=== PATIENT | male | born 1945 | race Caucasian/White ===

== ENCOUNTER 2017-12-31 09:24 | Day surgery (SDC) | payer OTHER, BC ==
[2017-12-30 17:26] LABS: Absolute Lymphocytes (CBC) 1.5 K/uL (0.7-4.9); Absolute Monocytes 0.7 K/uL (0.1-1.3); Absolute Neutrophil 4.5 K/uL (1.8-8.0); Basophils % 0.5 % (0-1.3); Eosinophils % 0.9 % (0-4.4); Hematocrit 45.6 % (39.6-49.0); Lymphocytes % 21.4 % (15.3-44.8); MCH 32.6 pg (27.0-35.0); MCV 94.3 fL (80-100); MPV 10.1 fL (7.6-11.3); Monocytes % 10.7 % (3.3-12.3); RBC Red Blood Cell Count 4.83 M/uL (4.33-5.43)
[2017-12-30 17:38] LABS: Protime INR 1.13
[2017-12-30 17:43] LABS: Potassium 3.7 mmol/L (3.5-5.1)
[2017-12-31 07:34] LABS: Urine Appearance CLEAR; Urine Bilirubin NEGATIVE (NEG); Urine Blood NEGATIVE (NEG); Urine Color YELLOW; Urine Glucose NEGATIVE (NEG); Urine Microscopic Reflex NO UMIC; Urine Protein NEGATIVE (NEG); Urine Specific Gravity <=1.005 (1.005-1.030); Urine Urobilinogen 0.2 mg/dL (0.2-1.0)
--- OUTSIDE RECORDS SUMMARY | 2017-12-31 09:31 | XMS REPORT | Clinical Summary ---
:1945 Author Organization [facility] Address [address] [place] [address] Care Team Providers Name Role Phone Duran Contreras MD Primary Care Provider Allergies Active Allergy Reactions Severity Noted Date Comments Penicillins Swelling 09/11/2017 Butorphanol Tartrate Other (See Comments) 09/11/2017 Dizziness Current Medications Prescription Sig. Disp. Refills Start Date End Date Status levothyroxine Take 50 mcg by Active (SYNTHROID, LEVOXYL) mouth every 50 mcg tablet morning. liothyronine (CYTOMEL) Take 5 mcg by Active 5 MCG tablet mouth daily. tamsulosin (FLOMAX) Take 0.4 mg by Active 0.4 mg mouth 2 (two) capsule,extended times a day. release 24hr finasteride (PROSCAR) Take 5 mg by Active 5 mg tablet mouth daily. pantoprazole sodium Take 40 mg by Active (PANTOPRAZOLE ORAL) mouth daily. gabapentin (NEURONTIN) Take 300 mg by Active 300 mg capsule mouth 2 (two) times a day. mirabegron (MYRBETRIQ) Take 50 mg by Active 50 mg tablet extended mouth daily. release 24 hr escitalopram (LEXAPRO) Take 5 mg by Active 5 MG tablet mouth daily. carvedilol (COREG) 25 Take 12.5 mg by Active MG tablet mouth 2 (two) times a day. apixaban (ELIQUIS) 5 Take 5 mg by Active mg tablet mouth 2 (two) times a day. sotalol (BETAPACE) 80 Take 80 mg by Active MG tablet mouth 2 (two) times a day. aspirin (ECOTRIN) 81 Take 1 tablet 30 tablet 0 09/11/2017 10/11/2017 MG enteric coated (81 mg total) tablet by mouth daily for 30 days. Active Problems Not on file Encounters Date Type Specialty Care Team Description 09/11/2017 Hospital Encounter Procedural Cristopher, Bhanu Atrial fibrillation, Cardiology MD Gayla unspecified type 09/11/2017 Procedure Pass Procedural Cardiology 09/11/2017 Surgery Procedural Bhanu Nicholas Ep cardioversion Cardiology MD Gayla [[id number] (CPT)] after 12/30/2016 Family History Medical History Relation Name Comments Heart disease Mother Relation Name Status Comments Mother Social History Tobacco Use Types Packs/Day Years Used Date Never Smoker Smokeless Tobacco: Never Used Alcohol Use Drinks/Week oz/Week Comments No Sex Assigned at Date Recorded Not on file Last Filed Vital Signs Vital Sign Reading Time Taken Blood Pressure 141/82 09/11/2017 8:45 AM CDT Pulse 62 09/11/2017 8:45 AM CDT Temperature 36.7 C (98.1 F) 09/11/2017 6:45 AM CDT Respiratory Rate 21 09/11/2017 8:45 AM CDT Oxygen Saturation 94% 09/11/2017 8:45 AM CDT Inhaled Oxygen Concentration - - Weight 103 kg (227 lb 3.2 oz) 09/11/2017 6:25 AM CDT Height 180.3 cm (5' 11") 09/11/2017 6:25 AM CDT Body Mass Index 31.69 09/11/2017 6:25 AM CDT Plan of Treatment Not on file Procedures Procedure Name Priority Date/Time Associated Diagnosis Comments ECG 12-LEAD STAT 09/11/2017 8:23 AM Results for this CDT procedure are in the results section. EP CARDIOVERSION Routine 09/11/2017 8:16 AM Atrial fibrillation, Results for this CDT unspecified type procedure are in the results section. ECG PRE/POST OP Routine 09/11/2017 6:13 AM Results for this CDT procedure are in the results section. after 12/30/2016 Results ECG 12 lead (09/11/2017 8:23 AM) Ventricular rate 65 [facility] Atrial rate 65 [facility] RI interval 162 [facility] QRSD interval 94 [facility] QT interval 452 [facility] QTC interval 470 [facility] P axis 1 68 [facility] QRS axis 1 -25 [facility] T wave axis -30 [facility] EKG impression Normal sinus rhythm-Inferior infarct , age undetermined-Cannot rule out Anterior infarct , age undetermined-Abnormal ECG-In automated comparison with ECG of 11-SEP-2017 06:13,-Sinus rhythm has replaced [facility] Atrial fibrillation-Vent. rate has decreased BY33 BPM- : 18 AM Performing Organization Address [facility] Phone Number [facility] [address] [place] [address] Cv electrophysiology procedure (09/11/2017 8:16 AM) Narrative Performed At Coy Lamb,[id number] [facility] 71 y.o. male 09/11/2017; [facility] 8 PROCEDURE ROOM 14 Procedure(s): Ep cardioversion Tolerated procedure well Condition: stable Complications:None; patient tolerated the procedure well. Findings: The patient was identified and consent reconfirmed prior to the procedure The baseline rhythm was atrial fibrillation Anesthesia was given When the patient was adequately sedated, synchronized DC CVN was performed converting the patient to sinus The patient awoke without sequelae Procedure Details Pre-op Diagnosis: Atrial fibrillation, unspecified type [I48.91] Post-Op Diagnosis Codes: * Atrial fibrillation, unspecified type [I48.91] Surgeon(s) and Role: * Bhanu Nicholas Jr., MD - Primary Anesthesia: Anesthesia type not filed in the log. Blood Products Administered:none Estimated Blood Loss: * No values recorded between 09/11/20176:48 AM and 09/11/20178:16 AM * Sheath/IV: Specimens: * No specimens in log * Grafts/Implants: None Successful Cardioversion from Afib to NSR Recommendations:Continue OAC and Sotalol and follow in the office in 3 weeks to assess any clinical benefit Bhanu Nicholas Jr., MD Date: 09/11/2017Time: 8:25 AM Performing Organization Address [facility] Phone Number [facility] [address] [place] [address] ECG Pre/Post Op (09/11/2017 6:13 AM) Ventricular rate 98 [facility] Atrial rate 113 [facility] QRSD interval 96 [facility] QT interval 386 [facility] QTC interval 492 [facility] QRS axis 1 -19 [facility] T wave axis 7 [facility] EKG impression Atrial fibrillation-Nonspecific T wave [facility] abnormality-Abnormal ECG-No previous ECGs available- Performing Organization Address City/State/Zipcode Phone Number [facility] [address] [place] [address] after 12/30/2016 Insurance Payer Benefit Plan / Group Subscriber ID Type Phone Address MEDICARE MEDICARE PART A AND B xxxxxxxxxx Medicare [place], [place] BCBS BCBS PAR/TRAD PLAN xxxxxxxxxxxx Indemnity Home: [address] [facility] [phone] [address]
--- NOTE | 2017-12-31 10:23 | RAD REPORT ---
EXAM DESCRIPTION: RAD - Abdomen 1 View (KUB) - 12/31/2017 9:53 am CLINICAL HISTORY: PREOP Pain COMPARISON: Angio Aorta For Dissection dated 07/14/2016 FINDINGS: The bowel gas pattern is non-obstructive. No evidence of free air or pneumatosis. No suspi cious calcifications. No significant bony findings. Cholecystectomy clips. IMPRESSION: Negative examination.
[2017-12-31] MEDS ORDERED: GENTAMICIN 100 MG/100 ML BAG 100 MG/100 ML BAG IV ONE (10:36)
[2017-12-31] MEDS ORDERED: Ringers Lactate 1,000 ML IV ONE (10:36)
[2017-12-31] MEDS ORDERED: LIDOCAINE 1% MPF 5 ML VIAL ONE (11:37)
[2017-12-31] MEDS ORDERED: FENTANYL CITR 100 MCG/2 ML ONE (11:37)
[2017-12-31] MEDS ORDERED: PROPOFOL 200 MG/20 ML VIAL IV ONE (11:37)
[2017-12-31] MEDS ORDERED: EPHEDRINE SULF 50 MG/10 ML SYR ONE (11:50)
[2017-12-31] MEDS ORDERED: ONDANSETRON HCL 40 MG/20 ML VIAL ONE (12:10)
[2017-12-31] MEDS ORDERED: TRAMADOL HCL 50 MG TAB ONE (13:48)
== END 2017-12-31 14:45 | disposition home or self-care (01) ==
LOC: OR 09:24
PROVIDERS: ATTEND Urology
PROC: 0V508ZZ Destruction of Prostate, Via Natural or Artificial Opening Endoscopic (ICD-10-PCS; principal; 2017-12-31 11:30)
DX: N40.1 Benign prostatic hyperplasia with lower urinary tract symptoms (principal); N20.0 Calculus of kidney; R39.12 Poor urinary stream
CPT/HCPCS: 36415; 52601; 74018; 80048; 81003; 85025; 85610; 85730; 87086 ×2; 87088 ×2; J1580; J2405; J3010

== ENCOUNTER 2018-01-01 14:57 | Emergency (ER) | payer OTHER, BC ==
--- OUTSIDE RECORDS SUMMARY | 2018-01-01 14:59 | XMS REPORT | Clinical Summary ---
:1945 Author Organization [facility] Address [address] [place] [address] Care Team Providers Name Role Phone Duran [...] Bhanu Nicholas Ep cardioversion Cardiology MD Gayla [[id number] (CPT)] after 12/31/2016 Family History Medical History Relation Name Comments [...] procedure are in the results section. after 12/31/2016 Results ECG 12 lead (09/11/2017 8:23 AM) Ventricular rate 65 [facility] Atrial rate 65 [facility] [place] interval 162 [facility] QRSD interval 94 [...] ECG of 11-SEP-2017 06:13,-Sinus rhythm has replaced [facility] Atrial fibrillation-Vent. rate has decreased BY33 BPM- : 18 AM Performing Organization Address [facility] Phone Number [facility] [address] [place] [address] Cv electrophysiology procedure (09/11/2017 8:16 AM) Narrative Performed At Coy Lamb,[id number] CUPID 71 y.o. male 09/11/2017; [facility] 8 PROCEDURE ROOM 14 Procedure(s): [...] Date: 09/11/2017Time: 8:25 AM Performing Organization Address [facility] Phone Number [facility] [address] [place] [address] ECG Pre/Post Op (09/11/2017 6:13 AM) Ventricular rate 98 [facility] Atrial rate 113 [facility] QRSD interval 96 [facility] QT interval 386 [facility] QTC interval 492 [facility] QRS axis 1 -19 [facility] T wave axis 7 [facility] EKG impression Atrial fibrillation-Nonspecific T wave [facility] abnormality-Abnormal ECG-No previous ECGs available- Performing Organization Address City/State/Zipcode Phone Number [facility] [address] [place] [address] after 12/31/2016 Insurance Payer Benefit Plan / Group Subscriber ID Type Phone Address MEDICARE MEDICARE PART A AND B xxxxxxxxxx Medicare [place], [place] BCBS BCBS PAR/TRAD PLAN xxxxxxxxxxxx Indemnity Home: [address] [facility] [phone] [address]
[2018-01-01 15:52] LABS: Urine Blood 3+ (NEG); Urine Glucose NEGATIVE (NEG); Urine Protein 3+ (NEG); Urine Specific Gravity >1.030 (1.005-1.030)
[2018-01-01 16:00] LABS: Absolute Lymphocytes (CBC) 1.2 K/uL (0.7-4.9); Absolute Neutrophil 11.5 K/uL (1.8-8.0); Basophils % 0.3 % (0-1.3); Eosinophils % 0.3 % (0-4.4); Hematocrit 42.6 % (39.6-49.0); Lymphocytes % 8.1 % (15.3-44.8); MCH 32.2 pg (27.0-35.0); MPV 9.9 fL (7.6-11.3); Monocytes % 13.3 % (3.3-12.3); RBC Red Blood Cell Count 4.58 M/uL (4.33-5.43)
[2018-01-01] MEDS ORDERED: NA CHLORIDE 0.9% 1,000 ML ONE (16:11)
[2018-01-01 16:17] LABS: Albumin 3.6 g/dL (3.4-5.0); Bilirubin Total 1.9 mg/dL (0.2-1.0); Potassium 3.7 mmol/L (3.5-5.1); Protein, Total 6.9 g/dL (6.4-8.2); Urine Bacteria >50 /HPF (NONE SEEN); Urine Mucus 1+ /HPF (NONE SEEN); Urine RBC >50 /HPF (NONE SEEN)
[2018-01-01 16:18] LABS: Urine Culture Reflex Order NOT NEEDED
[2018-01-01] MEDS ORDERED: CEFTRIAXONE/SWI 1gm 1 GM/10 ML SYR ONE (17:27)
[2018-01-01] MEDS ORDERED: ALBUTEROL 2.5 MG/3 ML NEB SOL ONE (17:27)
[2018-01-01] MEDS ORDERED: IPRATROPIUM BROM 0.5MG/2.5ML ONE (17:27)
--- NOTE | 2018-01-01 18:04 | EDPHYS ---
Physician Documentation [facility] Name: Sunday Pinto Jr Age: 72 yrs Sex: Male : 1945 Arrival Date: 01/01/2018 Time: 15:00 Bed 28 Private MD: Duran Contreras ED Physician Donta Willard HPI: 01/01 15:14 This 72 yrs old Male presents to ER via Ambulatory with complaints of Fever. kav 15:42 The patient reports fever, not measured (subjective), that was measured at 99.9 degrees kav Fahrenheit, with an emergency department temperature of 98.6 degrees Fahrenheit. Onset: The symptoms/episode began/occurred acutely, just prior to arrival. Modifying factors: patient reports having a TURP 12/31/17 w/ Dr. Hanna. Associated signs and symptoms: Pertinent negatives: chills, myalgias, nausea. Severity of symptoms: At their worst the symptoms were mild just prior to arrival. The patient has not experienced similar symptoms in the past. The patient has been recently seen by a physician: Dr. Hanna. Historical: - Allergies: 15:10 Bactrim; hj 15:10 butorphanol tartrate; hj 15:10 PENICILLINS; hj 15:10 Stadol; hj - Home Meds: 15:10 tamsulosin 0.4 mg Oral cp24 1 cap once daily [Active]; Eliquis 5 mg oral tab 1 tab 2 hj times per day [Active]; sotalol 80 mg Oral tab 1 tab 2 times per day [Active]; finasteride 5 mg Oral tab 1 tab once daily [Active]; pantoprazole 40 mg Oral TbEC 1 tab once daily [Active]; pantoprazole 40 mg oral TbEC 1 tab once daily [Active]; Aspir-81 81 mg Oral TbEC 1 tab once daily [Active]; levothyroxine 50 mcg tab 1 tab once daily [Active]; liothyronine 5 mcg oral tab 1 tab once daily [Active]; gabapentin 300 mg oral cap 1 cap 3 times per day [Active]; galantamine 4 mg oral tab 1 tab 2 times per day [Active]; escitalopram oxalate 5 mg oral tab 1 tab once daily [Active]; ropinirole 0.5 mg oral tab 1 tab daily [Active]; meloxicam 15 mg oral tab 1 tab once daily [Active]; tramadol 50 mg Oral tab 1 tab every 6 hours [Active]; nitrofurantoin macrocrystal 100 mg Oral cap 1 cap every 6 hours [Active]; - PMHx: 15:10 Anxiety; BPH; Hypertension; Hypothyroidism; hj - PSHx: 15:10 Cholecystectomy; Tonsillectomy; colectomy; R shoulder; TURP; hj - Immunization history:: Adult Immunizations up to date. - Social history:: Smoking status: Patient/guardian denies using tobacco, Patient/guardian denies using alcohol. - Ebola Screening: : Patient negative for fever greater than or equal to 101.5 degrees Fahrenheit, and additional compatible Ebola Virus Disease symptoms Patient denies exposure to infectious person Patient denies travel to an Ebola-affected area in the 21 days before illness onset. - Family history:: not pertinent. - Hospitalizations: : No recent hospitalization is reported. - History obtained from: . ROS: 15:44 Constitutional: Negative for fever, chills, and weight loss, Eyes: Negative for injury, kav pain, redness, and discharge, ENT: Negative for injury, pain, and discharge, Neck: Negative for injury, pain, and swelling, Cardiovascular: Negative for chest pain, palpitations, and edema, Respiratory: Negative for shortness of breath, cough, wheezing, and pleuritic chest pain, Abdomen/GI: Negative for abdominal pain, nausea, vomiting, diarrhea, and constipation, Back: Negative for injury and pain, MS/Extremity: Negative for injury and deformity, Skin: Negative for injury, rash, and discoloration, Neuro: Negative for headache, weakness, numbness, tingling, and seizure, Psych: Negative for depression, anxiety, suicide ideation, homicidal ideation, and hallucinations, Allergy/Immunology: Negative for hives, rash, and allergies, Endocrine: Negative for neck swelling, polydipsia, polyuria, polyphagia, and marked weight changes, Hematologic/Lymphatic: Negative for swollen nodes, abnormal bleeding, and unusual bruising. 15:44 : Positive for small amounts, hematuria, Negative for urinary symptoms, urinary frequency, pelvic pain, burning with urination, testicular pain Exam: 15:44 Constitutional: This is a well developed, well nourished patient who is awake, alert, kav and in no acute distress. Head/Face: Normocephalic, atraumatic. Eyes: Pupils equal round and reactive to light, extra-ocular motions intact. Lids and lashes normal. Conjunctiva and sclera are non-icteric and not injected. Cornea within normal limits. Periorbital areas with no swelling, redness, or edema. ENT: Nares patent. No nasal discharge, no septal abnormalities noted. Tympanic membranes are normal and external auditory canals are clear. Oropharynx with no redness, swelling, or masses, exudates, or evidence of obstruction, uvula midline. Mucous membranes moist. Neck: Trachea midline, no thyromegaly or masses palpated, and no cervical lymphadenopathy. Supple, full range of motion without nuchal rigidity, or vertebral point tenderness. No Meningismus. Chest/axilla: Normal chest wall appearance and motion. Nontender with no deformity. No lesions are appreciated. Cardiovascular: Regular rate and rhythm with a normal S1 and S2. No gallops, murmurs, or rubs. Normal PMI, no JVD. No pulse deficits. Respiratory: Lungs have equal breath sounds bilaterally, clear to auscultation and percussion. No rales, rhonchi or wheezes noted. No increased work of breathing, no retractions or nasal flaring. Abdomen/GI: Soft, non-tender, with normal bowel sounds. No distension or tympany. No guarding or rebound. No evidence of tenderness throughout. Back: No spinal tenderness. No costovertebral tenderness. Full range of motion. Skin: Warm, dry with normal turgor. Normal color with no rashes, no lesions, and no evidence of cellulitis. MS/ Extremity: Pulses equal, no cyanosis. Neurovascular intact. Full, normal range of motion. Neuro: Awake and alert, GCS 15, oriented to person, place, time, and situation. Cranial nerves II-XII grossly intact. Motor strength 5/5 in all extremities. Sensory grossly intact. Cerebellar exam normal. Normal gait. Psych: Awake, alert, with orientation to person, place and time. Behavior, mood, and affect are within normal limits. 15:44 : CVA tenderness, is absent, Male external genitalia: normal, Bladder: is normal. Vital Signs: 15:11 BP 150 / 84; Pulse 60; Resp 18; Temp 98.4(O); Pulse Ox 97% on R/A; Weight 98.43 kg; hj Height 5 ft. 11 in. (180.34 cm); Pain 0/10; 15:30 BP 145 / 71; Pulse 53; Resp 18; Pulse Ox 96% on R/A; tl3 17:00 BP 165 / 80; Pulse 59; Resp 18; Pulse Ox 94% on R/A; tl3 18:00 BP 155 / 78; Pulse 67; Resp 18; Pulse Ox 98% ; tl3 15:11 Body Mass Index 30.27 (98.43 kg, 180.34 cm) MDM: 15:23 Medical screening is not applicable. kav 16:49 Data reviewed: vital signs, nurses notes, lab test result(s), CBC, electrolytes, kav urinalysis. Physician consultation: Katia Hanna MD was called at 16:51, was contacted at 16:51, regarding patient's condition, would like medications started, cipro 500 mg po bid x 7 days. 01/01 15:24 Order name: CBC with Diff; Complete Time: 16:14 [facility] 01/01 15:24 Order name: Creatinine for Radiology; Complete Time: 16:15 ka 01/01 15:24 Order name: Urine Microscopic Only; Complete Time: 16:49 kav 01/01 15:24 Order name: CMP; Complete Time: 16:49 [facility] 01/01 15:50 Order name: Urine Dipstick--Ancillary (enter results); Complete Time: 16:14 bd 01/01 16:14 Interpretation: USPGR >1.030; UKET 3+; UBLD 3+; UPROT 3+; U NIT POSITIVE; UESTR 1+. ka 01/01 15:24 Order name: IV Saline Lock; Complete Time: 16:00 kav 01/01 15:24 Order name: Labs collected and sent; Complete Time: 16:00 [facility] 01/01 15:24 Order name: Urine Dipstick-Ancillary (obtain specimen); Complete Time: 16:00 ka Administered Medications: 16:10 Drug: NS 0.9% 1000 ml Route: IV; Rate: 100 ml/hr; Site: left antecubital; Delivery: tl3 Primary tubing; 18:14 Follow up: IV Status: Completed infusion; IV Intake: 400ml tl3 17:20 Drug: DuoNeb (3:1) (2.5 mg - 0.5 mg) 3 ml Route: Nebulizer; tl3 18:12 Follow up: Response: No adverse reaction tl3 17:25 Drug: Rocephin - (cefTRIAXone) 1 grams Route: IVPB; Infused Over: 30 mins; Site: left tl3 antecubital; Delivery: Primary tubing; 17:57 Follow up: IV Status: Completed infusion; IV Intake: 20ml tl3 Disposition: 18:46 Co-signature as Attending Physician, Donta Willard MD. rn Disposition: 01/01/18 18:03 Discharged to Home. Impression: Urinary tract infection, site not specified, Fever, unspecified. - Condition is Stable. - Discharge Instructions: Fever, Adult, Urinary Tract Infection, Adult, [id number]. - Prescriptions for Cipro 500 mg Oral Tablet - take 1 tablet by ORAL route every 12 hours for 7 days; 14 tablet. - Medication Reconciliation Form, Thank You Letter, Antibiotic Education form. - Follow up: Katia Hanna MD; When: 5 - 6 days; Reason: Recheck today's complaints, Continuance of care, Re-evaluation by your physician. - Problem is new. - Symptoms have improved. Signatures: Dispatcher [employer] EDSuha Reardon, [employer] WEB DEVELOPER [employer] WEB DEVELOPER Donta Chan MD MD rn Joaquin, Henry, RN RN hj Lowrey, Tammy, RN RN tl3 Corrections: (The following items were deleted from the chart) 18:13 18:03 01/01/2018 18:03 Discharged to Home. Impression: Urinary tract infection, site tl3 not specified; Fever, unspecified. Condition is Stable. Forms are Medication Reconciliation Form, Thank You Letter, Antibiotic Education, Prescription Opioid Use. Follow up: Katia Hanna; When: 5 - 6 days; Reason: Recheck today's complaints, Continuance of care, Re-evaluation by your physician. Problem is new. Symptoms have improved. destiny
--- NOTE | 2018-01-01 18:04 | ER ---
Nurse's Notes [facility] Name: Sunday Pinto Jr Age: 72 yrs Sex: Male : 1945 Arrival Date: 01/01/2018 Time: 15:00 Bed 28 Private MD: Duran Contreras Diagnosis: Urinary tract infection, site not specified;Fever, unspecified Presentation: 01/01 15:04 Presenting complaint: Patient states: has a TURP done yesterday, and today, temp was hj around 99.9; denies chills; denies nausea and vomiting;. Transition of care: patient was not received from another setting of care. Onset of symptoms was January 01, 2018. Risk Assessment: Do you want to hurt yourself or someone else? Patient reports no desire to harm self or others. Initial Sepsis Screen: Does the patient meet any 2 criteria? No. Patient's initial sepsis screen is negative. Does the patient have a suspected source of infection? No. Patient's initial sepsis screen is negative. Care prior to arrival: None. 15:04 Method Of Arrival: Ambulatory hj 15:04 Acuity: SABINO 3 hj Triage Assessment: 15:11 General: Appears in no apparent distress. uncomfortable, Behavior is calm, cooperative, hj appropriate for age. Pain: Denies pain. Historical: - Allergies: 15:10 Bactrim; hj 15:10 butorphanol tartrate; hj 15:10 PENICILLINS; hj 15:10 Stadol; hj - Home Meds: 15:10 tamsulosin 0.4 mg Oral cp24 1 cap once daily [Active]; Eliquis 5 mg oral tab 1 tab 2 hj times per day [Active]; sotalol 80 mg Oral tab 1 tab 2 times per day [Active]; finasteride 5 mg Oral tab 1 tab once daily [Active]; pantoprazole 40 mg Oral TbEC 1 tab once daily [Active]; pantoprazole 40 mg oral TbEC 1 tab once daily [Active]; Aspir-81 81 mg Oral TbEC 1 tab once daily [Active]; levothyroxine 50 mcg tab 1 tab once daily [Active]; liothyronine 5 mcg oral tab 1 tab once daily [Active]; gabapentin 300 mg oral cap 1 cap 3 times per day [Active]; galantamine 4 mg oral tab 1 tab 2 times per day [Active]; escitalopram oxalate 5 mg oral tab 1 tab once daily [Active]; ropinirole 0.5 mg oral tab 1 tab daily [Active]; meloxicam 15 mg oral tab 1 tab once daily [Active]; tramadol 50 mg Oral tab 1 tab every 6 hours [Active]; nitrofurantoin macrocrystal 100 mg Oral cap 1 cap every 6 hours [Active]; - PMHx: 15:10 Anxiety; BPH; Hypertension; Hypothyroidism; hj - PSHx: 15:10 Cholecystectomy; Tonsillectomy; colectomy; R shoulder; TURP; hj - Immunization history:: Adult Immunizations up to date. - Social history:: Smoking status: Patient/guardian denies using tobacco, Patient/guardian denies using alcohol. - Ebola Screening: : Patient negative for fever greater than or equal to 101.5 degrees Fahrenheit, and additional compatible Ebola Virus Disease symptoms Patient denies exposure to infectious person Patient denies travel to an Ebola-affected area in the 21 days before illness onset. - Family history:: not pertinent. - Hospitalizations: : No recent hospitalization is reported. - History obtained from: . Screenin:11 Abuse screen: Denies threats or abuse. Denies injuries from another. Nutritional hj screening: No deficits noted. Tuberculosis screening: No symptoms or risk factors identified. Fall Risk None identified. Assessment: 15:30 General: Appears uncomfortable, well groomed, well developed, well nourished, Behavior tl3 is calm, cooperative, appropriate for age. Pain: Denies pain. Neuro: Level of Consciousness is awake, alert, obeys commands, Oriented to person, place, time, situation, Appropriate for age. Cardiovascular: Patient's skin is warm and dry. Respiratory: Airway is patent Respiratory effort is even, unlabored, Respiratory pattern is regular, symmetrical. GI: No signs and/or symptoms were reported involving the gastrointestinal system. : Urine is blood tinged, Reports catheter removed this am, slight fever this afternoon. EENT: No signs and/or symptoms were reported regarding the EENT system. Derm: No signs and/or symptoms reported regarding the dermatologic system. Musculoskeletal: No signs and/or symptoms reported regarding the musculoskeletal system. 17:00 Reassessment: Patient appears in no apparent distress at this time. No changes from tl3 previously documented assessment. Patient and/or family updated on plan of care and expected duration. Pain level reassessed. Patient is alert, oriented x 3, equal unlabored respirations, skin warm/dry/pink. Vital Signs: 15:11 BP 150 / 84; Pulse 60; Resp 18; Temp 98.4(O); Pulse Ox 97% on R/A; Weight 98.43 kg; hj Height 5 ft. 11 in. (180.34 cm); Pain 0/10; 15:30 BP 145 / 71; Pulse 53; Resp 18; Pulse Ox 96% on R/A; tl3 17:00 BP 165 / 80; Pulse 59; Resp 18; Pulse Ox 94% on R/A; tl3 18:00 BP 155 / 78; Pulse 67; Resp 18; Pulse Ox 98% ; tl3 15:11 Body Mass Index 30.27 (98.43 kg, 180.34 cm) ED Course: 15:00 Patient arrived in ED. mr 15:00 Duran Contreras MD is Private Physician. mr 15:05 Triage completed. hj 15:11 Arm band placed on left wrist. hj 15:11 Patient has correct armband on for positive identification. Bed in low position. Call hj light in reach. Side rails up X 1. Adult w/ patient. 15:14 Suha Lazcano FNP is PHCP. kav 15:14 Donta Willard MD is Attending Physician. kav 15:30 No provider procedures requiring assistance completed. Inserted saline lock: 20 gauge tl3 in left antecubital area, using aseptic technique. Blood collected. 15:34 Anabel Jones, LUCRETIA is Primary Nurse. tl3 18:00 IV discontinued, intact, bleeding controlled, No redness/swelling at site. Pressure tl3 dressing applied. 18:02 Katia Hanna MD is Referral Physician. kav Administered Medications: 16:10 Drug: NS 0.9% 1000 ml Route: IV; Rate: 100 ml/hr; Site: left antecubital; Delivery: tl3 Primary tubing; 18:14 Follow up: IV Status: Completed infusion; IV Intake: 400ml tl3 17:20 Drug: DuoNeb (3:1) (2.5 mg - 0.5 mg) 3 ml Route: Nebulizer; tl3 18:12 Follow up: Response: No adverse reaction tl3 17:25 Drug: Rocephin - (cefTRIAXone) 1 grams Route: IVPB; Infused Over: 30 mins; Site: left tl3 antecubital; Delivery: Primary tubing; 17:57 Follow up: IV Status: Completed infusion; IV Intake: 20ml tl3 Intake: 17:57 IV: 20ml; Total: 20ml. tl3 18:14 IV: 400ml; Total: 420ml. tl3 Outcome: 18:00 Discharged to home ambulatory. tl3 18:00 Condition: stable 18:00 Discharge instructions given to patient, family, Instructed on discharge instructions, follow up and referral plans. medication usage, Demonstrated understanding of instructions, follow-up care, medications, Prescriptions given X 1. 18:03 Discharge ordered by MD. dixon 18:13 Patient left the ED. tl3 Signatures: Suha Lazcano, AIRPORT DUTY MANAGER AIRPORT DUTY MANAGER Tete Marquez ArielBud, RN RN Anabel Medley RN RN tl3 Corrections: (The following items were deleted from the chart) 15:14 15:11 Pulse 65bpm; Resp 18bpm; Pulse Ox 100% RA; Temp 98.4F Oral; 98.43 kg; Height 5 hj ft. 11 in.; BMI: 30.2; Pain 0/10; hj
== END 2018-01-01 18:13 | disposition home or self-care (01) ==
LOC: ER 14:57
DX: N39.0 Urinary tract infection, site not specified (principal); I10 Essential (primary) hypertension; E03.9 Hypothyroidism, unspecified; F41.9 Anxiety disorder, unspecified; Z79.01 Long term (current) use of anticoagulants; Z79.82 Long term (current) use of aspirin; Z88.0 Allergy status to penicillin; Z88.1 Allergy status to other antibiotic agents; Z88.5 Allergy status to narcotic agent; Z88.8 Allergy status to other drugs, medicaments and biological substances
CPT/HCPCS: 36415; 80053; 85025; J0696; J7030; 81003; 81015; 94640; 96361; 96365; 99284

== ENCOUNTER 2018-01-06 14:51 | Observation (INO) | payer OTHER, BC ==
--- OUTSIDE RECORDS SUMMARY | 2018-01-06 14:53 | XMS REPORT | Clinical Summary ---
:1945 Author Organization [facility] Address [address] [place] [address] Care Team Providers Name Role Phone Duran [...] Bhanu Nicholas Ep cardioversion Cardiology MD Gayla [[id number] (CPT)] after 01/05/2017 Family History Medical History Relation Name Comments [...] procedure are in the results section. after 01/05/2017 Results ECG 12 lead (09/11/2017 8:23 AM) Ventricular rate 65 [facility] Atrial rate 65 [facility] WA interval 162 [facility] QRSD interval 94 [...] ECG of 11-SEP-2017 06:13,-Sinus rhythm has replaced [facility] Atrial fibrillation-Vent. rate has decreased BY33 BPM- : 18 AM Performing Organization Address [facility] Phone Number [facility] [address] [place] [address] Cv electrophysiology procedure (09/11/2017 8:16 AM) Narrative Performed At [facility],[id number] [facility] 71 y.o. male 09/11/2017; [facility] 8 PROCEDURE ROOM 14 [...] Date: 09/11/2017Time: 8:25 AM Performing Organization Address [facility] Phone Number [facility] [address] [place] [address] ECG Pre/Post Op (09/11/2017 6:13 AM) Ventricular rate 98 [facility] Atrial rate 113 [facility] QRSD interval 96 [facility] QT interval 386 [facility] QTC interval 492 [facility] QRS axis 1 -19 [facility] T wave axis 7 [facility] EKG impression Atrial fibrillation-Nonspecific T wave [facility] abnormality-Abnormal ECG-No previous ECGs available- Performing Organization Address City/State/Zipcode Phone Number [facility] [address] [place] [address] after 01/05/2017 Insurance Payer Benefit Plan / Group Subscriber ID Type Phone Address MEDICARE MEDICARE PART A AND B xxxxxxxxxx Medicare [place], [place] BCBS BCBS PAR/TRAD PLAN xxxxxxxxxxxx Indemnity Home: [address] [facility] [phone] [address]
[2018-01-06] MEDS ORDERED: NA CHLORIDE 0.9% 1,000 ML ONE ×2 (15:30→16:12)
--- NOTE | 2018-01-06 15:47 | RAD REPORT ---
EXAM DESCRIPTION: CT - Head Brain Wo Cont - 01/06/2018 3:42 pm CLINICAL HISTORY: Transient alteration of awareness, hypotension COMPARISON: None. TECHNIQUE: Axial 5 mm thick images of the head were obtained without IV contrast. All CT scans are performed using dose optimization technique as appropriate and may include automated exposure control or mA/KV adjustment according to patient size. FINDINGS: No intracranial hemorrhage, mass, edema or shift of mid-line structures. No acute cortical based infarction. Patient has mild to moderate atrophy and chronic ischemic change. No abnormal extr a-axial fluid collections. Ventricles are in proportion to volume loss. Mastoid air cells and visualized portions of the paranasal sinuses are clear. No acute bony findings. IMPRESSION: Mild to moderate atrophy and chronic ischemic change. No acute intracranial finding.
[2018-01-06 15:54] LABS: Absolute Lymphocytes (CBC) 1.3 K/uL (0.7-4.9); Absolute Monocytes 0.9 K/uL (0.1-1.3); Absolute Neutrophil 4.6 K/uL (1.8-8.0); Basophils % 0.5 % (0-1.3); Eosinophils % 0.9 % (0-4.4); Hematocrit 40.8 % (39.6-49.0); Lymphocytes % 18.3 % (15.3-44.8); MCH 32.3 pg (27.0-35.0); MCV 94.6 fL (80-100); MPV 9.9 fL (7.6-11.3); Monocytes % 13.2 % (3.3-12.3); RBC Red Blood Cell Count 4.31 M/uL (4.33-5.43)
--- NOTE | 2018-01-06 15:56 | RAD REPORT ---
EXAM DESCRIPTION: RAD - Chest Single View - 01/06/2018 3:37 pm CLINICAL HISTORY: Cough COMPARISON: December 10 TECHNIQUE: AP portable chest image was obtained 1533 hours . FINDINGS: Lungs are clear. No failure or volume overload. Lung markings are similar to comparison. H eart and vasculature are normal. No measurable pleural effusion and no pneumothorax. No acute bone fi nding. No acute aortic findings suspected. IMPRESSION: No acute cardiopulmonary process. No significant change from comparison.
[2018-01-06 15:57] LABS: Protime INR 1.46
--- NOTE | 2018-01-06 16:07 | ER ---
Nurse's Notes [facility] Name: Sunday Pinto Jr Age: 72 yrs Sex: Male : 1945 Arrival Date: 01/06/2018 Time: 14:57 Bed 4 Private MD: Diagnosis: Syncope and collapse;Weakness;Atrial fibrillation and flutter;Hypotension Presentation: 01/06 14:58 Presenting complaint: EMS states: pt was at [facility] and complained of aa5 dizziness went home and continued feeling dizzy and called 911. EMS reports pt's BP was 79 systolic and after NS bolus increased to 90s systolic and then to 130s systolic. Pt denies pain at this time, c/o dizziness and generalized weakness. EMS also reports pt had TURP sx by Dr. Hanna last week. Transition of care: patient was not received from another setting of care. Onset of symptoms was January 06, 2018. Risk Assessment: Do you want to hurt yourself or someone else? Patient reports no desire to harm self or others. Initial Sepsis Screen: Does the patient meet any 2 criteria? No. Patient's initial sepsis screen is negative. Does the patient have a suspected source of infection? No. Patient's initial sepsis screen is negative. Care prior to arrival: Medication(s) given: Normal saline infusion, 500 mL, IV initiated. 20 GA, in the right hand, Glucose check: 94. 14:58 Method Of Arrival: EMS: [facility] aa5 14:58 Acuity: SABINO 3 aa5 Historical: - Allergies: 14:58 Bactrim; aa5 14:58 butorphanol tartrate; aa5 14:58 PENICILLINS; aa5 14:58 Stadol; aa5 - Home Meds: 16:16 Aspir-81 81 mg Oral TbEC 1 tab once daily [Active]; Eliquis 5 mg Oral tab 1 tab 2 times mg2 per day [Active]; escitalopram oxalate 5 mg Oral tab 1 tab once daily [Active]; finasteride 5 mg Oral tab 1 tab once daily [Active]; gabapentin 300 mg Oral cap 1 cap 3 times per day [Active]; galantamine 4 mg Oral tab 1 tab 2 times per day [Active]; levothyroxine 50 mcg tab 1 tab once daily [Active]; liothyronine 5 mcg Oral tab 1 tab once daily [Active]; meloxicam 15 mg Oral tab 1 tab once daily [Active]; nitrofurantoin macrocrystal 100 mg Oral cap 1 cap every 6 hours [Active]; pantoprazole 40 mg Oral TbEC 1 tab once daily [Active]; pantoprazole 40 mg Oral TbEC 1 tab once daily [Active]; ropinirole 0.5 mg Oral tab 1 tab daily [Active]; sotalol 80 mg Oral tab 1 tab 2 times per day [Active]; tamsulosin 0.4 mg Oral cp24 1 cap once daily [Active]; tramadol 50 mg Oral tab 1 tab every 6 hours [Active]; - PMHx: 14:58 Anxiety; BPH; Hypertension; Hypothyroidism; aa5 - PSHx: 14:58 Cholecystectomy; Tonsillectomy; R shoulder; TURP; aa5 - Immunization history:: Flu vaccine status is unknown. - Ebola Screening: : No symptoms or risks identified at this time. - Family history:: not pertinent. - Social history:: Smoking status: Patient/guardian denies using tobacco, Patient/guardian denies using alcohol, street drugs. Screenin:09 Abuse screen: Denies threats or abuse. Denies injuries from another. Nutritional mg2 screening: No deficits noted. Tuberculosis screening: No symptoms or risk factors identified. Fall Risk IV access (20 points). Assessment: 15:11 General: Appears in no apparent distress. comfortable, Behavior is calm, cooperative. mg2 Pain: Denies pain. 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 Cardiovascular: Capillary refill < 3 seconds Patient's skin is warm and dry. Respiratory: Airway is patent Respiratory effort is even, unlabored, Respiratory pattern is regular, symmetrical. GI: No signs and/or symptoms were reported involving the gastrointestinal system. : No signs and/or symptoms were reported regarding the genitourinary system. EENT: No signs and/or symptoms were reported regarding the EENT system. Derm: Skin is intact, Skin is pink, warm \T\ dry. normal. Musculoskeletal: No signs and/or symptoms reported regarding the musculoskeletal system. 15:43 Reassessment: patient sent to CT scan.. mg2 19:00 Reassessment: RECD REPORT FROM RON BOYKIN. 72YO WM P/W BP ISSUES AND DIZZINESS. PT bp CURRENTLY IN MRI. ADMIT IN PROCESS. 19:45 Reassessment: PT RETURNED FROM MRI. ADMIT IN PROCESS. bp 20:10 Reassessment: Report called to Rafaela BENTON ea Vital Signs: 14:58 BP 122 / 90; Pulse 74; Resp 16 S; Temp 98.3(O); Pulse Ox 99% on R/A; Weight 97.98 kg aa5 (R); Height 5 ft. 11 in. (180.34 cm) (R); Pain 0/10; 16:48 BP 137 / 88 LA Supine (auto/reg); Pulse 90 MON; Resp 17 S; Pulse Ox 98% on R/A; jp3 20:00 BP 145 / 101; Pulse 63; Resp 14; Pulse Ox 98% ; bp 14:58 Body Mass Index 30.13 (97.98 kg, 180.34 cm) aa5 ED Course: 14:57 Patient arrived in ED. aa5 14:58 Arm band placed on Patient placed in an exam room, on a stretcher. aa5 15:00 Gurvinder Carrera MD is Attending Physician. [facility] 15:00 Initial lab(s) drawn, by me, sent to lab. First set of blood cultures drawn by me, T\T\S mg2 collected, blood band applied to patient. 15:01 Triage completed. aa5 15:09 Luis Fernando Greene, RN is Primary Nurse. mg2 15:10 Maintain EMS IV. Dressing intact. Good blood return noted. Site clean \T\ dry. Gauge \T\ mg 2 site: 20 \T\ right hand. IV Flushed. 15:12 Patient has correct armband on for positive identification. Placed in gown. Call light mg2 in reach. Side rails up X2. Door closed. Warm blanket given. 15:[address] jg1 15:34 X-ray completed. Portable x-ray completed in exam room. Patient tolerated procedure bb2 well. 15:35 XRAY Chest (1 view) In Process Unspecified. EDMS 15:35 EKG done, by distribution technician. dt2 15:41 CT completed. Patient tolerated procedure well. Patient moved back from CT. nj 15:42 CT Head Brain wo Cont In Process Unspecified. EDMS 16:00 Inserted saline lock: 20 gauge in left forearm, using aseptic technique. Blood mg2 collected. 16:05 Martín Gallagher DO is Hospitalizing Provider. keira 16:[address] via stretcher. vm2 16:18 CT completed. Patient tolerated procedure well. Patient moved back from CT. vr 16:30 equipment monitor phototypesetting on. Pulse ox on. NIBP on. Assisted with bedpan. jp3 16:48 Urine Dipstick--Ancillary (enter results) Sent. jp3 18:30 Patient moved to MRI via stretcher. ka 19:09 Primary Nurse role handed off by Luis Fernando Greene, LUCRETIA bp 19:09 Duran Smith, RN is Primary Nurse. bp 19:54 Patient moved back from MRI. ka 20:08 No provider procedures requiring assistance completed. mg2 20:11 Patient admitted, IV remains in place. ea Administered Medications: 15:42 Drug: NS 0.9% 1000 ml Route: IV; Rate: 1 bolus; Site: right hand; mg2 18:36 Follow up: Response: No adverse reaction; IV Status: Completed infusion mg2 16:33 Drug: Rocephin - (cefTRIAXone) 1 grams Route: IVPB; Infused Over: 30 mins; Site: right mg2 hand; 18:36 Follow up: Response: No adverse reaction; IV Status: Completed infusion mg2 17:13 Drug: NS 0.9% 1000 ml Route: IV; Rate: 125 ml/hr; Site: right hand; mg2 19:24 Follow up: IV Status: Infusion continued upon admission bp Outcome: 16:07 Decision to Hospitalize by Provider. keira 20:10 Admitted to Med/surg accompanied by tech, room 424, with chart, Report called to Rafaela candelaria RN 20:44 Patient left the ED. bp Signatures: Dispatcher [employer] EDMS Gurvinder Carrera MD MD cha Garcia, Jessica jDonna Reynaga, RN RN No Scott Katelyn ka Jordan, Nathan nj McGuire, Victoria 2 Alyssa Houser RN RN ea Peltier, Brian, RN RN Kiki Gentile 2 Luis Fernando Greene, LUCRETIA RN Roseanne Nugent dt2 [place] jp3 Corrections: (The following items were deleted from the chart) 15:02 14:58 Presenting complaint: EMS states: pt was at [employer] and complained aa5 of dizziness went home and continued feeling dizzy and called 911. EMS reports pt's BP was 79 systolic and after NS bolus increased to 90s systolic and then to 130s systolic. Pt denies pain at this time, c/o dizziness and generalized weakness. aa5 15:03 13:58 BP 122 / 90; Pulse 74bpm; Resp 16bpm; Spontaneous; Pulse Ox 99% RA; Temp 98.3F aa5 Oral; 97.98 kg Reported; Height 5 ft. 11 in. Reported; BMI: 30.1; Pain 0/10; aa5
--- NOTE | 2018-01-06 16:07 | EDPHYS ---
Physician Documentation [facility] Name: Sunday Pinto Jr Age: 72 yrs Sex: Male : 1945 Arrival Date: 01/06/2018 Time: 14:57 Bed 4 Private MD: ED Physician Gurvinder Carrera HPI: 01/06 15:22 This 72 yrs old Male presents to ER via EMS with complaints of Blood Pressure keira Problem, Dizziness. 15:22 The patient presents with dizziness, generalized weakness, lightheadedness. Onset: The keira symptoms/episode began/occurred just prior to arrival, this morning. Context: occurred at home. Modifying factors: The symptoms are alleviated by lying down, the symptoms are aggravated by standing up, changing position. Associated signs and symptoms: Pertinent positives: near-syncope, palpitations. Severity of symptoms: At their worst the symptoms were moderate in the emergency department the symptoms are unchanged. Patient's baseline: Neuro: alert and fully oriented. The patient has not experienced similar symptoms in the past. Historical: - Allergies: 14:58 Bactrim; aa5 14:58 butorphanol tartrate; aa5 14:58 PENICILLINS; aa5 14:58 Stadol; aa5 - Home Meds: 16:16 Aspir-81 81 mg Oral TbEC 1 tab once daily [Active]; Eliquis 5 mg Oral tab 1 tab 2 times mg2 per day [Active]; escitalopram oxalate 5 mg Oral tab 1 tab once daily [Active]; finasteride 5 mg Oral tab 1 tab once daily [Active]; gabapentin 300 mg Oral cap 1 cap 3 times per day [Active]; galantamine 4 mg Oral tab 1 tab 2 times per day [Active]; levothyroxine 50 mcg tab 1 tab once daily [Active]; liothyronine 5 mcg Oral tab 1 tab once daily [Active]; meloxicam 15 mg Oral tab 1 tab once daily [Active]; nitrofurantoin macrocrystal 100 mg Oral cap 1 cap every 6 hours [Active]; pantoprazole 40 mg Oral TbEC 1 tab once daily [Active]; pantoprazole 40 mg Oral TbEC 1 tab once daily [Active]; ropinirole 0.5 mg Oral tab 1 tab daily [Active]; sotalol 80 mg Oral tab 1 tab 2 times per day [Active]; tamsulosin 0.4 mg Oral cp24 1 cap once daily [Active]; tramadol 50 mg Oral tab 1 tab every 6 hours [Active]; - PMHx: 14:58 Anxiety; BPH; Hypertension; Hypothyroidism; aa5 - PSHx: 14:58 Cholecystectomy; Tonsillectomy; R shoulder; TURP; aa5 - Immunization history:: Flu vaccine status is unknown. - Ebola Screening: : No symptoms or risks identified at this time. - Family history:: not pertinent. - Social history:: Smoking status: Patient/guardian denies using tobacco, Patient/guardian denies using alcohol, street drugs. ROS: 15:22 Constitutional: Negative for fever, chills, and weight loss, Eyes: Negative for injury, keira pain, redness, and discharge, ENT: Negative for injury, pain, and discharge, Neck: Negative for injury, pain, and swelling, Cardiovascular: Negative for chest pain, palpitations, and edema, Respiratory: Negative for shortness of breath, cough, wheezing, and pleuritic chest pain, Abdomen/GI: Negative for abdominal pain, nausea, vomiting, diarrhea, and constipation, Back: Negative for injury and pain, : Negative for injury, bleeding, discharge, and swelling, MS/Extremity: Negative for injury and deformity, Psych: Negative for depression, anxiety, suicide ideation, homicidal ideation, and hallucinations, Allergy/Immunology: Negative for hives, rash, and allergies, Endocrine: Negative for neck swelling, polydipsia, polyuria, polyphagia, and marked weight changes, Hematologic/Lymphatic: Negative for swollen nodes, abnormal bleeding, and unusual bruising. 15:22 Skin: Positive for pallor. 15:22 Neuro: Positive for weakness. Exam: 15:22 Constitutional: This is a well developed, well nourished patient who is awake, alert, keira and in no acute distress. Head/Face: Normocephalic, atraumatic. Eyes: Pupils equal round and reactive to light, extra-ocular motions intact. Lids and lashes normal. Conjunctiva and sclera are non-icteric and not injected. Cornea within normal limits. Periorbital areas with no swelling, redness, or edema. ENT: Nares patent. No nasal discharge, no septal abnormalities noted. Tympanic membranes are normal and external auditory canals are clear. Oropharynx with no redness, swelling, or masses, exudates, or evidence of obstruction, uvula midline. Mucous membranes moist. Neck: Trachea midline, no thyromegaly or masses palpated, and no cervical lymphadenopathy. Supple, full range of motion without nuchal rigidity, or vertebral point tenderness. No Meningismus. Chest/axilla: Normal chest wall appearance and motion. Nontender with no deformity. No lesions are appreciated. Cardiovascular: Regular rate and rhythm with a normal S1 and S2. No gallops, murmurs, or rubs. Normal PMI, no JVD. No pulse deficits. Respiratory: Lungs have equal breath sounds bilaterally, clear to auscultation and percussion. No rales, rhonchi or wheezes noted. No increased work of breathing, no retractions or nasal flaring. Abdomen/GI: Soft, non-tender, with normal bowel sounds. No distension or tympany. No guarding or rebound. No evidence of tenderness throughout. Back: No spinal tenderness. No costovertebral tenderness. Full range of motion. Male : Normal genitalia with no discharge or lesions. MS/ Extremity: Pulses equal, no cyanosis. Neurovascular intact. Full, normal range of motion. Neuro: Awake and alert, GCS 15, oriented to person, place, time, and situation. Cranial nerves II-XII grossly intact. Motor strength 5/5 in all extremities. Sensory grossly intact. Cerebellar exam normal. Normal gait. Psych: Awake, alert, with orientation to person, place and time. Behavior, mood, and affect are within normal limits. 15:22 Skin: Appearance: Color: pale. Vital Signs: 14:58 BP 122 / 90; Pulse 74; Resp 16 S; Temp 98.3(O); Pulse Ox 99% on R/A; Weight 97.98 kg aa5 (R); Height 5 ft. 11 in. (180.34 cm) (R); Pain 0/10; 16:48 BP 137 / 88 LA Supine (auto/reg); Pulse 90 MON; Resp 17 S; Pulse Ox 98% on R/A; jp3 20:00 BP 145 / 101; Pulse 63; Resp 14; Pulse Ox 98% ; bp 14:58 Body Mass Index 30.13 (97.98 kg, 180.34 cm) [facility] MDM: 15:00 Patient medically screened. [facility] 15:25 Data reviewed: vital signs, nurses notes, lab test result(s), EKG, radiologic studies, [facility] CT scan, plain films. 01/06 15:22 Order name: Basic Metabolic Panel [facility] 01/06 15:22 Order name: CBC with Diff; Complete Time: 16:03 [facility] 01/06 15:22 Order name: Ckmb [facility] 01/06 15:22 Order name: CPK [facility] 01/06 15:22 Order name: LFT's [facility] 01/06 15:22 Order name: Magnesium [facility] 01/06 15:22 Order name: NT PRO-BNP [facility] 01/06 15:22 Order name: PT-INR; Complete Time: 16:19 [facility] 01/06 15:22 Order name: Ptt, Activated; Complete Time: 16:19 [facility] 01/06 15:22 Order name: Troponin (emerg Dept Use Only); Complete Time: 16:19 [facility] 01/06 15:22 Order name: Lipase [facility] 01/06 15:22 Order name: Type And Screen [facility] 01/06 15:22 Order name: Blood Culture Adult (2) [facility] 01/06 15:22 Order name: Urine Culture [facility] 01/06 15:22 Order name: XRAY Chest (1 view); Complete Time: 16:03 [facility] 01/06 15:22 Order name: TSH [facility] 01/06 15:26 Order name: CT Head Brain wo Cont; Complete Time: 16:03 [facility] 01/06 16:08 Order name: Stone Protocol CT 01/06 16:30 Order name: Urine Dipstick--Ancillary (enter results) 01/06 16:32 Order name: CT EDMO 01/06 16:47 Order name: Urine Dipstick-Ancillary [facility] 01/06 20:03 Order name: US EDMS 01/06 20:06 Order name: MRI EDMS 01/06 20:09 Order name: MRI EDMS 01/06 20:13 Order name: MRI EDMS 01/06 20:26 Order name: Lactate EDMO 01/06 20:41 Order name: Procalcitonin [facility] 01/06 15:22 Order name: EKG; Complete Time: 15:23 [facility] 01/06 15:22 Order name: Cardiac monitoring; Complete Time: 15:41 [facility] 01/06 15:22 Order name: EKG - Nurse/Tech; Complete Time: 15:41 [facility] 01/06 15:22 Order name: IV Saline Lock; Complete Time: 15:41 [facility] 01/06 15:22 Order name: Labs collected and sent; Complete Time: 15:42 [facility] 01/06 15:22 Order name: O2 Per Protocol; Complete Time: 15:42 [facility] 01/06 15:22 Order name: O2 Sat Monitoring; Complete Time: 15:42 [facility] 01/06 15:22 Order name: Urine Dipstick-Ancillary (obtain specimen); Complete Time: 16:09 [facility] 01/06 15:56 Order name: Labs - recollect needed; Complete Time: 16:09 01/06 16:14 Order name: CONS Physician Consult EDMS 01/06 16:14 Order name: CONS Physician Consult EDMS Administered Medications: 15:42 Drug: NS 0.9% 1000 ml Route: IV; Rate: 1 bolus; Site: right hand; mg2 18:36 Follow up: Response: No adverse reaction; IV Status: Completed infusion mg2 16:33 Drug: Rocephin - (cefTRIAXone) 1 grams Route: IVPB; Infused Over: 30 mins; Site: right mg2 hand; 18:36 Follow up: Response: No adverse reaction; IV Status: Completed infusion mg2 17:13 Drug: NS 0.9% 1000 ml Route: IV; Rate: 125 ml/hr; Site: right hand; mg2 19:24 Follow up: IV Status: Infusion continued upon admission bp Disposition: 01/06/18 16:07 Hospitalization ordered by Martín Gallagher for Inpatient Admission. Preliminary diagnosis are Syncope and collapse, Weakness, Atrial fibrillation and flutter, Hypotension. - Bed requested for Telemetry/MedSurg (Inpatient). - Status is Inpatient Admission. bp - Condition is Fair. - Problem is new. - Symptoms have improved. UTI on Admission? No Signatures: Dispatcher [employer] EDMS Radha Galeas Corey, MD MD cha Calderon, Audri, RN RN aa5 Duran Smith, RN RN Luis Fernando Morin RN RN mg2 Corrections: (The following items were deleted from the chart) 18:19 16:07 Hospitalization Ordered by Martín Gallagher DO for Inpatient Admission. Preliminary bd diagnosis is Syncope and collapse; Weakness; Atrial fibrillation and flutter; Hypotension. Bed requested for Telemetry/MedSurg (Inpatient). Status is Inpatient Admission. Condition is Fair. Problem is new. Symptoms have improved. UTI on Admission? No. keira 20:44 18:19 01/06/2018 16:07 Hospitalization Ordered by Martín Gallagher DO for Inpatient bp Admission. Preliminary diagnosis is Syncope and collapse; Weakness; Atrial fibrillation and flutter; Hypotension. Bed requested for Telemetry/MedSurg (Inpatient). Status is Inpatient Admission. Condition is Fair. Problem is new. Symptoms have improved. UTI on Admission? No. bd
[2018-01-06] MEDS ORDERED: CEFTRIAXONE/SWI 1gm 1 GM/10 ML SYR ONE (16:12)
--- NOTE | 2018-01-06 16:31 | RAD REPORT ---
EXAM DESCRIPTION: CT - Stone Protocol - 01/06/2018 4:20 pm CLINICAL HISTORY: Abdominal pain. COMPARISON: 2016 TECHNIQUE: Computed axial tomography of the abdomen pelvis was obtained without oral or IV contrast. Lack of IV and oral contrast limits evaluation of solid organs, bowel, and vessels. Coronal reformat adela images were obtained and reviewed. All CT scans are performed using dose optimization technique as appropriate and may include automated exposure control or mA/KV adjustment according to patient size. FINDINGS: A renal calculus is not seen. An ureteral calculus is not noted. A bladder calculus is not present. 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 The gallbladder has been removed Small hiatal hernia is seen. The liver, spleen, pancreas and adrenals appear grossly normal There is no evidence of diverticulitis. A TURP has been performed Postsurgical changes involve the right colon. Bilateral inguinal hernias contain fat. IMPRESSION: Negative for a genitourinary calculus No acute abnormality is displayed
[2018-01-06 16:47] LABS: Urine Blood 3+ (NEG); Urine Glucose NEGATIVE (NEG); Urine Protein NEGATIVE (NEG)
[2018-01-06 16:50] LABS: Bilirubin Direct 0.1 mg/dL (0-0.2); Bilirubin Total 0.6 mg/dL (0.2-1.0); CKMB Creatine Kinase MB 2.5 ng/mL (0.3-3.6); Potassium 3.5 mmol/L (3.5-5.1); Protein, Total 5.9 g/dL (6.4-8.2); Thyroid Stimulating Hormone 1.84 uIU/mL (0.36-3.74)
[2018-01-06] MEDS ORDERED: ONDANSETRON 4 MG/2 ML VIAL IV PRN (17:14)
[2018-01-06] MEDS ORDERED: ACETAMINOPHEN 500 MG TAB PO PRN (17:14)
--- NOTE | 2018-01-06 18:06 | P.HP ---
Certification for Inpatient Patient admitted to: Observation With expected LOS: <2 Midnights Patient will require the following post-hospital care: None Practitioner: I am a practitioner with admitting privileges, knowledge of patient current condition, hospital course, and medical plan of care. Services: Services provided to patient in accordance with Admission requirements found in Title 42 Section 412.3 of the Code of Federal Regulations Patient History Date of Service: 01/06/18 Primary Care Provider: Dr. Contreras; Urology-Dr. Hanna; Cardiology-Dr. Dobson Reason for admission: Presyncope History of Present Illness: 72-year-old male presented emergency room with increasing fatigue and presyncope. [facility] He felt dizzy, tired and fell like fainting. He did not blackout. EMS was called. Patient found to have a blood pressure of around 79 systolic. Patient was given IV fluid bolus. This improved. Patient had reported some increasing fatigue over the last several days. Patient had a urological procedure last week. He reports taking his medications. Patient has dementia. It is unclear whether his story is clear. Family at bedside report that he had been doing well but described the patient having the urological procedure on Saturday. The patient was then seen in the ER on and told the he had a UTI. Patient was sent home with antibiotic therapy. Discuss some concern that the patient has not been drinking appropriate amounts of fluid. Patient denied any significant chest pain, shortness of breath. No mention of fever, chills noted. In the ER patient was evaluated. Initial blood pressure was around 90 systolic. This improved to about 130 systolic. Patient has a history of atrial fibrillation. Rate controlled. Lab shows white count 6.9, hemoglobin 13 ,creatinine 1.2 with a GFR 60. Troponin 0.5, BNP 3937. Urinalysis unremarkable. CT scan of the abdomen unremarkable. CT of the head showed no acute changes periods chest x-ray unremarkable. The patient was admitted for observation. When I saw the patient the ER, he appeared comfortable. He did not appear in any distress. Family was at bedside. Allergies butorphanol tartrate [From Stadol] Allergy (Verified 12/31/17 11:08) Unknown sulfamethoxazole [From Bactrim] Allergy (Verified 12/31/17 11:08) Unknown trimethoprim [From Bactrim] Allergy (Verified 12/31/17 11:08) Unknown PENICILLINS Allergy (Uncoded 12/30/17 16:17) Unknown Home medications list reviewed: Yes Home Medications: Gabapentin [Neurontin*] 300 mg PO BID 12/12/16 Levothyroxine [Synthroid*] 50 mcg PO [id number] 12/12/16 Multivitamin [Multivitamins] 1 each PO DAILY 12/12/16 Tamsulosin [Flomax*] 0.4 mg PO BID 12/12/16 Turmeric/Turmeric Root Extract [Turmeric 500 mg Capsule] 500 mg PO DAILY Ubidecarenone/Vitamin E Mixed [Kur87-Ymg E 100 mg-10 Unit Sfg] 1 each PO EVERY 3RD DAY 12/12/16 Omeprazole [Prilosec] 40 mg PO DAILY 12/18/16 Apixaban [Eliquis] 5 mg PO BID 12/30/17 Aspirin [Aspirin EC 81 MG] 81 mg PO DAILY 12/30/17 Escitalopram [Lexapro] 10 mg PO DAILY 12/30/17 Finasteride [Proscar] 5 mg PO DAILY 12/30/17 Mirabegron [Myrbetriq] 25 mg PO DAILY 12/30/17 Sotalol HCl [Betapace] 40 mg PO BID 12/30/17 - Past Medical/Surgical History Diabetic: No -: CAD, previous stents. -: BPH -: Hypothyroidism -: Atrial fibrillation, chronic anti coagulation therapy -: Dementia -: Neuropathy -: GERD -: tonsillectomy- as a child -: left shoulder 1966 -: colon 2006 -: gallbladder 1992 -: Green light procedure Psychosocial/ Personal History: Patient is . He has 2 children. - Family History Mother -: Hypertension - Social History Smoking Status: Never smoker Alcohol use: No CD- Drugs: No Caffeine use: Yes Place of Residence: Home Review of Systems General: Weakness, Malaise, As per HPI Eyes: Unremarkable ENT: Unremarkable Respiratory: Unremarkable Cardiovascular: Unremarkable Gastrointestinal: Unremarkable Genitourinary: As per HPI Musculoskeletal: Unremarkable Integumentary: Unremarkable Neurological: Weakness, As per HPI Lymphatics: Unremarkable Physical Examination - Physical Exam General: Alert, In no apparent distress, Oriented x2, Cooperative, Demented ( Dementia) HEENT: Atraumatic, Normocephalic, Other (Dry mucous membranes) Neck: Supple, No Thyromegaly Respiratory: Clear to auscultation bilaterally, Normal air movement Cardiovascular: Irregular heart rate/rhythm (Atrial fibrillation, rate controlled) Gastrointestinal: Normal bowel sounds, Soft and benign, Non-distended, No ascites, No tenderness, No masses, No rebound, No guarding Musculoskeletal: No erythema, No tenderness, No warmth Integumentary: No tenderness/swelling, No erythema, No warmth, No cyanosis Neurological: Normal speech, Normal strength at 5/5 x4 extr, Normal tone, Normal affect, Dementia - Studies Laboratory Data (last 24 hrs) 01/06/18 15:40: PT 17.3 H, INR 1.46, APTT 29.3 01/06/18 15:40: WBC 6.9 D, Hgb 13.9, Hct 40.8, Plt Count 217 01/06/18 15:40: Sodium 141, Potassium 3.5, BUN 13, Creatinine 1.20, Glucose 105 , Magnesium 2.0, Total Bilirubin 0.6, AST 19, ALT 19, Alkaline Phosphatase 52, Lipase 238 Assessment and Plan - Problems (Diagnosis) (1) Pre-syncope Current Visit: Yes Status: Acute Plan: Patient with presyncope likely from dehydration. Patient given IV fluids emergency room. Currently stable at this time. Due to his past medical history. Will order an MRI stroke protocol to rule out stroke. Will also order echocardiogram and carotid Doppler. Cardiology consulted further assess. Will continue with IV fluids. Will continue with his medication. Likely discharge within the next 24 hr if currently stable. I will turn the service over to Dr. Jain tomorrow. I will go over the plan of care with her. (2) Hypotension Current Visit: Yes Status: Acute Plan: Blood pressure now better. Patient given IV fluid bolus. Will continue with IV fluids. Will monitor closely. Doubt infectious process. Will check pro calcitonin and lactic acid. Qualifiers: Hypotension type: unspecified hypotension type Qualified Code(s): I95.9 - Hypotension, unspecified (3) Dehydration Current Visit: Yes Status: Acute Plan: Continue as above. (4) Atrial fibrillation Current Visit: Yes Status: Chronic Plan: Will continue with his Betapace and chronic anti coagulation therapy. Cardiology consulted to further assess as well. Qualifiers: Atrial fibrillation type: chronic Qualified Code(s): I48.2 - Chronic atrial fibrillation (5) Chronic anticoagulation Current Visit: Yes Status: Chronic Plan: Continue with Eliquis. (6) Hypothyroidism Current Visit: Yes Status: Chronic Plan: Continue with his medication. Will need to check tsh. Qualifiers: Hypothyroidism type: unspecified Qualified Code(s): E03.9 - Hypothyroidism , unspecified (7) GERD (gastroesophageal reflux disease) Current Visit: Yes Status: Chronic Plan: Continue with PPI. Qualifiers: Esophagitis presence: esophagitis presence not specified Qualified Code(s) : K21.9 - Gastro-esophageal reflux disease without esophagitis (8) Dementia Current Visit: Yes Status: Chronic Plan: Will continue with his medication. Will check stroke protocol MRI. Will have physical therapy assess ambulation. Qualifiers: Dementia type: unspecified type Dementia behavioral disturbance: without behavioral disturbance Qualified Code(s): F03.90 - Unspecified dementia without behavioral disturbance (9) BPH (benign prostatic hyperplasia) Current Visit: Yes Status: Chronic Plan: Patient with recent urological procedure. Will continue with his medication. Qualifiers: Lower urinary tract symptom detail: unspecified Discharge Plan: Home Plan to discharge in: 24 Hours - Advance Directives Does patient have a Living Will: No Does patient have a Durable POA for Healthcare: No - Code Status/Comfort Care Code Status Assessed: Yes Time Spent Managing Pts Care (In Minutes): 55
[2018-01-06] MEDS ORDERED: LORazepam 2 MG/ML VIAL ONE (18:55)
[2018-01-06] MEDS ORDERED: LORazepam 2 MG/ML VIAL IV ONE (19:01)
--- NOTE | 2018-01-06 20:02 | RAD REPORT ---
EXAM DESCRIPTION: LAYLA Hickman CP - 01/06/2018 6:07 pm CLINICAL HISTORY: Syncope COMPARISON: None. TECHNIQUE: Real-time sonographic evaluation of both carotid systems was performed. Grayscale and Dop pler interrogation was performed with waveform tracing bilaterally. FINDINGS: Normal high resistance waveforms are noted in both external carotid arteries. The common c arotid arteries and internal carotid arteries show normal low resistance waveforms. Mild plaquing changes are present. No significant luminal narrowing identified. No dissection is pres ent. Peak systolic and end diastolic velocity values and the ICA/CCA ratios are in the non-hemodynami dario significant range. No suspicious waveform pattern. Left internal carotid artery is quite tortuo us. Antegrade flow seen in both vertebral arteries. Velocity values and ratios were recorded and are retained in the patient's imaging records. IMPRESSION: Mild bilateral plaquing changes in the left carotid bulb. No evidence of a hemodynamically significant stenosis.
--- NOTE | 2018-01-06 20:06 | RAD REPORT ---
EXAM DESCRIPTION: MRI - MRA Neck W/Wo Cont - 01/06/2018 7:38 pm CLINICAL HISTORY: Syncope, CVA COMPARISON: None. TECHNIQUE: MR angiography of the cervical vasculature performed. A 20 milliliter MultiHance contrast volume was utilized. Source images were reviewed. 3D reconstruction imaging performed using maximum intensity projection. FINDINGS: Aortic arch is 3 vessel. No origins stenosis. Vertebral artery origins are also unremarkab le. Vertebral arteries are codominant. No stenosis, dissection or significant atherosclerotic change. No aneurysm or vascular malformation. IMPRESSION: MRA of the neck shows no atherosclerotic change, stenosis or other significant finding.
--- NOTE | 2018-01-06 20:09 | RAD REPORT ---
EXAM DESCRIPTION: MRI - MRA Head Wo Cont - 01/06/2018 7:37 pm CLINICAL HISTORY: Dizzy spells, syncope, headache COMPARISON: None. TECHNIQUE: Axial and coronal 3D [id number] image acquisition was performed. 3D rotational images were generated with source and reconstruction images reviewed. Maximum intensity projection protocol utilized. FINDINGS: No aneurysm or vascular malformation. No stenosis or significant atherosclerotic changes i dentifiable. No vasculitis or other significant finding. Basilar artery is normal. Patient has normal variant persistent origin supply to the left posterior cerebral artery. Left P1 MAINTENANCE SERVICE TECHNICIAN segment is absent. IMPRESSION: MRA Head imaging shows no significant or suspicious finding.
--- NOTE | 2018-01-06 20:12 | RAD REPORT ---
EXAM DESCRIPTION: MRI - Brain W/Wo Cont - 01/06/2018 7:37 pm CLINICAL HISTORY: Stroke-like symptoms, headache, syncope COMPARISON: CT head same date TECHNIQUE: Sagittal and axial T1-weighted images were obtained. Axial PD/heavily T2-weighted and T2- FLAIR images were obtained along with axial DWI/ADC mapping sequences. Coronal heavily T2 weighted s equence obtained. Axial and coronal post-contrast T1-weighted images were also obtained. A ml Magne vist contrast following utilized. FINDINGS: No intracranial hemorrhage, mass or acute infarction. There is no edema or shift of midli ne structures. No extra-axial fluid collections. Solorio-matter/white matter junction is preserved. Sig nal voids are seen as a normal finding in the major intracranial vessels. Atrophy changes are mild. V entricles are in proportion to volume loss. Scattered T2/IR white matter and subcortical signal abnor malities are present. These are nonacute and most likely chronic ischemic change. No globe or orbital content abnormality. Mastoid air cells and paranasal sinuses are clear. IMPRESSION: No acute infarction. No acute intracranial finding. Mild atrophy and chronic ischemic change.
[2018-01-06] MEDS ORDERED: TAMSULOSIN 0.4 MG SR CAP PO SCH (21:00)
[2018-01-06] MEDS: SOTALOL HCL 80 MG TAB PO SCH (21:10)
[2018-01-06] MEDS: APIXABAN 5 MG TABLET PO SCH (21:11)
[2018-01-06] MEDS: NA CHLORIDE 0.9% 1,000 ML IV SCH (21:14)
[2018-01-06] MEDS: GABAPENTIN 300 MG CAP PO SCH (21:22)
[2018-01-06] MEDS: FINASTERIDE 5 MG TAB PO SCH (21:22)
[2018-01-06 22:18] LABS: CKMB Creatine Kinase MB 2.1 ng/mL (0.3-3.6)
[2018-01-06 23:15] LABS: Urine Appearance CLEAR; Urine Bilirubin NEGATIVE (NEG); Urine Blood 2+ (NEG); Urine Color YELLOW; Urine Glucose NEGATIVE (NEG); Urine Protein NEGATIVE (NEG); Urine Specific Gravity 1.015 (1.005-1.030); Urine Urobilinogen 0.2 mg/dL (0.2-1.0); Urine pH 6.5 (5.0-7.0)
[2018-01-06 23:20] LABS: Urine Microscopic Reflex ORDER UMIC
[2018-01-07 00:14] LABS: Urine Bacteria <20 /HPF (NONE SEEN); Urine Culture Reflex Order NOT NEEDED
[2018-01-07] MEDS: NA CHLORIDE 0.9% 1,000 ML IV SCH ×3 (03:30→23:53)
[2018-01-07] MEDS: PANTOPRAZOLE 40MG TABLET PO SCH (05:23)
[2018-01-07] MEDS: SOTALOL HCL 80 MG TAB PO SCH ×2 (05:23→17:36)
[2018-01-07] MEDS: LEVOTHYROXINE SOD 0.05 MG TABLET PO SCH (05:23)
[2018-01-07 06:00] LABS: Absolute Lymphocytes (CBC) 1.4 K/uL (0.7-4.9); Absolute Monocytes 0.9 K/uL (0.1-1.3); Absolute Neutrophil 3.8 K/uL (1.8-8.0); Basophils % 0.3 % (0-1.3); Eosinophils % 1.4 % (0-4.4); Hematocrit 38.9 % (39.6-49.0); Lymphocytes % 22.6 % (15.3-44.8); MCV 93.6 fL (80-100); MPV 9.4 fL (7.6-11.3); Monocytes % 14.2 % (3.3-12.3); RBC Red Blood Cell Count 4.15 M/uL (4.33-5.43)
[2018-01-07 06:15] LABS: Magnesium 2.2 mg/dL (1.8-2.4); Potassium 3.7 mmol/L (3.5-5.1)
[2018-01-07 06:16] LABS: CKMB Creatine Kinase MB 1.7 ng/mL (0.3-3.6)
[2018-01-07] MEDS ORDERED: POTASSIUM 25 MEQ EFFERV TAB PO ONE (06:35)
--- NOTE | 2018-01-07 07:51 | EKG ---
Test Date: 2018-01-06 Test Time: 15:29:51 Teaching Music Lessons: SENTHIL MEASUREMENT RESULTS: Intervals: Rate: 83 TX: QRSD: 86 QT: 376 QTc: 441 [place]: P: TX: QRS: -38 T: -12 INTERPRETIVE STATEMENTS: Atrial fibrillation with premature ventricular or aberrantly conducted complexes Left axis deviation Nonspecific ST abnormality Abnormal ECG Compared to ECG 12/10/2017 12:01:47 Ventricular premature complex(es) now present Left-axis deviation now present Sinus bradycardia no longer present Atrial premature complex(es) no longer present Aberrant conduction of supraventricular beat(s) no longer present ST (T wave) deviation still present Electronically Signed On 01-07-18 07:50:04 CDT by Ian Dobson
[2018-01-07] MEDS: GALANTAMINE 4 MG TAB PO SCH ×2 (08:01→17:36)
[2018-01-07] MEDS: ESCITALOPRAM 20 MG TAB PO SCH (08:01)
[2018-01-07] MEDS: GABAPENTIN 300 MG CAP PO SCH ×2 (08:01→20:15)
[2018-01-07] MEDS: APIXABAN 5 MG TABLET PO SCH ×2 (08:02→20:15)
[2018-01-07] MEDS ORDERED: ASPIRIN EC 81 MG TAB PO SCH (09:00)
[2018-01-07] MEDS ORDERED: ENOXAPARIN 40 MG/0.4 ML SQ SCH (09:00)
--- NOTE | 2018-01-07 11:49 | ECHO ---
HEIGHT: 5 ft 11 in WEIGHT: 212 lb 0 oz DATE OF STUDY: 01/07/[address]: Martín Gallagher DO 2-DIMENSIONAL: YES M.MODE: YES DOPPLER: YES COLOR FLOW: YES TDS: NO PORTABLE: NO DEFINITY: NO BUBBLE STUDY: NO DIAGNOSIS: PRESYNCOPE, ATRIAL FIBRILLATION CARDIAC HISTORY: CATHERIZATION: SURGERY: PROSTHETIC VALVE: PACEMAKER: MEASUREMENTS (cm) DIASTOLIC (NORMALS) SYSTOLIC (NORMALS) IVSd 1.0 (0.6-1.2) LA Diam 4.5 (1.9-4.0) LVEF 64% LVIDd 4.3 (3.5-5.7) LVIDs 2.8 (2.0-3.5) %FS 35% LVPWd 1.1 (0.6-1.2) Ao Diam 3.1 (2.0-3.7) 2 DIMENSIONAL ASSESSMENT: RIGHT ATRIUM: NORMAL LEFT ATRIUM: DILATED RIGHT VENTRICLE: NORMAL LEFT VENTRICLE: NORMAL TRICUSPID VALVE: NORMAL MITRAL VALVE: NORMAL PULMONIC VALVE: NORMAL AORTIC VALVE: MILD SCLEROSIS PERICARDIAL EFFUSION: NONE AORTIC ROOT: NORMAL LEFT VENTRICULAR WALL MOTION: NORMAL DOPPLER/COLOR FLOW: MILD TRICUSPID REGURGITATION. NORMAL RIGHT VENTRICULAR SYSTOLIC PRESSURE. COMMENTS: NORMAL LEFT VENTRICULAR EJECTION FRACTION. DILATED LEFT ATRIUM. AORTIC SCLEROSIS WITH NO AORTIC STENOSIS OR AORTIC REGURGITATION. MILD TRICUSPID REGURGITATION. ATRIAL FIBRILLATION 80-100 BEATS PER MINUTE. TECHNOLOGIST: Maxine ESTEBAN
--- NOTE | 2018-01-07 13:34 | CON ---
History Of Present Illness: Mr. Pinto is 72. He came to the hospital when he was standing and had near syncope. It has actually been a problem for him recently, lightheaded when he stands. He was hypotensive now with fluid hydration. His blood pressure is better, it is 134/88. His heart rate is 82. He has had problems with CAD. He had a stent very remotely. He is unable to take any statin m edications. He has had atrial fibrillation more recently and was in AFib when he came to the [facility]. He has been under the care of Dr. Louie. Dr. Louie has made some medication changes. Medications: His present medications are Lexapro, Ditropan, gabapentin, levothyroxine, sotalol 40 mg b.i.d., aspirin, Protonix, finasteride. Apixaban 2.5 b.i.d., which would have to be considered an i nappropriate dose in Mr. Pinto. Tamsulosin and ciprofloxacin. Physical Examination: General: He is somewhat confused. He admits over the last 6 months his memory is starting to really fail him. Lungs: Clear. Heart: Irregularly irregular. Abdomen: Soft. Extremities: Trace edema. Impression: The patient had hypotension and he is in chronic atrial fibrillation. I think his apixa ban dose probably needs to be 5 mg, may be it is low because last week he had bladder surgery. He is certainly not bleeding. His hemoglobin is fine, so we should really think about upping the dose to the appropriate stroke prevention level of 5 mg b.i.d., and I think perhaps he does not need to be on Betapace at all. I really thing that he simply go for rate control and anticoagulation. He has dick e chest pain, so at some point we should redo a stress test. I think he would be a very poor dionna te to have a coronary intervention right now, but may be in a week or so we can do a stress test in m y office. I would rather not order it presently. I would like to confer with Dr. Louie about what his plans are for the atrial fibrillation, see if he agrees, we should switch to a rate control anticoagulant program. BRE/YUE Voice ID: [id number] Report ID: [id number]
--- NOTE | 2018-01-07 16:31 | CON ---
History Of Present Illness: The patient is a 72-year-old. Had TURP and vaporization of the prostate last week for the button with an uneventful course. Postop catheter was removed on day 1. He had some fevers. After that , he went to the ER and he was checked out and sent home. He resumed his Eliquis for his blood thinner and recently, the patient has now been admitted for what appears to be a syncopal episode with low systolic blood pressure. Came in and had some few red cells in the urine, which is normal for 6 weeks after TURP, especially being on aspirin and Eliquis. This is a normal finding and the patient is not having any retention and voiding okay. Recommend conservative management. No further intervention from our urological standpoint. EM Voice ID: [id number] Report ID: [id number] MTDD
--- NOTE | 2018-01-07 16:48 | P.PN ---
Subjective Date of Service: 01/07/18 Primary Care Provider: Dr. Contreras; Urology-Dr. Hanna; Cardiology-Dr. Dobson Chief Complaint: Presyncope Subjective: Tolerating diet, Ambulating, Improving, Working w/ PT, Doing well Review of Systems General: As per HPI Physical Examination - Vital Signs Temperature: 97.5 F Blood Pressure: 144/82 Pulse: 95 Respirations: 16 Pulse Ox (%): 99 - Physical Exam General: Alert, In no apparent distress HEENT: Atraumatic, PERRLA, EOMI Neck: Supple, JVD not distended Respiratory: Clear to auscultation bilaterally, Normal air movement Cardiovascular: Regular rate/rhythm, Normal S1 S2 Gastrointestinal: Normal bowel sounds, No tenderness Musculoskeletal: No tenderness Integumentary: No rashes Neurological: Normal speech, Normal tone, Normal affect Lymphatics: No axilla or inguinal lymphadenopathy - Studies Laboratory Data (last 24 hrs) 01/06/18 15:40: Sodium 141, Potassium 3.5, BUN 13, Creatinine 1.20, Glucose 105 , Magnesium 2.0, Total Bilirubin 0.6, AST 19, ALT 19, Alkaline Phosphatase 52, Lipase 238 Microbiology Data (last 24 hrs): 01/06/18 16:00 Blood - Blood Anaerobic Blood Culture - Final 01/06/18 15:40 Blood - Blood Anaerobic Blood Culture - Final Medications List Reviewed: Yes Assessment & Plan - Problems (Diagnosis) (1) Pre-syncope Onset Date: 01/07/18 Current Visit: Yes Status: Acute Plan: Presyncopal Episode. Most Likely 2.2 to Dehydration -CT, MRI, Carotid Doppler WNL. -IV fluids -PT consulted -Pt walking 290 with Assistance (2) Dehydration Onset Date: 01/07/18 Current Visit: Yes Status: Acute Plan: IV fluids for now -Improving -DC in 24 to 48 hours (3) Hypotension Onset Date: 01/07/18 Current Visit: Yes Status: Resolved Plan: Hypotension -Most Likely 2.2 to Dehydration -Cardiology consulted. Considering Inpatient Stress test vs outpt. -Considering changing Rate control medication Qualifiers: Hypotension type: unspecified hypotension type Qualified Code(s): I95.9 - Hypotension, unspecified (4) Atrial fibrillation Onset Date: 01/07/18 Current Visit: Yes Status: Chronic Plan: Afib -On betapace and Eliquis -Eliquis Increased to 5mg BID -Cardiology considering Stopping betapace after consulting with Dr fuentes Qualifiers: Atrial fibrillation type: chronic Qualified Code(s): I48.2 - Chronic atrial fibrillation (5) BPH (benign prostatic hyperplasia) Onset Date: 01/07/18 Current Visit: Yes Status: Chronic Plan: S/P TURP -Urology consulted. No further mgmt at this time Qualifiers: Lower urinary tract symptom detail: unspecified (6) Dementia Onset Date: 01/07/18 Current Visit: Yes Status: Chronic Qualifiers: Dementia type: unspecified type Dementia behavioral disturbance: without behavioral disturbance Qualified Code(s): F03.90 - Unspecified dementia without behavioral disturbance (7) GERD (gastroesophageal reflux disease) Onset Date: 01/07/18 Current Visit: Yes Status: Chronic Qualifiers: Esophagitis presence: esophagitis presence not specified Qualified Code(s) : K21.9 - Gastro-esophageal reflux disease without esophagitis (8) Hypothyroidism Onset Date: 01/07/18 Current Visit: Yes Status: Chronic Qualifiers: Hypothyroidism type: unspecified Qualified Code(s): E03.9 - Hypothyroidism , unspecified Discharge Plan: Home Plan to discharge in: 24 Hours - Code Status/Comfort Care Code Status Assessed: Yes Critical Care: No
[2018-01-07] MEDS: FINASTERIDE 5 MG TAB PO SCH (20:15)
[2018-01-08] MEDS: SOTALOL HCL 80 MG TAB PO SCH ×2 (05:29→17:32)
[2018-01-08] MEDS: PANTOPRAZOLE 40MG TABLET PO SCH (05:29)
[2018-01-08] MEDS: LEVOTHYROXINE SOD 0.05 MG TABLET PO SCH (05:29)
[2018-01-08 05:53] LABS: Absolute Lymphocytes (CBC) 1.2 K/uL (0.7-4.9); Absolute Monocytes 0.7 K/uL (0.1-1.3); Basophils % 0.7 % (0-1.3); Eosinophils % 2.2 % (0-4.4); Hematocrit 39.8 % (39.6-49.0); Lymphocytes % 20.3 % (15.3-44.8); MCH 32.6 pg (27.0-35.0); MCV 93.1 fL (80-100); MPV 9.7 fL (7.6-11.3); Monocytes % 11.8 % (3.3-12.3); RBC Red Blood Cell Count 4.27 M/uL (4.33-5.43)
[2018-01-08 06:04] LABS: Magnesium 2.3 mg/dL (1.8-2.4); Potassium 3.6 mmol/L (3.5-5.1)
[2018-01-08] MEDS ORDERED: POTASSIUM CL SA 10 MEQ TAB PO ONE (06:40)
[2018-01-08] MEDS ORDERED: LEVOTHYROXINE SOD 0.05 MG TABLET PO SCH (09:00)
[2018-01-08] MEDS: NA CHLORIDE 0.9% 1,000 ML IV SCH ×2 (09:18→20:26)
[2018-01-08] MEDS: GABAPENTIN 300 MG CAP PO SCH ×2 (09:20→20:26)
[2018-01-08] MEDS: APIXABAN 5 MG TABLET PO SCH ×2 (09:21→20:26)
[2018-01-08] MEDS: ESCITALOPRAM 20 MG TAB PO SCH (09:21)
[2018-01-08] MEDS: GALANTAMINE 4 MG TAB PO SCH ×2 (09:21→17:32)
--- NOTE | 2018-01-08 13:25 | PN ---
Mr. Pinto remains in atrial fibrillation I am in favor og pursuing rate control, chronic anticoagulation. He seems to be a little more mentally alert but compared to 6 months ago his mental status has deteriorated greatly. MRIs do not indicate any cause like stroke or mass or hemorrhage to be the cause of his severe dementia is setting in. I do not think he needs to be following a course of pacemakers and defibrillators and that sort of thing. We will rate control and anticoagulate. Dr. Nicholas will be able to review his records and give his opinion sometime later today. Dr Nicholas agrees with me to pursue rate control and not try to re establish sinus rhythm. BRE/YUE Voice ID: [id number] Report ID: [id number] MTDD
[2018-01-08] MEDS ORDERED: PHENAZOPYRIDINE 100MG TAB PO PRN (13:43)
--- NOTE | 2018-01-08 15:43 | P.PN ---
Subjective Date of Service: 01/08/18 Primary Care Provider: Dr. Contreras; Urology-Dr. Hanna; Cardiology-Dr. Dobson Chief Complaint: Presyncope Subjective: No C/O voiced, Ambulating, Improving, Working w/ PT, Doing well Review of Systems General: As per HPI Physical Examination - Vital Signs Temperature: 98.7 F Blood Pressure: 147/99 Pulse: 77 Respirations: 18 Pulse Ox (%): 97 - Physical Exam General: Alert, In no apparent distress HEENT: Atraumatic, PERRLA, EOMI Neck: Supple, JVD not distended Respiratory: Clear to auscultation bilaterally, Normal air movement Cardiovascular: Regular rate/rhythm, Normal S1 S2 Gastrointestinal: Normal bowel sounds, No tenderness Musculoskeletal: No tenderness Integumentary: No rashes Neurological: Normal speech, Normal tone, Normal affect Lymphatics: No axilla or inguinal lymphadenopathy - Studies Microbiology Data (last 24 hrs): 01/06/18 16:00 Blood - Blood Anaerobic Blood Culture - Final 01/06/18 15:40 Blood - Blood Anaerobic Blood Culture - Final Medications List Reviewed: Yes Assessment & Plan - Problems (Diagnosis) (1) Pre-syncope Onset Date: 01/07/18 Current Visit: Yes Status: Acute Plan: Presyncopal Episode. Most Likely 2.2 to Dehydration -CT, MRI, Carotid Doppler WNL. -IV fluids -PT consulted -Pt walking 290 with Assistance still weak -Continue to work with PT (2) Dehydration Onset Date: 01/07/18 Current Visit: Yes Status: Acute Plan: IV fluids for now -Improving -DC in 24 to 48 hours (3) Hypotension Onset Date: 01/07/18 Current Visit: Yes Status: Resolved Plan: Hypotension -Most Likely 2.2 to Dehydration vs Finasteride. Stop the medication -Cardiology consulted. Considering Inpatient Stress test vs outpt. -Considering changing Rate control medication Qualifiers: Hypotension type: unspecified hypotension type Qualified Code(s): I95.9 - Hypotension, unspecified (4) Atrial fibrillation Onset Date: 01/07/18 Current Visit: Yes Status: Chronic Plan: Afib -On betapace and Eliquis -Eliquis Increased to 5mg BID -Cardiology considering Stopping betapace after consulting with Dr fuentes Qualifiers: Atrial fibrillation type: chronic Qualified Code(s): I48.2 - Chronic atrial fibrillation (5) BPH (benign prostatic hyperplasia) Onset Date: 01/07/18 Current Visit: Yes Status: Chronic Plan: S/P TURP -Urology consulted. No further mgmt at this time Qualifiers: Lower urinary tract symptom detail: unspecified (6) Dementia Onset Date: 01/07/18 Current Visit: Yes Status: Chronic Qualifiers: Dementia type: unspecified type Dementia behavioral disturbance: without behavioral disturbance Qualified Code(s): F03.90 - Unspecified dementia without behavioral disturbance (7) GERD (gastroesophageal reflux disease) Onset Date: 01/07/18 Current Visit: Yes Status: Chronic Qualifiers: Esophagitis presence: esophagitis presence not specified Qualified Code(s) : K21.9 - Gastro-esophageal reflux disease without esophagitis (8) Hypothyroidism Onset Date: 01/07/18 Current Visit: Yes Status: Chronic Qualifiers: Hypothyroidism type: unspecified Qualified Code(s): E03.9 - Hypothyroidism , unspecified Discharge Plan: Home Plan to discharge in: 24 Hours - Code Status/Comfort Care Code Status Assessed: Yes Critical Care: No
[2018-01-09] MEDS: LEVOTHYROXINE SOD 0.05 MG TABLET PO SCH (05:16)
[2018-01-09] MEDS: SOTALOL HCL 80 MG TAB PO SCH ×2 (05:17→17:38)
[2018-01-09] MEDS: PANTOPRAZOLE 40MG TABLET PO SCH (05:31)
[2018-01-09] MEDS: NA CHLORIDE 0.9% 1,000 ML IV SCH ×2 (05:31→15:59)
[2018-01-09 05:57] LABS: Absolute Lymphocytes (CBC) 1.3 K/uL (0.7-4.9); Absolute Monocytes 0.8 K/uL (0.1-1.3); Absolute Neutrophil 4.1 K/uL (1.8-8.0); Basophils % 0.5 % (0-1.3); Eosinophils % 1.9 % (0-4.4); Hematocrit 40.4 % (39.6-49.0); Lymphocytes % 20.1 % (15.3-44.8); MPV 9.6 fL (7.6-11.3); Monocytes % 12.9 % (3.3-12.3); RBC Red Blood Cell Count 4.34 M/uL (4.33-5.43)
[2018-01-09 06:07] LABS: Magnesium 2.2 mg/dL (1.8-2.4)
[2018-01-09] MEDS: APIXABAN 5 MG TABLET PO SCH (09:55)
[2018-01-09] MEDS: GALANTAMINE 4 MG TAB PO SCH ×2 (09:55→16:12)
[2018-01-09] MEDS: GABAPENTIN 300 MG CAP PO SCH (09:55)
[2018-01-09] MEDS: ESCITALOPRAM 20 MG TAB PO SCH (09:55)
--- NOTE | 2018-01-09 13:44 | P.DS ---
Admission Date: 01/06/18 Discharge Date: 01/09/18 Primary Care Provider: Dr. Contreras; Urology-Dr. Hanna; Cardiology-Dr. Dobson Disposition: ROUTINE DISCHARGE Discharge Condition: GOOD Reason for Admission: Presyncope - Problems (1) Pre-syncope Onset Date: 01/07/18 Current Visit: Yes Status: Acute (2) Dehydration Onset Date: 01/07/18 Current Visit: Yes Status: Acute (3) Hypotension Onset Date: 01/07/18 Current Visit: Yes Status: Resolved Qualifiers: Hypotension type: unspecified hypotension type Qualified Code(s): I95.9 - Hypotension, unspecified (4) Atrial fibrillation Onset Date: 01/07/18 Current Visit: Yes Status: Chronic Qualifiers: Atrial fibrillation type: chronic Qualified Code(s): I48.2 - Chronic atrial fibrillation (5) BPH (benign prostatic hyperplasia) Onset Date: 01/07/18 Current Visit: Yes Status: Chronic Qualifiers: Lower urinary tract symptom detail: unspecified (6) Dementia Onset Date: 01/07/18 Current Visit: Yes Status: Chronic Qualifiers: Dementia type: unspecified type Dementia behavioral disturbance: without behavioral disturbance Qualified Code(s): F03.90 - Unspecified dementia without behavioral disturbance (7) GERD (gastroesophageal reflux disease) Onset Date: 01/07/18 Current Visit: Yes Status: Chronic Qualifiers: Esophagitis presence: esophagitis presence not specified Qualified Code(s) : K21.9 - Gastro-esophageal reflux disease without esophagitis (8) Hypothyroidism Onset Date: 01/07/18 Current Visit: Yes Status: Chronic Qualifiers: Hypothyroidism type: unspecified Qualified Code(s): E03.9 - Hypothyroidism , unspecified Brief History of Present Illness: 72-year-old male presented emergency room with increasing fatigue and presyncope. Patient was at [employer] today. He felt dizzy, tired and fell like fainting. He did not blackout. EMS was called. Patient found to have a blood pressure of around 79 systolic. Patient was given IV fluid bolus. This improved. Patient had reported some increasing fatigue over the last several days. Patient had a urological procedure last week. He reports taking his medications. Patient has dementia. It is unclear whether his story is clear. Family at bedside report that he had been doing well but described the patient having the urological procedure on Saturday. The patient was then seen in the ER on and told the he had a UTI. Patient was sent home with antibiotic therapy. Discuss some concern that the patient has not been drinking appropriate amounts of fluid. Patient denied any significant chest pain, shortness of breath. No mention of fever, chills noted. In the ER patient was evaluated. Initial blood pressure was around 90 systolic. This improved to about 130 systolic. Patient has a history of atrial fibrillation. Rate controlled. Lab shows white count 6.9, hemoglobin 13 ,creatinine 1.2 with a GFR 60. Troponin 0.5, BNP 3937. Urinalysis unremarkable. CT scan of the abdomen unremarkable. CT of the head showed no acute changes periods chest x-ray unremarkable. The patient was admitted for observation. When I saw the patient the ER, he appeared comfortable. He did not appear in any distress. Family was at bedside. Hospital Course: Overall during the hospital stay patient remained stable. Patient was initially admitted to the hospital for hypotension. Patient had a TURP procedure done 2 weeks ago and was started on finasteride after the procedure. Patient was found to have hypertension and had some dizzy spells and thus EMS was called. On seeing patient was very hypertensive was on IV fluids and blood pressure normalized. While here in the hospital patient was restarted back on all home medication except finasteride and Flomax. Patient's blood pressure remained stable here in the hospital. Orthostatic hypotension was also not noted. Patient worked with physical therapy and was doing well. Cardiology was consulted because the patient is atrial fibrillation. Patient's senior quality engineer Dr. Duvall was contacted by Dr. Dobson here in the hospital. Patient was asked to have a followup appointment with his own senior quality engineer to discuss further care for his atrial fibrillation. Patient remained asymptomatic after initial 24 hr and thus was discharged home under stable condition. Patient was asked to stop taking Flomax and finasteride. Patient was asked to continue following up with his senior quality engineer, primary care provider , a neurologist. Vital Signs/Physical Exam: Temp Pulse Resp BP Pulse Ox 98.1 F 87 18 153/89 H 97 01/09/18 12:00 01/09/18 12:00 01/09/18 12:00 01/09/18 12:00 01/09/18 12:00 General: Alert, In no apparent distress HEENT: Atraumatic, PERRLA, EOMI Neck: Supple, JVD not distended Respiratory: Clear to auscultation bilaterally, Normal air movement Cardiovascular: Regular rate/rhythm, Normal S1 S2 Gastrointestinal: Normal bowel sounds, No tenderness Musculoskeletal: No tenderness Integumentary: No rashes Neurological: Normal speech, Normal tone, Normal affect Lymphatics: No axilla or inguinal lymphadenopathy Laboratory Data at Discharge: WBC 6.3 K/uL (4.3-10.9) 01/09/18 05:13 Hgb 14.3 g/dL (13.6-17.9) 01/09/18 05:13 Hct 40.4 % (39.6-49.0) 01/09/18 05:13 Plt Count 247 K/uL (152-406) 01/09/18 05:13 PT 17.3 SECONDS (9.5-12.5) H 01/06/18 15:40 INR 1.46 01/06/18 15:40 APTT 29.3 SECONDS (24.3-36.9) 01/06/18 15:40 Sodium 142 mmol/L (136-145) 01/09/18 05:13 Potassium 4.0 mmol/L (3.5-5.1) 01/09/18 05:13 BUN 10 mg/dL (7-18) 01/09/18 05:13 Creatinine 0.90 mg/dL (0.55-1.3) 01/09/18 05:13 Glucose 98 mg/dL (74-106) 01/09/18 05:13 Magnesium 2.2 mg/dL (1.8-2.4) 01/09/18 05:13 Total Bilirubin 0.6 mg/dL (0.2-1.0) 01/06/18 15:40 AST 19 U/L (15-37) 01/06/18 15:40 ALT 19 U/L (12-78) 01/06/18 15:40 Alkaline Phosphatase 52 U/L (45-117) 01/06/18 15:40 Troponin I 0.05 ng/mL (0.0-0.045) H 01/07/18 05:46 Triglycerides 119 mg/dL (<150) 01/07/18 05:46 Cholesterol 162 mg/dL (<200) 01/07/18 05:46 HDL Cholesterol 34 mg/dL (40-60) L 01/07/18 05:46 Cholesterol/HDL Ratio 4.76 01/07/18 05:46 Lipase 238 U/L (73-393) 01/06/18 15:40 Home Medications: Apixaban [Eliquis *] 2.5 mg PO DAILY 01/06/18 Aspirin [Adult Aspirin] 81 mg PO DAILY 01/06/18 Ciprofloxacin HCl [Cipro 500 MG Tablet] 500 mg PO BID 01/06/18 Escitalopram [Lexapro*] 5 mg PO DAILY 01/06/18 Gabapentin [Neurontin*] 300 mg PO BID 01/06/18 Levothyroxine [Synthroid*] 50 mcg PO DAILY 01/06/18 Oxybutynin Chloride [Ditropan*] 5 mg PO BID 01/06/18 Pantoprazole [Protonix Tab*] 40 mg PO DAILY 01/06/18 Sotalol HCl [Sotalol] 40 mg PO BID 01/06/18 Patient Discharge Instructions: Please F.U with PCP and Dr Duvall in 1 to 2 week post discharge. No new medication. Continue all medication except Flomax and Finsteride. F.u with Urology in 1 to 2 days and resume taking flomax after the consult with Urology Diet: Regular Activity: Ad debbie Followup: NAKUL DUVALL JR, MD [OUTSIDE PHYSICIAN] - 1 Week
--- NOTE | 2018-01-09 14:53 | PN ---
Subjective: Mr. Pinto seems to be tolerating AFib very well. So our plan is rate control and anti coagulation. We will make no attempts to try and reestablish sinus rhythm. The CAD seems stable. H is level of dementia is quite severe and that will preclude doing any other procedures on Mr. Pinto in the future. BRE/YUE Voice ID: [id number] Report ID: [id number]
== END 2018-01-09 18:27 | disposition home or self-care (01) ==
LOC: ER 14:51 → INTOOBSV 16:08 → ERHOLD 16:08 → 4TH 19:38
PROVIDERS: ADMIT Family Medicine; ATTEND Family Medicine
DX: I95.1 Orthostatic hypotension (principal); E86.0 Dehydration; R55 Syncope and collapse; N40.0 Benign prostatic hyperplasia without lower urinary tract symptoms; I48.91 Unspecified atrial fibrillation; F03.90 Unspecified dementia, unspecified severity, without behavioral disturbance, psychotic disturbance, mood disturbance, and anxiety; K21.9 Gastro-esophageal reflux disease without esophagitis; E03.9 Hypothyroidism, unspecified; Z88.0 Allergy status to penicillin; Z88.2 Allergy status to sulfonamides; Z79.82 Long term (current) use of aspirin; I25.10 Atherosclerotic heart disease of native coronary artery without angina pectoris; Z95.5 Presence of coronary angioplasty implant and graft
CPT/HCPCS: 36415 ×3; 70450; 70544; 70549; 70553; 71045; 74176; 76377; 80048 ×4; 80061; 80076; 82550 ×3; 82553 ×3; 83605; 83690; 83735 ×4; 83880; 84145; 84439; 84443; 84484 ×3; 85025 ×4; 85610; 85730; 86850; 86900; 86901; 87040 ×2; 87088; 93005; 93306; 93880; 96361; 96365; 96366; 97116 ×2; 97163; 99285; A9577; G0378 ×2; J0696; J2405; J7030 ×8; 81003; 81015; 87086

== ENCOUNTER 2022-10-21 12:08 | Emergency (ER) | payer OTHER, BC ==
--- OUTSIDE RECORDS SUMMARY | 2022-10-21 12:21 | XMS REPORT | Continuity of Care Document ---
:1945 Author Organization [facility] t Address [address] [place] [address] [address] [place] [address] Care Team Providers Name Role Phone Duran Contreras MD Primary Care Physician Galo Rey Attending Clinician Problems Condition Condition Condition Status Onset Resolution Last Treating Co mments Source Name Details Category Date Date Treatment Clinician Date Restless Restless Problem Active 2022-09-07 Memoria legs legs 3-22 14:18:20 l (disorder) (disorder) 00:00: He rmann Active 00 08/15/2016 Problem 09/07/2022 [facility] Lumbar Lumbar Problem Active 2014-052022-09-07 [facility] radiculopa radiculopa 1-18 14:18:20 l thy thy 00:00: Matthew (disorder) (disorder) 00 Active 04/13/2015 Problem 09/07/2022 [facility] 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-09-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 1-18 14:18:20 l sleep sleep 00:00: [place] behavior behavior 00 disorder disorder (disorder) (disorder) Active 04/13/2015 Problem 09/07/2022 [facility] Essential Essential Problem Active 2022-09-07 Memoria hypertensi hypertensi 3-04 14:18:20 l on on 00:00: [place] (disorder) (disorder) 00 Active 07/28/2014 Problem 09/07/2022 [facility] Hypothyroi Hypothyro Problem Active 2022-09-07 Memoria dism idism 3-04 14:18:20 l (disorder) (disorder) 00:00: He rmann Active 00 07/28/2014 Problem 09/07/2022 [facility] Dementia Dementia Problem Resolve 2022-02-22 Memoria (disorder) (disorder) d 02:55:41 l Resolved Matthew Problem 02/22/2022 [facility] Alzheimer' Alzheimer Problem Active 2022-09-07 Memoria s disease 's disease 14:18:20 l (disorder) (disorder) He rmann Active Problem 09/07/2022 [facility] Atrial Atrial Problem Active 2022-09-07 [facility] fibrillati fibrillati 14:18:20 l on on Matthew (disorder) (disorder) Active Problem 09/07/2022 [facility] History of History Problem Active 2022-09-07 Memoria fall of fall 14:18:20 l (situation (situation He rmann ) ) Active Problem 09/07/2022 [facility] Lumbar Lumbar Problem Active 2022-09-07 Mem oria spondylosi spondylosi 14:18:20 l s s [place] (disorder) (disorder) Active Problem 09/07/2022 [facility] Parkinsoni Parkinson Problem Active 2022-09-07 Memoria sm ism 14:18:20 l (disorder) (disorder) He rmann Active Problem 09/07/2022 [facility] 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 1-18 02:55:41 02:55:41 l disorder disorder 00:00: Stevie n (disorder) (disorder) 00 Resolved 04/13/2015 Problem 02/22/2022 [facility] Amnesia Amnesia Problem Resolve 2022-02-22 2022-02-22 Memoria (finding) (finding) d 3- 02:55:41 02:55:41 l Resolved 00:00: Matthew 07/28/2014 00 Problem 02/22/2022 [facility] Allergies, Adverse Reactions, Alerts Allergy Allergy Status Severity Reaction(s) Onset Inactive Treating Comm ents Source Name Type Date Date Clinician Penicill Propensi Active Swelling Meth maryse ins ty to [facility] adverse 00:00: Hospita reaction 00 l s to drug Butorpha Propensi Active Other (See Dizziness Methodi nol ty to Comments) [address] [facility] Tartrate adverse 00:00: Hospita reaction 00 l s to drug penicill penicill Active Memori a ins ins l [place] Stadol Stadol Active Memoria l Matthew Family History Family Member Diagnosis Comments Start Date Stop Date Source Natural mother [facility] Social History Social Habit Start Date Stop Date Quantity Comments Source Gender identity [facility] Sexual orientation [facility] Alcohol intake 2017-09-18 2017-09-18 Current [facility] 00:00:00 00:00:00 non-drinker of Hospital alcohol (finding) Tobacco use and 2017-09-11 2017-09-11 Smokeless [facility] exposure 00:00:00 00:00:00 tobacco non-user Hospital History of Social 2017-09-11 2017-09-[address] function 00:00:00 00:00:00 Hospital Sex Ass[birth year] At [birth year] [facility] 00:00[facility] Hospital Smoking Status Start Date Stop Date Source Tobacco smoking status [facility] Medications Ordered Filled Start Stop Current Ordering Indication Dosage Frequency Signature Comments Components Source Medication Medication Date Date Medication? Clinician (SIG) Name Name memantine 5 Yes = 1 tab, Me moria mg oral 4-11 PO, BID, # l tablet 18:41: 180 tab, 1 Sarah nn 00 Refill(s), Pharmacy: [facility], 157.48, cm, 09/04/22 13:16:00 CDT, Height, 78.182, kg, 09/04/22 13:16:00 CDT, Weight furosemide Yes TAKE 1 Memor ia 20 mg oral 4-11 TABLET BY l tablet 18:26: MOUTH ONCE Sarah nn 00 DAILY NEEDED carbidopa-l Yes 2 tab, PO, Memoria evodopa 25 1-10 TID, # 540 l mg-100 mg 21:23: tab, 1 Stevie n oral tablet 00 Refill(s), Pharmacy: [facility], 172.72, cm, 06/05/22 14:44:00 PHYSIOGNOMIST, Height, 82.898, kg, 06/05/22 14:44:00 PHYSIOGNOMIST, Weight carbidopa-l 2022-0 Yes 2 tab, PO, Memoria evodopa 25 1-10 BID, # 360 l mg-100 mg 21:23: tab, 1 Stevie n oral tablet 00 Refill(s), Pharmacy: [facility], 172.72, cm, 06/05/22 14:44:00 PHYSIOGNOMIST, Height, 82.898, kg, 06/05/22 14:44:00 PHYSIOGNOMIST, Weight galantamine 0 Yes = 1 tab, Me moria 12 mg oral 1-10 PO, BID, # l tablet 21:18: 180 tab, 1 Sarah nn 00 Refill(s), Pharmacy: [facility], 172.72, cm, 06/05/22 14:44:00 PHYSIOGNOMIST, Height, 82.898, kg, 06/05/22 14:44:00 PHYSIOGNOMIST, Weight galantamine 0 Yes = 1 tab, Me moria 12 mg oral 1-10 PO, BID, # l tablet 21:18: 180 tab, 1 Sarah nn 00 Refill(s), Pharmacy: [facility], 172.72, cm, 06/05/22 14:44:00 PHYSIOGNOMIST, Height, 82.898, kg, 06/05/22 14:44:00 PHYSIOGNOMIST, Weight gabapentin 2021-05 Yes = 1 cap, Mem oria 300 mg oral 0-13 PO, TID, # l capsule 13:34: 270 Matthew 00 unknown unit, 1 Refill(s), Pharmacy: [facility], 172.72, cm, 02/19/22 14:08:00 CDT, Height, 87.5, kg, 02/19/22 14:08:00 CDT, Weight memantine 5 2021-05 Yes = 1 tab, Me moria mg oral 0-13 PO, BID, # l tablet 13:34: 180 tab, 1 Sarah nn 00 Refill(s), Pharmacy: [facility], 172.72, cm, 02/19/22 14:08:00 CDT, Height, 87.5, kg, 02/19/22 14:08:00 CDT, Weight gabapentin 2021-05 Yes = 1 cap, Mem oria 300 mg oral 0-13 PO, TID, # l capsule 13:34: 270 Matthew 00 unknown unit, 1 Refill(s), Pharmacy: [facility], 172.72, cm, 02/19/22 14:08:00 CDT, Height, 87.5, kg, 02/19/22 14:08:00 CDT, Weight memantine 5 2021-05 Yes = 1 tab, Me moria mg oral 0-13 PO, BID, # l tablet 13:34: 180 tab, 1 Sarah nn 00 Refill(s), Pharmacy: [facility], 172.72, cm, 02/19/22 14:08:00 CDT, Height, 87.5, kg, 02/19/22 14:08:00 CDT, Weight carbidopa-l 0 Yes 1 tab, PO, Memoria evodopa 25 9-26 TID, # 270 l mg-250 mg 19:26: tab, 1 Stevie n oral tablet 00 Refill(s), Pharmacy: [facility], 172.72, cm, 02/19/22 14:08:00 CDT, Height, 87.5, kg, 02/19/22 14:08:00 CDT, Weight carbidopa-l 2021-0 Yes 1 tab, PO, Memoria evodopa 25 9-26 TID, # 270 l mg-250 mg 19:26: tab, 1 Stevie n oral tablet 00 Refill(s), Pharmacy: [facility], 172.72, cm, 02/19/22 14:08:00 CDT, Height, 87.5, kg, 02/19/22 14:08:00 CDT, Weight tramadol 50 0 Yes 0 Memori a mg oral 9-26 Refill(s) l tablet 19:10: tramadol 50 2021-0 Yes 0 Memori a mg oral 9-26 Refill(s) l tablet 19:10: Matthew 00 mirtazapine Yes = 1 tab, Me moria 15 mg oral 8-02 PO, l tablet 16:43: Bedtime, # Sarah nn 00 90 tab, 2 Refill(s), Pharmacy: [facility] ([facility]), 172.72, cm, 10/24/21 13:54:00 CDT, Height, 93.21, kg, 10/24/21 13:54:00 CDT, Weight mirtazapine 0 Yes = 1 tab, Me moria 15 mg oral 8-02 PO, l tablet 16:43: Bedtime, # Sarah nn 00 90 tab, 2 Refill(s), Pharmacy: [facility] ([facility]), 172.72, cm, 10/24/21 13:54:00 CDT, Height, 93.21, kg, 10/24/21 13:54:00 CDT, Weight gabapentin 0 Yes 300 mg = 1 M emoria 300 mg oral 5-31 cap, PO, l capsule 19:27: TID, # 270 Herm volodymyr 00 cap, 1 Refill(s), Pharmacy: [facility], 172.72, cm, 10/24/21 13:54:00 CDT, Height, 93.21, kg, 10/24/21 13:54:00 CDT, Weight gabapentin 2021-0 Yes 300 mg = 1 M emoria 300 mg oral 5-31 cap, PO, l capsule 19:27: TID, # 270 Herm volodymyr 00 cap, 1 Refill(s), Pharmacy: [facility], 172.72, cm, 10/24/21 13:54:00 CDT, Height, 93.21, kg, 10/24/21 13:54:00 CDT, Weight hydrochloro 2021-0 Yes 0 Memori a thiazide-sp 5-31 Refill(s) l ironolacton 19:23: Stevie n e 25 mg-25 00 mg oral tablet QUEtiapine 0 Yes TAKE 1 Memor ia 50 mg oral 5-31 TABLET BY l tablet 19:23: MOUTH ONCE Sarah nn 00 DAILY AT NIGHT QUEtiapine 2021-0 Yes TAKE 1 Memor ia 50 mg oral 5-31 TABLET BY l tablet 19:23: MOUTH ONCE Sarah nn 00 DAILY AT NIGHT hydrochloro 2022-0 Yes 0 Memori a thiazide-sp 5-31 Refill(s) l ironolacton 19:23: Stevie n e 25 mg-25 00 mg oral tablet gabapentin No 300 mg = 1 M emoria 300 mg oral 3-17 cap, PO, l capsule 14:34: TID, X 90 Sarah nn 00 day, # 270 cap, 2 Refill(s), Pharmacy: [facility], 172.72, cm, 07/24/21 14:53:00 PHYSIOGNOMIST, Height, 94.091, kg, 07/24/21 14:53:00 PHYSIOGNOMIST, Weight gabapentin No 300 mg = 1 M emoria 300 mg oral 3-17 cap, PO, l capsule 14:34: TID, X 90 Sarah nn 00 day, # 270 cap, 2 Refill(s), Pharmacy: [facility], 172.72, cm, 07/24/21 14:53:00 PHYSIOGNOMIST, Height, 94.091, kg, 07/24/21 14:53:00 PHYSIOGNOMIST, Weight tramadol Yes TAKE 1 Memoria hydrochlori 2-28 TABLET BY l de 50 MG 21:07: MOUTH [place] Oral Tablet 00 EVERY 12 HOURS NEEDED FOR PAIN tramadol Yes TAKE 1 Memoria hydrochlori 2-28 TABLET BY l de 50 MG 21:07: MOUTH Matthew Oral Tablet 00 EVERY 12 HOURS NEEDED FOR PAIN quetiapine Yes 25 mg = 1 Me moria 25 MG Oral 1-29 tab, PO, l Tablet 00:23: Bedtime, # Sarah nn [Seroquel] 00 30 tab, 2 Refill(s), Pharmacy: [facility], 172.72, cm, 04/27/21 14:07:00 PHYSIOGNOMIST, Height, 97.727, kg, 06/23/21 10:42:00 PHYSIOGNOMIST, Weight quetiapine Yes 25 mg = 1 Me moria 25 MG Oral 1-29 tab, PO, l Tablet 00:23: Bedtime, # Sarah nn [Seroquel] 00 30 tab, 2 Refill(s), Pharmacy: [facility], 172.72, cm, 04/27/21 14:07:00 PHYSIOGNOMIST, Height, 97.727, kg, 06/23/21 10:42:00 PHYSIOGNOMIST, Weight quetiapine 0 No 25 mg = 1 Me moria 25 MG Oral 1-28 tab, PO, l Tablet 17:12: Bedtime, # Sarah nn [Seroquel] 00 90 tab, 2 Refill(s), Pharmacy: [facility], 172.72, cm, 04/27/21 14:07:00 PHYSIOGNOMIST, Height, 97.727, kg, 06/23/21 10:42:00 PHYSIOGNOMIST, Weight quetiapine 0 No 25 mg = 1 Me moria 25 MG Oral 1-28 tab, PO, l Tablet 17:12: Bedtime, # Sarah nn [Seroquel] 00 90 tab, 2 Refill(s), Pharmacy: [facility], 172.72, cm, 04/27/21 14:07:00 PHYSIOGNOMIST, Height, 97.727, kg, 06/23/21 10:42:00 PHYSIOGNOMIST, Weight Carbidopa 2021-0 Yes 1 tab, PO, Me moria 25 MG / 1-28 BID, # 180 l Levodopa 17:11: tab, 2 [place] 250 MG Oral 00 Refill(s), Tablet Pharmacy: [facility], 172.72, cm, 04/27/21 14:07:00 PHYSIOGNOMIST, Height, 97.727, kg, 06/23/21 10:42:00 PHYSIOGNOMIST, Weight Carbidopa 2021-0 Yes 1 tab, PO, Me moria 25 MG / 1-28 BID, # 180 l Levodopa 17:11: tab, 2 [place] 250 MG Oral 00 Refill(s), Tablet Pharmacy: [facility], 172.72, cm, 04/27/21 14:07:00 PHYSIOGNOMIST, Height, 97.727, kg, 06/23/21 10:42:00 PHYSIOGNOMIST, Weight predniSONE 2021-0 Yes See Memoria 10 mg oral 1-28 Special l tablet 16:53: Za Smith nn 00 ns, PO, Daily, 12 day regimen: Days 1-4 - 30 mg (3 tabs) daily Days 5-8 - 20 mg (2 tabs) daily Days 9-12 - 10 mg (1 tab) daily, # 24 tab, 0 Refill(s) predniSONE 0 Yes See Memoria 10 mg oral 1-28 Special l tablet 16:53: Instructio Sarah nn 00 ns, PO, Daily, 12 day regimen: Days 1-4 - 30 mg (3 tabs) daily Days 5-8 - 20 mg (2 tabs) daily Days 9-12 - 10 mg (1 tab) daily, # 24 tab, 0 Refill(s) Carbidopa 2020-05 Yes 1 tab, PO, Me moria 25 MG / 2-02 QID, # 360 l Levodopa 20:17: tab, 2 Matthew 100 MG Oral 00 Refill(s), Tablet Pharmacy: [facility], 172.72, cm, 04/27/21 14:07:00 PHYSIOGNOMIST, Height, 97.727, kg, 04/27/21 14:07:00 PHYSIOGNOMIST, Weight Carbidopa 2020-05 Yes 1 tab, PO, Me moria 25 MG / 2-02 QID, # 360 l Levodopa 20:17: tab, 2 Matthew 100 MG Oral 00 Refill(s), Tablet Pharmacy: [facility], 172.72, cm, 04/27/21 14:07:00 PHYSIOGNOMIST, Height, 97.727, kg, 04/27/21 14:07:00 PHYSIOGNOMIST, Weight gabapentin 0 Yes See Memoria 300 MG Oral - Instructio l Capsule 14:41: ns, TAKE 1 Herm volodymyr 00 CAPSULE TWICE DAILY, # 180 unknown unit, 2 Refill(s), Pharmacy: [facility], 167.64, cm, 12/15/20 14:56:00 CDT, Height, 100, kg, 12/15/20 14:56:00 CDT, Weight gabapentin 2020-0 Yes See Memoria 300 MG Oral 9- Instructio l Capsule 14:41: ns, TAKE 1 Herm volodymyr 00 CAPSULE TWICE DAILY, # 180 unknown unit, 2 Refill(s), Pharmacy: [facility], 167.64, cm, 12/15/20 14:56:00 CDT, Height, 100, kg, 12/15/20 14:56:00 CDT, Weight Memantine 2020-0 Yes 5 mg = 1 John shayy hydrochlori 7-22 tab, PO, l de 5 MG 20:05: BID, # 180 Herm volodymyr Oral Tablet 00 tab, 2 [Namenda] Refill(s), Pharmacy: [facility], 167.64, cm, 12/15/20 14:56:00 CDT, Height, 100, kg, 12/15/20 14:56:00 CDT, Weight Memantine 0 Yes 5 mg = 1 John shayy hydrochlori 7-22 tab, PO, l de 5 MG 20:05: BID, # 180 Herm volodymyr Oral Tablet 00 tab, 2 [Namenda] Refill(s), Pharmacy: [facility], 167.64, cm, 12/15/20 14:56:00 CDT, Height, 100, kg, 12/15/20 14:56:00 CDT, Weight Carbidopa Yes See Memoria 25 MG / 6-30 Instructio l Levodopa 13:17: ns, TAKE 1 Her sanders 250 MG Oral 00 TABLET Tablet TWICE DAILY, # 180 tab, 2 Refill(s), Pharmacy: [facility], 172.72, cm, 06/07/20 15:02:00 PHYSIOGNOMIST, Height, 100, kg, 09/15/20 16:02:00 CDT, Weight galantamine 0 Yes See Memori a 12 mg oral 6-30 Instructio l tablet 13:17: ns, TAKE 1 Sarah nn 00 TABLET TWICE DAILY, # 180 tab, 2 Refill(s), Pharmacy: [facility], 172.72, cm, 06/07/20 15:02:00 PHYSIOGNOMIST, Height, 100, kg, 09/15/20 16:02:00 CDT, Weight Mirtazapine 0 Yes See Memori a 15 MG Oral 6-30 Instructio l Tablet 13:17: ns, TAKE 1 Sarah nn 00 TABLET AT BEDTIME, # 90 tab, 2 Refill(s), Pharmacy: [facility], 172.72, cm, 06/07/20 15:02:00 PHYSIOGNOMIST, Height, 100, kg, 09/15/20 16:02:00 CDT, Weight Carbidopa 0 Yes See Memoria 25 MG / 6-30 Instructio l Levodopa 13:17: ns, TAKE 1 Her sanders 250 MG Oral 00 TABLET Tablet TWICE DAILY, # 180 tab, 2 Refill(s), Pharmacy: [facility], 172.72, cm, 06/07/20 15:02:00 PHYSIOGNOMIST, Height, 100, kg, 09/15/20 16:02:00 CDT, Weight galantamine 0 Yes See Memori a 12 mg oral 6-30 Instructio l tablet 13:17: ns, TAKE 1 Sarah nn 00 TABLET TWICE DAILY, # 180 tab, 2 Refill(s), Pharmacy: [facility], 172.72, cm, 06/07/20 15:02:00 PHYSIOGNOMIST, Height, 100, kg, 09/15/20 16:02:00 CDT, Weight Mirtazapine 0 Yes See Memori a 15 MG Oral 6-30 Instructio l Tablet 13:17: ns, TAKE 1 Sarah nn 00 TABLET AT BEDTIME, # 90 tab, 2 Refill(s), Pharmacy: [facility], 172.72, cm, 06/07/20 15:02:00 PHYSIOGNOMIST, Height, 100, kg, 09/15/20 16:02:00 CDT, Weight Memantine 0 Yes 5 mg = 1 John shayy hydrochlori 4-22 tab, PO, l de 5 MG 21:37: BID, # 60 Sarah nn Oral Tablet 00 tab, 3 [Namenda] Refill(s), Pharmacy: [facility], 172.72, cm, 06/07/20 15:02:00 PHYSIOGNOMIST, Height, 100, kg, 09/15/20 16:02:00 CDT, Weight Memantine 2020-0 Yes 5 mg = 1 John shayy hydrochlori 4-22 tab, PO, l de 5 MG 21:37: BID, # 60 Sarah nn Oral Tablet 00 tab, 3 [Namenda] Refill(s), Pharmacy: [facility], 172.72, cm, 06/07/20 15:02:00 PHYSIOGNOMIST, Height, 100, kg, 09/15/20 16:02:00 CDT, Weight gabapentin 2020-0 Yes See Memoria 300 MG Oral 1-08 Instructio l Capsule 16:01: ns, TAKE 1 Herm volodymyr 00 CAPSULE TWICE DAILY, # 180 unknown unit, 2 Refill(s), Pharmacy: [facility], 170.18, cm, 03/04/20 15:48:00 CDT, Height, 100, kg, 03/04/20 15:48:00 CDT, Weight gabapentin 2020-0 Yes See Memoria 300 MG Oral 1-08 Instructio l Capsule 16:01: ns, TAKE 1 Herm volodymyr 00 CAPSULE TWICE DAILY, # 180 unknown unit, 2 Refill(s), Pharmacy: [facility], 170.18, cm, 03/04/20 15:48:00 CDT, Height, 100, kg, 03/04/20 15:48:00 CDT, Weight Carbidopa 2020-1 Yes 1 tab, PO, Me moria 25 MG / 0-09 BID, # 180 l Levodopa 21:10: tab, 2 [place] 250 MG Oral 00 Refill(s), Tablet Pharmacy: [facility], 170.18, cm, 03/04/20 15:48:00 CDT, Height, 100, kg, 03/04/20 15:48:00 CDT, Weight Carbidopa 2020- Yes 1 tab, PO, Me moria 25 MG / 0-09 BID, # 180 l Levodopa 21:10: tab, 2 [place] 250 MG Oral 00 Refill(s), Tablet Pharmacy: [facility], 170.18, cm, 03/04/20 15:48:00 CDT, Height, 100, kg, 03/04/20 15:48:00 CDT, Weight gabapentin 2020-0 Yes See Memoria 300 MG Oral 7-06 Instructio l Capsule 20:57: ns, TAKE 1 Herm volodymyr 00 CAPSULE TWICE DAILY, # 180 unknown unit, 1 Refill(s), Pharmacy: [facility], 172.72, cm, 10/29/19 13:23:00 CDT, Height, 105.455, kg, 10/29/19 13:23:00 CDT, Weight gabapentin 2020-0 Yes See Memoria 300 MG Oral 7-06 Instructio l Capsule 20:57: ns, TAKE 1 Herm volodymyr 00 CAPSULE TWICE DAILY, # 180 unknown unit, 1 Refill(s), Pharmacy: [facility], 172.72, cm, 10/29/19 13:23:00 CDT, Height, 105.455, kg, 10/29/19 13:23:00 CDT, Weight galantamine 2020-0 Yes 12 mg = 1 M emoria 12 mg oral 6-04 tab, PO, l tablet 18:34: BID, # 360 Sarah nn 00 tab, 2 Refill(s), Pharmacy: [facility] galantamine 2020-0 Yes 12 mg = 1 M emoria 12 mg oral 6-04 tab, PO, l tablet 18:34: BID, # 360 Sarah nn 00 tab, 2 Refill(s), Pharmacy: [facility] galantamine 2020-0 No See Memori a 8 mg oral 4-01 Instructio l tablet 13:52: ns, # 180 Stevie n 38 tab, Refill(s) 1, TAKE 1 TABLET TWICE DAILY, Pharmacy: [facility] galantamine 2020-0 No See Memori a 8 mg oral 4-01 Instructio l tablet 13:52: ns, # 180 Stevie n 38 tab, Refill(s) 1, TAKE 1 TABLET TWICE DAILY, Pharmacy: [facility] Mirtazapine 2020-0 Yes 15 mg = 1 M emoria 15 MG Oral 3-13 tab, PO, l Tablet 14:18: Bedtime, # Sarah nn [Remeron] 00 90 tab, 1 Refill(s), Pharmacy: [facility] Mirtazapine 2020-0 Yes 15 mg = 1 M emoria 15 MG Oral 3-13 tab, PO, l Tablet 14:18: Bedtime, # Sarah nn [Remeron] 00 90 tab, 1 Refill(s), Pharmacy: [facility] Mirtazapine 2020-0 Yes 15 mg = 1 M emoria 15 MG Oral 2-19 tab, PO, l Tablet 20:56: Bedtime, # Sarah nn [Remeron] 00 30 tab, 2 Refill(s), Pharmacy: [facility] Mirtazapine 2020-0 Yes 15 mg = 1 M emoria 15 MG Oral 2-19 tab, PO, l Tablet 20:56: Bedtime, # Sarah nn [Remeron] 00 30 tab, 2 Refill(s), Pharmacy: [facility] Carbidopa 2020-0 Yes 1 tab, PO, Me moria 25 MG / 2-06 TID, # 270 l Levodopa 21:30: tab, 2 Matthew 100 MG Oral 00 Refill(s), Tablet Pharmacy: [facility] Carbidopa 2020-0 Yes 1 tab, PO, Me moria 25 MG / 2-06 TID, # 270 l Levodopa 21:30: tab, 2 Matthew 100 MG Oral 00 Refill(s), Tablet Pharmacy: [facility] Galantamine 2018-05 Yes 8 mg = 1 Me moria 8 MG Oral 0-24 tab, PO, l Tablet 21:29: BID, # 180 Sarah nn [Razadyne] 53 tab, 1 Refill(s), Pharmacy: [facility] Galantamine 2018-05 Yes 8 mg = 1 Me moria 8 MG Oral 0-24 tab, PO, l Tablet 21:29: BID, # 180 Sarah nn [Razadyne] 53 tab, 1 Refill(s), Pharmacy: [facility] Tylenol 2018-05 Yes PO, 0 Memoria 0-24 Refill(s) l 21:10: Claritin 2018-05 Yes Daily, 0 Memor ia 0-24 Refill(s) l 21:10: Fiber Tab 2018-05 Yes 0 Memoria 0-24 Refill(s) l 21:10: Tylenol 2018-05 Yes PO, 0 Memoria 0-24 Refill(s) l 21:10: Claritin 2018-05 Yes Daily, 0 Memor ia 0-24 Refill(s) l 21:10: Fiber Tabs 2018-05 Yes 0 Memoria 0-24 Refill(s) l 21:10: Tylenol 2018-05 Yes PO, 0 Memoria 0-24 Refill(s) l 21:10: Claritin 2018-05 Yes Daily, 0 Memor ia 0-24 Refill(s) l 21:10: Fiber Tab 2018-05 Yes 0 Memoria 0-24 Refill(s) l 21:10: Tylenol 2018-05 Yes PO, 0 Memoria 0-24 Refill(s) l 21:10: [place] 00 Claritin 2018-05 Yes Daily, 0 Memor ia 0-24 Refill(s) l 21:10: Fiber Tabs 2018-05 Yes 0 Memoria 0-24 Refill(s) l 21:10: escitalopra Yes = 1 tab, Me moria m 5 mg oral 9-17 PO, Daily, l tablet 12:50: # 90 tab, Stevie n 56 Refill(s) 2, Pharmacy: [facility] escitalopra Yes = 1 tab, Me moria m 5 mg oral 9-17 PO, Daily, l tablet 12:50: # 90 tab, Stevie n 56 Refill(s) 2, Pharmacy: [facility] Carbidopa Yes = 1 tab, John shayy 25 MG / 6-19 PO, BID, # l Levodopa 23:07: 180 tab, Sarah nn 100 MG Oral 37 Refill(s) Tablet 2, Pharmacy: [facility] Carbidopa Yes = 1 tab, John shayy 25 MG / 6-19 PO, BID, # l Levodopa 23:07: 180 tab, Sarah nn 100 MG Oral 37 Refill(s) Tablet 2, Pharmacy: [facility] gabapentin Yes 300 mg = 1 M emoria 300 MG Oral 5-09 cap, PO, l Capsule 21:32: BID, # 180 Herm volodymyr 32 cap, 3 Refill(s), Pharmacy: [facility] gabapentin Yes 300 mg = 1 M emoria 300 MG Oral 5-09 cap, PO, l Capsule 21:32: BID, # 180 Herm volodymyr 32 cap, 3 Refill(s), Pharmacy: [facility] Galantamine Yes 8 mg = 1 Me moria 8 MG Oral 5-09 tab, PO, l Tablet 21:32: BID, # 180 Sarah nn [Razadyne] 28 tab, 1 Refill(s), Pharmacy: [facility] Galantamine Yes 8 mg = 1 Me moria 8 MG Oral 5-09 tab, PO, l Tablet 21:32: BID, # 180 Sarah nn [Razadyne] 28 tab, 1 Refill(s), Pharmacy: [facility] Escitalopra Yes 0 Memori a m 5 mg oral 1-17 Refill(s) l tablet 22:03: [place] 00 pantoprazol Yes 40 mg = 1 M emoria e 40 mg 1-17 tab, PO, l oral 22:03: Daily, # [place] enteric 00 30 tab, 0 coated Refill(s) tablet Escitalopra Yes 0 Memori a m 5 mg oral 1-17 Refill(s) l tablet 22:03: Matthew 00 pantoprazol Yes 40 mg = 1 M emoria e 40 mg 1-17 tab, PO, l oral 22:03: Daily, # [place] enteric 00 30 tab, 0 coated Refill(s) tablet Carbidopa 2017-05 Yes 1 tab, PO, Me moria 25 MG / 06-24 BID, # 180 l Levodopa 22:43: tab, 2 [place] 100 MG Oral 00 Refill(s), Tablet Pharmacy: [[facility] Mail Delivery Carbidopa 2017-05 Yes 1 tab, PO, Me moria 25 MG / 06-24 BID, # 180 l Levodopa 22:43: tab, 2 Matthew 100 MG Oral 00 Refill(s), Tablet Pharmacy: [[facility]] Pharmacy Mail Delivery Galantamine 2017-05 No 8 mg = 1 Me moria 8 MG Oral 1-08 tab, PO, l Tablet 20:19: BID, # 180 Sarah nn [Razadyne] 00 tab, 1 Refill(s), Pharmacy: [facility] Mail Delivery Galantamine 2017-05 No 8 mg = 1 Me moria 8 MG Oral 1-08 tab, PO, l Tablet 20:19: BID, # 180 Sarah nn [Razadyne] 00 tab, 1 Refill(s), Pharmacy: [facility] Mail Delivery Galantamine 2017-05 No 4 mg = 1 Me moria 4 MG Oral 1-08 tab, PO, l Tablet 20:18: BID, X 30 Stevie n [Razadyne] 40 day, # 60 tab, 3 Refill(s), Pharmacy: [facility] Mail Delivery Galantamine 2017-05 No 4 mg = 1 Me moria 4 MG Oral 1-08 tab, PO, l Tablet 20:18: BID, X 30 Stevie n [Razadyne] 40 day, # 60 tab, 3 Refill(s), Pharmacy: [facility] Mail Delivery Eliquis 5 2018-0 Yes 5 mg, PO, Mem oria mg oral 6-29 Q12H, 0 l tablet 15:34: Refill(s) Stevie n 00 Eliquis 5 2018-0 Yes 5 mg, PO, Mem oria mg oral 6-29 Q12H, 0 l tablet 15:34: Refill(s) Stevie n 00 gabapentin 2018-0 Yes 300mg Q.5D Take 300 Me thodi (NEURONTIN) 4-[address] 300 mg 09:27: mouth 2 Hospita capsule 30 (two) l times a day. mirabegron 2018-0 Yes 50mg QD Take 50 mg M ethodi (MYRBETRIQ) 4-[address] 50 mg 09:27: daily. Hospita tablet 30 l extended release 24 hr escitalopra 2018-0 Yes 5mg QD Take 5 mg M ethodi m (LEXAPRO) 4-[address] 5 MG tablet 09:27: daily. Hosp brian 30 l carvedilol 2018-0 Yes 12.5mg Q.5D Take 12.5 Methodi (COREG) 25 4-[address] MG tablet 09:27: mouth 2 Hospi ta 30 (two) l times a day. apixaban 2018-0 Yes 5mg Q.5D Take 5 mg Meth maryse (ELIQUIS) 5 4-[address] mg tablet 09:27: (two) Hospita 30 times a l day. sotalol 2018-0 Yes 80mg Q.5D Take 80 mg Meth maryse (BETAPACE) 4-[address] 80 MG 09:27: (two) Hospita tablet 30 times a l day. levothyroxi 2018-0 Yes 50ug QD Take 50 Met hodi ne 4-[address] (SYNTHROID, 09:27: mouth Hospi ta LEVOXYL) 50 30 every l mcg tablet morning. liothyronin 2018-0 Yes 5ug QD Take 5 mcg Methodi e (CYTOMEL) 4-[address] 5 MCG 09:27: daily. Hospita tablet 30 l tamsulosin 2018-0 Yes .4mg Q.5D Take 0.4 Met hodi (FLOMAX) 4-[address] 0.4 mg 09:27: mouth 2 Hospita capsule,ext 30 (two) l ended times a release day. 24hr finasteride 2018-0 Yes 5mg QD Take 5 mg M ethodi (PROSCAR) 5 4-[address] mg tablet 09:27: daily. Hospit a 30 l pantoprazol 2018-0 Yes 40mg QD Take 40 mg Methodi e sodium 4-[address] (PANTOPRAZO 09:27: daily. Hosp brian LE ORAL) 30 l gabapentin 2018-0 Yes 300mg Q.5D Take 300 Me thodi (NEURONTIN) 4-[address] 300 mg 09:27: mouth 2 Hospita capsule 30 (two) l times a day. mirabegron 2018-0 Yes 50mg QD Take 50 mg M ethodi (MYRBETRIQ) 4-[address] 50 mg 09:27: daily. Hospita tablet 30 l extended release 24 hr escitalopra 2018-0 Yes 5mg QD Take 5 mg M ethodi m (LEXAPRO) 4-[address] 5 MG tablet 09:27: daily. Hosp brian 30 l carvedilol 2018-0 Yes 12.5mg Q.5D Take 12.5 Methodi (COREG) 25 4-[address] MG tablet 09:27: mouth 2 Hospi ta 30 (two) l times a day. apixaban 2018-0 Yes 5mg Q.5D Take 5 mg Meth maryse (ELIQUIS) 5 4-[address] mg tablet 09:27: (two) Hospita 30 times a l day. sotalol 2018-0 Yes 80mg Q.5D Take 80 mg Meth maryse (BETAPACE) 4-[address] 80 MG 09:27: (two) Hospita tablet 30 times a l day. levothyroxi 2018-0 Yes 50ug QD Take 50 Met hodi ne 4-[address] (SYNTHROID, 09:27: mouth Hospi ta LEVOXYL) 50 30 every l mcg tablet morning. liothyronin 2018-0 Yes 5ug QD Take 5 mcg Methodi e (CYTOMEL) 4-[address] 5 MCG 09:27: daily. Hospita tablet 30 l tamsulosin 2018-0 Yes .4mg Q.5D Take 0.4 Met hodi (FLOMAX) 4-[address] 0.4 mg 09:27: mouth 2 Hospita capsule,ext 30 (two) l ended times a release day. 24hr finasteride 2018-0 Yes 5mg QD Take 5 mg M ethodi (PROSCAR) 5 4-[address] mg tablet 09:27: daily. Hospit a 30 l levothyroxi 2018-0 Yes 50ug QD Take 50 Met hodi ne 4-[address] (SYNTHROID, 09:27: mouth Hospi ta LEVOXYL) 50 30 every l mcg tablet morning. pantoprazol 2018-0 Yes 40mg QD Take 40 mg Methodi e sodium 4-[address] (PANTOPRAZO 09:27: daily. Hosp brian LE ORAL) 30 l liothyronin 2018-0 Yes 5ug QD Take 5 mcg Methodi e (CYTOMEL) 4-[address] 5 MCG 09:27: daily. Hospita tablet 30 l tamsulosin 2018-0 Yes .4mg Q.5D Take 0.4 Met hodi (FLOMAX) 4-[address] 0.4 mg 09:27: mouth 2 Hospita capsule,ext 30 (two) l ended times a release day. 24hr finasteride 2018-0 Yes 5mg QD Take 5 mg M ethodi (PROSCAR) 5 4-[address] mg tablet 09:27: daily. Hospit a 30 l pantoprazol 2018-0 Yes 40mg QD Take 40 mg Methodi e sodium 4-[address] (PANTOPRAZO 09:27: daily. Hosp brian LE ORAL) 30 l gabapentin 2018-0 Yes 300mg Q.5D Take 300 Me thodi (NEURONTIN) 4-[address] 300 mg 09:27: mouth 2 Hospita capsule 30 (two) l times a day. mirabegron 2018-0 Yes 50mg QD Take 50 mg M ethodi (MYRBETRIQ) 4-[address] 50 mg 09:27: daily. Hospita tablet 30 l extended release 24 hr escitalopra 2018-0 Yes 5mg QD Take 5 mg M ethodi m (LEXAPRO) 4-[address] 5 MG tablet 09:27: daily. Hosp brian 30 l carvedilol 2018-0 Yes 12.5mg Q.5D Take 12.5 Methodi (COREG) 25 4-[address] MG tablet 09:27: mouth 2 Hospi ta 30 (two) l times a day. apixaban 2018-0 Yes 5mg Q.5D Take 5 mg Meth maryse (ELIQUIS) 5 4-[address] mg tablet 09:27: (two) Hospita 30 times a l day. sotalol 2018-0 Yes 80mg Q.5D Take 80 mg Meth maryse (BETAPACE) 4-[address] 80 MG 09:27: (two) Hospita tablet 30 times a l day. gabapentin 2018-0 Yes 300mg Q.5D Take 300 Me thodi (NEURONTIN) 4-[address] 300 mg 09:27: mouth 2 Hospita capsule 30 (two) l times a day. mirabegron 2018-0 Yes 50mg QD Take 50 mg M ethodi (MYRBETRIQ) 4-[address] 50 mg 09:27: daily. Hospita tablet 30 l extended release 24 hr escitalopra 2018-0 Yes 5mg QD Take 5 mg M ethodi m (LEXAPRO) 4-[address] 5 MG tablet 09:27: daily. Hosp brian 30 l carvedilol 2018-0 Yes 12.5mg Q.5D Take 12.5 Methodi (COREG) 25 4-[address] MG tablet 09:27: mouth 2 Hospi ta 30 (two) l times a day. apixaban 2018-0 Yes 5mg Q.5D Take 5 mg Meth maryse (ELIQUIS) 5 4-[address] mg tablet 09:27: (two) Hospita 30 times a l day. sotalol 2018-0 Yes 80mg Q.5D Take 80 mg Meth maryse (BETAPACE) 4-[address] 80 MG 09:27: (two) Hospita tablet 30 times a l day. levothyroxi 2018-0 Yes 50ug QD Take 50 Met hodi ne 4-[address] (SYNTHROID, 09:27: mouth Hospi ta LEVOXYL) 50 30 every l mcg tablet morning. liothyronin 2018-0 Yes 5ug QD Take 5 mcg Methodi e (CYTOMEL) 4-[address] 5 MCG 09:27: daily. Hospita tablet 30 l tamsulosin 2018-0 Yes .4mg Q.5D Take 0.4 Met hodi (FLOMAX) 4-[address] 0.4 mg 09:27: mouth 2 Hospita capsule,ext 30 (two) l ended times a release day. 24hr finasteride 2018-0 Yes 5mg QD Take 5 mg M ethodi (PROSCAR) 5 4-[address] mg tablet 09:27: daily. Hospit a 30 l pantoprazol 2018-0 Yes 40mg QD Take 40 mg Methodi e sodium 4-[address] (PANTOPRAZO 09:27: daily. Hosp brian LE ORAL) 30 l gabapentin 2018-0 Yes 300mg Q.5D Take 300 Me thodi (NEURONTIN) 4-[address] 300 mg 09:27: mouth 2 Hospita capsule 30 (two) l times a day. mirabegron 2018-0 Yes 50mg QD Take 50 mg M ethodi (MYRBETRIQ) 4-[address] 50 mg 09:27: daily. Hospita tablet 30 l extended release 24 hr escitalopra 2018-0 Yes 5mg QD Take 5 mg M ethodi m (LEXAPRO) 4-[address] 5 MG tablet 09:27: daily. Hosp brian 30 l carvedilol 2018-0 Yes 12.5mg Q.5D Take 12.5 Methodi (COREG) 25 4-[address] MG tablet 09:27: mouth 2 Hospi ta 30 (two) l times a day. apixaban 2018-0 Yes 5mg Q.5D Take 5 mg Meth maryse (ELIQUIS) 5 4-[address] mg tablet 09:27: (two) Hospita 30 times a l day. sotalol 2018-0 Yes 80mg Q.5D Take 80 mg Meth mayrse (BETAPACE) 4-[address] 80 MG 09:27: (two) Hospita tablet 30 times a l day. levothyroxi 2018-0 Yes 50ug QD Take 50 Met hodi ne 4-[address] (SYNTHROID, 09:27: mouth Hospi ta LEVOXYL) 50 30 every l mcg tablet morning. liothyronin 2018-0 Yes 5ug QD Take 5 mcg Methodi e (CYTOMEL) 4-[address] 5 MCG 09:27: daily. Hospita tablet 30 l tamsulosin 2018-0 Yes .4mg Q.5D Take 0.4 Met hodi (FLOMAX) 4-[address] 0.4 mg 09:27: mouth 2 Hospita capsule,ext 30 (two) l ended times a release day. 24hr finasteride Yes 5mg QD Take 5 mg M ethodi (PROSCAR) 5 4-[address] mg tablet 09:27: daily. Hospit a 30 l pantoprazol Yes 40mg QD Take 40 mg Methodi e sodium 4-[address] (PANTOPRAZO 09:27: daily. Hosp brian LE ORAL) 30 l aspirin 81 Yes 81 mg = 1 Me moria mg tablet, 3-13 tab, CHEW, l chewable 15:24: Daily, 0 Sarah nn 00 Refill(s) levothyroxi Yes 50 Memori a ne 50 mcg 3-13 microgram l (0.05 mg) 15:24: = 1 tab, Herm volodymyr oral tablet 00 PO, Daily, DOSAGE CHANGE TO 75 MG, 0 Refill(s) aspirin 81 Yes 81 mg = 1 Me moria mg tablet, 3-13 tab, CHEW, l chewable 15:24: Daily, 0 Sarah nn 00 Refill(s) levothyroxi Yes 50 Memori a ne 50 mcg 3-13 microgram l (0.05 mg) 15:24: = 1 tab, Herm volodymyr oral tablet 00 PO, Daily, DOSAGE CHANGE TO 75 MG, 0 Refill(s) Vital Signs Vital Name Observation Time Observation Value Comments Source Systolic (mm Hg) 2022-09-04 18:09:00 John Castro Diastolic (mm Hg) 2022-09-04 18:09:00 Mem orial [facility] Heart Rate 2022-09-04 18:09:00 [facility] Height 2022-09-04 18:09:00 5 [ft_i] [facility] Weight 2022-09-04 18:09:00 [facility] BMI Calculated 2022-09-04 18:09:00 Tomasa al Matthew Diastolic (mm Hg) 2022-06-05 20:20:00 [facility] [place] Heart Rate 2022-06-05 20:20:00 [facility] Height 2022-06-05 20:20:00 5 [ft_i] [facility] [place] Weight 2022-06-05 20:20:00 [facility] BMI Calculated 2022-06-05 20:20:00 Memori al [facility] Systolic (mm Hg) 2022-06-05 20:20:00 John rial [place] Systolic (mm Hg) 2022-02-19 18:57:00 John rial [place] Diastolic (mm Hg) 2022-02-19 18:57:00 [facility] [place] Heart Rate 2022-02-19 18:57:00 [facility] Respitory Rate 2022-02-19 18:57:00 Memori al [facility] Height 2022-02-19 18:57:00 172.72 cm [facility] Weight 2022-02-19 18:57:00 [facility] BMI Calculated 2022-02-19 18:57:00 Memori al [facility] Systolic (mm Hg) 2021-10-24 18:54:00 John rial [facility] Diastolic (mm Hg) 2021-10-24 18:54:00 [facility] Heart Rate 2021-10-24 18:54:00 [facility] Respitory Rate 2021-10-24 18:54:00 [facility] [place] Height 2021-10-24 18:54:00 172.72 cm [facility] Weight 2021-10-24 18:54:00 [facility] BMI Calculated 2021-10-24 18:54:00 [facility] Systolic (mm Hg) 2021-07-24 20:53:00 John rial [place] Diastolic (mm Hg) 2021-07-24 20:53:00 [facility] [place] Heart Rate 2021-07-24 20:53:00 [facility] [place] Respitory Rate 2021-07-24 20:53:00 [facility] [place] Height 2021-07-24 20:53:00 172.72 cm [facility] Weight 2021-07-24 20:53:00 [facility] [place] BMI Calculated 2021-07-24 20:53:00 [facility] [place] Systolic (mm Hg) 2021-06-23 16:42:00 John rial [place] Diastolic (mm Hg) 2021-06-23 16:42:00 [facility] Heart Rate 2021-06-23 16:42:00 [facility] [place] Respitory Rate 2021-06-23 16:42:00 Memori al [facility] Weight 2021-06-23 16:42:00 [facility] Systolic (mm Hg) 2021-04-27 19:54:00 John rial [place] Diastolic (mm Hg) 2021-04-27 19:54:00 [facility] Heart Rate 2021-04-27 19:54:00 [facility] Respitory Rate 2021-04-27 19:54:00 [facility] [place] Height 2021-04-27 19:54:00 172.72 cm [facility] [place] Weight 2021-04-27 19:54:00 [facility] BMI Calculated 2021-04-27 19:54:00 [facility] [place] Systolic (mm Hg) 2020-12-15 19:38:00 John rial [facility] Diastolic (mm Hg) 2020-12-15 19:38:00 [facility] [place] Heart Rate 2020-12-15 19:38:00 [facility] Respitory Rate 2020-12-15 19:38:00 [facility] Height 2020-12-15 19:38:00 167.64 cm [facility] [place] Weight 2020-12-15 19:38:00 [facility] [place] BMI Calculated 2020-12-15 19:38:00 [facility] [place] Systolic (mm Hg) 2020-09-15 21:02:00 John rial [place] Diastolic (mm Hg) 2020-09-15 21:02:00 [facility] [place] Heart Rate 2020-09-15 21:02:00 [facility] Respitory Rate 2020-09-15 21:02:00 [facility] Weight 2020-09-15 21:02:00 [facility] Systolic (mm Hg) 2020-06-07 20:22:00 John rial [facility] Diastolic (mm Hg) 2020-06-07 20:22:00 [facility] Heart Rate 2020-06-07 20:22:00 [facility] [place] Respitory Rate 2020-06-07 20:22:00 [facility] Height 2020-06-07 20:22:00 172.72 cm [facility] Weight 2020-06-07 20:22:00 [facility] [place] BMI Calculated 2020-06-07 20:22:00 [facility] [place] Systolic (mm Hg) 2020-03-04 20:41:00 John rial [facility] Diastolic (mm Hg) 2020-03-04 20:41:00 [facility] Heart Rate 2020-03-04 20:41:00 [facility] [place] Respitory Rate 2020-03-04 20:41:00 [facility] [place] Height 2020-03-04 20:41:00 170.18 cm [facility] [place] Weight 2020-03-04 20:41:00 [facility] BMI Calculated 2020-03-04 20:41:00 [facility] Systolic (mm Hg) 2019-10-29 18:23:00 John rial [facility] Diastolic (mm Hg) 2019-10-29 18:23:00 [facility] Heart Rate 2019-10-29 18:23:00 [facility] [place] Respitory Rate 2019-10-29 18:23:00 [facility] [place] Temperature Oral (F) 2019-10-29 18:23:00 98.5 F [facility] Height 2019-10-29 18:23:00 172.72 cm [facility] Weight 2019-10-29 18:23:00 [facility] [place] BMI Calculated 2019-10-29 18:23:00 Mem[facility] [place] Systolic (mm Hg) 2019-07-15 20:40:00 John rial [place] Diastolic (mm Hg) 2019-07-15 20:40:00 [facility] [place] Heart Rate 2019-07-15 20:40:00 [facility] [place] Respitory Rate 2019-07-15 20:40:00 Memori al [facility] Height 2019-07-15 20:40:00 172.72 cm [facility] Weight 2019-07-15 20:40:00 [facility] BMI Calculated 2019-07-15 20:40:00 [facility] Systolic (mm Hg) 2019-07-02 20:53:00 John rial [facility] Diastolic (mm Hg) 2019-07-02 20:53:00 [facility] Heart Rate 2019-07-02 20:53:00 [facility] Respitory Rate 2019-07-02 20:53:00 [facility] [place] Height 2019-07-02 20:53:00 172.72 cm [facility] [place] Weight 2019-07-02 20:53:00 [facility] [place] BMI Calculated 2019-07-02 20:53:00 Memori al [place] Systolic (mm Hg) 2019-03-19 21:03:00 John rial [place] Diastolic (mm Hg) 2019-03-19 21:03:00 Mem [facility] Heart Rate 2019-03-19 21:03:00 [facility] Respitory Rate 2019-03-19 21:03:00 [facility] [place] Height 2019-03-19 21:03:00 172.72 cm [facility] [place] Weight 2019-03-19 21:03:00 [facility] BMI Calculated 2019-03-19 21:03:00 [facility] [place] Systolic (mm Hg) 2019-02-05 21:04:00 John rial [place] Diastolic (mm Hg) 2019-02-05 21:04:00 [facility] Heart Rate 2019-02-05 21:04:00 [facility] Respitory Rate 2019-02-05 21:04:00 [facility] [place] Height 2019-02-05 21:04:00 180.34 cm [facility] Weight 2019-02-05 21:04:00 [facility] BMI Calculated 2019-02-05 21:04:00 [facility] [place] Height 2018-10-02 21:15:00 180.34 cm [facility] [place] Weight 2018-10-02 21:15:00 [facility] [place] BMI Calculated 2018-10-02 21:15:00 [facility] [place] Systolic (mm Hg) 2018-10-02 21:15:00 John rial [facility] Diastolic (mm Hg) 2018-10-02 21:15:00 [facility] [place] Respitory Rate 2018-10-02 21:15:00 [facility] Heart Rate 2018-10-02 21:15:00 [facility] Weight 2018-06-12 21:56:00 [facility] [place] BMI Calculated 2018-06-12 21:56:00 Memori al [facility] Height 2018-06-12 21:56:00 175.26 cm [facility] Systolic (mm Hg) 2018-06-12 21:56:00 John rial [place] Diastolic (mm Hg) 2018-06-12 21:56:00 [facility] [place] Respitory Rate 2018-06-12 21:56:00 Memori al [place] Heart Rate 2018-06-12 21:56:00 [facility] Height 2018-04-24 22:07:00 172.72 cm [facility] [place] Weight 2018-04-24 22:07:00 [facility] BMI Calculated 2018-04-24 22:07:00 [facility] [place] Systolic (mm Hg) 2018-04-24 22:07:00 John rial [facility] Diastolic (mm Hg) 2018-04-24 22:07:00 [facility] [place] Respitory Rate 2018-04-24 22:07:00 Memori al [facility] Heart Rate 2018-04-24 22:07:00 [facility] BMI Calculated 2018-04-03 19:30:00 [facility] [place] Height 2018-04-03 19:30:00 172.72 cm [facility] [place] Weight 2018-04-03 19:30:00 [facility] Respitory Rate 2018-04-03 19:30:00 [facility] [place] Heart Rate 2018-04-03 19:30:00 [facility] [place] Systolic (mm Hg) 2018-04-03 19:30:00 John rial [place] Diastolic (mm Hg) 2018-04-03 19:30:00 Mem [facility] [place] Procedures This patient has no known procedures. Plan of Care Planned Activity Planned Date Details Comments Source Future Scheduled 2022-08-30 COVID-19 VACCINE (#1) [facility] Test 05:33:18 [code = COVID-19 VACCINE (#1)] Future Scheduled 2022-08-30 COLONOSCOPY SCREENING [facility] Test 05:33:18 [code = COLONOSCOPY SCREENING] Future Scheduled 2022-08-30 SHINGLES VACCINES (1 Met [facility] Test 05:33:18 of 2) [code = SHINGLES VACCINES (1 of 2)] Future Scheduled 2022-08-30 65[facility] 05:33:18 VACCINE (1 - PCV) [code = 65+ PNEUMOCOCCAL VACCINE (1 - PCV)] Future Scheduled 2022-08-30 INFLUENZA VACCINE [facility] Test 05:33:18 [code = INFLUENZA VACCINE] Future Scheduled 2022-08-30 COVID[facility]19 [facility]INE (#[facility] 05:33:18 [code = COVID-19 VACCINE (#1)] Future Scheduled 2022-08-30 [facility]ING [facility] 05:33:18 [code = COLONOSCOPY SCREENING] Future Scheduled 2022-08-30 [facility]18 of 2) [code = SHINGLES VACCINES (1 of 2)] Future Scheduled 2022-08-30 65+ [facility] Test 05:33:18 VACCINE (1 - PCV) [code = 65+ PNEUMOCOCCAL VACCINE (1 - PCV)] Future Scheduled 2022-08-30 INFLUENZA VACCINE [facility] Test 05:33:18 [code = INFLUENZA VACCINE] Future Scheduled 2022-08-30 COVID-19 VACCINE (#1) [facility] 05:33:18 [code = COVID-19 VACCINE (#1)] Future Scheduled 2022-08-30 [facility] 05:33:18 [code = COLONOSCOPY SCREENING] Future Scheduled 2022-08-30 [facility]18 of 2) [code = SHINGLES VACCINES (1 of 2)] Future Scheduled 2022-08-30 65+ [facility] Test 05:33:18 VACCINE (1 - PCV) [code = 65+ PNEUMOCOCCAL VACCINE (1 - PCV)] Future Scheduled 2022-08-30 INFLUENZA VACCINE [facility] Test 05:33:18 [code = INFLUENZA VACCINE] Future Scheduled 2022-08-30 COVID-19 VACCINE (#1) [facility] 05:33:18 [code = COVID-19 VACCINE (#1)] Future Scheduled 2022-08-30 [facility]CRE[facility]ING [facility] 05:33:18 [code = COLONOSCOPY SCREENING] Future Scheduled 2022-08-30 SHINGLES VACCINES (1 [facility] 05:33:18 of 2) [code = SHINGLES VACCINES (1 of 2)] Future Scheduled 2022-08-30 65+ [facility] Test 05:33:18 VACCINE (1 - PCV) [code = 65+ PNEUMOCOCCAL VACCINE (1 - PCV)] Future Scheduled 2022-08-30 INFLUENZA VACCINE [facility] Test 05:33:18 [code = INFLUENZA VACCINE] Future Scheduled 2022-01-24 COVID-19 VACCINE (#1) [facility] Test 00:25:16 [code = COVID-19 VACCINE (#1)] Future Scheduled 2022-01-24 COLONOSCOPY SCREENING [facility] Test 00:25:16 [code = COLONOSCOPY SCREENING] Future Scheduled 2022-01-24 SHINGLES VACCINES (1 Met [facility] Test 00:25:16 of 2) [code = SHINGLES VACCINES (1 of 2)] Future Scheduled 2022-01-24 65+ P[facility]OCOCCAL [facility] Test 00:25:16 VACCINE (1 - PCV) [code = 65+ PNEUMOCOCCAL VACCINE (1 - PCV)] Future Scheduled 2022-01-24 INFLUENZA VACCINE [email or web address] Test 00:25:16 [code = INFLUENZA VACCINE] Future Scheduled 2022-01-24 HEPATITIS B VACCINES Met [facility] Test 00:25:16 (1 of 3 - 3-dose series) [code = HEPATITIS B VACCINES (1 of 3 - 3-dose series)] Encounters Start End Encounter Admission Attending Care Care Encounter Source Date/Time Date/Time Type Type Clinicians Facility Department ID 2022-10-12 Outpatient [facility] [id number] [place] 14:59:27 [id number] [facility] 2022-10-03 Outpatient [facility] [id number] [place] 09:48:41 [id number] [facility] 2022-11-06 2022-11-06 Outpatient CUATE CUELLO [id number] Memoria 11:00:00 11:00:00 27 oni Castro 2022-09-04 2022-09-05 Outpatient CUATE LYNN [id number] [facility]oria 18:00:00 04:59:59 Neurology 26 oni Castro 2022-09-04 2022-09-04 [id number] 13:00:00 23:59:59 Galo 26 Remy 2022-09-04 2022-09-04 Outpatient CUATE CUELLO [id number] Memoria 13:00:00 13:00:00 26 oni Castro 2022-09-04 2022-09-04 Outpatient CUATE CUELLO [id number] Memoria 13:00:00 13:00:00 26 oni Castro 2022-06-05 2022-06-06 Outpatient MHIE MNA [id number] Memoria 20:30:00 05:59:59 Neurology 25 l Cady Castro 2022-06-05 2022-06-06 Outpatient [facility]IE MNA [id number] Memoria 20:30:00 05:59:59 Neurology 25 l Cady Castro 2022-06-05 2022-06-05 [id number] 14:30:00 23:59:59 Galo 25 Remy 2022-06-05 2022-06-05 Outpatient MHIE MHIE [id number] Memoria 14:30:00 14:30:00 25 oni Castro 2022-02-19 2022-02-20 Outpatient nullFlavo MNA [id number] [facility]oria 19:00:00 04:59:59 r Neurology 24 l Cady Castro 2022-02-19 2022-02-20 Outpatient nullFlavo MNA [id number] Memoria 19:00:00 04:59:59 r Neurology 24 l Cady Castro 2022-02-19 2022-02-19 [id number] 14:00:00 23:59:59 Galo 24 Remy 2022-02-19 2022-02-19 Outpatient MHIE MHIE [id number] Memoria 14:00:00 14:00:00 24 oni Castro 2021-10-24 2021-10-25 Outpatient nullFlavo MNA [id number] [facility]oria 19:00:00 04:59:59 r Neurology 23 l Cady Castro 2021-10-24 2021-10-25 Outpatient nullFlavo MNA [id number] [facility] 19:00:00 04:59:59 r Neurology 23 l Cady Castro 2021-10-24 2021-10-24 Outpatient CRISTOPHER ReySCHER MISCHER [id number] 14:00:00 23:59:59 Galo 23 Remy 2021-10-24 2021-10-24 Outpatient MHIE MHIE [id number] Memoria 14:00:00 14:00:00 23 oni Castro 2021-07-24 2021-07-25 Outpatient nullFlavo MNA [id number] [facility] 21:00:00 05:59:59 r Neurology 21 l Cady Castro 2021-07-24 2021-07-25 Outpatient nullFlavo MNA [id number] [facility] 21:00:00 05:59:59 r Neurology 21 l Cady Castro 2021-07-24 2021-07-24 Outpatient Candido [facility] [id number] 15:00:00 23:59:59 Galo 21 Remy 2021-07-24 2021-07-24 Outpatient MHIE IE [id number] Memoria 15:00:00 15:00:00 21 oni Castro 2021-06-23 2021-06-24 Outpatient nullFlavo MNA [id number] Memoria 16:45:00 05:59:59 r Neurology 22 l Cady Castro 2021-06-23 2021-06-24 Outpatient nullFlavo MNA [id number] Memoria 16:45:00 05:59:59 r Neurology 22 l Cady Castro 2021-06-23 2021-06-23 Outpatient [facility] [id number] 10:45:00 23:59:59 Galo 22 Remy 2021-06-23 2021-06-23 Outpatient [facility] IE [id number] Memoria 10:45:00 10:45:00 22 oni Castro 2021-04-27 2021-04-28 Outpatient nullFlavo MNA [id number] Memoria 20:00:00 05:59:59 r Neurology 20 l Cady Castro 2021-04-27 2021-04-28 Outpatient nullFlavo MNA [id number] Memoria 20:00:00 05:59:59 r Neurology 20 l Cady Castro 2021-04-27 2021-04-27 Outpatient Cand[facility] [id number] 14:00:00 23:59:59 Galo 20 Remy 2021-04-27 2021-04-27 Outpatient [facility] [id number] Memoria 14:00:00 14:00:00 20 oni Catsro 2020-12-15 2020-12-16 Outpatient nullFlavo MNA [id number] Memoria 19:30:00 04:59:59 r Neurology 19 l Cady Castro 2020-12-15 2020-12-16 Outpatient nullFlavo MNA [id number] Memoria 19:30:00 04:59:59 r Neurology 19 l Cady Castro 2020-12-15 2020-12-15 Outpatient Candido [facility] [id number] 14:30:00 23:59:59 Galo Laura Alberto 2020-12-15 2020-12-15 Outpatient [facility] [id number] Memoria 14:30:00 14:30:00 19 l Matthew 2020-12-06 2020-12-06 Ambulatory nullFlavo MNA [id number] Memoria 19:30:00 19:30:00 Pre-Reg r Neurology 17 l Cady Castro 2020-12-06 2020-12-06 Ambulatory nullFlavo MNA [id number] Memoria 19:30:00 19:30:00 Pre-Reg r Neurology 17 l Cady Castro 2020-12-06 2020-12-06 Outpatient MHIE IE [id number] Memoria 14:30:00 14:30:00 17 oni Castro 2020-12-06 2020-12-06 Outpatient Candido [facility] [id number] 14:30:00 14:30:00 Galo Alberto 2020-09-20 2020-09-22 Outside nullFlavo MNA [id number] Memoria 13:37:28 04:59:59 Medical r Neurology 08 l Records Cady Castro 2020-09-20 2020-09-22 Outside nullFlavo MNA [id number] Memoria 13:37:28 04:59:59 Medical r Neurology 08 l Records Cady Castro 2020-09-20 2020-09-21 Outpatient [facility] [id number] 08:37:28 23:59:59 2020-09-15 2020-09-16 Outpatient nullFlavo MNA [id number] Memoria 20:45:00 04:59:59 r Neurology 18 l Cady Castro 2020-09-15 2020-09-16 Outpatient nullFlavo MNA [id number] Memoria 20:45:00 04:59:59 r Neurology 18 l Cady Castro 2020-09-15 2020-09-15 [facility] [id number] 15:45:00 23:59:59 Galo 18 Remy 2020-09-15 2020-09-15 Outpatient MHIE MHIE [id number] Memoria 15:45:00 15:45:00 18 oni Castro 2020-06-07 2020-06-08 Outpatient nullFlavo MNA [id number] Memoria 20:30:00 05:59:59 r Neurology 16 l Cady Castro 2020-06-07 2020-06-08 Outpatient nullFlavo MNA [id number] Memoria 20:30:00 05:59:59 r Neurology 16 l Cady Castro 2020-06-07 2020-06-07 [facility] [id number] 14:30:00 23:59:59 Galo 16 Remy 2020-06-07 2020-06-07 Outpatient MHIE MHIE [id number] Memoria 14:30:00 14:30:00 16 l [place] 2020-03-04 2020-03-05 Outpatient nullFlavo MNA [id number] Memoria 20:15:00 04:59:59 r Neurology 15 l Cady Castro 2020-03-04 2020-03-05 Outpatient nullFlavo MNA [id number] Memoria 20:15:00 04:59:59 r Neurology 15 l Cady Matthew 2020-03-04 2020-03-04 [facility] [id number] 15:15:00 23:59:59 Galo 15 Remy 2020-03-04 2020-03-04 Outpatient MHIE MHIE [id number] Memoria 15:15:00 15:15:00 15 l [place] 2019-12-18 2019-12-18 Outpatient MHIE MHIE [id number] Memoria 22:15:00 22:15:00 13 l [place] 2019-12-18 2019-12-18 Outpatient MHIE MHIE [id number] Memoria 22:15:00 22:15:00 13 l 2019-12-18 2019-12-18 Ambulatory nullFlavo MNA [id number] Memoria 15:15:00 15:15:00 Pre-Reg r Neurology 13 l Cady Castro 2019-12-18 2019-12-18 Outpatient IE IE [id number] Memoria 10:15:00 10:15:00 14 l [place] 2019-12-18 2019-12-18 Outpatient IE IE [id number] Memoria 10:15:00 10:15:00 14 [facility] 2019-12-18 2019-12-18 Outpatient Candido [facility] [id number] 10:15:00 10:15:00 Galo 13 Remy 2019-11-30 2019-12-01 Between nullFlavo MNA [id number] Memoria 20:57:10 20:57:10 Visit r Neurology 09 l Cady Villelaann 2019-11-30 2019-12-01 Between nullFlavo MNA [id number] Memoria 20:57:10 20:57:10 Visit r Neurology 09 l Cady Villelaann 2019-11-30 2019-12-01 [facility] [id number] 15:57:10 15:57:10 09 2019-10-29 2019-10-30 Outpatient nullFlavo MNA [id number] Memoria 18:15:00 04:59:59 r Neurology 11 l Cady Villelaann 2019-10-29 2019-10-30 Outpatient nullFlavo MNA [id number] Memoria 18:15:00 04:59:59 r Neurology 11 l Evangeline [place] 2019-10-29 2019-10-29 Outpatient Candido [facility] [id number] 13:15:00 23:59:59 Galo 11 Remy 2019-10-29 2019-10-29 Outpatient IE [id number] Memoria 13:15:00 13:15:00 11 oni [place] 2019-07-15 2019-07-16 Outpatient nullFlavo MNA [id number] Memoria 20:30:00 05:59:59 r Neurology 12 l Evangelinenico V[place]la[place] 2019-07-15 2019-07-16 Outpatient nullFlavo MNA [id number] Memoria 20:30:00 05:59:59 r Neurology 12 l Evangelinenico [place]la[place] 2019-07-15 2019-07-15 [facility] [id number] 14:30:00 23:59:59 Galo 12 Remy 2019-07-15 2019-07-15 Outpatient MHIE MHIE [id number] Memoria 14:30:00 14:30:00 12 oni Castro 2019-07-02 2019-07-03 Outpatient nullFlavo MNA [id number] Memoria 20:30:00 05:59:59 r Neurology 10 oni Castro 2019-07-02 2019-07-03 Outpatient nullFlavo MNA [id number] Memoria 20:30:00 05:59:59 r Neurology 10 oni Castro 2019-07-02 2019-07-02 [facility] [id number] 14:30:00 23:59:59 Galo Cruz Alberto 2019-07-02 2019-07-02 Outpatient MHIE MHIE [id number] Memoria 14:30:00 14:30:00 10 oni Castro 2019-03-19 2019-03-20 Outpatient nullFlavo MNA [id number] Memoria 21:00:00 04:59:59 r Neurology 09 oni Lazar Matthew 2019-03-19 2019-03-20 Outpatient nullFlavo MNA [id number] Memoria 21:00:00 04:59:59 r Neurology 09 oni Castro 2019-03-19 2019-03-19 [facility] [id number] 16:00:00 23:59:59 Aglomoy Alberto 2019-03-19 2019-03-19 Outpatient MHIE MHIE [id number] Memoria 16:00:00 16:00:00 09 oni Castro 2019-02-05 2019-02-06 Outpatient nullFlavo MNA [id number] Memoria 21:00:00 04:59:59 r Neurology 08 oni Castro 2019-02-05 2019-02-06 Outpatient nullFlavo MNA [id number] Memoria 21:00:00 04:59:59 r Neurology 08 oni Castro 2019-02-05 2019-02-05 [facility] [id number] 16:00:00 23:59:59 Galo Deb Alberto 2019-02-05 2019-02-05 Outpatient MHIE MHIE [id number] Memoria 16:00:00 16:00:00 08 oni Castro 2018-10-02 2018-10-03 Outpatient nullFlavo MNA [id number] Memoria 21:00:00 04:59:59 r Neurology 07 oni Lazar Matthew 2018-10-02 2018-10-03 Outpatient nullFlavo MNA [id number] Memoria 21:00:00 04:59:59 r Neurology 07 oni Castro 2018-10-02 2018-10-02 [facility] [id number] 16:00:00 23:59:59 Galo Melissa Alberto 2018-10-02 2018-10-02 Outpatient MHIE MHIE [id number] Memoria 16:00:00 16:00:00 07 oni Matthew 2018-06-12 2018-06-13 Outpatient nullFlavo MNA [id number] Memoria 21:45:00 05:59:59 r Neurology 06 oni Lazar [place] 2018-06-12 2018-06-13 Outpatient nullFlavo MNA [id number] Memoria 21:45:00 05:59:59 r Neurology 06 oni Lazar [place] 2018-06-12 2018-06-12 [facility] [id number] 15:45:00 23:59:59 Galo Magdalene Alberto 2018-06-12 2018-06-12 Outpatient MHIE IE [id number] Memoria 15:45:00 15:45:00 06 oni [place] 2018-04-24 2018-04-25 Outpatient nullFlavo MNA [id number] Memoria 21:45:00 05:59:59 r Neurology 05 oni Lazar [place] 2018-04-24 2018-04-25 Outpatient nullFlavo MNA [id number] Memoria 21:45:00 05:59:59 r Neurology 05 oni Lazar [place] 2018-04-24 2018-04-24 [facility] [id number] 15:45:00 23:59:59 Galo Nicola Remy 2018-04-24 2018-04-24 Outpatient MHIE MHIE [id number] Memoria 15:45:00 15:45:00 05 oni Castro 2018-04-03 2018-04-04 Outpatient nullFlavo MNA [id number] Memoria 19:15:00 05:59:59 r Neurology 04 oni Castro 2018-04-03 2018-04-04 Outpatient nullFlavo MNA [id number] Memoria 19:15:00 05:59:59 r Neurology 04 oni Castro 2018-04-03 2018-04-03 [id number] 13:15:00 23:59:59 Galo Christina Alberto 2018-04-03 2018-04-03 Outpatient MHIE MHIE [id number] Memoria 13:15:00 13:15:00 04 oni Castro 2018-03-10 2018-03-12 Phone nullFlavo MNA [id number] Memoria 19:22:00 04:59:59 Message r Neurology 07 l Cady Castro 2018-03-10 2018-03-12 Phone nullFlavo MNA [id number] Memoria 19:22:00 04:59:59 Message r Neurology 07 l Cady Castro 2018-03-10 2018-03-12 Phone nullFlavo MNA [id number] Memoria 19:21:00 04:59:59 Message r Neurology 06 oni Castro 2018-03-10 2018-03-12 Phone nullFlavo MNA [id number] Memoria 19:21:00 04:59:59 Message r Neurology 06 l Cady Castro 2018-03-10 2018-03-11 Outpatient [facility] [id number] 14:22:00 23:59:59 2018-03-10 2018-03-11 Outpatient [facility] [id number] 14:21:00 23:59:59 06 2018-01-23 2018-01-23 Outpatient MHIE MHIE [id number] Memoria 08:45:00 08:45:00 03 oni Matthew 2018-01-23 2018-01-23 Outpatient MHIE MHIE [id number] Memoria 08:45:00 08:45:00 03 oni Matthew 2018-01-01 2018-01-01 Outpatient MHIE MHIE [id number] Memoria 11:30:00 11:30:00 02 oni Castro 2018-01-01 2018-01-01 Outpatient MHIE MHIE [id number] Memoria 11:30:00 11:30:00 02 oni Castro 2017-12-04 2017-12-04 Outpatient MHIE MHIE [id number] Memoria 10:45:00 10:45:00 00 oni Castro 2017-12-04 2017-12-04 Outpatient MHIE MHIE [id number] Memoria 10:45:00 10:45:00 00 oni Castro 2017-11-22 2017-11-22 Outpatient MHIE MHIE [id number] Memoria 10:15:00 10:15:00 01 oni Castro 2017-11-22 2017-11-22 Outpatient MHIE MHIE [id number] Memoria 10:15:00 10:15:00 01 oni Castro Results This patient has no known results.
[2022-10-21] MEDS ORDERED: NA CHLORIDE 0.9% 1,000 ML ONE (12:48)
[2022-10-21 13:00] LABS: Absolute Lymphocytes (CBC) 1.3 K/uL (0.7-4.9); Hematocrit 38.5 % (39.6-49.0); Lymphocytes % 16.9 % (15.3-44.8); MCV 96.3 fL (80-100); MPV 8.7 fL (7.6-11.3)
[2022-10-21 13:03] LABS: Protime INR 1.36
[2022-10-21 13:20] LABS: AST/SGOT 22 U/L (15-37); Albumin 3.3 g/dL (3.4-5.0); Alkaline Phosphatase 56 U/L (45-117); BUN Blood Urea Nitrogen 26 mg/dL (7-18); Bicarbonate 35 mEq/L (21-32); Bilirubin Direct 0.1 mg/dL (0-0.2); Bilirubin Indirect, Calculated 0.4 mg/dL (0.2-0.8); Bilirubin Total 0.5 mg/dL (0.2-1.0); Glomerular Filtration Rate 56 ml/min (=/>90); Glucose Level 93 mg/dL (74-106); NT PRO-BNP 639 pg/mL (<450); Potassium 3.5 mEq/L (3.5-5.1); Protein, Total 6.4 g/dL (6.4-8.2); Sodium Level 139 mEq/L (136-145); Troponin High Sensitivity 14.5 pg/mL (<58.9)
[2022-10-21 13:24] LABS: ALT/SGPT < 10 U/L (16-61)
--- NOTE | 2022-10-21 13:34 | RAD REPORT ---
EXAM DESCRIPTION: RAD - Pelvis - 10/21/2022 1:27 pm CLINICAL HISTORY: PAIN COMPARISON: PELVIS dated 04/09/2015; Hip Right 2 View dated 10/21/2022 FINDINGS/IMPRESSION: Suspected mildly displaced right subcapital femoral neck fracture. No pelvic fr acture is seen. No dislocation.
--- NOTE | 2022-10-21 13:37 | RAD REPORT ---
EXAM DESCRIPTION: RAD - Hip Right 2 View - 10/21/2022 1:28 pm CLINICAL HISTORY: PAIN COMPARISON: Hip Right 2 View dated 01/09/2011; Head C Spine Cap Wo Con dated 10/21/2022 FINDINGS/IMPRESSION: Mildly displaced right subcapital femoral neck fracture. No dislocation. Refere nce forthcoming CT.
--- NOTE | 2022-10-21 13:37 | RAD REPORT ---
EXAM DESCRIPTION: RAD - Chest Single View - 10/21/2022 1:27 pm CLINICAL HISTORY: COUGH COMPARISON: Chest Single View dated 08/30/2022; Chest Pa And Lat (2 Views) dated 01/18/2020; Chest Sing le View dated 01/06/2018; Abdomen 1 View (KUB) dated 12/31/2017 FINDINGS: Lines: None. Lungs: No evidence of edema or pneumonia. Pleural: No significant pleural effusions or pneumothorax. Cardiac: The heart size is within normal limits. Mediastinum: Within normal limits. Bones: No acute fractures. Other: None IMPRESSION: No acute cardiopulmonary disease.
--- NOTE | 2022-10-21 13:53 | RAD REPORT ---
EXAM DESCRIPTION: CT - Head C Spine Cap Wo Con - 10/21/2022 1:30 pm CLINICAL HISTORY: Trauma, head and neck injury. Chest, abdomen and pelvis pain. TRAUMA COMPARISON: Stone Protocol dated 01/06/2018 TECHNIQUE: CT head without contrast. CT cervical spine without contrast with coronal and sagittal reformatted images. CT chest, abdomen and pelvis without contrast with coronal and sagittal reformatted images of the spi ne. All CT scans are performed using dose optimization technique as appropriate and may include automated exposure control or mA/KV adjustment according to patient size. FINDINGS: CT HEAD WITHOUT CONTRAST: No intracranial hemorrhage, hydrocephalus or extra-axial fluid collection. No areas of brain edema o r midline shift. The paranasal sinuses and mastoids are clear. The calvarium is intact. CT CERVICAL SPINE WITHOUT CONTRAST: No fracture or subluxation. The prevertebral soft tissues are normal in thickness.Advanced multileve l cervical spondylosis with disc height loss, uncovertebral joint hypertrophy and posterior disc oste ophyte complexes are results in varying degrees of neural foraminal narrowing that is severe levels. CT CHEST, ABDOMEN, PELVIS WITHOUT CONTRAST: NOTE: Lack of contrast is a significant limitation in the assessment of trauma related findings. Spec ifically, solid organ, vascular and bowel evaluation is significantly limited. The lungs are clear.No pneumothorax or pericardial/pleural fluid. Fat containing structure along the posterior pleural space in the right lower lobe is likely a lipoma and is of no clinical significance . Multi-vessel coronary artery disease. No evidence of intra-abdominal visceral injury, free fluid or free air is seen within the above detai led limitations. Cholecystectomy. 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 No concerning pelvic findings. Right subcapital femoral neck fracture which is slightly impacted. IMPRESSION: 1. Mildly displaced impacted right subcapital femoral neck fracture. No other evidence o f significant trauma is identified to the chest, abdomen, or pelvis. 2. No acute intracranial abnormality. 3. No fracture or traumatic malalignment of the cervical spine.
--- NOTE | 2022-10-21 14:18 | ER ---
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 Patient fell at home db while trying to put a tv up. Patient hurt right hip. Denies any other injury denies LOC. Coronavirus screen: Vaccine status: Patient reports receiving the 2nd dose of the covid vaccine. Client denies travel out of the [place] in the last 14 days. At this time, the client does not indicate any symptoms associated with coronavirus-19. Ebola Screen: Patient negative for fever greater than or equal to 101.5 degrees Fahrenheit, and additional compatible Ebola Virus Disease symptoms Patient denies exposure to infectious person. Patient denies travel to an Ebola-affected area in the 21 days before illness onset. No symptoms or risks identified at this time. Initial Sepsis Screen: Does the patient meet any 2 criteria? No. Patient's initial sepsis screen is negative. Initial Sepsis Screen: Does the patient have a suspected source of infection? No. Patient's initial sepsis screen is negative. Risk Assessment: Do you want to hurt yourself or someone else? Patient reports no desire to harm self or others. Onset of symptoms was October 21, 2022. 12:14 Method Of Arrival: EMS: [facility] db 12:14 Acuity: SABINO 2 db 16:00 Care prior to arrival: None. Mechanism of Injury: Fall from standing position. Trauma db event details: Injury occurred in the [facility]. Triage Assessment: 12:27 General: Appears in no apparent distress. comfortable, Behavior is calm, cooperative. db Pain: Complains of pain in right leg. Trauma Activation: Not Applicable Physician: ED Physician; Name: ; Notified At: ; Arrived At: Physician: General Surgeon; Name: ; Notified At: ; Arrived At: Physician: Radiology; Name: ; Notified At: ; Arrived At: Physician: Respiratory; Name: ; Notified At: ; Arrived At: Physician: Lab; Name: ; Notified At: ; Arrived At: Historical: - Allergies: 12:27 Bactrim; db 12:27 butorphanol tartrate; db 12:27 PENICILLINS; db 12:27 Stadol; db - Home Meds: 12:27 Aspir-81 81 mg Oral TbEC 1 tab once daily [Active]; db 12:28 carbidopa-levodopa 25-100 mg Oral Tablet,disintegrating 2 times per day [Active]; db Eliquis 5 mg Oral tablet every 12 hours [Active]; mupirocin topical [Active]; galantamine 8 mg Oral tablet 2 times per day [Active]; levothyroxine 50 mcg tab daily [Active]; memantine 5 mg Oral tablet 2 times per day [Active]; pantoprazole 40 mg Oral tablet, delayed release (enteric coated) daily [Active]; nitrofurantoin macrocrystal 100 mg Oral cap 1 cap every 6 hours [Active]; mirtazapine 15 mg Oral Tablet,disintegrating daily [Active]; Santyl 250 unit/gram Topical ointment daily [Active]; Tramadol 25 mg Oral 2 times per day [Active]; gabapentin 300 mg Oral tab 2-3 times per day as needed [Active]; - PMHx: 12:27 Anxiety; Hypothyroidism; Hypertension; BPH; db - Immunization history:: Adult Immunizations unknown, Client reports receiving the 2nd dose of the Covid vaccine. - Social history:: Smoking status: Patient denies any tobacco usage or history of. - Immunization history: Last tetanus immunization: unknown. - Family history:: not pertinent. Screenin:32 [facility] ED Fall Risk Assessment (Adult) History of falling in the last 3 months, db including since admission Yes- fall prone (multiple falls) (3 pts) Confusion or Disorientation No (0 pts) Intoxicated or Sedated No (0 pts) Impaired Gait Yes (1 pt) Mobility Assist Device Used Yes (1 pt) Altered Elimination No (0 pt) Score/Fall Risk Level 3 or more points = High Risk Oriented to surroundings, Maintained a safe environment. [facility] ED Fall Risk Assessment (Adult) History of falling in the last 3 months, including since admission. Abuse screen: Denies threats or abuse. Denies injuries from another. Nutritional screening: No deficits noted. Tuberculosis screening: No symptoms or risk factors identified. Primary Survey: 14:00 NO uncontrolled hemorrhage observed. Breathing/Chest: Spontaneous respiratory effort, db equal unlabored respirations, breath sounds clear bilaterally, regular pattern, symmetrical chest rise and fall. Respiratory effort: spontaneous, unlabored, Breath sounds: clear, Respiratory pattern: regular, Chest inspection: symmetrical rise and fall of the chest. Circulation: No external hemorrhage present. Regular and strong central pulse, skin warm/dry/normal color. Disability Pupils are equal, round, reactive to light and accommodation. Client is alert. Exposure/Environment: There is no evidence of uncontrolled external bleeding. A warming method has been applied: A warm blanket has been provided to the patient. Reassessment Alertness and Airway: Awake and alert. The airway is patent. Breathing: Spontaneous respiratory effort, equal unlabored respirations, breath sounds clear bilaterally, regular pattern with symmetrical chest rise and fall. Circulation: No external hemorrhage noted. Regular and strong central pulse, skin warm/dry/normal color. Disability: Alert. 16:00 A: The client is awake and alert. The airway is patent. db Assessment: 12:31 Reassessment: Patient appears in no apparent distress at this time. Patient and/or db family updated on plan of care and expected duration. Pain level reassessed. Patient is alert, oriented x 3, equal unlabored respirations, skin warm/dry/pink. General: Appears in no apparent distress. comfortable, Behavior is calm, cooperative. Neuro: Level of Consciousness is awake, alert, obeys commands, Oriented to person, place, time, situation. Respiratory: Airway is patent Respiratory effort is even, unlabored, Respiratory pattern is regular, symmetrical. 13:14 Reassessment: pt is in CT. db 14:00 Reassessment: Patient appears in no apparent distress at this time. Patient and/or db family updated on plan of care and expected duration. Pain level reassessed. Patient is alert, oriented x 3, equal unlabored respirations, skin warm/dry/pink. family at bedside. 15:03 Reassessment: report given to LUCRETIA Pinto at [facility]. db 15:16 Reassessment: Patient appears in no apparent distress at this time. Patient and/or db family updated on plan of care and expected duration. Pain level reassessed. Patient is alert, oriented x 3, equal unlabored respirations, skin warm/dry/pink. family updated Patient states feeling better. 16:00 Reassessment: Patient appears in no apparent distress at this time. Patient and/or db family updated on plan of care and expected duration. Pain level reassessed. Patient is alert, oriented x 3, equal unlabored respirations, skin warm/dry/pink. patient transferred to EMS stretcher for transport. Vital Signs: 12:14 BP 111 / 77; Pulse 92; Resp 20; Temp 98(O); Pulse Ox 100% on R/A; Weight 78.02 kg; db Height 5 ft. 10 in. ; 13:00 BP 119 / 88; Pulse 99; Resp 16; Pulse Ox 99% on R/A; db 14:00 BP 117 / 79; Pulse 110; Resp 18; Pulse Ox 98% on R/A; db 15:00 BP 117 / 81; Pulse 116; Resp 18; Pulse Ox 96% on R/A; db 16:00 BP 124 / 68; Pulse 110; Resp 18; Pulse Ox 99% on R/A; db 12:14 Body Mass Index 24.68 (78.02 kg, 177.8 cm) db [place] Coma Score: 13:00 Eye Response: spontaneous(4). Motor Response: obeys commands(6). Verbal Response: db oriented(5). Total: 15. Trauma Score (Adult): 13:00 Eye Response: spontaneous(1); Verbal Response: oriented(1); Motor Response: obeys db commands(2); Systolic BP: > 89 mm Hg(4); Respiratory Rate: 10 to 29 per min(4); [place] Score: 15; Trauma Score: 12 ED Course: 12:24 Patient arrived in ED. db 12:25 Gurvinder Carrera MD is Attending Physician. keira 12:27 Triage completed. db 12:28 Arm band placed on Patient placed in an exam room. db 12:33 Roseanne Campbell, LUCRETIA is Primary Nurse. db 12:52 Inserted saline lock: 20 gauge in right forearm, using aseptic technique. Blood db collected. 13:29 XRAY Chest (1 view) In Process Unspecified. EDMS 13:29 Pelvis XRAY In Process Unspecified. EDMS 13:29 Hip Right 2 View XRAY In Process Unspecified. EDMS 13:31 CT Traumagram (Head C Spine CAP wo con) In Process Unspecified. EDMS 14:36 initiated at transfer with Donna Orta Rn from the [facility] center/. 14:42 administrative approval given by Donna Orta Rn/ patient has been accepted to [facility] ER/ Dr. Drake Fernandez has accepted the patient in transfer/ report to be called to [phone]. 15:38 Zhang cath inserted, using sterile technique, 16 Fr., by nd, balloon inflated, urine db specimen collected. Patient tolerated well. 16:00 Patient has correct armband on for positive identification. Bed in low position. Call db light in reach. Side rails up X2. 16:00 Patient maintains SpO2 saturation greater than 95% on room air. db 16:00 No provider procedures requiring assistance completed. Patient transferred, IV remains db in place. 16:00 Thermoregulation: warm blanket given to patient. db Administered Medications: 12:53 Drug: NS 0.9% IV 1000 ml Route: IV; Rate: 125 ml/hr; Site: right forearm; db 15:50 Follow up: Response: No adverse reaction; IV Status: Infusion continued upon transfer; db IV Intake: 300ml 15:45 Drug: Ondansetron IVP 4 mg Route: IVP; Site: right antecubital; db 16:23 Follow up: Response: No adverse reaction db 15:55 Drug: morphine IVP or IV 2 mg Route: IVP; Infused Over: 4 mins; Site: right antecubital;db 16:23 Follow up: Response: No adverse reaction db 16:00 Drug: morphine IVP or IV 2 mg Route: IVP; Infused Over: 4 mins; Site: right antecubital;db 16:23 Follow up: Response: No adverse reaction db Medication: 16:00 VIS not applicable for this client. db Intake: 13:00 PO: 0ml; Total: 0ml. db 15:50 IV: 300ml; Total: 300ml. db Outcome: 14:18 ER care complete, transfer ordered by . keira 16:00 Transferred by ground EMS to [facility], Transfer form completed. db 16:00 Condition: stable 16:00 Patient's length of stay was not longer than 2 hours. 16:26 Patient left the ED. db Signatures: Dispatcher [employer] Gurvinder Cain MD MD cha Botello, Elizabeth eb Benton, Danielle, RN RN db
--- NOTE | 2022-10-21 14:18 | EDPHYS ---
Physician Documentation [facility] Name: Sunday Pinto Jr Age: 76 yrs Sex: Male : 1945 Arrival Date: 10/21/2022 Time: 12:08 Bed 13 Private MD: ED Physician Gurvinder Carrera HPI: 10/21 14:10 This 76 yrs old Male presents to ER via EMS with complaints of Fall Injury. keira 14:10 Details of fall: The patient fell from an upright position, while standing, while keira walking. Onset: The symptoms/episode began/occurred this morning. Associated injuries: The patient sustained right hip, decreased range of motion. Severity of symptoms: At their worst the symptoms were mild, moderate, in the emergency department the symptoms are unchanged. The patient has not experienced similar symptoms in the past. Historical: - Allergies: 12:27 Bactrim; db 12:27 butorphanol tartrate; db 12:27 PENICILLINS; db 12:27 Stadol; db - Home Meds: 12:27 Aspir-81 81 mg Oral TbEC 1 tab once daily [Active]; db 12:28 carbidopa-levodopa 25-100 mg Oral Tablet,disintegrating 2 times per day [Active]; db Eliquis 5 mg Oral tablet every 12 hours [Active]; mupirocin topical [Active]; galantamine 8 mg Oral tablet 2 times per day [Active]; levothyroxine 50 mcg tab daily [Active]; memantine 5 mg Oral tablet 2 times per day [Active]; pantoprazole 40 mg Oral tablet, delayed release (enteric coated) daily [Active]; nitrofurantoin macrocrystal 100 mg Oral cap 1 cap every 6 hours [Active]; mirtazapine 15 mg Oral Tablet,disintegrating daily [Active]; Santyl 250 unit/gram Topical ointment daily [Active]; Tramadol 25 mg Oral 2 times per day [Active]; gabapentin 300 mg Oral tab 2-3 times per day as needed [Active]; - PMHx: 12:27 Anxiety; Hypothyroidism; Hypertension; BPH; db - Immunization history:: Adult Immunizations unknown, Client reports receiving the 2nd dose of the Covid vaccine. - Social history:: Smoking status: Patient denies any tobacco usage or history of. - Immunization history: Last tetanus immunization: unknown. - Family history:: not pertinent. ROS: 14:10 Constitutional: Negative for fever, chills, and weight loss, Eyes: Negative for injury, keira pain, redness, and discharge, ENT: Negative for injury, pain, and discharge, Neck: Negative for injury, pain, and swelling, Cardiovascular: Negative for chest pain, palpitations, and edema, Respiratory: Negative for shortness of breath, cough, wheezing, and pleuritic chest pain, Abdomen/GI: Negative for abdominal pain, nausea, vomiting, diarrhea, and constipation, Back: Negative for injury and pain, : Negative for injury, bleeding, discharge, and swelling, Skin: Negative for injury, rash, and discoloration, Neuro: Negative for headache, weakness, numbness, tingling, and seizure, Psych: Negative for depression, anxiety, suicide ideation, homicidal ideation, and hallucinations, Allergy/Immunology: Negative for hives, rash, and allergies, Endocrine: Negative for neck swelling, polydipsia, polyuria, polyphagia, and marked weight changes, Hematologic/Lymphatic: Negative for swollen nodes, abnormal bleeding, and unusual bruising. 14:10 MS/extremity: Positive for decreased range of motion, pain, tenderness, of the right hip. Exam: 14:10 Constitutional: This is a well developed, well nourished patient who is awake, alert, keira and in no acute distress. Head/Face: Normocephalic, atraumatic. Eyes: Pupils equal round and reactive to light, extra-ocular motions intact. Lids and lashes normal. Conjunctiva and sclera are non-icteric and not injected. Cornea within normal limits. Periorbital areas with no swelling, redness, or edema. ENT: Nares patent. No nasal discharge, no septal abnormalities noted. Tympanic membranes are normal and external auditory canals are clear. Oropharynx with no redness, swelling, or masses, exudates, or evidence of obstruction, uvula midline. Mucous membranes moist. Neck: Trachea midline, no thyromegaly or masses palpated, and no cervical lymphadenopathy. Supple, full range of motion without nuchal rigidity, or vertebral point tenderness. No Meningismus. Chest/axilla: Normal chest wall appearance and motion. Nontender with no deformity. No lesions are appreciated. Cardiovascular: Regular rate and rhythm with a normal S1 and S2. No gallops, murmurs, or rubs. Normal PMI, no JVD. No pulse deficits. Respiratory: Lungs have equal breath sounds bilaterally, clear to auscultation and percussion. No rales, rhonchi or wheezes noted. No increased work of breathing, no retractions or nasal flaring. Abdomen/GI: Soft, non-tender, with normal bowel sounds. No distension or tympany. No guarding or rebound. No evidence of tenderness throughout. Back: No spinal tenderness. No costovertebral tenderness. Full range of motion. Male : Normal genitalia with no discharge or lesions. Skin: Warm, dry with normal turgor. Normal color with no rashes, no lesions, and no evidence of cellulitis. Neuro: Awake and alert, GCS 15, oriented to person, place, time, and situation. Cranial nerves II-XII grossly intact. Motor strength 5/5 in all extremities. Sensory grossly intact. Cerebellar exam normal. Normal gait. Psych: Awake, alert, with orientation to person, place and time. Behavior, mood, and affect are within normal limits. 14:10 ECG was reviewed by the Attending Physician. 14:10 Musculoskeletal/extremity: Extremities: grossly normal except: ROM: limited active range of motion, limited passive range of motion, limited active range of motion due to pain, limited passive range of motion due to pain, in the right hip and right upper thigh, Circulation is intact in all extremities. Sensation intact. Compartment Syndrome exam of affected extremity: is normal. Weight bearing: is unable to bear weight, DVT Exam: No signs of deep vein thrombosis. negative Homans' sign noted on exam, no appreciated bluish discoloration, no erythema, no increased warmth, pain, swelling, tenderness, that is moderate, of the right leg, of the right hip and right upper thigh. Vital Signs: 12:14 BP 111 / 77; Pulse 92; Resp 20; Temp 98(O); Pulse Ox 100% on R/A; Weight 78.02 kg; db Height 5 ft. 10 in. ; 13:00 BP 119 / 88; Pulse 99; Resp 16; Pulse Ox 99% on R/A; db 14:00 BP 117 / 79; Pulse 110; Resp 18; Pulse Ox 98% on R/A; db 15:00 BP 117 / 81; Pulse 116; Resp 18; Pulse Ox 96% on R/A; db 16:00 BP 124 / 68; Pulse 110; Resp 18; Pulse Ox 99% on R/A; db 12:14 Body Mass Index 24.68 (78.02 kg, 177.8 cm) db Kolby Coma Score: 13:00 Eye Response: spontaneous(4). Motor Response: obeys commands(6). Verbal Response: db oriented(5). Total: 15. Trauma Score (Adult): 13:00 Eye Response: spontaneous(1); Verbal Response: oriented(1); Motor Response: obeys db commands(2); Systolic BP: > 89 mm Hg(4); Respiratory Rate: 10 to 29 per min(4); Maple Score: 15; Trauma Score: 12 MDM: 12:25 Patient medically screened. [facility] 14:14 Differential diagnosis: closed head injury, contusion, multiple trauma, sprain, strain. [facility] Data reviewed: vital signs, nurses notes, EMS record, lab test result(s), EKG, radiologic studies, CT scan, plain films. Consideration of Admission/Observation Patient was admitted/placed on observation. Escalation of care including admission/observation considered. I considered the following discharge prescriptions or medication management in the emergency department Medications were administered in the Emergency Department. See MAR. Independent interpretation of the following test(s) in the Emergency Department EKG: See my EKG interpretation above. Test considered but Not performed: MRI: no mri brain. Historians other than the Patient: Family Member: informed. External Records Reviewed: Outpatient record: [facility]. Care significantly affected by the following chronic conditions: Hypertension, anxiety, hypothyroid. Counseling: I had a detailed discussion with the patient and/or guardian regarding: the historical points, exam findings, and any diagnostic results supporting the discharge/admit diagnosis, lab results, radiology results, the need to transfer to another facility, for higher level of care, [facility] does not immediately have the required specialist. 10/21 12:28 Order name: Basic Metabolic Panel; Complete Time: 14:04 [facility] 10/21 12:28 Order name: CBC with Diff; Complete Time: 14:04 [facility] 10/21 12:28 Order name: LFT's; Complete Time: 14:04 [facility] 10/21 12:28 Order name: Magnesium; Complete Time: 14:04 [facility] 10/21 12:28 Order name: NT PRO-BNP; Complete Time: 14:04 10/21 12:28 Order name: PT-INR; Complete Time: 14:04 [facility] 10/21 12:28 Order name: Troponin HS; Complete Time: 14:04 10/21 12:28 Order name: Urinalysis w/ reflexes 10/21 12:28 Order name: XRAY Chest (1 view); Complete Time: 14:04 [facility] 10/21 12:28 Order name: Pelvis XRAY; Complete Time: 14:04 [facility] 10/21 12:28 Order name: Hip Right 2 View XRAY; Complete Time: 14:04 10/21 12:28 Order name: CT Traumagram (Head C Spine CAP wo con); Complete Time: 14:04 [facility] 10/21 12:28 Order name: EKG; Complete Time: 12:29 [facility] 10/21 12:28 Order name: Cardiac monitoring; Complete Time: 12:31 keira 10/21 12:28 Order name: EKG - Nurse/Tech; Complete Time: 15:14 [facility] 10/21 12:28 Order name: IV Saline Lock; Complete Time: 15:14 [facility] 10/21 12:28 Order name: Labs collected and sent; Complete Time: 15:14 [facility] 10/21 12:28 Order name: O2 Per Protocol; Complete Time: 12: [facility] 10/21 12:28 Order name: O2 Sat Monitoring; Complete Time: 12:31 [facility] EC:10 Rate is 102 beats/min. Rhythm is irregularly irregular. QRS [place] is Normal. DE interval keira is normal. QRS interval is normal. QT interval is normal. No Q waves. T waves are Normal. No ST changes noted. Clinical impression: Atrial Fibrillation and No evidence of ischemia. Interpreted by me. Reviewed by me. Administered Medications: 12:53 Drug: NS 0.9% IV 1000 ml Route: IV; Rate: 125 ml/hr; Site: right forearm; db 15:50 Follow up: Response: No adverse reaction; IV Status: Infusion continued upon transfer; db IV Intake: 300ml 15:45 Drug: Ondansetron IVP 4 mg Route: IVP; Site: right antecubital; db 16:23 Follow up: Response: No adverse reaction db 15:55 Drug: morphine IVP or IV 2 mg Route: IVP; Infused Over: 4 mins; Site: right antecubital;db 16:23 Follow up: Response: No adverse reaction db 16:00 Drug: morphine IVP or IV 2 mg Route: IVP; Infused Over: 4 mins; Site: right antecubital;db 16:23 Follow up: Response: No adverse reaction db Disposition Summary: 10/21/22 14:18 Transfer Ordered Transfer Location: [facility] keira Reason: Higher level of care keira Condition: Fair keira Problem: new keira Symptoms: have improved keira Accepting Physician: to starla [facility](10/21/22 16:26) db Diagnosis - Fall on same level, unspecified keira - Fracture of unspecified part of neck of right femur - SUBCAPITAL, MILD DISPLACEMENT keira - Persistent atrial fibrillation keira - emt intermediate (current) use of anticoagulants keira - Contusion of right elbow keira Forms: - Medication Reconciliation Form keira - SBAR form keira Signatures: Dispatcher [employer] EDGurvinder Lu MD MD cha Benton, Danielle RN RN db Corrections: (The following items were deleted from the chart) 14:18 14:18 [facility] keira 16:26 14:18 to starla, [facility] keira db
[2022-10-21] MEDS ORDERED: MORPHINE 2 MG/ML SYR ONE (15:50)
[2022-10-21] MEDS ORDERED: ONDANSETRON 4 MG/2 ML VIAL ONE (15:50)
[2022-10-21 16:21] LABS: Specific Gravity 1.022 (1.005-1.030); Urine Bilirubin NEGATIVE (Negative); Urine Blood Negative (Negative); Urine Clarity Turbid (Clear); Urine Color Yellow (Yellow); Urine Glucose NEGATIVE (Negative); Urine Mucus Slight /HPF (None Seen); Urine Protein TRACE (Negative); Urine RBC <5 /HPF (None Seen); Urine Urobilinogen Normal (Normal)
[2022-10-21 16:47] VITALS: TEMP 98
[2022-10-21 16:51] LABS: Urine Bacteria Loaded /HPF (<20)
[2022-10-21 16:56] VITALS: BP 124/68; O2SAT 99
--- NOTE | 2022-10-24 07:15 | EKG ---
Test Date: 2022-10-21 Test Time: 13:57:40 Casino Change Attendant: SUNSHINE MEASUREMENT RESULTS: Intervals: Rate: 102 CT: QRSD: 86 QT: 356 QTc: 463 Baird: P: CT: QRS: -39 T: 73 INTERPRETIVE STATEMENTS: Atrial fibrillation Left axis deviation Nonspecific ST and T wave abnormality, probably digitalis effect Abnormal ECG Compared to ECG 08/30/2022 11:24:21 ST (T wave) deviation now present Electronically Signed On 10-24-22 07:07:41 CDT by Jm Chu
== END 2022-10-21 16:26 | disposition short-term general hospital (02) ==
LOC: ER 12:08
DX: S72.011A Unspecified intracapsular fracture of right femur, initial encounter for closed fracture (principal); S50.01XA Contusion of right elbow, initial encounter; W18.30XA Fall on same level, unspecified, initial encounter; I48.19 Other persistent atrial fibrillation; Z79.01 Long term (current) use of anticoagulants; I10 Essential (primary) hypertension; F41.9 Anxiety disorder, unspecified; E03.9 Hypothyroidism, unspecified; Z88.0 Allergy status to penicillin; Z88.1 Allergy status to other antibiotic agents; Z88.5 Allergy status to narcotic agent; Z88.8 Allergy status to other drugs, medicaments and biological substances
CPT/HCPCS: 96361; 93005; 85025; 81001; 80048; 36415; 83735; 85610; 80076; 84484; 83880; 70450; 71250; 72125; 71045; 72170; 73502; 51702; 96375; 96374; 99285; J2270; J2405; J7030

== ENCOUNTER 2022-10-28 10:48 | Inpatient (IN) | payer OTHER, BC ==
--- OUTSIDE RECORDS SUMMARY | 2022-10-28 15:52 | XMS REPORT | Continuity of Care Document ---
:1945 Author Organization [facility] t Address [address] [place] [address] [place] [id number] Care Team Providers Name Role Phone Duran Contreras MD Primary Care Physician JOSSIE DORANTES Attending Clinician Unavailable JOSSIE DORANTES Admitting Clinician Unavailable Problems Condition Condition Condition Status Onset Resolution Last Treating Co mments Source Name Details Category Date Date Treatment Clinician Date Restless Restless Problem Active 2022-09-07 Memoria legs legs 3-22 14:18:20 l (disorder) (disorder) 00:00: He rmann Active 00 08/15/2016 Problem 09/07/2022 [facility] Lumbar Lumbar Problem Active 2014-052022-09-07 [facility] radiculopa radiculopa -18 14:18:20 l thy thy 00:00: Matthew (disorder) (disorder) 00 Active 04/13/2015 Problem 09/07/2022 [facility] 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-09-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 -18 14:18:20 l sleep sleep 00:00: [place] behavior behavior 00 disorder disorder (disorder) (disorder) Active 04/13/2015 Problem 09/07/2022 [facility] Essential Essential Problem Active 2022-09-07 Memoria hypertensi hypertensi 3-04 14:18:20 l on on 00:00: Matthew (disorder) (disorder) 00 Active 07/28/2014 Problem 09/07/2022 [facility] Hypothyroi Hypothyro Problem Active 2022-09-07 Memoria dism idism 3- 14:18:20 l (disorder) (disorder) 00:00: Shahram rmann Active 00 07/28/2014 Problem 09/07/2022 [facility] Dementia Dementia Problem Resolve 2022-02-22 Memoria (disorder) (disorder) d 02:55:41 l Resolved [place] Problem 02/22/2022 [facility] Alzheimer' Alzheimer Problem Active 2022-09-07 Memoria s disease 's disease 14:18:20 l (disorder) (disorder) He rmann Active Problem 09/07/2022 [facility] Atrial Atrial Problem Active 2022-09-07 [facility] fibrillati fibrillati 14:18:20 l on on [place] (disorder) (disorder) Active Problem 09/07/2022 [facility] History of History Problem Active 2022-09-07 Memoria fall of fall 14:18:20 l (situation (situation He rmann ) ) Active Problem 09/07/2022 [facility] Lumbar Lumbar Problem Active 2022-09-07 [facility] spondylosi spondylosi 14:18:20 l s s Matthew (disorder) (disorder) Active Problem 09/07/2022 [facility] Parkinsoni Parkinson Problem Active 2022-09-07 Memoria sm ism 14:18:20 l (disorder) (disorder) He rmann Active Problem 09/07/2022 [facility] 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 02:55:41 l disorder disorder 00:00: Stevie n (disorder) (disorder) 00 Resolved 04/13/2015 Problem 02/22/2022 [facility] Amnesia Amnesia Problem Resolve 2022-02-22 2022-02-22 Memoria (finding) (finding) d 3-04 02:55:41 02:55:41 l Resolved 00:00: [place] 07/28/2014 00 Problem 02/22/2022 [facility] Allergies, Adverse Reactions, Alerts Allergy Allergy Status Severity Reaction(s) Onset Inactive Treating Comm ents Source Name Type Date Date Clinician Penicill Propensi Active Swelling Meth maryse ins ty to 4-18 st adverse 00:00: Hospita reaction 00 l s to drug Butorpha Propensi Active Other (See Dizziness Methodi nol ty to Comments) [address] Tartrate adverse 00:00: Hospita reaction 00 l s to drug penicill penicill Active Memori a ins ins l Matthew Stadol Stadol Active Memoria l [place] Family History Family Member Diagnosis Comments Start Date Stop Date Source Natural mother Heart disease [facility] Social History Social Habit Start Date Stop Date Quantity Comments Source [facility] Alcohol intake 2017-09-18 2017-09-18 Current [facility] 00:00:00 00:00:00 non-drinker of Hospital alcohol (finding) Tobacco use and 2017-09-11 2017-09-11 Smokeless [facility] exposure 00:00:00 00:00:00 tobacco non-user Hospital History of Social 2017-09-11 2017-09-[address] function 00:00:00 00:00:00 Hospital Sex Ass[birth year] At [birth year] [facility] 00:00:00 00:00:00 Hospital Smoking Status Start Date Stop Date Source Tobacco smoking status [facility] Medications Ordered Filled Start Stop Current Ordering Indication Dosage Frequency Signature Comments Components Source Medication Medication Date Date Medication? Clinician (SIG) Name Name memantine 5 Yes = 1 tab, Me moria mg oral 4-11 PO, BID, # l tablet 18:41: 180 tab, 1 Sarah nn 00 Refill(s), Pharmacy: [facility], 157.48, cm, 09/04/22 13:16:00 CDT, Height, 78.182, kg, 09/04/22 13:16:00 CDT, Weight furosemide Yes TAKE 1 Memor ia 20 mg oral 4-11 TABLET BY l tablet 18:26: MOUTH ONCE Sarah nn 00 DAILY NEEDED carbidopa-l 2022-0 Yes 2 tab, PO, Memoria evodopa 25 1-10 BID, # 360 l mg-100 mg 21:23: tab, 1 Stevie n oral tablet 00 Refill(s), Pharmacy: [facility], 172.72, cm, 06/05/22 14:44:00 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, Height, 82.898, kg, 06/05/22 14:44:00 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, Weight carbidopa-l 2022-0 Yes 2 tab, PO, Memoria evodopa 25 1-10 TID, # 540 l mg-100 mg 21:23: tab, 1 Stevie n oral tablet 00 Refill(s), Pharmacy: [facility], 172.72, cm, 06/05/22 14:44:00 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, Height, 82.898, kg, 06/05/22 14:44:00 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, Weight galantamine 0 Yes = 1 tab, Me moria 12 mg oral 1-10 PO, BID, # l tablet 21:18: 180 tab, 1 Sarah nn 00 Refill(s), Pharmacy: [facility], 172.72, cm, 06/05/22 14:44:00 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, Height, 82.898, kg, 06/05/22 14:44:00 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, Weight galantamine 0 Yes = 1 tab, Me moria 12 mg oral 1-10 PO, BID, # l tablet 21:18: 180 tab, 1 Sarah nn 00 Refill(s), Pharmacy: [facility], 172.72, cm, 06/05/22 14:44:00 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, Height, 82.898, kg, 06/05/22 14:44:00 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, Weight gabapentin 2021-05 Yes = 1 cap, Mem oria 300 mg oral 0-13 PO, TID, # l capsule 13:34: 270 Matthew 00 unknown unit, 1 Refill(s), Pharmacy: [facility], 172.72, cm, 02/19/22 14:08:00 CDT, Height, 87.5, kg, 02/19/22 14:08:00 CDT, Weight memantine 5 2021-05 Yes = 1 tab, Me moria mg oral 0-13 PO, BID, # l tablet 13:34: 180 tab, 1 Sarah nn 00 Refill(s), Pharmacy: [facility], 172.72, cm, 02/19/22 14:08:00 CDT, Height, 87.5, kg, 02/19/22 14:08:00 CDT, Weight gabapentin 2021-05 Yes = 1 cap, Mem oria 300 mg oral 0-13 PO, TID, # l capsule 13:34: 270 Matthew 00 unknown unit, 1 Refill(s), Pharmacy: [facility], 172.72, cm, 02/19/22 14:08:00 CDT, Height, 87.5, kg, 02/19/22 14:08:00 CDT, Weight memantine 5 2021-05 Yes = 1 tab, Me moria mg oral 0-13 PO, BID, # l tablet 13:34: 180 tab, 1 Sarah nn 00 Refill(s), Pharmacy: [facility], 172.72, cm, 02/19/22 14:08:00 CDT, Height, 87.5, kg, 02/19/22 14:08:00 CDT, Weight carbidopa-l 0 Yes 1 tab, PO, Memoria evodopa 25 9-26 TID, # 270 l mg-250 mg 19:26: tab, 1 Stevie n oral tablet 00 Refill(s), Pharmacy: [facility], 172.72, cm, 02/19/22 14:08:00 CDT, Height, 87.5, kg, 02/19/22 14:08:00 CDT, Weight carbidopa-l 2021-0 Yes 1 tab, PO, Memoria evodopa 25 9-26 TID, # 270 l mg-250 mg 19:26: tab, 1 Stevie n oral tablet 00 Refill(s), Pharmacy: [facility], 172.72, cm, 02/19/22 14:08:00 CDT, Height, 87.5, kg, 02/19/22 14:08:00 CDT, Weight tramadol 50 0 Yes 0 Memori a mg oral 9-26 Refill(s) l tablet 19:10: [place] 00 tramadol 50 0 Yes 0 Memori a mg oral 9-26 Refill(s) l tablet 19:10: Matthew 00 mirtazapine 0 Yes = 1 tab, Me moria 15 mg oral 8-02 PO, l tablet 16:43: Bedtime, # Sarah nn 00 90 tab, 2 Refill(s), Pharmacy: [facility] ([facility]), 172.72, cm, 10/24/21 13:54:00 CDT, Height, 93.21, kg, 10/24/21 13:54:00 CDT, Weight mirtazapine Yes = 1 tab, Me moria 15 mg oral 8-02 PO, l tablet 16:43: Bedtime, # Sarah nn 00 90 tab, 2 Refill(s), Pharmacy: [facility] ([facility]), 172.72, cm, 10/24/21 13:54:00 CDT, Height, 93.21, kg, 10/24/21 13:54:00 CDT, Weight gabapentin Yes 300 mg = 1 M emoria 300 mg oral 5-31 cap, PO, l capsule 19:27: TID, # 270 Herm volodymyr 00 cap, 1 Refill(s), Pharmacy: [facility], 172.72, cm, 10/24/21 13:54:00 CDT, Height, 93.21, kg, 10/24/21 13:54:00 CDT, Weight gabapentin 0 Yes 300 mg = 1 M emoria 300 mg oral 5-31 cap, PO, l capsule 19:27: TID, # 270 Herm volodymyr 00 cap, 1 Refill(s), Pharmacy: [facility], 172.72, cm, 10/24/21 13:54:00 CDT, Height, 93.21, kg, 10/24/21 13:54:00 CDT, Weight QUEtiapine 0 Yes TAKE 1 Memor ia 50 mg oral 5-31 TABLET BY l tablet 19:23: MOUTH ONCE Sarah nn 00 DAILY AT NIGHT hydrochloro 0 Yes 0 Memori a thiazide-sp 5-31 Refill(s) l ironolacton 19:23: Stevie caceres 25 mg-25 00 mg oral tablet hydrochloro Yes 0 Memori a thiazide-sp 5-31 Refill(s) l ironolacton 19:23: Stevie n e 25 mg-25 00 mg oral tablet QUEtiapine Yes TAKE 1 Memor ia 50 mg oral 5-31 TABLET BY l tablet 19:23: MOUTH ONCE Sarah nn 00 DAILY AT NIGHT gabapentin No 300 mg = 1 M emoria 300 mg oral 3-17 cap, PO, l capsule 14:34: TID, X 90 Sarah nn day, # 270 cap, 2 Refill(s), Pharmacy: [facility], 172.72, cm, 07/24/21 14:53:00 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, Height, 94.091, kg, 07/24/21 14:53:00 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, Weight gabapentin No 300 mg = 1 M emoria 300 mg oral 3-17 cap, PO, l capsule 14:34: TID, X 90 Sarah nn day, # 270 cap, 2 Refill(s), Pharmacy: [facility], 172.72, cm, 07/24/21 14:53:00 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, Height, 94.091, kg, 07/24/21 14:53:00 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, Weight tramadol Yes TAKE 1 Memoria hydrochlori 2-28 TABLET BY l de 50 MG 21:07: MOUTH [place] Oral Tablet 00 EVERY 12 HOURS NEEDED FOR PAIN tramadol Yes TAKE 1 Memoria hydrochlori 2-28 TABLET BY l de 50 MG 21:07: MOUTH [place] Oral Tablet 00 EVERY 12 HOURS NEEDED FOR PAIN quetiapine Yes 25 mg = 1 Me moria 25 MG Oral 1-29 tab, PO, l Tablet 00:23: Bedtime, # Sarah nn [Seroquel] 00 30 tab, 2 Refill(s), Pharmacy: [facility], 172.72, cm, 04/27/21 14:07:00 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, Height, 97.727, kg, 06/23/21 10:42:00 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, Weight quetiapine Yes 25 mg = 1 Me moria 25 MG Oral 1-29 tab, PO, l Tablet 00:23: Bedtime, # Sarah nn [Seroquel] 00 30 tab, 2 Refill(s), Pharmacy: [facility], 172.72, cm, 04/27/21 14:07:00 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, Height, 97.727, kg, 06/23/21 10:42:00 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, Weight quetiapine 2021-0 No 25 mg = 1 Me moria 25 MG Oral 1-28 tab, PO, l Tablet 17:12: Bedtime, # Sarah nn [Seroquel] 00 90 tab, 2 Refill(s), Pharmacy: [facility], 172.72, cm, 04/27/21 14:07:00 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, Height, 97.727, kg, 06/23/21 10:42:00 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, Weight quetiapine 2021-0 No 25 mg = 1 Me moria 25 MG Oral 1-28 tab, PO, l Tablet 17:12: Bedtime, # Sarah nn [Seroquel] 00 90 tab, 2 Refill(s), Pharmacy: [facility], 172.72, cm, 04/27/21 14:07:00 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, Height, 97.727, kg, 06/23/21 10:42:00 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, Weight Carbidopa 2021-0 Yes 1 tab, PO, Me moria 25 MG / 1-28 BID, # 180 l Levodopa 17:11: tab, 2 Matthew 250 MG Oral 00 Refill(s), Tablet Pharmacy: [facility], 172.72, cm, 04/27/21 14:07:00 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, Height, 97.727, kg, 06/23/21 10:42:00 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, Weight Carbidopa 2021-0 Yes 1 tab, PO, Me moria 25 MG / 1-28 BID, # 180 l Levodopa 17:11: tab, 2 [place] 250 MG Oral 00 Refill(s), Tablet Pharmacy: [facility], 172.72, cm, 04/27/21 14:07:00 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, Height, 97.727, kg, 06/23/21 10:42:00 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, Weight predniSONE 2021-0 Yes See Memoria 10 mg oral 1-28 Special l tablet 16:53: Instructio Sarah nn 00 ns, PO, Daily, 12 day regimen: Days 1-4 - 30 mg (3 tabs) daily Days 5-8 - 20 mg (2 tabs) daily Days 9-12 - 10 mg (1 tab) daily, # 24 tab, 0 Refill(s) predniSONE Yes See Memoria 10 mg oral 1-28 [...] 100 MG Oral 00 Refill(s), Tablet Pharmacy: [facility], 172.72, cm, 04/27/21 14:07:00 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, Height, 97.727, kg, 04/27/21 14:07:00 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, Weight Carbidopa 2020-05 Yes 1 tab, PO, Me moria 25 MG / 2-02 QID, # 360 l Levodopa 20:17: tab, 2 [place] 100 MG Oral 00 Refill(s), Tablet Pharmacy: [facility], 172.72, cm, 04/27/21 14:07:00 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, Height, 97.727, kg, 04/27/21 14:07:00 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, Weight gabapentin Yes See Memoria 300 MG Oral 9-07 Instructio l Capsule 14:41: ns, TAKE 1 Herm volodymyr 00 CAPSULE TWICE DAILY, # 180 unknown unit, 2 Refill(s), Pharmacy: [facility], 167.64, cm, 12/15/20 14:56:00 CDT, Height, 100, kg, 12/15/20 14:56:00 CDT, Weight gabapentin 2020-0 Yes See Memoria 300 MG Oral 9-07 Instructio l Capsule 14:41: ns, TAKE 1 Herm volodymyr 00 CAPSULE TWICE DAILY, # 180 unknown unit, 2 Refill(s), Pharmacy: [facility], 167.64, cm, 12/15/20 14:56:00 CDT, Height, 100, kg, 12/15/20 14:56:00 CDT, Weight Memantine 0 Yes 5 mg = 1 John shayy hydrochlori 7-22 tab, PO, l de 5 MG 20:05: BID, # 180 Herm volodymyr Oral Tablet 00 tab, 2 [Namenda] Refill(s), Pharmacy: [facility], 167.64, cm, 12/15/20 14:56:00 CDT, Height, 100, kg, 12/15/20 14:56:00 CDT, Weight Memantine 0 Yes 5 mg = 1 John shayy hydrochlori 7-22 tab, PO, l de 5 MG 20:05: BID, # 180 Herm volodymyr Oral Tablet 00 tab, 2 [Namenda] Refill(s), Pharmacy: [facility], 167.64, cm, 12/15/20 14:56:00 CDT, Height, 100, kg, 12/15/20 14:56:00 CDT, Weight Carbidopa 0 Yes See Memoria 25 MG / 6-30 Instructio l Levodopa 13:17: ns, TAKE 1 Her sanders 250 MG Oral 00 TABLET Tablet TWICE DAILY, # 180 tab, 2 Refill(s), Pharmacy: [facility], 172.72, cm, 06/07/20 15:02:00 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, Height, 100, kg, 09/15/20 16:02:00 CDT, Weight galantamine 0 Yes See Memori a 12 mg oral 6-30 Instructio l tablet 13:17: ns, TAKE 1 Sarah nn 00 TABLET TWICE DAILY, # 180 tab, 2 Refill(s), Pharmacy: [facility], 172.72, cm, 06/07/20 15:02:00 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, Height, 100, kg, 09/15/20 16:02:00 CDT, Weight Mirtazapine 0 Yes See Memori a 15 MG Oral 6-30 Instructio l Tablet 13:17: ns, TAKE 1 Sarah nn 00 TABLET AT BEDTIME, # 90 tab, 2 Refill(s), Pharmacy: [facility], 172.72, cm, 06/07/20 15:02:00 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, Height, 100, kg, 09/15/20 16:02:00 CDT, Weight Carbidopa 0 Yes See Memoria 25 MG / 6-30 Instructio l Levodopa 13:17: ns, TAKE 1 Her sanders 250 MG Oral 00 TABLET Tablet TWICE DAILY, # 180 tab, 2 Refill(s), Pharmacy: [facility], 172.72, cm, 06/07/20 15:02:00 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, Height, 100, kg, 09/15/20 16:02:00 CDT, Weight galantamine 0 Yes See Memori a 12 mg oral 6-30 Instructio l tablet 13:17: ns, TAKE 1 Sarah nn 00 TABLET TWICE DAILY, # 180 tab, 2 Refill(s), Pharmacy: [facility], 172.72, cm, 06/07/20 15:02:00 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, Height, 100, kg, 09/15/20 16:02:00 CDT, Weight Mirtazapine 0 Yes See Memori a 15 MG Oral 6-30 Instructio l Tablet 13:17: ns, TAKE 1 Sarah nn 00 TABLET AT BEDTIME, # 90 tab, 2 Refill(s), Pharmacy: [facility], 172.72, cm, 06/07/20 15:02:00 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, Height, 100, kg, 09/15/20 16:02:00 CDT, Weight Memantine 0 Yes 5 mg = 1 John shayy hydrochlori 4-22 tab, PO, l de 5 MG 21:37: BID, # 60 Sarah nn Oral Tablet 00 tab, 3 [Namenda] Refill(s), Pharmacy: [facility], 172.72, cm, 06/07/20 15:02:00 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, Height, 100, kg, 09/15/20 16:02:00 CDT, Weight Memantine 2020-0 Yes 5 mg = 1 John shayy hydrochlori 4-22 tab, PO, l de 5 MG 21:37: BID, # 60 Sarah nn Oral Tablet 00 tab, 3 [Namenda] Refill(s), Pharmacy: [facility], 172.72, cm, 06/07/20 15:02:00 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, Height, 100, kg, 09/15/20 16:02:00 CDT, Weight gabapentin 2021-0 Yes See Memoria 300 MG Oral 1-08 Instructio l Capsule 16:01: ns, TAKE 1 Herm volodymyr 00 CAPSULE TWICE DAILY, # 180 unknown unit, 2 Refill(s), Pharmacy: [facility], 170.18, cm, 03/04/20 15:48:00 CDT, Height, 100, kg, 03/04/20 15:48:00 CDT, Weight gabapentin 202-0 Yes See Memoria 300 MG Oral 1-08 Instructio l Capsule 16:01: ns, TAKE 1 Herm volodymyr 00 CAPSULE TWICE DAILY, # 180 unknown unit, 2 Refill(s), Pharmacy: [facility], 170.18, cm, 03/04/20 15:48:00 CDT, Height, 100, kg, 03/04/20 15:48:00 CDT, Weight Carbidopa 2020-1 Yes 1 tab, PO, Me moria 25 MG / 0-09 BID, # 180 l Levodopa 21:10: tab, 2 [place] 250 MG Oral 00 Refill(s), Tablet Pharmacy: [facility], 170.18, cm, 03/04/20 15:48:00 CDT, Height, 100, kg, 03/04/20 15:48:00 CDT, Weight Carbidopa 2020-1 Yes 1 tab, PO, Me moria 25 MG / 0-09 BID, # 180 l Levodopa 21:10: tab, 2 [place] 250 MG Oral 00 Refill(s), Tablet Pharmacy: [facility], 170.18, cm, 03/04/20 15:48:00 CDT, Height, 100, kg, 03/04/20 15:48:00 CDT, Weight gabapentin 2020-0 Yes See Memoria 300 MG Oral 7-06 Instructio l Capsule 20:57: ns, TAKE 1 Herm volodymyr 00 CAPSULE TWICE DAILY, # 180 unknown unit, 1 Refill(s), Pharmacy: [facility], 172.72, cm, 10/29/19 13:23:00 CDT, Height, 105.455, kg, 10/29/19 13:23:00 CDT, Weight gabapentin 2020-0 Yes See Memoria 300 MG Oral 7-06 Instructio l Capsule 20:57: ns, TAKE 1 Herm volodymyr 00 CAPSULE TWICE DAILY, # 180 unknown unit, 1 Refill(s), Pharmacy: [facility], 172.72, cm, 10/29/19 13:23:00 CDT, Height, 105.455, kg, 10/29/19 13:23:00 CDT, Weight galantamine 2020-0 Yes 12 mg = 1 M emoria 12 mg oral 6-04 tab, PO, l tablet 18:34: BID, # 360 Sarah nn 00 tab, 2 Refill(s), Pharmacy: [facility] galantamine 2020-0 Yes 12 mg = 1 M emoria 12 mg oral 6-04 tab, PO, l tablet 18:34: BID, # 360 Sarah nn 00 tab, 2 Refill(s), Pharmacy: [facility] galantamine 2020-0 No See Memori a 8 mg oral 4-01 Instructio l tablet 13:52: ns, # 180 Stevie n 38 tab, Refill(s) 1, TAKE 1 TABLET TWICE DAILY, Pharmacy: [facility] galantamine 2020-0 No See Memori a 8 mg oral 4-01 Instructio l tablet 13:52: ns, # 180 Stevie n 38 tab, Refill(s) 1, TAKE 1 TABLET TWICE DAILY, Pharmacy: [facility] Mirtazapine 2020-0 Yes 15 mg = 1 M emoria 15 MG Oral 3-13 tab, PO, l Tablet 14:18: Bedtime, # Sarah nn [Remeron] 00 90 tab, 1 Refill(s), Pharmacy: [facility] Mirtazapine 2020-0 Yes 15 mg = 1 M emoria 15 MG Oral 3-13 tab, PO, l Tablet 14:18: Bedtime, # Sarah nn [Remeron] 00 90 tab, 1 Refill(s), Pharmacy: [facility] Mirtazapine 2020-0 Yes 15 mg = 1 M emoria 15 MG Oral 2-19 tab, PO, l Tablet 20:56: Bedtime, # Sarah nn [Remeron] 00 30 tab, 2 Refill(s), Pharmacy: [facility] Mirtazapine 2020-0 Yes 15 mg = 1 M emoria 15 MG Oral 2-19 tab, PO, l Tablet 20:56: Bedtime, # Sarah nn [Remeron] 00 30 tab, 2 Refill(s), Pharmacy: [facility] Carbidopa 2020-0 Yes 1 tab, PO, Me moria 25 MG / 2-06 TID, # 270 l Levodopa 21:30: tab, 2 Matthew 100 MG Oral 00 Refill(s), Tablet Pharmacy: [facility] Carbidopa 2019-0 Yes 1 tab, PO, Me moria 25 MG / 2-06 TID, # 270 l Levodopa 21:30: tab, 2 [place] 100 MG Oral 00 Refill(s), Tablet Pharmacy: [facility] Galantamine 2018-05 Yes 8 mg = 1 Me moria 8 MG Oral 0-24 tab, PO, l Tablet 21:29: BID, # 180 Sarah nn [Razadyne] 53 tab, 1 Refill(s), Pharmacy: [facility] Galantamine 2018-05 Yes 8 mg = 1 Me moria 8 MG Oral 0-24 tab, PO, l Tablet 21:29: BID, # 180 Sarah nn [Razadyne] 53 tab, 1 Refill(s), Pharmacy: [facility] Tylenol 2018-05 Yes PO, [...] ia 0-24 Refill(s) l 21:10: Fiber Tab 2019-1 Yes 0 Memoria 0-24 Refill(s) l 21:10: Tylenol 2018- Yes PO, 0 Memoria 0-24 Refill(s) l 21:10: Claritin 2018-05 Yes Daily, 0 Memor ia 0-24 Refill(s) l 21:10: Fiber Tabs 2018-05 Yes 0 Memoria 0-24 Refill(s) l 21:10: escitalopra Yes = 1 tab, Me moria m 5 mg oral 9-17 PO, Daily, l tablet 12:50: # 90 tab, Stevie n 56 Refill(s) 2, Pharmacy: [facility] escitalopra Yes = 1 tab, Me moria m 5 mg oral 9-17 PO, Daily, l tablet 12:50: # 90 tab, Stevie n 56 Refill(s) 2, Pharmacy: [facility] Carbidopa Yes = 1 tab, John shayy 25 MG / 6-19 PO, BID, # l Levodopa 23:07: 180 tab, Sarah nn 100 MG Oral 37 Refill(s) Tablet 2, Pharmacy: [facility] Carbidopa Yes = 1 tab, John shayy 25 MG / 6-19 PO, BID, # l Levodopa 23:07: 180 tab, Sarah nn 100 MG Oral 37 Refill(s) Tablet 2, Pharmacy: [facility] gabapentin Yes 300 mg = 1 M emoria 300 MG Oral 5-09 cap, PO, l Capsule 21:32: BID, # 180 Herm volodymyr 32 cap, 3 Refill(s), Pharmacy: [facility] gabapentin Yes 300 mg = 1 M emoria 300 MG Oral 5-09 cap, PO, l Capsule 21:32: BID, # 180 Herm volodymyr 32 cap, 3 Refill(s), Pharmacy: [facility] Galantamine Yes 8 mg = 1 Me moria 8 MG Oral 5-09 tab, PO, l Tablet 21:32: BID, # 180 Sarah nn [Razadyne] 28 tab, 1 Refill(s), Pharmacy: [facility] Galantamine Yes 8 mg = 1 Me moria 8 MG Oral 5-09 tab, PO, l Tablet 21:32: BID, # 180 Sarah nn [Razadyne] 28 tab, 1 Refill(s), Pharmacy: [facility] Escitalopra Yes 0 Memori a m 5 mg oral 1-17 Refill(s) l tablet 22:03: Matthew 00 pantoprazol Yes 40 mg = 1 M emoria e 40 mg 1-17 tab, PO, l oral 22:03: Daily, # [place] enteric 00 30 tab, 0 coated Refill(s) tablet Escitalopra Yes 0 Memori a m 5 mg oral 1-17 Refill(s) l tablet 22:03: [place] 00 pantoprazol Yes 40 mg = 1 M emoria e 40 mg 1-17 tab, PO, l oral 22:03: Daily, # Matthew enteric 00 30 tab, 0 coated Refill(s) tablet Carbidopa 2017-05 Yes 1 tab, PO, Me moria 25 MG / 06-24 BID, # 180 l Levodopa 22:43: tab, 2 [place] 100 MG Oral 00 Refill(s), Tablet Pharmacy: [[facility] Mail Delivery Carbidopa 2017-05 Yes 1 tab, PO, Me moria 25 MG / - BID, # 180 l Levodopa 22:43: tab, 2 [place] 100 MG Oral 00 Refill(s), Tablet Pharmacy: [[facility]] Pharmacy Mail Delivery Galantamine 2017-05 No 8 mg = 1 Me moria 8 MG Oral 1-08 tab, PO, l Tablet 20:19: BID, # 180 Sarah nn [Razadyne] 00 tab, 1 Refill(s), Pharmacy: [facility] Galantamine 2017-05 No 8 mg = 1 Me moria 8 MG Oral 1-08 tab, PO, l Tablet 20:19: BID, # 180 Sarah nn [Razadyne] 00 tab, 1 Refill(s), Pharmacy: [facility] Mail Delivery Galantamine 2017-05 No 4 mg = 1 Me moria 4 MG Oral 1-08 tab, PO, l Tablet 20:18: BID, X 30 Stevie n [Razadyne] 40 day, # 60 tab, 3 Refill(s), Pharmacy: [facility] Mail Delivery Galantamine 2017- No 4 mg = 1 Me moria 4 MG Oral 1-08 tab, PO, l Tablet 20:18: BID, X 30 Stevie mathias [Razadyne] 40 day, # 60 tab, 3 Refill(s), Pharmacy: [facility] Mail Delivery Eliquis 5 2018-0 Yes 5 mg, PO, Mem oria mg oral 6-29 Q12H, 0 l tablet 15:34: Refill(s) Stevie n 00 Eliquis 5 2018-0 Yes 5 mg, PO, Mem oria mg oral 6-29 Q12H, 0 l tablet 15:34: Refill(s) Stevie n 00 tamsulosin 2017-0 Yes .4mg Q.5D Take 0.4 Met hodi (FLOMAX) 4-[address] 0.4 mg 09:27: mouth 2 Hospita capsule,ext 30 (two) l ended times a release day. 24hr finasteride 2017-0 Yes 5mg QD Take 5 mg M ethodi (PROSCAR) 5 4-[address] mg tablet 09:27: daily. Hospit a 30 l pantoprazol 2017-0 Yes 40mg QD Take 40 mg Methodi [...] Hospita tablet 30 times a l day. liothyronin 2018-0 Yes 5ug QD Take 5 mcg Methodi e (CYTOMEL) 4-[address] 5 MCG 09:27: daily. Hospita tablet 30 l levothyroxi 2018-0 Yes 50ug QD [...] tablet 09:27: daily. Hosp brian 30 l tamsulosin 2018-0 Yes .4mg Q.5D Take 0.4 Met hodi (FLOMAX) 4-[address] 0.4 mg 09:27: mouth 2 Hospita capsule,ext 30 (two) l ended times a release day. 24hr carvedilol 2018-0 Yes 12.5mg Q.5D Take 12.5 [...] MCG 09:27: daily. Hospita tablet 30 l finasteride 2018-0 Yes 5mg QD Take 5 mg M ethodi (PROSCAR) 5 4-[address] mg tablet 09:27: daily. Hospit a 30 l tamsulosin 2018-0 Yes .4mg Q.5D [...] Hospita tablet 30 times a l day. pantoprazol 2018-0 Yes 40mg QD Take 40 mg Methodi e sodium 4-[address] (PANTOPRAZO 09:27: daily. Hosp brian LE ORAL) 30 l levothyroxi 2018-0 Yes 50ug QD [...] capsule 30 (two) l times a day. levothyroxi 2018-0 Yes 50ug QD Take [...] l ended times a release day. 24hr gabapentin 2018-0 Yes 300mg Q.5D Take 300 Me thodi (NEURONTIN) 4-[address] 300 mg 09:27: mouth 2 Hospita capsule 30 (two) l times a day. finasteride 2018-0 Yes 5mg QD Take 5 [...] Hospita tablet 30 times a l day. mirabegron 2018-0 Yes 50mg QD Take [...] Hospita tablet 30 times a l day. mirabegron 2018-0 Yes 50mg QD Take [...] Yes 5mg Q.5D Take 5 mg Meth mrayse (ELIQUIS) 5 4-[address] [...] MCG 09:27: daily. Hospita tablet 30 l aspirin 81 2018-0 Yes 81 mg = 1 Me moria mg tablet, 3-13 tab, CHEW, l chewable 15:24: Daily, 0 Sarah nn 00 Refill(s) levothyroxi 2018-0 Yes 50 Memori a ne 50 mcg 3-13 microgram l (0.05 mg) 15:24: = 1 tab, Herm volodymyr oral tablet 00 PO, Daily, DOSAGE CHANGE TO 75 MG, 0 Refill(s) aspirin 81 2018-0 Yes 81 mg = 1 Me moria mg tablet, 3-13 tab, CHEW, l chewable 15:24: Daily, 0 Sarah nn 00 Refill(s) levothyroxi 2018-0 Yes 50 Memori a ne 50 mcg 3-13 microgram l (0.05 mg) 15:24: = 1 tab, Herm volodymyr oral tablet 00 PO, Daily, DOSAGE CHANGE TO 75 MG, 0 Refill(s) Vital Signs Vital Name Observation Time Observation Value Comments Source Systolic (mm Hg) 2022-09-04 18:09:00 John Castro Diastolic (mm Hg) 2022-09-04 18:09:00 Leighann Castro Heart Rate 2022-09-04 18:09:[facility] 2022-09-04 18:09:00 5 [ft_i] [facility] Weight 2022-09-04 18:09:00 [facility] [place] BMI Calculated 2022-09-04 18:09:00 Memori al Matthew Diastolic (mm Hg) 2022-06-05 20:20:00 Mem orial Matthew Heart Rate 2022-06-05 20:20:00 [facility] Height 2022-06-05 20:20:00 5 [ft_i] [facility] Weight 2022-06-05 20:20:00 [facility] BMI Calculated 2022-06-05 20:20:00 Memori al Matthew Systolic (mm Hg) 2022-06-05 20:20:00 John rial Matthew Systolic (mm Hg) 2022-02-19 18:57:00 John rial [place] Diastolic (mm Hg) 2022-02-19 18:57:00 Mem orial Matthew Heart Rate 2022-02-19 18:57:00 [facility] [place] Respitory Rate 2022-02-19 18:57:00 [facility] [place] Height 2022-02-19 18:57:00 172.72 cm [facility] [place] Weight 2022-02-19 18:57:00 [facility] [place] BMI Calculated 2022-02-19 18:57:00 [facility] [place] Systolic (mm Hg) 2021-10-24 18:54:00 Jonh rial [place] Diastolic (mm Hg) 2021-10-24 18:54:00 [facility] [place] Heart Rate 2021-10-24 18:54:00 [facility] Respitory Rate 2021-10-24 18:54:00 [facility] [place] Height 2021-10-24 18:54:00 172.72 cm [facility] Weight 2021-10-24 18:54:00 [facility] BMI Calculated 2021-10-24 18:54:00 Mem[facility] al Matthew Systolic (mm Hg) 2021-07-24 20:53:00 John rial Matthew Diastolic (mm Hg) 2021-07-24 20:53:00 Mem orial Matthew Heart Rate 2021-07-24 20:53:00 [facility] [place] Respitory Rate 2021-07-24 20:53:00 Memori al Matthew Height 2021-07-24 20:53:00 172.72 cm [facility] [place] Weight 2021-07-24 20:53:00 [facility] [place] BMI Calculated 2021-07-24 20:53:00 Memori al Matthew Systolic (mm Hg) 2021-06-23 16:42:00 John rial [place] Diastolic (mm Hg) 2021-06-23 16:42:00 Mem orial Matthew Heart Rate 2021-06-23 16:42:00 [facility] [place] Respitory Rate 2021-06-23 16:42:00 [facility] [place] Weight 2021-06-23 16:42:00 [facility] [place] Systolic (mm Hg) 2021-04-27 19:54:00 John rial [place] Diastolic (mm Hg) 2021-04-27 19:54:00 Mem orial Matthew Heart Rate 2021-04-27 19:54:00 [facility] [place] Respitory Rate 2021-04-27 19:54:00 [facility] [place] Height 2021-04-27 19:54:00 172.72 cm [facility] Weight 2021-04-27 19:54:00 [facility] [place] BMI Calculated 2021-04-27 19:54:00 [facility] [place] Systolic (mm Hg) 2020-12-15 19:38:00 John rial [place] Diastolic (mm Hg) 2020-12-15 19:38:00 Mem orial Matthew Heart Rate 2020-12-15 19:38:00 [facility] Respitory Rate 2020-12-15 19:38:00 [facility] [place] Height 2020-12-15 19:38:00 167.64 cm [facility] Weight 2020-12-15 19:38:00 [facility] BMI Calculated 2020-12-15 19:38:00 Memori al Matthew Systolic (mm Hg) 2020-09-15 21:02:00 John rial [place] Diastolic (mm Hg) 2020-09-15 21:02:00 Mem orial Matthew Heart Rate 2020-09-15 21:02:00 [facility] [place] Respitory Rate 2020-09-15 21:02:00 Memori al Matthew Weight 2020-09-15 21:02:00 [facility] Systolic (mm Hg) 2020-06-07 20:22:00 John rial [place] Diastolic (mm Hg) 2020-06-07 20:22:00 Mem [facility] [place] Heart Rate 2020-06-07 20:22:00 [facility] Respitory Rate 2020-06-07 20:22:00 [facility] [place] Height 2020-06-07 20:22:00 172.72 cm [facility] [place] Weight 2020-06-07 20:22:00 [facility] BMI Calculated 2020-06-07 20:22:00 [facility] [place] Systolic (mm Hg) 2020-03-04 20:41:00 John rial Matthew Diastolic (mm Hg) 2020-03-04 20:41:00 Mem orial Matthew Heart Rate 2020-03-04 20:41:00 [facility] [place] Respitory Rate 2020-03-04 20:41:00 Memori al Matthew Height 2020-03-04 20:41:00 170.18 cm [facility] Weight 2020-03-04 20:41:00 [facility] BMI Calculated 2020-03-04 20:41:00 [facility] [place] Systolic (mm Hg) 2019-10-29 18:23:00 John rial [place] Diastolic (mm Hg) 2019-10-29 18:23:00 Mem [facility] [place] Heart Rate 2019-10-29 18:23:00 [facility] Respitory Rate 2019-10-29 18:23:00 Memori al Matthew Temperature Oral (F) 2019-10-29 18:23:00 98.5 F [facility] [place] Height 2019-10-29 18:23:00 172.72 cm [facility] Weight 2019-10-29 18:23:00 [facility] BMI Calculated 2019-10-29 18:23:00 Memori al Matthew Systolic (mm Hg) 2019-07-15 20:40:00 John rial [place] Diastolic (mm Hg) 2019-07-15 20:40:00 Mem orial Matthew Heart Rate 2019-07-15 20:40:00 [facility] Respitory Rate 2019-07-15 20:40:00 [facility] [place] Height 2019-07-15 20:40:00 172.72 cm [facility] Weight 2019-07-15 20:40:00 [facility] [place] BMI Calculated 2019-07-15 20:40:00 Memori al Matthew Systolic (mm Hg) 2019-07-02 20:53:00 John rial Matthew Diastolic (mm Hg) 2019-07-02 20:53:00 Mem orial [place] Heart Rate 2019-07-02 20:53:00 [facility] [place] Respitory Rate 2019-07-02 20:53:00 Memori al Matthew Height 2019-07-02 20:53:00 172.72 cm [facility] Weight 2019-07-02 20:53:00 [facility] [place] BMI Calculated 2019-07-02 20:53:00 [facility] [place] Systolic (mm Hg) 2019-03-19 21:03:00 John rial Matthew Diastolic (mm Hg) 2019-03-19 21:03:00 Mem orial [place] Heart Rate 2019-03-19 21:03:00 [facility] [place] Respitory Rate 2019-03-19 21:03:00 [facility] [place] Height 2019-03-19 21:03:00 172.72 cm [facility] [place] Weight 2019-03-19 21:03:00 [facility] [place] BMI Calculated 2019-03-19 21:03:00 Memori al Matthew Systolic (mm Hg) 2019-02-05 21:04:00 John rial [place] Diastolic (mm Hg) 2019-02-05 21:04:00 Mem orial [place] Heart Rate 2019-02-05 21:04:00 [facility] Respitory Rate 2019-02-05 21:04:00 [facility] [place] Height 2019-02-05 21:04:00 180.34 cm [facility] [place] Weight 2019-02-05 21:04:00 [facility] BMI Calculated 2019-02-05 21:04:00 [facility] [place] Height 2018-10-02 21:15:00 180.34 cm [facility] Weight 2018-10-02 21:15:00 [facility] [place] BMI Calculated 2018-10-02 21:15:00 [facility] [place] Systolic (mm Hg) 2018-10-02 21:15:00 John rial Matthew Diastolic (mm Hg) 2018-10-02 21:15:00 Mem orial Matthew Respitory Rate 2018-10-02 21:15:00 Memori al Matthew Heart Rate 2018-10-02 21:15:00 [facility] [place] Weight 2018-06-12 21:56:00 [facility] [place] BMI Calculated 2018-06-12 21:56:00 Memori al Matthew Height 2018-06-12 21:56:00 175.26 cm [facility] Systolic (mm Hg) 2018-06-12 21:56:00 John rial [place] Diastolic (mm Hg) 2018-06-12 21:56:00 Mem orial Matthew Respitory Rate 2018-06-12 21:56:00 Memori al Matthew Heart Rate 2018-06-12 21:56:00 [facility] [place] Height 2018-04-24 22:07:00 172.72 cm [facility] [place] Weight 2018-04-24 22:07:00 [facility] BMI Calculated 2018-04-24 22:07:00 Mem[facility] [place] Systolic (mm Hg) 2018-04-24 22:07:00 John rial Matthew Diastolic (mm Hg) 2018-04-24 22:07:00 Mem orial [place] Respitory Rate 2018-04-24 22:07:00 Memori al Matthew Heart Rate 2018-04-24 22:07:00 [facility] [place] BMI Calculated 2018-04-03 19:30:00 Memori al Matthwe Height 2018-04-03 19:30:00 172.72 cm [facility] [place] Weight 2018-04-03 19:30:00 [facility] Respitory Rate 2018-04-03 19:30:00 Memori al Matthew Heart Rate 2018-04-03 19:30:00 [facility] Systolic (mm Hg) 2018-04-03 19:30:00 John rial [place] Diastolic (mm Hg) 2018-04-03 19:30:00 Mem orial [place] Procedures This patient has no known procedures. Plan of Care Planned Activity Planned Date Details Comments Source Future Scheduled 2022-08-30 COVID-19 VACCINE (#1) [facility] Test 05:33:18 [code = COVID-19 VACCINE (#1)] Future Scheduled 2022-08-30 COLONOSCOPY SCREENING [facility] Test 05:33:18 [code = COLONOSCOPY SCREENING] Future Scheduled 2022-08-30 SHINGLES VACCINES (1 [facility] Test 05:33:18 of 2) [code = [...] Future Scheduled 2022-08-30 [facility]18 of 2) [code = SHINGLES VACCINES (1 of 2)] Future Scheduled 2022-08-30 65+ [facility]OCCAL [facility] Test 05:33:18 VACCINE (1 - PCV) [...] Future Scheduled 2022-08-30 [facility]IN[facility] ([facility]:18 of 2) [...] VACCINE (#1)] Future Scheduled 2022-08-30 [facility]18 [code = COLONOSCOPY [...] Future Scheduled 2022-08-30 SHINGLES VACCINES (1 [facility] Test 05:33:18 of 2) [code = [...] VACCINE (#1)] Future Scheduled 2022-08-30 [facility] 05:33:18 [code = COLONOSCOPY SCREENING] Future Scheduled 2022-08-30 SHINGLES VACCINES (1 [facility] Test 05:33:18 of 2) [code = [...] Future Scheduled 2022-08-30 SHINGLES VACCINES (1 [facility] Test 05:33:18 of 2) [code = SHINGLES VACCINES (1 of 2)] Future Scheduled 2022-08-30 65+ [facility]CCAL [facility] Test 05:33:18 VACCINE (1 - PCV) [code = 65+ PNEUMOCOCCAL VACCINE (1 - PCV)] Future Scheduled 2022-08-30 INFLUENZA VACCINE [facility] Test 05:33:18 [code = INFLUENZA VACCINE] Future Scheduled 2022-08-30 COVID-19 VACCINE (#1) [facility] Test 05:33:18 [code = COVID-19 VACCINE (#1)] Future Scheduled 2022-08-30 COLONOSCOPY SCREENING [facility] Test 05:33:18 [code = COLONOSCOPY SCREENING] Future Scheduled 2022-08-30 SHINGLES VACCINES (1 [facility] Test 05:33:18 of 2) [code = SHINGLES VACCINES (1 of 2)] Future Scheduled 2022-08-30 65+ [facility]OCCAL [facility] Test 05:33:18 VACCINE (1 - PCV) [code = 65+ PNEUMOCOCCAL VACCINE (1 - PCV)] Future Scheduled 2022-08-30 INFLUENZA VACCINE [facility] Test 05:33:18 [code = INFLUENZA VACCINE] Future Scheduled 2022-01-24 HEPATITIS B VACCINES [facility] Test 00:25:16 (1 of 3 - 3-dose series) [code = HEPATITIS B VACCINES (1 of 3 - 3-dose series)] Future Scheduled 2022-01-24 COVID-19 VACCINE (#1) [facility] Test 00:25:16 [code = COVID-19 VACCINE (#1)] Future Scheduled 2022-01-24 COLONOSCOPY SCREENING [facility] Test 00:25:16 [code = COLONOSCOPY SCREENING] Future Scheduled 2022-01-24 SHINGLES VACCINES (1 [facility] Test 00:25:16 of 2) [code = SHINGLES VACCINES (1 of 2)] Future Scheduled 2022-01-24 65+ [facility]OCOCCAL [facility] Test 00:25:16 VACCINE (1 - PCV) [code = 65+ PNEUMOCOCCAL VACCINE (1 - PCV)] Future Scheduled 2022-01-24 INFLUENZA VACCINE [facility] Test 00:25:16 [code = INFLUENZA VACCINE] Encounters Start End Encounter Admission Attending Care Care Encounter Source Date/Time Date/Time Type Type Clinicians Facility Department ID 2022-10-24 Outpatient [facility] [id number] [place] 06:07:49 [id number] [facility] 2022-10-12 Outpatient [facility] [id number] [place] 14:59:27 [id number] [facility] 2022-10-03 Outpatient [facility] [id number] [place] 09:48:41 [id number] [facility] 2022-11-06 2022-11-06 Outpatient [facility]IE MHIE [id number] Memoria 11:00:00 11:00:00 27 l Matthew 2022-10-22 2022-10-28 Inpatient E JOSE E, [id number] 01:32:00 14:05:00 JOSSIE 2022-09-04 2022-09-05 Outpatient MHIE MNA [id number] Memoria 18:00:00 04:59:59 Neurology 26 l Cady Villelaann 2022-06-05 2022-06-06 Outpatient MHIE MNA [id number] Memoria 20:30:00 05:59:59 Neurology 25 l Cady Castro 2022-02-19 2022-02-20 Outpatient nullFlavo MNA [id number] Memoria 19:00:00 04:59:59 r Neurology 24 l Cady Castro 2021-10-24 2021-10-25 Outpatient nullFlavo MNA [id number] Memoria 19:00:00 04:59:59 r Neurology 23 l Cady [place] 2021-07-24 2021-07-25 Outpatient nullFlavo MNA [id number] Memoria 21:00:00 05:59:59 r Neurology 21 l [place] Castro 2021-06-23 2021-06-24 Outpatient nullFlavo MNA [id number] Memoria 16:45:00 05:59:59 r Neurology 22 l Cady V[place]laann 2021-04-27 2021-04-28 Outpatient nullFlavo MNA [id number] Memoria 20:00:00 05:59:59 r Neurology 20 l [place] Brid[place]ico [place] 2020-12-15 2020-12-16 Outpatient nullFlavo MNA [id number] Memoria 19:30:00 04:59:59 r Neurology 19 l [place] 2020-12-06 2020-12-06 Ambulatory nullFlavo MNA [id number] Memoria 19:30:00 19:30:00 Pre-Reg r Neurology 17 l Cady Castro 2020-09-20 2020-09-22 Outside nullFlavo MNA [id number] Memoria 13:37:28 04:59:59 Medical r Neurology 08 l Myranda Castro 2020-09-15 2020-09-16 Outpatient nullFlavo MNA [id number] Memoria 20:45:00 04:59:59 r Neurology 18 l Cady Castro 2020-06-07 2020-06-08 Outpatient nullFlavo MNA [id number] Memoria 20:30:00 05:59:59 r Neurology 16 l Cady [place] 2020-03-04 2020-03-05 Outpatient nullFlavo MNA [id number] Memoria 20:15:00 04:59:59 r Neurology 15 l [place] 2019-12-18 2019-12-18 Outpatient MHIE MHIE [id number] Memoria 22:15:00 22:15:00 13 l [place] 2019-12-18 2019-12-18 Outpatient MHIE MHIE [id number] Memoria 10:15:00 10:15:00 14 oni [place] 2019-11-30 2019-12-01 Between nullFlavo MNA [id number] [facility]oria 20:57:10 20:57:10 Visit r Neurology 09 l [place] Matthew 2019-10-29 2019-10-30 Outpatient nullFlavo MNA [id number] Memoria 18:15:00 04:59:59 r Neurology 11 l Cady [place] 2019-07-15 2019-07-16 Outpatient nullFlavo MNA [id number] Memoria 20:30:00 05:59:59 r Neurology 12 l [place] Matthew 2019-07-02 2019-07-03 Outpatient nullFlavo MNA [id number] Memoria 20:30:00 05:59:59 r Neurology 10 l [place] Matthew 2019-03-19 2019-03-20 Outpatient nullFlavo MNA [id number] Memoria 21:00:00 04:59:59 r Neurology 09 l [place] Matthew 2019-02-05 2019-02-06 Outpatient nullFlavo MNA [id number] Memoria 21:00:00 04:59:59 r Neurology 08 l Cady Castro 2018-10-02 2018-10-03 Outpatient nullFlavo MNA [id number] Memoria 21:00:00 04:59:59 r Neurology 07 l Cady Castro 2018-06-12 2018-06-13 Outpatient nullFlavo MNA [id number] Memoria 21:45:00 05:59:59 r Neurology 06 l Cady Castro 2018-04-24 2018-04-25 Outpatient nullFlavo MNA [id number] Memoria 21:45:00 05:59:59 r Neurology 05 l Cady Castro 2018-04-03 2018-04-04 Outpatient nullFlavo MNA [id number] Memoria 19:15:00 05:59:59 r Neurology 04 l Cady Castro 2018-03-10 2018-03-12 Phone nullFlavo MNA [id number] Memoria 19:22:00 04:59:59 Message r Neurology 07 l Cady Castro 2018-03-10 2018-03-12 Phone nullFlavo MNA [id number] Memoria 19:21:00 04:59:59 Message r Neurology 06 l Cady Castro 2018-01-23 2018-01-23 Outpatient MHIE MHIE [id number] Memoria 08:45:00 08:45:00 03 l Matthew 2018-01-01 2018-01-01 Outpatient MHIE MHIE [id number] Memoria 11:30:00 11:30:00 02 oni Castro 2017-12-04 2017-12-04 Outpatient MHIE MHIE [id number] Memoria 10:45:00 10:45:00 00 oni Castro 2017-11-22 2017-11-22 Outpatient MHIE MHIE [id number] Memoria 10:15:00 10:15:00 01 oni Castro Results This patient has no known results.
[2022-10-28] MEDS ORDERED: GLYCERIN ADULT SUPP PR PRN (18:33)
[2022-10-28] MEDS ORDERED: LORATADINE 10 MG TAB PO PRN (18:48)
[2022-10-28] MEDS: DOCUSATE NA/SENNA CONC 1 TAB PO SCH ×2 (21:00→21:07)
[2022-10-28] MEDS: GABAPENTIN 300 MG CAP PO SCH (21:08)
[2022-10-28] MEDS: CALCIUM CARBONATE 500 MG TAB PO SCH (21:08)
[2022-10-28] MEDS: CARBIDOPA/LEVODOPA 25/100 TAB PO SCH (21:08)
[2022-10-28] MEDS: APIXABAN 5 MG TABLET PO SCH (21:10)
[2022-10-28] MEDS: MIRTAZAPINE 15 MG TAB PO SCH (21:58)
[2022-10-28] MEDS: MEMANTINE HCL 10 MG TABLET PO SCH (21:58)
[2022-10-28 23:20] VITALS: BMI 23.6
[2022-10-29 04:36] LABS: Hematocrit 32.9 % (39.6-49.0); Lymphocytes % 9.7 % (15.3-44.8); MCV 94.7 fL (80-100); MPV 8.9 fL (7.6-11.3); RBC Red Blood Cell Count 3.48 M/uL (4.33-5.43)
[2022-10-29 06:02] LABS: Urine Bacteria None Seen /HPF (<20); Urine Mucus Slight /HPF (None Seen)
[2022-10-29] MEDS ORDERED: PANTOPRAZOLE 40MG TABLET PO SCH (06:30)
[2022-10-29 06:45] LABS: Specific Gravity 1.024 (1.005-1.030); Urine Bilirubin NEGATIVE (Negative); Urine Blood Negative (Negative); Urine Clarity Clear (Clear); Urine Color Yellow (Yellow); Urine Glucose NEGATIVE (Negative); Urine Protein TRACE (Negative); Urine Urobilinogen Normal (Normal)
[2022-10-29 06:47] LABS: Transitional Epithelial <5 /HPF (None Seen)
[2022-10-29] MEDS: LEVOTHYROXINE SOD 0.05 MG TABLET PO SCH (06:58)
[2022-10-29] MEDS: GALANTAMINE 4 MG TAB PO SCH ×2 (06:58→16:52)
[2022-10-29] MEDS: ASPIRIN 81 MG CHEWABLE TABLET PO SCH (06:58)
[2022-10-29] MEDS: MEMANTINE HCL 10 MG TABLET PO SCH ×2 (06:58→20:35)
[2022-10-29] MEDS: VITAMIN D 1000 UNIT TAB PO SCH (06:58)
[2022-10-29] MEDS: CALCIUM CARBONATE 500 MG TAB PO SCH ×2 (06:59→20:35)
[2022-10-29] MEDS: APIXABAN 5 MG TABLET PO SCH ×2 (06:59→20:35)
[2022-10-29] MEDS: CARBIDOPA/LEVODOPA 25/100 TAB PO SCH ×2 (06:59→20:35)
[2022-10-29] MEDS: GABAPENTIN 300 MG CAP PO SCH ×3 (06:59→20:35)
[2022-10-29 07:21] LABS: Albumin 2.2 g/dL (3.4-5.0)
[2022-10-29] MEDS: ACETAMINOPHEN 325 MG TABLET PO PRN (09:39)
[2022-10-29] MEDS ORDERED: CARBIDOPA/LEVODOPA 25/100 TAB PO ONE (09:48)
[2022-10-29] MEDS: LIDOCAINE 4% PATCH TOP SCH (10:14)
--- NOTE | 2022-10-29 19:52 | HP ---
Date of Admission: 10/28/2022 Time Of Service: 9 a.m. Chief Complaint: "Fell and broke my hip." History Of Present Illness: Mr. Pinto is a 76-year-old right-handed patient with Adam on disease, followed by Dr. Galo Rey as well as Alzheimer disease followed by him; atrial fibrilla tion, on Eliquis; hypothyroidism; coronary artery disease; right hip decubitus ulcer and chronic back pain who fell on October 21 at home. He was trying to help his stand up when he fell backwards a nd hit his head and hip on his fireplace. Subsequently he was found to be febrile and he came to [facility]. He was evaluated in the emergency room and his temperature was 101.2, white blood cell count elevated to 14.5, heart rate elevated 140 suggesting the possibility of sepsis in addition to the potential injury. He was started on broad-spectrum antibiotics including vancomycin and cefe pime and his trauma series with head, cervical spine, chest, abdomen, and pelvis CT scan without cont rast showed no acute abnormalities. Incidental finding was of a gastric mass on CT scan, which requi red outpatient followup and hip x-ray did show a subcapital femur fracture. He was sent to [facility] on 10/21 for higher level of care and there he was found to also be in atrial fibril lation, which was already known. He had a rapid ventricular response on arrival and had to be treate d for rate control. He was continued with antibiotics for sepsis and given Lovenox for DVT prophylax is and Sinemet. He did have continuous galantamine and memantine for Alzheimer disease. After he wa s evaluated and cleared by Cardiology, he had surgery which was a right hip hemiarthroplasty on September 26. Following that, he had some episodes of hypotension likely complications of his Parkinson disea se with autonomic dysfunction. He was treated with treatment for acute sepsis and his atrial fibrill ation with rapid ventricular response. As a result of his Parkinson disease and his inability to amb ulate from October 21 to now the 30 of October, he has become severely debilitated and is unable to sit a nd transfer without maximum assistance. His notes previously he was able to stand on his own an d ambulate and hold onto nearby objects, furniture, and walker and could potentially help her. As a result of his acute fracture and comorbid conditions, which are complicating, the patient is at risk of severe worsening if he is to do his rehabilitation at a lower level of care and is now admitted to the inpatient rehabilitation unit for physical, occupational, and speech therapy for 3.5 hours, 5 of 7 days. Past Medical History: Atrial fibrillation, Alzheimer disease, essential hypertension with autonomic dysfunction, hypothyroidism, lumbar spondylosis, Parkinson disease, lumbar radiculopathy, and restles s legs syndrome. Allergies: BACTRIM, BUTORPHANOL, PENICILLIN, AND STADOL. Medications: Aspirin 81 mg daily, carbidopa levodopa 25/100 twice daily, Eliquis 5 mg twice daily, g alantamine 8 mg twice daily, levothyroxine 50 mcg daily, memantine 5 mg twice daily, pantoprazole 40 mg daily, nitrofurantoin 100 mg every 6 hours, mirtazapine 50 mg at night, Santyl 250 units topically daily to wound, tramadol 50 mg daily, and gabapentin 300 mg twice daily. Family History: Noncontributory. Laboratory Studies: White blood cell count 10.2, hemoglobin 11.4, hematocrit 33.3, and platelets 217 . Sodium 140, potassium 4.1, glucose 108, BUN 30, creatinine 0.9, and calcium 7.7. Social History: The patient does not drink alcohol or smoke cigarettes. He lives with his . Review of Systems: Mr. Pinto is sitting at the side of the bed. The therapist is attempting to lift him to a seated p osition. 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 Otherwise, negative. Current Level Of Functioning: Currently for sit to stand with maximum assistance, bed mobility with maximum assistance, toilet transfer with maximal assistance, walking with maximum assistance, ambulat ion just 1 feet with maximum assistance, unable to do any steps at this point. For cognitive functio dylon, moderate assistance required. Assessment: Mr. Pinto is admitted to the rehabilitation unit with a rehabilitation impairment rodrigo gor of 07 orthopedic, lower extremity fracture. His impairment group code is 08.11 status post unil ateral hip fracture. Etiologic diagnosis is impacted right femoral neck fracture. Active comorbids are atrial fibrillation, essential tremor, hypothyroidism, and restless legs syndrome. Other comorbi ds are Alzheimer disease, lumbar spondylosis, and Parkinson disease. Plan: 1.He will have physical, occupational, and speech therapy 3.5 hours, 5 of 7 days. 2.We will continue his current medications; however, his Parkinson's medication will be increased fr om 1 Sinemet 25/100 twice daily to 2 twice daily. 3.Eliquis 5 mg twice daily for atrial fibrillation. 4.Aspirin 81 mg daily for stroke and myocardial infarction risk reduction. 5.Os-Chuy 500 mg twice daily and vitamin D for osteoporosis. 6.Gabapentin 300 mg twice daily for neuropathic pain. 7.Galantamine and memantine for Alzheimer disease. 8.Remeron for insomnia. 9.Claritin for allergies. 10.Protonix for GE reflux. 11.Senokot-S for constipation. Impact Of Comorbids: Given his Parkinson disease and he has been off as he was lying in bed for 6 da ys without mobilization, he is very stiff and off and his Parkinson's medication will be adjusted to twice the frequency and he may have an agonist if need be and stretching exercises will be implemente d. White blood cell count will be followed carefully as he had a recent infection and antibiotics ma y be reinstituted as needed. Procalcitonin and lactic acid may be followed as appropriate. Rehab Specific Plan: 1.Mr. Pinto will have physical, occupational, and speech therapy 3.5 hours, 5 of 7 days to improve his ability to transfer from bed to toilet, to chair, to shower and to be able to ambulate household distances of 50 feet with modified independence and to go up and down 5 steps with modified independ ence. 2.His cognitive functioning will be worked on to get him towards a modified independent level or at least a supervision level if possible. 3.He will have nursing home to address all of his medical needs, which are numerous and to make s ure he does not have worsening infection. 4.He will have daily physician evaluation and management as appropriate. 5.He has a good understanding of the interdisciplinary approach to the rehabilitation and is going t o need physical, occupational, and speech therapy as he goes through his rehabilitation. If need be the Respiratory Service, Nutrition Service, Wound Care Service, Psychiatric Service, Cardiology and P ulmonary Services will be contacted and help will be requested. Given his complex medical condition and risk of further complications, rehabilitation cannot be safely and effectively provided at a lowe r level of care such as nursing home. Barriers To Discharge: Given his Parkinson disease and risk for autonomic dysfunction and significan t stiffness, he is going to require medication adjustment on a continuous basis if need be to get him to mobilize. Length Of Stay: About 14 days. Disposition: Home with . Prognosis: Fair. Rehabilitation Goals: 1.Become modified independent with transfers from bed to shower, to toilet, to chair as he was befor e. 2.Able to ambulate 50 feet, minimum with modified independence. 3.Up and down 5 steps, minimum with modified independence. 4.Perform cognitive functioning with supervision to modified independence. 5.Continue all of his medications for his comorbid conditions and allow him to thrive in terms of no additional infections. 6.Address his nutritional status and mobilization as well for Parkinson's. I acknowledge, I have personally performed a full physical examination on Mr. Pinto, no later than 24 hours after his admission to the inpatient rehabilitation unit and determined he is able to tolera te the above course of treatment at an intensive level for a reasonable period of time. A detailed i ndividualized plan of care for him will be completed by hospital day 4 based on the preadmission screen, history and physical and therapy bello LARSEN/YUE Voice ID: [id number]
[2022-10-29] MEDS: MIRTAZAPINE 15 MG TAB PO SCH (20:35)
[2022-10-29] MEDS: ENSURE ENLIVE 237 ML CAN PO SCH (20:35)
[2022-10-29] MEDS: DOCUSATE NA/SENNA CONC 1 TAB PO SCH (20:35)
[2022-10-30] MEDS: LEVOTHYROXINE SOD 0.05 MG TABLET PO SCH (06:59)
[2022-10-30] MEDS: PANTOPRAZOLE 40MG TABLET PO SCH (06:59)
[2022-10-30] MEDS: CALCIUM CARBONATE 500 MG TAB PO SCH ×2 (07:27→20:09)
[2022-10-30] MEDS: APIXABAN 5 MG TABLET PO SCH ×2 (07:27→20:09)
[2022-10-30] MEDS: LIDOCAINE 4% PATCH TOP SCH (07:27)
[2022-10-30] MEDS: GALANTAMINE 4 MG TAB PO SCH ×2 (07:28→17:20)
[2022-10-30] MEDS: ENSURE ENLIVE 237 ML CAN PO SCH ×2 (07:28→20:09)
[2022-10-30] MEDS: MEMANTINE HCL 10 MG TABLET PO SCH ×2 (07:29→20:09)
[2022-10-30] MEDS: GABAPENTIN 300 MG CAP PO SCH ×3 (07:29→20:09)
[2022-10-30] MEDS: VITAMIN D 1000 UNIT TAB PO SCH (07:29)
[2022-10-30] MEDS: CARBIDOPA/LEVODOPA 25/100 TAB PO SCH ×2 (07:29→20:09)
[2022-10-30] MEDS: ASPIRIN 81 MG CHEWABLE TABLET PO SCH (07:31)
[2022-10-30] MEDS: MIRTAZAPINE 15 MG TAB PO SCH (20:09)
[2022-10-30] MEDS: DOCUSATE NA/SENNA CONC 1 TAB PO SCH (20:09)
--- NOTE | 2022-10-30 22:32 | PN ---
Date of Progress Note: 10/30/2022 [facility] Rehabilitation Progress Note Time Of Service: 1 p.m. Subjective: Mr. Pinto is resting comfortably. He says his pain in the right hip is fairly well ma naged, but still has some mild pain in the back. Other than that, he denies any significant complain ts on his subjective. Review of Systems: No fevers or chills. No significant myalgias except across the back and some pain in the right hip s urgical site and some swelling in the lower extremities. Otherwise, negative. Physical Examination: Vital Signs: Blood pressure 94/64, pulse 82, respiratory rate 16, temperature 97.6, and oxygen satur ation 95%. Weight 165 pounds, height 5 feet 10 inches. General: Mr. Pinto is resting comfortably. He is in no significant distress. HEENT: He appears normocephalic, atraumatic. Sclerae anicteric. Oropharynx is moist. Neck: Supple. Chest: Clear. Heart: Irregular. Abdomen: Soft. Extremities: Some mild edema in the right lower extremity at postoperative. Again, he has good hemo stasis at the right hip surgical site. Laboratory Studies: White blood cell count is 10.5, hemoglobin 11.4, and platelets 287. Sodium 141, potassium 4.0, chloride 110, carbon dioxide 27, BUN 26, creatinine 0.8, glucose 98, calcium 8.1, mag nesium 2.0, albumin 2.2, and prealbumin 17.6. Urinalysis shows a trace protein, 5 to 10 red blood ce lls, 1+ ketone and is otherwise unremarkable. X-ray/imaging: None. Medications: Senokot-S 2 at bedtime, Protonix 40 mg daily, Ensure Enlive 237 mL twice daily, Remeron 15 mg at bedtime, Namenda 5 mg twice daily, Claritin 10 mg daily, lidocaine patch applied topically daily, Synthroid 0.05 mg daily, galantamine 12 mg twice daily, gabapentin 300 mg 3 times daily, Ines et 25/100 twice daily, aspirin 81 mg daily, Eliquis 5 mg twice daily, and Tylenol 650 mg twice daily. Current Functional Status: Today Mr. Pinto was able to do standing static balance activities at e parallel bars. He did ambulate the length of the parallel bar with maximum assistance. Sit-to-sta nd transfers on a parallel bar done with moderate assistance. Tpdchw-vi-mxo transfers with maximum a ssistance. With his speech therapy, needed vrncskld-yb-ncyrnjt cues to attend to communication board to express his temporal orientation skills. He needed maximum cues to name 5 items per concrete cat egory due to anomia and decreased attention skills. With occupational therapy, was able to wash 3 of 10 body parts with set up assistance and prompting, but was inconsistent with thoroughness. Progress Towards Rehabilitation Goals: Mr. Pinto so far is making slow progress towards his goals of becoming modified independent with his dressing of the upper and lower body, transferring, toileti ng, showering, and performing activities of daily living. He is also making slow progress with his a bility to mobilize with a rolling walker with [id number]-[id number] assistance at this point. Assessment: Mr. Pinto is a 76-year-old patient in the rehabilitation unit with Parkinson disease, Alzheimer disease, atrial fibrillation, hypothyroidism, coronary artery disease, decubital ulcer, low back pain, and right hip fracture. Plan: 1.He will have physical, occupational, and speech therapy 3.5 hours, 5 of 7 days. 2.Continue Sinemet for Parkinson disease. 3.Eliquis for atrial fibrillation. 4.Aspirin for myocardial infarction risk reduction. 5.Gabapentin for neuropathic pain. 6.Galantamine and memantine for Alzheimer disease. 7.Remeron for insomnia. 8.Protonix for GE reflux. 9.Constipation will be treated with Senokot. Comorbids That Are Continuing To Impact His Rehabilitation Process: Given his cognitive deficits and Parkinson disease, he has problems with his memory and mobility and is significantly limited in his ability to ambulate. He also has atrial fibrillation and is at risk of myocardial infarction and str gail and at risk of bleeding if he is to fall. However, those are mitigated as he will be ambulated a t all times with a gait belt and will be watched very closely and will have bed alarm and chair alarm as appropriate given his cognitive issues. CHAVA/YUE Voice ID: [id number] Report ID: [id number]
[2022-10-31] MEDS: LEVOTHYROXINE SOD 0.05 MG TABLET PO SCH (05:35)
[2022-10-31] MEDS: CARBIDOPA/LEVODOPA 25/100 TAB PO SCH ×2 (07:08→20:15)
[2022-10-31] MEDS: CALCIUM CARBONATE 500 MG TAB PO SCH ×2 (07:08→20:15)
[2022-10-31] MEDS: ASPIRIN 81 MG CHEWABLE TABLET PO SCH (07:08)
[2022-10-31] MEDS: GALANTAMINE 4 MG TAB PO SCH ×2 (07:08→17:19)
[2022-10-31] MEDS: PANTOPRAZOLE 40MG TABLET PO SCH (07:08)
[2022-10-31] MEDS: VITAMIN D 1000 UNIT TAB PO SCH (07:08)
[2022-10-31] MEDS: GABAPENTIN 300 MG CAP PO SCH ×3 (07:09→20:17)
[2022-10-31] MEDS: MEMANTINE HCL 10 MG TABLET PO SCH ×2 (07:09→20:16)
[2022-10-31] MEDS: ENSURE ENLIVE 237 ML CAN PO SCH ×2 (07:09→20:17)
[2022-10-31] MEDS: APIXABAN 5 MG TABLET PO SCH ×2 (07:09→20:16)
[2022-10-31] MEDS: ACETAMINOPHEN 325 MG TABLET PO PRN ×2 (08:11→17:19)
[2022-10-31] MEDS: LIDOCAINE 4% PATCH TOP SCH (09:32)
[2022-10-31] MEDS: LIDOCAINE 4% PATCH TOP ONE (15:05)
[2022-10-31] MEDS: MIRTAZAPINE 15 MG TAB PO SCH (20:16)
[2022-10-31] MEDS: DOCUSATE NA/SENNA CONC 1 TAB PO SCH (20:18)
--- NOTE | 2022-10-31 21:23 | PN ---
Date of Progress Note: 10/31/2022 Time Of Service: 1:00 p.m. Subjective: Mr. Pinto is resting in a chair besides his bed, getting ready to begin another therap y session. He has no new complaints. The right hip has a little pain as he is transferring and bear ing weight. Review of Systems: Noted no significant pain at the right hip surgical site. There is mild pain there. Mild myalgias a nd arthralgias. Otherwise, negative on systems review. Physical Examination: Vital Signs: Blood pressure 118/69, pulse of 90, respiratory rate 16, temperature 97.4, oxygen satur ation 95%. General: Mr. Pinto is resting in bed. He is in no significant distress. HEENT: He is normocephalic, atraumatic. Sclerae anicteric. Oropharynx pink and moist. Neck: Supple. Chest: Clear. Extremities: Show no significant edema except mild right lower extremity. Neurological: He has no focal deficits. Has giveaway weakness due to recent right hip surgery. Laboratory Studies: No new laboratory studies. X-ray/imaging: No new x-rays or imaging. Medications: His medications have been reviewed and remain unchanged including carbidopa/levodopa fo r Parkinson disease, aspirin and Eliquis for stroke risk reduction, gabapentin for neuropathic pain, Synthroid for hypothyroidism, Senokot S for constipation, Namenda for cognitive impairment. Current Functional Status: Today, he did supine to sit transfers with maximum assistance. Did strug gle to maintain edge of bed sitting without significant support from the physical therapists. His si t-to-stand transfers were at a maximum assistance level. He ambulated 39 feet and 40 feet with minim um assistance using a rolling walker. With his occupational therapy, toileting was at maximum assist ance. Clothing management and hygiene at maximum assistance. Self feeding at standby assistance. W ith speech, he did answer temporal orientation questions with 90% accuracy and minimum assistance. H e recalled 2 of 3 unrelated pictures after 3 minutes on the first attempt and then 3 of 3 after 3 min utes on the second attempt. Progress Towards Rehabilitation Goals: Mr. Pinto is making fair overall progress with physical, oc cupational, and speech therapy. Goals will be to become modified independent with upper and lower shaq dy dressing, transferring, toileting, showering, and performing cognitive functioning with modified i ndependence. Assessment: Mr. Pinto is a 76-year-old patient in the rehabilitation unit with right hip fracture who has had surgical repair. He has Alzheimer disease, atrial fibrillation, hypothyroidism, coronary artery disease, decubital ulcer, and a more recent finding of a blister in the left heel. He does h ave boots set to offload the left heel and those will be used. In addition, he has a protective dres sing on the left heel. He is managed by Wound Care for his sacral decubital dependent ulcer, which w as present prior to coming to the unit. Plan: 1.Continue physical, occupational, and speech therapy 3.5 hours 5 of 7 days. 2.Offload the left heel and right heel in addition to protection in the sacral area to help stage II ulcer heel. 3.We will continue Sinemet for Parkinson's. 4.Continue Eliquis for atrial fibrillation. 5.Continue gabapentin for neuropathic pain. 6.Continue galantamine and memantine for Alzheimer disease. 7.Continue Protonix for GE reflux. 8.Remeron for insomnia. 9.Senokot for constipation. Comorbids That Are Continuing To Impact His Rehabilitation: His Parkinson disease cause him to be st iff and move in a limited fashion, which is likely risk factor for more dependent areas to suffer osvaldo akdown such as with the heel on the left and decubital area in the peroneal region. The patient will have shifting and offloading of those areas in addition to protect ion via barrier. CHAVA/YUE Voice ID: [id number] Report ID: [id number]
[2022-11-01 04:30] LABS: Absolute Lymphocytes (CBC) 1.3 K/uL (0.7-4.9); Hematocrit 28.3 % (39.6-49.0); Lymphocytes % 15.3 % (15.3-44.8); MCV 95.8 fL (80-100); MPV 8.2 fL (7.6-11.3); RBC Red Blood Cell Count 2.95 M/uL (4.33-5.43)
[2022-11-01] MEDS: PANTOPRAZOLE 40MG TABLET PO SCH (07:13)
[2022-11-01] MEDS: LEVOTHYROXINE SOD 0.05 MG TABLET PO SCH (07:13)
[2022-11-01] MEDS: LIDOCAINE 4% PATCH TOP SCH (08:44)
[2022-11-01] MEDS: GALANTAMINE 4 MG TAB PO SCH ×2 (08:45→17:04)
[2022-11-01] MEDS: ASPIRIN 81 MG CHEWABLE TABLET PO SCH (08:45)
[2022-11-01] MEDS: VITAMIN D 1000 UNIT TAB PO SCH (08:47)
[2022-11-01] MEDS: CARBIDOPA/LEVODOPA 25/100 TAB PO SCH ×3 (08:47→19:36)
[2022-11-01] MEDS: APIXABAN 5 MG TABLET PO SCH ×2 (08:47→19:33)
[2022-11-01] MEDS: GABAPENTIN 300 MG CAP PO SCH ×3 (08:48→19:33)
[2022-11-01] MEDS: MEMANTINE HCL 10 MG TABLET PO SCH ×2 (08:48→19:33)
[2022-11-01] MEDS: CALCIUM CARBONATE 500 MG TAB PO SCH ×2 (08:55→19:33)
[2022-11-01] MEDS: ENSURE ENLIVE 237 ML CAN PO SCH ×2 (09:57→19:54)
[2022-11-01] MEDS: LIDOCAINE 4% PATCH TOP ONE (10:16)
[2022-11-01 14:32] LABS: Albumin 2.4 g/dL (3.4-5.0); Potassium 4.1 mEq/L (3.5-5.1); Prealbumin 21.6 mg/dL (20-40)
[2022-11-01] MEDS: MIRTAZAPINE 15 MG TAB PO SCH (19:33)
--- NOTE | 2022-11-01 19:37 | PN ---
Date of Progress Note: 11/01/2022 [facility] Progress Note Time Of Service: 1 p.m. Subjective: Mr. Pinto is resting comfortably and is in a chair besides bed. He is in no acute dis tress. He has no new complaints. There is some mild pain when transferring and that is at the right hip surgical site. Review of Systems: No significant abnormalities at his right hip surgical site. Mild myalgias and arthralgias in the ex tremities. Otherwise, no fevers or chills. No nausea or vomiting. No rash. No psychiatric issues. No other complaints on a 10 point systems review. Physical Examination: Vital Signs: Blood pressure 109/83, pulse 98, respiratory rate 16, temperature 97.2, and oxygen satu ration 97%. General: Mr. Pinto is resting comfortably. He is in no significant distress. HEENT: He is normocephalic, atraumatic. Sclerae anicteric. Oropharynx pink and moist. Neck: Supple. Chest: Clear. Heart: Regular. Extremities: No significant edema, clubbing, or cyanosis except mild right lower extremity edema. Neurologic: There is no focal weakness. Laboratory Studies: White blood cell count 8.3, hemoglobin 9.7, and platelets 332. Sodium 141, pota ssium 4.1, chloride 110, prealbumin 21.6, and creatinine 1.02. X-ray/imaging: None. Medications: His medications have been reviewed and his carbidopa levodopa is now 4 times daily. In addition, he is on amantadine 100 mg daily for Parkinson's. Other medications have been continued a s well. Current Functional Status: Mr. Pinto is able to perform ejjriy-wu-axi transfers with maximum simone tance and vbw-yo-injjb transfers also with maximum assistance. He ambulated 70 feet and 35 feet with minimal assistance using a rolling walker and mobilized a wheelchair 60 feet twice with minimum assi stance. With speech pathology, he demonstrated temporal orientation with 75% accuracy and moderate a ssistance. He has convergent thinking with 90% accuracy and maximum cuing. It [facility] in the morning he appeared very rigid, unable to initiate movement easily and required total assistance and then maximum assistance to remain upright. Stand and pivot transfer i s at maximal assistance. Toileting was at maximum assistance early in the morning. Progress Towards Rehabilitation Goals: Mr. Pinto is making slow progress. He is limited mostly by his parkinsonian symptoms and again his dosage of the carbidopa levodopa has been adjusted to 4 time s a day dosage. Amantadine is continued and his progress is slow in not only physical, but also in o ccupational therapy, taking care of his upper and lower body dressing, transferring, and his cognitiv e functioning. Although slightly better than physical and occupational therapy, improvement still is significantly sub par. Assessment: Mr. Pinto is a 76-year-old patient with a right hip fracture who has comorbid Parkinso n's, Alzheimer's, atrial fibrillation, hypothyroidism, and coronary artery disease. He has a decubit al ulcer on the left heel and a sacral dependent ulcer. He is followed by Wound Care for that and hi s heels are being offloaded with boots. Plan: 1.Continue with physical, occupational, and speech therapy for 3.5 hours, 5 of 7 days. 2.Continue to address the dependent ulcers as noted above. 3.Increase his Sinemet for Parkinson's. 4.Continue Eliquis for atrial fibrillation. 5.Gabapentin for neuropathic pain. 6.Galantamine and memantine for Alzheimer disease. 7.Remeron for insomnia. 8.Senokot-S for constipation. 9.Protonix for GE reflux. Comorbids That Continue To Impact Rehabilitation: Due to Parkinson disease, he has difficulty initia ting movements and is very stiff and therefore Parkinson's medications have been adjusted. Further h is ability to shift his position is less than optimal resulting in skin breakdown very easily, especi ally in the heels and other dependent areas so those are being offloaded. CHAVA/MODL Voice ID: [id number] Report ID: [id number]
[2022-11-01] MEDS: DOCUSATE NA/SENNA CONC 1 TAB PO SCH (19:54)
[2022-11-01] MEDS ORDERED: CARBIDOPA/LEVODOPA 25/100 TAB PO SCH (21:00)
[2022-11-02] MEDS: PANTOPRAZOLE 40MG TABLET PO SCH (06:25)
[2022-11-02] MEDS: CARBIDOPA/LEVODOPA 25/100 TAB PO SCH ×4 (06:26→20:32)
[2022-11-02] MEDS: LEVOTHYROXINE SOD 0.05 MG TABLET PO SCH (06:26)
[2022-11-02] MEDS: LIDOCAINE 4% PATCH TOP SCH (08:46)
[2022-11-02] MEDS: MEMANTINE HCL 10 MG TABLET PO SCH ×2 (08:47→20:31)
[2022-11-02] MEDS: GABAPENTIN 300 MG CAP PO SCH ×3 (08:47→20:32)
[2022-11-02] MEDS: GALANTAMINE 4 MG TAB PO SCH ×2 (08:48→17:27)
[2022-11-02] MEDS: APIXABAN 5 MG TABLET PO SCH ×2 (08:48→20:33)
[2022-11-02] MEDS: CALCIUM CARBONATE 500 MG TAB PO SCH ×2 (08:48→20:31)
[2022-11-02] MEDS: VITAMIN D 1000 UNIT TAB PO SCH (08:48)
[2022-11-02] MEDS: AMANTADINE 100 MG CAP PO SCH (08:49)
[2022-11-02] MEDS: ASPIRIN 81 MG CHEWABLE TABLET PO SCH (08:50)
[2022-11-02] MEDS: ACETAMINOPHEN 325 MG TABLET PO PRN (08:51)
[2022-11-02] MEDS: ENSURE ENLIVE 237 ML CAN PO SCH ×2 (10:17→20:33)
--- NOTE | 2022-11-02 13:26 | P.RH.PN ---
Estimated Length of Stay: 14 Expected Discharge Date: 11/10/22 Discharge Disposition Plan: Home Family Support: Yes Vital Signs: Last Vital Signs Temp 97.5 F 11/02/22 07:22 Pulse 85 11/02/22 07:22 Resp 18 11/02/22 07:22 BP 110/66 11/02/22 07:22 Pulse Ox 96 11/02/22 07:22 Laboratory: Laboratory Last Values WBC 8.30 thou/uL (4.3-10.9) 11/01/22 03:59 RBC 2.95 M/uL (4.33-5.43) L 11/01/22 03:59 Hgb 9.7 g/dL (13.6-17.9) L 11/01/22 03:59 Hct 28.3 % (39.6-49.0) L 11/01/22 03:59 MCV 95.8 fL (80-100) 11/01/22 03:59 MCH 32.9 pg (27.0-35.0) 11/01/22 03:59 MCHC 34.3 g/dL (32.0-36.0) 11/01/22 03:59 RDW 14.0 % (12.1-15.2) 11/01/22 03:59 Plt Count 332 thou/uL (152-406) 11/01/22 03:59 MPV 8.2 fL (7.6-11.3) 11/01/22 03:59 Neutrophils % 68.5 % (41.7-73.7) 11/01/22 03:59 Lymphocytes % 15.3 % (15.3-44.8) 11/01/22 03:59 Monocytes % 12.8 % (3.3-12.3) H 11/01/22 03:59 Eosinophils % 2.8 % (0-4.4) 11/01/22 03:59 Basophils % 0.6 % (0-1.3) 11/01/22 03:59 Absolute Neutrophils 5.7 K/uL (1.8-8.0) 11/01/22 03:59 Absolute Lymphocytes 1.3 K/uL (0.7-4.9) 11/01/22 03:59 Absolute Monocytes 1.1 K/uL (0.1-1.3) 11/01/22 03:59 Absolute Eosinophils 0.2 K/uL (0-0.5) 11/01/22 03:59 Absolute Basophils 0.0 K/uL (0-0.5) 11/01/22 03:59 Sodium 141 mEq/L (136-145) 11/01/22 14:04 Potassium 4.1 mEq/L (3.5-5.1) 11/01/22 14:04 Chloride 110 mEq/L (98-107) H 11/01/22 14:04 Carbon Dioxide 29 mEq/L (21-32) 11/01/22 14:04 Anion Gap 6.1 mEq/L (5.0-15.0) 11/01/22 14:04 BUN 29 mg/dL (7-18) H 11/01/22 14:04 Creatinine 1.02 mg/dL (0.70-1.30) 11/01/22 14:04 Est GFR (CKD-EPI) 76 ml/min (=/>90) L 11/01/22 14:04 Glucose 105 mg/dL (74-106) 11/01/22 14:04 Calcium 8.0 mg/dL (8.5-10.1) L 11/01/22 14:04 Magnesium 2.0 mg/dL (1.6-2.4) 11/01/22 14:04 Albumin 2.4 g/dL (3.4-5.0) L 11/01/22 14:04 Prealbumin 21.6 mg/dL (20-40) 11/01/22 14:04 Urine Color Yellow (Yellow) 10/29/22 04:45 Urine Clarity Clear (Clear) 10/29/22 04:45 Urine pH 6.0 (5.0-7.0) 10/29/22 04:45 Ur Specific [place] 1.024 (1.005-1.030) 10/29/22 04:45 Glucose (UA)(Auto) Negative (Negative) 10/29/22 04:45 Urine Ketones 1+ (Negative) H 10/29/22 04:45 Urine Blood Negative (Negative) 10/29/22 04:45 Urine Nitrite Negative (Negative) 10/29/22 04:45 Urine Bilirubin Negative (Negative) 10/29/22 04:45 Urine Urobilinogen Normal (Normal) 10/29/22 04:45 Ur Leukocyte Esterase Negative Oliver/uL (Negative) 10/29/22 04:45 Urine RBC 5-10 /HPF (None Seen) H 10/29/22 04:45 Urine WBC <5 /HPF (<5) 10/29/22 04:45 Ur Squamous Epith Cells None seen /HPF (None Seen) 10/29/22 04:45 Ur Transition Epith Cell <5 /HPF (None Seen) 10/29/22 04:45 Urine Bacteria None seen /HPF (<20) 10/29/22 04:45 Urine Mucus Slight /HPF (None Seen) 10/29/22 04:45 Urine Culture Reflexed Not needed 10/29/22 04:45 Urine Total Protein Trace (Negative) H 10/29/22 04:45 Weight: 165 lb Closed Surgical Incision Present: Yes Negative Pressure Wound Therapy Present: No Physician Update: Severe cognitive deficits, 5 on SLUMS. Significant anomia and speech is working on expressive language. Max assistance with transfers. Walking better. Working better after adjusting the sinemet 25/100 mg to 4 times daily. Summary: Patient's care plan and retirement goals have been reviewed and revised as necessary. Please see the Rehabilitation Signature page for all necessary signatures.
[2022-11-02] MEDS: ACETAMINOPHEN 500 MG TAB PO PRN (15:53)
[2022-11-02] MEDS: MIRTAZAPINE 15 MG TAB PO SCH (20:32)
[2022-11-02] MEDS: DOCUSATE NA/SENNA CONC 1 TAB PO SCH ×2 (20:33→21:00)
[2022-11-02] MEDS: NA CHLORIDE 0.9% 1,000 ML IV SCH (20:35)
[2022-11-03 06:26] LABS: Lymphocytes % 11.3 % (15.3-44.8); MCV 96.1 fL (80-100); MPV 7.9 fL (7.6-11.3); RBC Red Blood Cell Count 3.12 M/uL (4.33-5.43)
[2022-11-03 06:39] LABS: Potassium 4.3 mEq/L (3.5-5.1)
[2022-11-03] MEDS: CARBIDOPA/LEVODOPA 25/100 TAB PO SCH ×4 (06:52→20:09)
[2022-11-03] MEDS: PANTOPRAZOLE 40MG TABLET PO SCH (06:52)
[2022-11-03] MEDS: LEVOTHYROXINE SOD 0.05 MG TABLET PO SCH (06:52)
[2022-11-03] MEDS: APIXABAN 5 MG TABLET PO SCH ×2 (08:56→20:09)
[2022-11-03] MEDS: GALANTAMINE 4 MG TAB PO SCH ×2 (08:56→17:04)
[2022-11-03] MEDS: VITAMIN D 1000 UNIT TAB PO SCH (08:56)
[2022-11-03] MEDS: LIDOCAINE 4% PATCH TOP SCH (08:57)
[2022-11-03] MEDS: MEMANTINE HCL 10 MG TABLET PO SCH ×2 (08:57→20:09)
[2022-11-03] MEDS: ACETAMINOPHEN 500 MG TAB PO PRN (08:59)
[2022-11-03] MEDS: CALCIUM CARBONATE 500 MG TAB PO SCH ×2 (09:00→20:09)
[2022-11-03] MEDS: GABAPENTIN 300 MG CAP PO SCH ×4 (09:01→20:09)
[2022-11-03] MEDS: AMANTADINE 100 MG CAP PO SCH (09:01)
[2022-11-03] MEDS: ENSURE ENLIVE 237 ML CAN PO SCH ×2 (10:03→20:09)
[2022-11-03] MEDS: NA CHLORIDE 0.9% 1,000 ML IV SCH (11:06)
[2022-11-03] MEDS: MIRTAZAPINE 15 MG TAB PO SCH (20:09)
[2022-11-03] MEDS: DOCUSATE NA/SENNA CONC 1 TAB PO SCH (20:10)
[2022-11-04] MEDS: LEVOTHYROXINE SOD 0.05 MG TABLET PO SCH (05:21)
[2022-11-04] MEDS: CARBIDOPA/LEVODOPA 25/100 TAB PO SCH ×4 (06:47→19:49)
[2022-11-04] MEDS: LIDOCAINE 4% PATCH TOP SCH (07:23)
[2022-11-04] MEDS: VITAMIN D 1000 UNIT TAB PO SCH (07:23)
[2022-11-04] MEDS: PANTOPRAZOLE 40MG TABLET PO SCH (07:23)
[2022-11-04] MEDS: GABAPENTIN 300 MG CAP PO SCH ×3 (07:23→19:49)
[2022-11-04] MEDS: CALCIUM CARBONATE 500 MG TAB PO SCH ×2 (07:24→19:49)
[2022-11-04] MEDS: APIXABAN 5 MG TABLET PO SCH ×2 (07:24→19:49)
[2022-11-04] MEDS: AMANTADINE 100 MG CAP PO SCH (07:24)
[2022-11-04] MEDS: MEMANTINE HCL 10 MG TABLET PO SCH ×2 (07:24→19:49)
[2022-11-04] MEDS: GALANTAMINE 4 MG TAB PO SCH ×2 (07:24→16:42)
[2022-11-04] MEDS: ENSURE ENLIVE 237 ML CAN PO SCH ×2 (07:25→19:50)
[2022-11-04] MEDS: MIRTAZAPINE 15 MG TAB PO SCH (19:49)
[2022-11-04] MEDS: DOCUSATE NA/SENNA CONC 1 TAB PO SCH (19:50)
[2022-11-05] MEDS: LEVOTHYROXINE SOD 0.05 MG TABLET PO SCH (05:24)
[2022-11-05] MEDS: CARBIDOPA/LEVODOPA 25/100 TAB PO SCH ×4 (06:43→20:00)
[2022-11-05] MEDS: PANTOPRAZOLE 40MG TABLET PO SCH (06:43)
[2022-11-05] MEDS: ACETAMINOPHEN 500 MG TAB PO PRN (06:43)
[2022-11-05] MEDS: APIXABAN 5 MG TABLET PO SCH ×2 (07:13→19:59)
[2022-11-05] MEDS: AMANTADINE 100 MG CAP PO SCH (07:13)
[2022-11-05] MEDS: CALCIUM CARBONATE 500 MG TAB PO SCH ×2 (07:13→19:59)
[2022-11-05] MEDS: VITAMIN D 1000 UNIT TAB PO SCH (07:13)
[2022-11-05] MEDS: GALANTAMINE 4 MG TAB PO SCH ×2 (07:13→16:40)
[2022-11-05] MEDS: ENSURE ENLIVE 237 ML CAN PO SCH ×2 (07:13→20:00)
[2022-11-05] MEDS: GABAPENTIN 300 MG CAP PO SCH ×3 (07:14→20:00)
[2022-11-05] MEDS: MEMANTINE HCL 10 MG TABLET PO SCH ×2 (07:14→19:59)
[2022-11-05] MEDS: LIDOCAINE 4% PATCH TOP SCH (07:29)
[2022-11-05] MEDS: MIRTAZAPINE 15 MG TAB PO SCH (19:59)
[2022-11-05] MEDS: DOCUSATE NA/SENNA CONC 1 TAB PO SCH (20:00)
[2022-11-06] MEDS: LEVOTHYROXINE SOD 0.05 MG TABLET PO SCH (06:29)
[2022-11-06] MEDS: ACETAMINOPHEN 500 MG TAB PO PRN (07:02)
[2022-11-06] MEDS: PANTOPRAZOLE 40MG TABLET PO SCH (07:03)
[2022-11-06] MEDS: CARBIDOPA/LEVODOPA 25/100 TAB PO SCH ×4 (07:03→19:54)
[2022-11-06] MEDS: VITAMIN D 1000 UNIT TAB PO SCH (07:21)
[2022-11-06] MEDS: AMANTADINE 100 MG CAP PO SCH (07:21)
[2022-11-06] MEDS: LIDOCAINE 4% PATCH TOP SCH (07:21)
[2022-11-06] MEDS: CALCIUM CARBONATE 500 MG TAB PO SCH ×2 (07:21→19:55)
[2022-11-06] MEDS: GABAPENTIN 300 MG CAP PO SCH ×3 (07:21→19:55)
[2022-11-06] MEDS: GALANTAMINE 4 MG TAB PO SCH ×2 (07:21→16:30)
[2022-11-06] MEDS: APIXABAN 5 MG TABLET PO SCH ×2 (07:22→19:54)
[2022-11-06] MEDS: MEMANTINE HCL 10 MG TABLET PO SCH ×2 (07:22→19:54)
[2022-11-06] MEDS: ENSURE ENLIVE 237 ML CAN PO SCH ×2 (07:22→19:54)
[2022-11-06] MEDS: DOCUSATE NA/SENNA CONC 1 TAB PO SCH (19:55)
[2022-11-06] MEDS: MIRTAZAPINE 15 MG TAB PO SCH (19:55)
--- NOTE | 2022-11-06 21:52 | PN ---
Date of Progress Note: 11/06/2022 [facility] Progress Note Visit Time Of Service: 1 p.m. Subjective: Mr. Pinto is resting comfortably in no acute distress. He has no complaints and repor ts his progress is very good following therapy. Review of Systems: No fevers, chills, nausea, or vomiting. No significant myalgias, arthralgias, rash, headache, or manolo ght change. His right hip is not bothering him to any significant degree and it is improving in term s of pain management. Physical Examination: Vital Signs: Blood pressure 102/65, pulse 88, respiratory rate 17, temperature 97, and oxygen satura tion 100%. General: Mr. Pinto is resting comfortably in no significant distress. HEENT: Normocephalic, atraumatic. Sclerae anicteric. Oropharynx pink and moist. Neck: Supple. Chest: Clear. Heart: Regular. Extremities: No significant edema, there is trace in the right lower extremity due to the right hip fracture and surgery. X-ray/imaging: No new x-rays or imaging. Laboratory Studies: From the 10th, white blood cell count 9.1, hemoglobin 10.1, and platelets 405. Chemistry: Sodium 140, potassium 4.3, chloride 110, BUN 22, creatinine 0.8, calcium 8.0, and prealbu min 21.6. Medications: He continues to use the same medications including medications for Parkinson disease, w hich include the carbidopa levodopa 4 times daily 25/100, Eliquis 5 mg twice daily, amantadine 100 mg daily, gabapentin 300 mg 3 times daily, and Synthroid 0.05 mg daily. He is on galantamine for his m wai loss and continues Remeron for insomnia and memantine also for memory loss. He takes Senokot-S for constipation and Protonix for reflux. Current Functional Status: Mr. Pinto performed sxxiwq-pf-qry transfers with standby assistance, si t-to-supine transfers done with minimum assistance for lower extremity elevation being required by e therapist. He did jql-ts-xdjvf transfers with rsewllt-jd-rzgrtvlr assistance using a rolling walke r. He ambulated 200 feet twice and 110 feet 3 times with contact guard assistance using a rolling wa lker. He did static standing exercises for 3 minutes twice on an incline to promote dorsiflexion and try to inhibit his tendency for retropulsion, which is associated with Parkinson disease. Progress First Towards Rehabilitation Goals: Mr. Pinto is making improved progress towards his caridad abilitation goals since his Sinemet has been adjusted to 4 times daily for his Parkinson disease symp toms. His right hip fracture is not a major limiting factor. His pain is managed and he is doing we ll with his weightbearing status. Assessment: Mr. Pinto is a 76-year-old patient in the rehabilitation unit with right hip fracture who is doing well with his therapy, especially since his Parkinson's medications have been adjusted. He has Alzheimer disease, atrial fibrillation, hypothyroidism, and coronary artery disease along wit h a left heel dependent ulcer and sacral dependent ulcer. The heels are offloaded and the sacral dep endent ulcer is managed by [facility]. Continue with physical, occupational, and speech therapy from which he is actually doing very well. He did demonstrate temporal orientation skills with 100% accu racy using external memory cues. Plan: 1.Continue physical, occupational, and speech therapy. 2.Continue multiple comorbid condition medications as noted including his Sinemet for Parkinson dise ase along with the amantadine for his Parkinson's. He will continue Namenda and galantamine for ivanna ntia. Continue Senokot-S for constipation. Continue Ensure Enlive for his malnutrition. Continue P rotonix for GE reflux. Use lidocaine patch for pain. Continue Synthroid for hypothyroidism. Contin ue gabapentin for neuropathic pain and Eliquis 5 mg twice daily for stroke and DVT risk reduction. Comorbids That Continue To Impact Rehabilitation Process: His Parkinson disease is a significant fac tor impacting his rehabilitation process as prior to an adjustment in the frequency of his medication s, he still had significant stiffness with a tendency for freezing and retropulsion. Those are impro ving as he is exercising along with the adjusted medication frequency and that will be continued. LB/MODL Voice ID: [id number] Report ID: [id number]
[2022-11-07] MEDS: PANTOPRAZOLE 40MG TABLET PO SCH (06:26)
[2022-11-07] MEDS: LEVOTHYROXINE SOD 0.05 MG TABLET PO SCH (06:26)
[2022-11-07] MEDS: CARBIDOPA/LEVODOPA 25/100 TAB PO SCH ×4 (06:27→19:41)
[2022-11-07] MEDS: APIXABAN 5 MG TABLET PO SCH ×2 (08:33→19:41)
[2022-11-07] MEDS: GALANTAMINE 4 MG TAB PO SCH ×2 (08:34→16:53)
[2022-11-07] MEDS: VITAMIN D 1000 UNIT TAB PO SCH (08:35)
[2022-11-07] MEDS: AMANTADINE 100 MG CAP PO SCH (08:36)
[2022-11-07] MEDS: GABAPENTIN 300 MG CAP PO SCH ×3 (08:36→19:41)
[2022-11-07] MEDS: MEMANTINE HCL 10 MG TABLET PO SCH ×2 (08:37→19:41)
[2022-11-07] MEDS: LIDOCAINE 4% PATCH TOP SCH (08:38)
[2022-11-07] MEDS: ENSURE ENLIVE 237 ML CAN PO SCH ×2 (10:21→19:42)
[2022-11-07] MEDS: CALCIUM CARBONATE 500 MG TAB PO SCH ×2 (10:21→19:41)
[2022-11-07] MEDS: DOCUSATE NA/SENNA CONC 1 TAB PO SCH (19:41)
[2022-11-07] MEDS: MIRTAZAPINE 15 MG TAB PO SCH (19:41)
--- NOTE | 2022-11-07 21:17 | PN ---
Date of Progress Note: 11/07/2022 Time Of Service: 1 p.m. Subjective: Mr. Pinto is resting in bed in between therapy sessions. He does have some shaking no adela in the lower extremities. is at the bedside. He has no new or significant complaints. He is again happy with his therapy. Review of Systems: Mild shaking is noted from his Parkinson disease. Mild stiffness of the face and the arms, but other lópez no myalgias, arthralgias, rash, or psychiatric complaints and pain on his right hip where he has fracture. The fracture site and surgical repair are well managed. Physical Examination: Vital Signs: Blood pressure 144/53, pulse 67, respiratory rate 16, temperature 97.7, oxygen saturati on 97%. Neurological: Mr. Pinto does have a mask-like face from his Parkinson disease. He has generalized bradykinesia. There is lower extremity shaking, especially when seated where there will be some crystal mors in the lower extremity. However, he does have improved flexibility and mobility compared to erendira or to his Parkinson's medication being started. He has mild right lower extremity edema and good hem ostasis of the right hip surgical site. Laboratory Studies: No new laboratory studies. X-ray/imaging: No new x-rays and imaging. Medications: Have been reviewed and remained unchanged. Current Functional Status: Currently, ecw-ps-vkvob transfers done with minimal assistance with a [employer] walker. Today, he ambulated 250 feet, 175 feet, and 110 feet 3 times with contact guard assista nce using a rolling walker. Did require verbal cues to look ahead and to decrease scissoring as he a mbulated. With occupational therapy, bathing was with minimum assistance. Did bath 9 of 10 body par ts with set up, use of assistive device, but required assistance to sit to stand and balance for chi anal care. Upper body dressing, donning and doffing of shirt done with extra time. Lower body dress ing requires supervision and contact guard assistance. Regarding speech therapy, he did answer tempo ral orientation questions with 100% accuracy with minimum assistance. He has communication board in the room. He answered responsive speech questions with 100% accuracy with minimal assistance noted w [facility] is improved in terms of speech processing. He did provide 2 meanings of multiple words with 90% accuracy, though he did need moderate assistance to maintain attention and recall the target word ea ch time. Progress Towards Rehabilitation Goals: Mr. Pinto is making good progress overall towards his goals of becoming independent with upper and lower body dressing, toileting, transferring, showering, and performing activities of daily living. He is also working towards independence with mobilization of 250 feet with a rolling walker independently and is slower in terms of his gait in terms of ambulatin g up and down steps. Progress Towards Rehabilitation Goals: Mr. Pinto is a 76-year-old patient in the rehabilitation un it with a right hip fracture who is making good progress overall with his physical and occupational t herapy. He has comorbid Parkinson disease, Alzheimer disease, atrial fibrillation, hypothyroidism, c oronary artery disease. He has a left heel dependent ulcer and a sacral dependent ulcer. Plan: 1.Continue with physical, occupational, and speech therapy. 2.Continue with management of his comorbid conditions with medications as listed including Namenda a nd galantamine for dementia, Sinemet for Parkinson disease, Senokot S for constipation, Ensure Enlive for malnutrition, Protonix for GE reflux, lidocaine patch for pain, Synthroid for hypothyroidism, ga bapentin for neuropathic pain, and Eliquis 5 mg twice daily for stroke and DVT risk reduction. Comorbids That Continue To Impact The Rehabilitation Process: Currently, his Parkinson disease does pose a risk of him falling as he has some postural instability with a tendency to fall backwards onto either side. He also has a tendency to freeze. Those tendencies have been improved and have been m inimized as his Parkinson's medication frequency has been increased. He also does better with exerci ses. Additionally, he has again multiple risk factors as noted and other issues such as pain, poor nutrition, and cognitive deficits, which again are improving. LB/MODL Voice ID: [id number] Report ID: [id number]
[2022-11-08 04:37] LABS: Absolute Lymphocytes (CBC) 1.1 K/uL (0.7-4.9); Hematocrit 28.8 % (39.6-49.0); Lymphocytes % 14.9 % (15.3-44.8); MCV 96.4 fL (80-100); MPV 7.9 fL (7.6-11.3); RBC Red Blood Cell Count 2.99 M/uL (4.33-5.43)
[2022-11-08 04:39] LABS: Albumin 2.2 g/dL (3.4-5.0); Magnesium 1.9 mg/dL (1.6-2.4); Potassium 3.9 mEq/L (3.5-5.1); Prealbumin 19.9 mg/dL (20-40)
[2022-11-08] MEDS: LEVOTHYROXINE SOD 0.05 MG TABLET PO SCH (05:09)
[2022-11-08] MEDS: CARBIDOPA/LEVODOPA 25/100 TAB PO SCH ×4 (06:37→19:28)
[2022-11-08] MEDS: PANTOPRAZOLE 40MG TABLET PO SCH (06:37)
[2022-11-08] MEDS: LIDOCAINE 4% PATCH TOP SCH (08:35)
[2022-11-08] MEDS: GALANTAMINE 4 MG TAB PO SCH ×2 (08:37→17:15)
[2022-11-08] MEDS: VITAMIN D 1000 UNIT TAB PO SCH (08:37)
[2022-11-08] MEDS: GABAPENTIN 300 MG CAP PO SCH ×3 (08:38→19:28)
[2022-11-08] MEDS: AMANTADINE 100 MG CAP PO SCH (08:38)
[2022-11-08] MEDS: CALCIUM CARBONATE 500 MG TAB PO SCH ×2 (08:38→19:27)
[2022-11-08] MEDS: MEMANTINE HCL 10 MG TABLET PO SCH ×2 (08:38→19:28)
[2022-11-08] MEDS: APIXABAN 5 MG TABLET PO SCH ×2 (08:38→19:28)
[2022-11-08] MEDS: ENSURE ENLIVE 237 ML CAN PO SCH ×2 (09:06→19:28)
[2022-11-08] MEDS: ACETAMINOPHEN 500 MG TAB PO PRN (09:06)
--- NOTE | 2022-11-08 18:53 | PN ---
Date of Progress Note: 11/08/2022 Time Of Service: 1 p.m. Subjective: Mr. Pinto is resting in bed in between sessions. Mild shaking noted in his lower extr emities and mask-like face noted. His is at the bedside and says she is pleased with how he is doing. Review of Systems: No fevers, chills, myalgias, arthralgias. No rash. No headache. No active psychiatric issues. Physical Examination: Vital signs; blood pressure 114/81, pulse 91, respiratory rate 16, temperature 97.7, ox saturation 10 0%. Mr. Pinto is resting in bed. Does have a mask-like face, decreased mobility with bradykinesia , and some tremors noted in the lower more than upper extremities, but those are very subtle. In ter ms of motor, he has no focal weakness. Stocking-glove loss to light touch temperature. Laboratory Studies: White blood cell count 7.4, hemoglobin 9.8, platelets 363. Chemistry; sodium 14 0, potassium 3.9, chloride 107, carbon dioxide 30, BUN 21, creatinine 0.85, prealbumin 19.9, albumin 2.2, calcium 8.1, magnesium 1.9. X-ray/imaging: No new x-rays or imaging. Medications: His medications have been reviewed and remained unchanged. He does have lidocaine patc h for pain, Namenda for his cognitive deficits, carbidopa/levodopa for Parkinson disease amantadine a lso for Parkinson disease and those are made a significant difference in his ability to improve the r ehabilitation. Current Functional Status: Today, he did supine to sit transfers with standby assistance, sit to sup ine transfers again with standby assistance, and sit to stand transfers with minimum assistance. He ambulated 250 feet once, 150 feet once, another 150 feet 3 times with contact guard assistance using a rolling walker. He ascended and descended 6 steps with bilateral handrails with contact guard assi stance. With speech therapy, he demonstrated improved word retrieval skills through the use of diver gent naming of 5 items for abstract category. He needed minimum to moderate assistance for that task . He needed moderate assistance to recall target words during a task with 80% accuracy. Regarding h is occupational therapy, he was able to don and doff upper body clothes with modified independence, s upervision required for lower body dressing, grooming and self-feeding independent. Progress Towards Rehabilitation Goals: Mr. Pinto is making fair overall progress, which is improve d in his rehabilitation goals of becoming independent or modified independent with upper and lower shaq dy dressing, toileting, transferring, showering, and ambulating 250-500 feet with modified independen ce, up and down 10 steps with modified independence, and performing cognitive functioning with modifi ed independence. Assessment: Mr. Pinto is a 76-year-old patient in the rehabilitation unit with Parkinson disease a nd right hip fracture. He is also debilitated. He has Alzheimer disease, atrial fibrillation, hypot hyroidism, coronary artery disease, and a left heel dependent ulcer and a sacral dependent ulcer. Plan: 1.Continue with physical, occupational, and speech therapy for 3.5 hours, 5 of 7 days. 2.He has multiple comorbid conditions as noted above and he is taking medications including Synthroi d for hypothyroidism, gabapentin for neuropathic pain, Eliquis 5 mg twice daily for atrial fibrillati on and stroke risk reduction, galantamine and Namenda for dementia and Sinemet for Parkinson disease, Senokot-S for constipation, Ensure Enlive for malnutrition, and Protonix for GE reflux along with th e lidocaine patch for pain. Comorbids That Continue To Impact Her Rehabilitation Process: His Parkinson disease is the biggest c omorbid that tends to impact or slow his rehabilitation. He has a tendency to have postural instabil ity and may fall to either side and also a tendency to freeze. That is improving as he is having agg ressive therapy, but he will need to continue to do the exercises when he leaves and likely lifelong. His Parkinson has no cure. CHAVA/YUE Voice ID: [id number] Report ID: [id number]
[2022-11-08] MEDS: MIRTAZAPINE 15 MG TAB PO SCH (19:28)
[2022-11-08] MEDS: DOCUSATE NA/SENNA CONC 1 TAB PO SCH (19:30)
[2022-11-09] MEDS: LEVOTHYROXINE SOD 0.05 MG TABLET PO SCH (05:07)
[2022-11-09] MEDS: PANTOPRAZOLE 40MG TABLET PO SCH (06:38)
[2022-11-09] MEDS: CARBIDOPA/LEVODOPA 25/100 TAB PO SCH ×4 (06:39→21:25)
[2022-11-09] MEDS: LIDOCAINE 4% PATCH TOP SCH (08:21)
[2022-11-09] MEDS: AMANTADINE 100 MG CAP PO SCH (08:22)
[2022-11-09] MEDS: GALANTAMINE 4 MG TAB PO SCH ×2 (08:22→17:33)
[2022-11-09] MEDS: APIXABAN 5 MG TABLET PO SCH ×2 (08:22→21:25)
[2022-11-09] MEDS: CALCIUM CARBONATE 500 MG TAB PO SCH ×2 (08:22→21:26)
[2022-11-09] MEDS: MEMANTINE HCL 10 MG TABLET PO SCH ×2 (08:22→21:25)
[2022-11-09] MEDS: GABAPENTIN 300 MG CAP PO SCH ×3 (08:24→21:26)
[2022-11-09] MEDS: VITAMIN D 1000 UNIT TAB PO SCH (08:24)
[2022-11-09] MEDS: ENSURE ENLIVE 237 ML CAN PO SCH ×2 (12:00→21:25)
[2022-11-09] MEDS: ACETAMINOPHEN 500 MG TAB PO PRN (12:29)
--- NOTE | 2022-11-09 13:54 | P.RH.PN ---
Estimated Length of Stay: 16 Expected Discharge Date: 11/10/22 Discharge Disposition Plan: Home Family Support: Yes Vital Signs: Last Vital Signs Temp 97.2 F 11/09/22 07:24 Pulse 79 11/09/22 07:24 Resp 16 11/09/22 07:24 BP 119/69 11/09/22 07:24 Pulse Ox 97 11/09/22 07:24 Laboratory: Laboratory Last Values WBC 7.40 thou/uL (4.3-10.9) 11/08/22 04:00 RBC 2.99 M/uL (4.33-5.43) L 11/08/22 04:00 Hgb 9.8 g/dL (13.6-17.9) L 11/08/22 04:00 Hct 28.8 % (39.6-49.0) L 11/08/22 04:00 MCV 96.4 fL (80-100) 11/08/22 04:00 MCH 32.7 pg (27.0-35.0) 11/08/22 04:00 MCHC 33.9 g/dL (32.0-36.0) 11/08/22 04:00 RDW 14.1 % (12.1-15.2) 11/08/22 04:00 Plt Count 363 thou/uL (152-406) 11/08/22 04:00 MPV 7.9 fL (7.6-11.3) 11/08/22 04:00 Neutrophils % 68.7 % (41.7-73.7) 11/08/22 04:00 Lymphocytes % 14.9 % (15.3-44.8) L 11/08/22 04:00 Monocytes % 13.0 % (3.3-12.3) H 11/08/22 04:00 Eosinophils % 2.8 % (0-4.4) 11/08/22 04:00 Basophils % 0.6 % (0-1.3) 11/08/22 04:00 Absolute Neutrophils 5.1 K/uL (1.8-8.0) 11/08/22 04:00 Absolute Lymphocytes 1.1 K/uL (0.7-4.9) 11/08/22 04:00 Absolute Monocytes 1.0 K/uL (0.1-1.3) 11/08/22 04:00 Absolute Eosinophils 0.2 K/uL (0-0.5) 11/08/22 04:00 Absolute Basophils 0.0 K/uL (0-0.5) 11/08/22 04:00 Sodium 140 mEq/L (136-145) 11/08/22 04:00 Potassium 3.9 mEq/L (3.5-5.1) 11/08/22 04:00 Chloride 107 mEq/L (98-107) 11/08/22 04:00 Carbon Dioxide 30 mEq/L (21-32) 11/08/22 04:00 Anion Gap 6.9 mEq/L (5.0-15.0) 11/08/22 04:00 BUN 21 mg/dL (7-18) H 11/08/22 04:00 Creatinine 0.85 mg/dL (0.70-1.30) 11/08/22 04:00 Est GFR (CKD-EPI) 90 ml/min (=/>90) 11/08/22 04:00 Glucose 102 mg/dL (74-106) 11/08/22 04:00 Calcium 8.1 mg/dL (8.5-10.1) L 11/08/22 04:00 Magnesium 1.9 mg/dL (1.6-2.4) 11/08/22 04:00 Albumin 2.2 g/dL (3.4-5.0) L 11/08/22 04:00 Prealbumin 19.9 mg/dL (20-40) L 11/08/22 04:00 Urine Color Yellow (Yellow) 10/29/22 04:45 Urine Clarity Clear (Clear) 10/29/22 04:45 Urine pH 6.0 (5.0-7.0) 10/29/22 04:[address] 1.024 (1.005-1.030) 10/29/22 04:45 Glucose (UA)(Auto) Negative (Negative) 10/29/22 04:45 Urine Ketones 1+ (Negative) H 10/29/22 04:45 Urine Blood Negative (Negative) 10/29/22 04:45 Urine Nitrite Negative (Negative) 10/29/22 04:45 Urine Bilirubin Negative (Negative) 10/29/22 04:45 Urine Urobilinogen Normal (Normal) 10/29/22 04:45 Ur Leukocyte Esterase Negative Oliver/uL (Negative) 10/29/22 04:45 Urine RBC 5-10 /HPF (None Seen) H 10/29/22 04:45 Urine WBC <5 /HPF (<5) 10/29/22 04:45 Ur Squamous Epith Cells None seen /HPF (None Seen) 10/29/22 04:45 Ur Transition Epith Cell <5 /HPF (None Seen) 10/29/22 04:45 Urine Bacteria None seen /HPF (<20) 10/29/22 04:45 Urine Mucus Slight /HPF (None Seen) 10/29/22 04:45 Urine Culture Reflexed Not needed 10/29/22 04:45 Urine Total Protein Trace (Negative) H 10/29/22 04:45 Weight: 197 lb 3.2 oz Wound Present: Yes Closed Surgical Incision Present: Yes Negative Pressure Wound Therapy Present: No Physician Update: Making fair progress with all therapy. He has mild cognitive deficits. Pain is well managed. Optimizing his Parkinson's disease. Hospital bed ordered for home. He will go home in the AM with home health. BIMS improved to 13. Requires queing to complete his ADL and transfers. Improved functional gains with occupational therapy. Independent with upper body dressing. Ready to go home. Summary: Patient's care plan and intermediate frame tender goals have been reviewed and revised as necessary. Please see the Rehabilitation Signature page for all necessary signatures.
[2022-11-09] MEDS: NA CHLORIDE 0.9% 1,000 ML IV SCH (19:38)
[2022-11-09] MEDS: MIRTAZAPINE 15 MG TAB PO SCH (21:26)
[2022-11-09] MEDS: DOCUSATE NA/SENNA CONC 1 TAB PO SCH (21:27)
[2022-11-10] MEDS: LEVOTHYROXINE SOD 0.05 MG TABLET PO SCH (06:58)
[2022-11-10] MEDS: PANTOPRAZOLE 40MG TABLET PO SCH (06:59)
[2022-11-10] MEDS: CARBIDOPA/LEVODOPA 25/100 TAB PO SCH ×4 (06:59→20:03)
[2022-11-10] MEDS: LIDOCAINE 4% PATCH TOP SCH (08:40)
[2022-11-10] MEDS: GALANTAMINE 4 MG TAB PO SCH ×2 (08:50→16:22)
[2022-11-10] MEDS: CALCIUM CARBONATE 500 MG TAB PO SCH ×2 (08:51→20:03)
[2022-11-10] MEDS: MEMANTINE HCL 10 MG TABLET PO SCH ×2 (08:51→20:03)
[2022-11-10] MEDS: APIXABAN 5 MG TABLET PO SCH ×2 (08:51→20:02)
[2022-11-10] MEDS: AMANTADINE 100 MG CAP PO SCH (08:51)
[2022-11-10] MEDS: VITAMIN D 1000 UNIT TAB PO SCH (08:51)
[2022-11-10] MEDS: GABAPENTIN 300 MG CAP PO SCH ×2 (08:51→20:02)
[2022-11-10] MEDS: NA CHLORIDE 0.9% 1,000 ML IV SCH (09:20)
[2022-11-10] MEDS: ENSURE ENLIVE 237 ML CAN PO SCH ×2 (11:50→20:04)
[2022-11-10 16:22] VITALS: BP 110/64
[2022-11-10] MEDS: MIRTAZAPINE 15 MG TAB PO SCH (20:03)
[2022-11-10] MEDS: MIDODRINE HCL 5 MG TABLET PO SCH (20:03)
[2022-11-10] MEDS: DOCUSATE NA/SENNA CONC 1 TAB PO SCH (20:04)
[2022-11-11] MEDS: PANTOPRAZOLE 40MG TABLET PO SCH (06:26)
[2022-11-11] MEDS: CARBIDOPA/LEVODOPA 25/100 TAB PO SCH ×2 (06:26→10:05)
[2022-11-11] MEDS: LEVOTHYROXINE SOD 0.05 MG TABLET PO SCH (06:26)
[2022-11-11] MEDS: ENSURE ENLIVE 237 ML CAN PO SCH (08:00)
[2022-11-11] MEDS: VITAMIN D 1000 UNIT TAB PO SCH (08:22)
[2022-11-11] MEDS: LIDOCAINE 4% PATCH TOP SCH (08:22)
[2022-11-11] MEDS: GALANTAMINE 4 MG TAB PO SCH (08:22)
[2022-11-11] MEDS: MEMANTINE HCL 10 MG TABLET PO SCH (08:23)
[2022-11-11] MEDS: CALCIUM CARBONATE 500 MG TAB PO SCH (08:23)
[2022-11-11] MEDS: MIDODRINE HCL 5 MG TABLET PO SCH (08:23)
[2022-11-11] MEDS: APIXABAN 5 MG TABLET PO SCH (08:23)
[2022-11-11] MEDS: GABAPENTIN 300 MG CAP PO SCH (08:23)
[2022-11-11 09:12] VITALS: TEMP 97.5
== END 2022-11-11 10:30 | disposition home health service (06) | DRG 948 ==
LOC: 5TH 15:30
PROVIDERS: ADMIT Psychiatry & Neurology Neurology with Special Qualifications in Child Neurology; ATTEND Psychiatry & Neurology Neurology with Special Qualifications in Child Neurology
DX: R53.81 Other malaise (principal); G20 Parkinson's disease; G30.9 Alzheimer's disease, unspecified; F02.80 Dementia in other diseases classified elsewhere, unspecified severity, without behavioral disturbance, psychotic disturbance, mood disturbance, and anxiety; I48.91 Unspecified atrial fibrillation; E03.9 Hypothyroidism, unspecified; I25.10 Atherosclerotic heart disease of native coronary artery without angina pectoris; G25.81 Restless legs syndrome; M47.816 Spondylosis without myelopathy or radiculopathy, lumbar region; K59.00 Constipation, unspecified; M81.0 Age-related osteoporosis without current pathological fracture; G47.00 Insomnia, unspecified; K21.9 Gastro-esophageal reflux disease without esophagitis; L89.152 Pressure ulcer of sacral region, stage 2; L89.622 Pressure ulcer of left heel, stage 2
CPT/HCPCS: 36415; 80048; 81001; 82040; 83735; 84134; 85025; 87086; 87088; 92523; 94010; 97110; 97112; 97116; 97129; 97140; 97161; 97165; 97530; 97542; J2001; J7030

== ENCOUNTER 2022-11-29 10:36 | Inpatient (IN) | payer OTHER, BC ==
--- OUTSIDE RECORDS SUMMARY | 2022-11-29 10:41 | XMS REPORT | Continuity of Care Document ---
:1945 Author Organization [facility] t Address [address] [place] [address] [address] [place] [address] Care Team Providers Name Role Phone Duran Contreras MD Primary Care Physician Ismael Smith MD Attending Clinician JOSSIE DORANTES Attending Clinician Unavailable JOSSIE DORANTES Admitting Clinician Unavailable Payers Payer Name Policy Type Policy Number Effective Date Expiration Date S ource Problems Condition Condition Condition Status Onset Resolution Last Treating Co mments Source Name Details Category Date Date Treatment Clinician Date Other Other Disease Active [place] fracture fracture 6-28 [facility] of head of head 00:00: and neck and neck 00 of right of right femur, femur, initial initial encounter encounter for closed for closed fracture fracture Restless Restless Problem Active 2022-09-07 Memoria legs legs 3-22 14:18:20 l (disorder) (disorder) 00:00: He rmann Active 00 08/15/2016 Problem 09/07/2022 [facility] Lumbar Lumbar Problem Active 2014-052022-09-07 [facility] radiculopa radiculopa - 14:18:20 l thy thy 00:00: Matthew (disorder) (disorder) 00 Active 04/13/2015 Problem 09/07/2022 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 Essential Essential Problem Active 2022-09-07 Memoria hypertensi hypertensi 3- 14:18:20 l on on 00:00: Matthew (disorder) (disorder) 00 Active 07/28/2014 Problem 09/07/2022 [facility] Hypothyroi Hypothyro Problem Active 2022-09-07 Memoria dism idism 3- 14:18:20 l (disorder) (disorder) 00:00: He rmann Active 00 07/28/2014 Problem 09/07/2022 [facility] Dementia Dementia Problem Resolve 2022-02-22 Memoria (disorder) (disorder) d 02:55:41 l Resolved Matthew Problem 02/22/2022 [facility] Alzheimer' Alzheimer Problem Active 2022-09-07 Memoria s disease 's disease 14:18:20 l (disorder) (disorder) He rmann Active Problem 09/07/2022 [facility] Atrial Atrial Problem Active 2022-09-07 [facility] fibrillati fibrillati 14:18:20 l on on Matthew (disorder) (disorder) Active Problem 09/07/2022 [facility] History of History Problem Active 2022-09-07 Memoria fall of fall 14:18:20 l (situation (situation He rmann ) ) Active Problem 09/07/2022 [facility] Lumbar Lumbar Problem Active 2022-09-07 Mem oria spondylosi spondylosi 14:18:20 l s s Matthew (disorder) (disorder) Active Problem 09/07/2022 [facility] Parkinsoni Parkinson Problem Active 2022-09-07 Memoria sm ism 14:18:20 l (disorder) (disorder) He rmann Active Problem 09/07/2022 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 06-13 02:55:41 02:55:41 l disorder disorder 00:00: Stevie mathias (disorder) (disorder) 00 Resolved 04/13/2015 Problem 02/22/2022 [facility] Amnesia Amnesia Problem Resolve 2022-02-22 2022-02-22 Memoria (finding) (finding) d 07-28 02:55:41 02:55:41 l Resolved 00:00: Matthew 07/28/2014 00 Problem 02/22/2022 [facility] Allergies, Adverse Reactions, Alerts Allergy Allergy Status Severity Reaction(s) Onset Inactive Treating Comm ents Source Name Type Date Date Clinician Sulfamet Allergy Active [facility] hoxazole to 6- Health -Trimeth substanc 00:00: oprim e 00 Statins Propensi Active Myalgia [place] ty to 9- Health adverse 00:00: reaction 00 s Sulfamet Allergy Active Other [facility] hoxazole to 8-13 Reaction( Healt h substanc 00:00: s): e 00 Unknown Trimetho Allergy Active Other UT prim to 8-13 Reaction( Health substanc 00:00: s): e 00 Unknown Butorpha Allergy Active Other UT nol to 4-18 Reaction( Health substanc 00:00: s): Other e 00 (See Comments) , Unknown Dizziness Penicill Allergy Active Swelling Other [facility] ins to 4-18 Reaction( Health substanc 00:00: s): e 00 Unknown Penicill Propensi Active Swelling Meth maryse ins ty to 4-18 st adverse 00:00: Hospita reaction 00 l s to drug Butorpha Propensi Active Other (See Dizziness Methodi nol ty to Comments) 4-18 st Tartrate adverse 00:00: Hospita reaction 00 l s to drug penicill penicill Active Memori a ins ins l Matthew Family History Family Member Diagnosis Comments Start Date Stop Date Source Natural mother Heart disease [facility] Social History Social Habit Start Date Stop Date Quantity Comments Source Gender [facility] Alcohol intake 2017-09-18 2017-09-18 Current [facility] 00:00:00 00:00:00 non-drinker of Hospital alcohol (finding) Tobacco use and 2017-09-11 2017-09-11 Smokeless [facility] exposure 00:00:00 00:00:00 tobacco non-user Hospital History of Social 2017-09-11 2017-09-[address] function 00:00:00 00:00:00 Hospital Sex Ass[birth year] At [birth year] [facility] 00:00:00 00:00:00 Hospital Smoking Status Start Date Stop Date Source Tobacco smoking consumption unknown [facility] Tobacco smoking status [facility] Medications Ordered Filled Start Stop Current Ordering Indication Dosage Frequency Signature Comments Components Source Medication Medication Date Date Medication? Clinician (SIG) Name Name memantine 5 Yes = 1 tab, Me moria mg oral 4-11 PO, BID, # l tablet 18:41: 180 tab, 1 Sarah nn 00 Refill(s), Pharmacy: [facility], 157.48, cm, 09/04/22 13:16:00 CDT, Height, 78.182, kg, 09/04/22 13:16:00 CDT, Weight furosemide 2022-0 Yes TAKE 1 Memor ia 20 mg oral 4-11 TABLET BY l tablet 18:26: MOUTH ONCE Sarah nn 00 DAILY NEEDED carbidopa-l 2022-0 Yes 2 tab, PO, Memoria evodopa 25 1-10 BID, # 360 l mg-100 mg 21:23: tab, 1 Stevie n oral tablet 00 Refill(s), Pharmacy: [facility], 172.72, cm, 06/05/22 14:44:00 [employer]IA[employer], Height, 82.898, kg, 06/05/22 14:44:00 [employer]IAISON, Weight carbidopa-l 2022-0 Yes 2 tab, PO, Memoria evodopa 25 1-10 TID, # 540 l mg-100 mg 21:23: tab, 1 Stevie n oral tablet 00 Refill(s), Pharmacy: [facility], 172.72, cm, 06/05/22 14:44:00 [employer] LIAISON, Height, 82.898, kg, 06/05/22 14:44:00 [employer]NAGEMENT LIAISON, Weight galantamine 2022-0 Yes = 1 tab, Me moria 12 mg oral 1-10 PO, BID, # l tablet 21:18: 180 tab, 1 Sarah nn 00 Refill(s), Pharmacy: [facility], 172.72, cm, 06/05/22 14:44:00 [employer] LIAISON, Height, 82.898, kg, 06/05/22 14:44:00 [employer]ERR[employer]NAG[employer] LIAISON, Weight galantamine Yes = 1 tab, Me moria 12 mg oral 1-10 PO, BID, # l tablet 21:18: 180 tab, 1 Sarah nn 00 Refill(s), Pharmacy: [facility], 172.72, cm, 06/05/22 14:44:00 [employer] LIAISON, Height, 82.898, kg, 06/05/22 14:44:00 REFERRAL MANAGEMENT LIAISON, Weight gabapentin 2021-05 Yes = 1 cap, Mem oria 300 mg oral 0-13 PO, TID, # l capsule 13:34: 270 [place] 00 unknown unit, 1 Refill(s), Pharmacy: [facility], 172.72, cm, 02/19/22 14:08:00 CDT, Height, 87.5, kg, 02/19/22 14:08:00 CDT, Weight memantine 5 2021-05 Yes = 1 tab, Me moria mg oral 0-13 PO, BID, # l tablet 13:34: 180 tab, 1 Sarah nn 00 Refill(s), Pharmacy: [facility], 172.72, cm, 02/19/22 14:08:00 CDT, Height, 87.5, kg, 02/19/22 14:08:00 CDT, Weight gabapentin 2021-05 Yes = 1 cap, Mem oria 300 mg oral 0-13 PO, TID, # l capsule 13:34: 270 Matthew 00 unknown unit, 1 Refill(s), Pharmacy: [facility], 172.72, cm, 02/19/22 14:08:00 CDT, Height, 87.5, kg, 02/19/22 14:08:00 CDT, Weight memantine 5 2021-05 Yes = 1 tab, Me moria mg oral 0-13 PO, BID, # l tablet 13:34: 180 tab, 1 Sarah nn 00 Refill(s), Pharmacy: [facility], 172.72, cm, 02/19/22 14:08:00 CDT, Height, 87.5, kg, 02/19/22 14:08:00 CDT, Weight carbidopa-l 2021-0 Yes 1 tab, PO, Memoria evodopa 25 9-26 TID, # 270 l mg-250 mg 19:26: tab, 1 Stevie n oral tablet 00 Refill(s), Pharmacy: [facility], 172.72, cm, 02/19/22 14:08:00 CDT, Height, 87.5, kg, 02/19/22 14:08:00 CDT, Weight carbidopa-l 2021-0 Yes 1 tab, PO, Memoria evodopa 25 9-26 TID, # 270 l mg-250 mg 19:26: tab, 1 Stevie n oral tablet 00 Refill(s), Pharmacy: [facility], 172.72, cm, 02/19/22 14:08:00 CDT, Height, 87.5, kg, 02/19/22 14:08:00 CDT, Weight tramadol 50 2021-0 Yes 0 Memori a mg oral 9-26 Refill(s) l tablet 19:10: Matthew 00 tramadol 50 2021-0 Yes 0 Memori a mg oral 9-26 Refill(s) l tablet 19:10: [place] 00 mirtazapine 2021-0 Yes = 1 tab, Me moria 15 mg oral 8-02 PO, l tablet 16:43: Bedtime, # Sarah nn 00 90 tab, 2 Refill(s), Pharmacy: [facility] ([facility]), 172.72, cm, 10/24/21 13:54:00 CDT, Height, 93.21, kg, 10/24/21 13:54:00 CDT, Weight mirtazapine 2021-0 Yes = 1 tab, Me moria 15 mg oral 8-02 PO, l tablet 16:43: Bedtime, # Sarah nn 00 90 tab, 2 Refill(s), Pharmacy: [facility] (Now [facility]), 172.72, cm, 10/24/21 13:54:00 CDT, Height, 93.21, kg, 10/24/21 13:54:00 CDT, Weight gabapentin Yes 300 mg = 1 M emoria 300 mg oral 5-31 cap, PO, l capsule 19:27: TID, # 270 Herm volodymyr 00 cap, 1 Refill(s), Pharmacy: [facility], 172.72, cm, 10/24/21 13:54:00 CDT, Height, 93.21, kg, 10/24/21 13:54:00 CDT, Weight gabapentin Yes 300 mg = 1 M emoria 300 mg oral 5-31 cap, PO, l capsule 19:27: TID, # 270 Herm volodymyr 00 cap, 1 Refill(s), Pharmacy: [facility], 172.72, cm, 10/24/21 13:54:00 CDT, Height, 93.21, kg, 10/24/21 13:54:00 CDT, Weight QUEtiapine Yes TAKE 1 Memor ia 50 mg oral 5-31 TABLET BY l tablet 19:23: MOUTH ONCE Sarah nn DAILY AT NIGHT hydrochloro 0 Yes 0 Memori a thiazide-sp 5-31 Refill(s) l ironolacton 19:23: Stevie n e 25 mg-25 00 mg oral tablet hydrochloro 0 Yes 0 Memori a thiazide-sp 5-31 Refill(s) l ironolacton 19:23: Stevie n e 25 mg-25 00 mg oral tablet QUEtiapine Yes TAKE 1 Memor ia 50 mg oral 5-31 TABLET BY l tablet 19:23: MOUTH ONCE Sarah nn 00 DAILY AT NIGHT gabapentin 0 No 300 mg = 1 M emoria 300 mg oral 3-17 cap, PO, l capsule 14:34: TID, X 90 Sarah nn 00 day, # 270 cap, 2 Refill(s), Pharmacy: [facility], 172.72, cm, 07/24/21 14:53:00 [employer]NAGEMENT LIAISON, Height, 94.091, kg, 07/24/21 14:53:00 [employer]NAGEMENT LIAISON, Weight gabapentin 0 No 300 mg = 1 M emoria 300 mg oral 3-17 cap, PO, l capsule 14:34: TID, X 90 Sarah nn 00 day, # 270 cap, 2 Refill(s), Pharmacy: [facility], 172.72, cm, 07/24/21 14:53:00 RE[employer]ERR[employer] MANAGEMENT LIAISON, Height, 94.091, kg, 07/24/21 14:53:00 [employer]NAGEMENT LIAISON, Weight tramadol Yes TAKE 1 Memoria hydrochlori 2-28 TABLET BY l de 50 MG 21:07: MOUTH [place] Oral Tablet 00 EVERY 12 HOURS NEEDED FOR PAIN tramadol Yes TAKE 1 Memoria hydrochlori 2-28 TABLET BY l de 50 MG 21:07: MOUTH Matthew Oral Tablet 00 EVERY 12 HOURS NEEDED FOR PAIN quetiapine Yes 25 mg = 1 Me moria 25 MG Oral 1-29 tab, PO, l Tablet 00:23: Bedtime, # Sarah nn [Seroquel] 00 30 tab, 2 Refill(s), Pharmacy: [facility], 172.72, cm, 04/27/21 14:07:00 [employer]NAG[employer] LIAISON, Height, 97.727, kg, 06/23/21 10:42:00 REFERR[employer] MANAGEMENT LIAISON, Weight quetiapine Yes 25 mg = 1 Me moria 25 MG Oral 1-29 tab, PO, l Tablet 00:23: Bedtime, # Sarah nn [Seroquel] 00 30 tab, 2 Refill(s), Pharmacy: [facility], 172.72, cm, 04/27/21 14:07:00 REFERRAL MANAGEMENT LIAISON, Height, 97.727, kg, 06/23/21 10:42:00 REFERRAL MANAGEMENT LIAISON, Weight quetiapine No 25 mg = 1 Me moria 25 MG Oral 1-28 tab, PO, l Tablet 17:12: Bedtime, # Sarah nn [Seroquel] 00 90 tab, 2 Refill(s), Pharmacy: [facility], 172.72, cm, 04/27/21 14:07:00 REFERRAL MANAGEMENT LIAISON, Height, 97.727, kg, 06/23/21 10:42:00 REFERRAL MANAGEMENT LIAISON, Weight quetiapine 0 No 25 mg = 1 Me moria 25 MG Oral 1-28 tab, PO, l Tablet 17:12: Bedtime, # Sraah nn [Seroquel] 00 90 tab, 2 Refill(s), Pharmacy: [facility], 172.72, cm, 04/27/21 14:07:00 REFERRAL MANAGEMENT LIAISON, Height, 97.727, kg, 06/23/21 10:42:00 REFERRAL MANAGEMENT LIAISON, Weight Carbidopa 2021-0 Yes 1 tab, PO, Me moria 25 MG / - BID, # 180 l Levodopa 17:11: tab, 2 Matthew 250 MG Oral 00 Refill(s), Tablet Pharmacy: [facility], 172.72, cm, 04/27/21 14:07:00 REFERRAL MANAGEMENT LIAISON, Height, 97.727, kg, 06/23/21 10:42:00 REFERRAL MANAGEMENT LIAISON, Weight Carbidopa 2021-0 Yes 1 tab, PO, Me moria 25 MG / 06-23 BID, # 180 l Levodopa 17:11: tab, 2 [place] 250 MG Oral 00 Refill(s), Tablet Pharmacy: [facility], 172.72, cm, 04/27/21 14:07:00 REFERRAL MANAGEMENT LIAISON, Height, 97.727, kg, 06/23/21 10:42:00 REFERRAL MANAGEMENT LIAISON, Weight predniSONE 2021-0 Yes See Memoria 10 [...] # 360 l Levodopa 20:17: tab, 2 [place] 100 MG Oral 00 Refill(s), Tablet Pharmacy: [facility], 172.72, cm, 04/27/21 14:07:00 REFERRAL MANAGEMENT LIAISON, Height, 97.727, kg, 04/27/21 14:07:00 REFERRAL MANAGEMENT LIAISON, Weight Carbidopa 1 Yes 1 tab, PO, Me moria 25 MG / 2-02 QID, # 360 l Levodopa 20:17: tab, 2 Matthew 100 MG Oral 00 Refill(s), Tablet Pharmacy: [facility], 172.72, cm, 04/27/21 14:07:00 REFERRAL MANAGEMENT LIAISON, Height, 97.727, kg, 04/27/21 14:07:00 REFERRAL MANAGEMENT LIAISON, Weight gabapentin 2020-0 Yes See Memoria 300 MG Oral 9-07 Instructio l Capsule 14:41: ns, TAKE 1 Herm volodymyr 00 CAPSULE TWICE DAILY, # 180 unknown unit, 2 Refill(s), Pharmacy: [facility], 167.64, cm, 12/15/20 14:56:00 CDT, Height, 100, kg, 12/15/20 14:56:00 CDT, Weight gabapentin 2020-0 Yes See Memoria 300 MG Oral 9- Instructio l Capsule 14:41: ns, TAKE 1 Herm volodymyr 00 CAPSULE TWICE DAILY, # 180 unknown unit, 2 Refill(s), Pharmacy: [facility], 167.64, cm, 12/15/20 14:56:00 CDT, Height, 100, kg, 12/15/20 14:56:00 CDT, Weight Memantine 0 Yes 5 mg = 1 John shayy hydrochlori 7-22 tab, PO, l de 5 MG 20:05: BID, # 180 Herm volodymyr Oral Tablet 00 tab, 2 [Namenda] Refill(s), Pharmacy: [facility], 167.64, cm, 12/15/20 14:56:00 CDT, Height, 100, kg, 12/15/20 14:56:00 CDT, Weight Memantine 2020-0 Yes 5 mg = 1 John shayy hydrochlori 7-22 tab, PO, l de 5 MG 20:05: BID, # 180 Herm volodymyr Oral Tablet 00 tab, 2 [Namenda] Refill(s), Pharmacy: [facility], 167.64, cm, 12/15/20 14:56:00 CDT, Height, 100, kg, 12/15/20 14:56:00 CDT, Weight Carbidopa 2021-0 Yes See Memoria 25 MG / 6-30 Instructio l Levodopa 13:17: ns, TAKE 1 Her sanders 250 MG Oral 00 TABLET Tablet TWICE DAILY, # 180 tab, 2 Refill(s), Pharmacy: [facility], 172.72, cm, 06/07/20 15:02:00 REFERRAL MANAGEMENT LIAISON, Height, 100, kg, 09/15/20 16:02:00 CDT, Weight galantamine 0 Yes See Memori a 12 mg oral 6-30 Instructio l tablet 13:17: ns, TAKE 1 Sarah nn 00 TABLET TWICE DAILY, # 180 tab, 2 Refill(s), Pharmacy: [facility], 172.72, cm, 06/07/20 15:02:00 REFERRAL MANAGEMENT LIAISON, Height, 100, kg, 09/15/20 16:02:00 CDT, Weight Mirtazapine 0 Yes See Memori a 15 MG Oral 6-30 Instructio l Tablet 13:17: ns, TAKE 1 Sarah nn 00 TABLET AT BEDTIME, # 90 tab, 2 Refill(s), Pharmacy: [facility], 172.72, cm, 06/07/20 15:02:00 REFERRAL MANAGEMENT LIAISON, Height, 100, kg, 09/15/20 16:02:00 CDT, Weight Carbidopa 0 Yes See Memoria 25 MG / 6-30 Instructio l Levodopa 13:17: ns, TAKE 1 Her sanders 250 MG Oral 00 TABLET Tablet TWICE DAILY, # 180 tab, 2 Refill(s), Pharmacy: [facility], 172.72, cm, 06/07/20 15:02:00 REFERRAL MANAGEMENT LIAISON, Height, 100, kg, 09/15/20 16:02:00 CDT, Weight galantamine 2020-0 Yes See Memori a 12 mg oral 6-30 Instructio l tablet 13:17: ns, TAKE 1 Sarah nn 00 TABLET TWICE DAILY, # 180 tab, 2 Refill(s), Pharmacy: [facility], 172.72, cm, 06/07/20 15:02:00 REFERRAL MANAGEMENT LIAISON, Height, 100, kg, 09/15/20 16:02:00 CDT, Weight Mirtazapine 2020-0 Yes See Memori a 15 MG Oral 6-30 Instructio l Tablet 13:17: ns, TAKE 1 Sarah nn 00 TABLET AT BEDTIME, # 90 tab, 2 Refill(s), Pharmacy: [facility], 172.72, cm, 06/07/20 15:02:00 REFERRAL MANAGEMENT LIAISON, Height, 100, kg, 09/15/20 16:02:00 CDT, Weight Memantine 0 Yes 5 mg = 1 John shayy hydrochlori 4-22 tab, PO, l de 5 MG 21:37: BID, # 60 Sarah nn Oral Tablet 00 tab, 3 [Namenda] Refill(s), Pharmacy: [facility], 172.72, cm, 06/07/20 15:02:00 REFERRAL MANAGEMENT LIAISON, Height, 100, kg, 09/15/20 16:02:00 CDT, Weight Memantine 0 Yes 5 mg = 1 John shayy hydrochlori 4-22 tab, PO, l de 5 MG 21:37: BID, # 60 Sarah nn Oral Tablet 00 tab, 3 [Namenda] Refill(s), Pharmacy: [facility], 172.72, cm, 06/07/20 15:02:00 REFERRAL MANAGEMENT LIAISON, Height, 100, kg, 09/15/20 16:02:00 CDT, Weight gabapentin 2020-0 Yes See Memoria 300 MG Oral 1-08 Instructio l Capsule 16:01: ns, TAKE 1 Herm volodymyr 00 CAPSULE TWICE DAILY, # 180 unknown unit, 2 Refill(s), Pharmacy: [facility], 170.18, cm, 03/04/20 15:48:00 CDT, Height, 100, kg, 03/04/20 15:48:00 CDT, Weight gabapentin 2020-0 Yes See Memoria 300 MG Oral 1-08 Instructio l Capsule 16:01: ns, TAKE 1 Herm volodymyr 00 CAPSULE TWICE DAILY, # 180 unknown unit, 2 Refill(s), Pharmacy: [facility], 170.18, cm, 03/04/20 15:48:00 CDT, Height, 100, kg, 03/04/20 15:48:00 CDT, Weight Carbidopa 2020-1 Yes 1 tab, PO, Me moria 25 MG / 0-09 BID, # 180 l Levodopa 21:10: tab, 2 Matthew 250 MG Oral 00 Refill(s), Tablet Pharmacy: [facility], 170.18, cm, 03/04/20 15:48:00 CDT, Height, 100, kg, 03/04/20 15:48:00 CDT, Weight Carbidopa 2020-1 Yes 1 tab, PO, Me moria 25 MG / 0-09 BID, # 180 l Levodopa 21:10: tab, 2 [place] 250 MG Oral 00 Refill(s), Tablet Pharmacy: [facility], 170.18, cm, 03/04/20 15:48:00 CDT, Height, 100, kg, 03/04/20 15:48:00 CDT, Weight gabapentin 2020-0 Yes See Memoria 300 MG Oral 7-06 Instructio l Capsule 20:57: ns, TAKE 1 Herm volodymyr 00 CAPSULE TWICE DAILY, # 180 unknown unit, 1 Refill(s), Pharmacy: [facility], 172.72, cm, 10/29/19 13:23:00 CDT, Height, 105.455, kg, 10/29/19 13:23:00 CDT, Weight gabapentin 2020-0 Yes See Memoria 300 MG Oral 7-06 Instructio l Capsule 20:57: ns, TAKE 1 Herm volodymyr 00 CAPSULE TWICE DAILY, # 180 unknown unit, 1 Refill(s), Pharmacy: [facility], 172.72, cm, 10/29/19 13:23:00 CDT, Height, 105.455, kg, 10/29/19 13:23:00 CDT, Weight galantamine 2020-0 Yes 12 mg = 1 M emoria 12 mg oral 6-04 tab, PO, l tablet 18:34: BID, # 360 Sarah nn 00 tab, 2 Refill(s), Pharmacy: [facility] galantamine 2020-0 Yes 12 mg = 1 M emoria 12 mg oral 6-04 tab, PO, l tablet 18:34: BID, # 360 Sarah nn 00 tab, 2 Refill(s), Pharmacy: [facility] galantamine 2020-0 No See Memori a 8 mg oral 4-01 Instructio l tablet 13:52: ns, # 180 Stevie n 38 tab, Refill(s) 1, TAKE 1 TABLET TWICE DAILY, Pharmacy: [facility] galantamine 2020-0 No See Memori a 8 mg oral 4-01 Instructio l tablet 13:52: ns, # 180 Stevie n 38 tab, Refill(s) 1, TAKE 1 TABLET TWICE DAILY, Pharmacy: [facility] Mirtazapine 2020-0 Yes 15 mg = 1 M emoria 15 MG Oral 3-13 tab, PO, l Tablet 14:18: Bedtime, # Sarah nn [Remeron] 00 90 tab, 1 Refill(s), Pharmacy: [facility] Mirtazapine 2020-0 Yes 15 mg = 1 M emoria 15 MG Oral 3-13 tab, PO, l Tablet 14:18: Bedtime, # Sarah nn [Remeron] 00 90 tab, 1 Refill(s), Pharmacy: [facility] Mirtazapine 2020-0 Yes 15 mg = 1 M emoria 15 MG Oral 2-19 tab, PO, l Tablet 20:56: Bedtime, # Sarah nn [Remeron] 00 30 tab, 2 Refill(s), Pharmacy: [facility] Mirtazapine 2020-0 Yes 15 mg = 1 M emoria 15 MG Oral 2-19 tab, PO, l Tablet 20:56: Bedtime, # Sarah nn [Remeron] 00 30 tab, 2 Refill(s), Pharmacy: [facility] Carbidopa 2020-0 Yes 1 tab, PO, Me moria 25 MG / 2-06 TID, # 270 l Levodopa 21:30: tab, 2 Matthew 100 MG Oral 00 Refill(s), Tablet Pharmacy: [facility] Carbidopa 2020-0 Yes 1 tab, PO, Me moria 25 MG / 2-06 TID, # 270 l Levodopa 21:30: tab, 2 Matthew 100 MG Oral 00 Refill(s), Tablet Pharmacy: [facility] Galantamine 2018-05 Yes 8 mg = 1 Me moria 8 MG Oral 0-24 tab, PO, l Tablet 21:29: BID, # 180 Sarah nn [Razadyne] 53 tab, 1 Refill(s), Pharmacy: [facility] Galantamine 2018-05 Yes 8 mg = 1 Me moria 8 MG Oral 0-24 tab, PO, l Tablet 21:29: BID, # 180 Sarah nn [Razadyne] 53 tab, 1 Refill(s), Pharmacy: [facility] Tylenol 2018-05 Yes [...] tab, Stevie n 56 Refill(s) 2, Pharmacy: [facility] escitalopra Yes = 1 tab, Me moria m 5 mg oral 9-17 PO, Daily, l tablet 12:50: # 90 tab, Stevie n 56 Refill(s) 2, Pharmacy: [facility] Carbidopa Yes = 1 tab, John shayy 25 MG / 6-19 PO, BID, # l Levodopa 23:07: 180 tab, Sarah nn 100 MG Oral 37 Refill(s) Tablet 2, Pharmacy: [facility] Carbidopa 2018- Yes = 1 tab, John shayy 25 MG / 6-19 PO, BID, # l Levodopa 23:07: 180 tab, Sarah nn 100 MG Oral 37 Refill(s) Tablet 2, Pharmacy: [facility] gabapentin Yes 300 mg = 1 M emoria 300 MG Oral 5-09 cap, PO, l Capsule 21:32: BID, # 180 Herm volodymyr 32 cap, 3 Refill(s), Pharmacy: [facility] gabapentin Yes 300 mg = 1 M emoria 300 MG Oral 5-09 cap, PO, l Capsule 21:32: BID, # 180 Herm volodymyr 32 cap, 3 Refill(s), Pharmacy: [facility] Galantamine Yes 8 mg = 1 Me moria 8 MG Oral 5-09 tab, PO, l Tablet 21:32: BID, # 180 Sarah nn [Razadyne] 28 tab, 1 Refill(s), Pharmacy: [facility] Galantamine Yes 8 mg = 1 Me moria 8 MG Oral 5-09 tab, PO, l Tablet 21:32: BID, # 180 Sarah nn [Razadyne] 28 tab, 1 Refill(s), Pharmacy: [facility] Escitalopra Yes 0 Memori a m 5 mg oral 1-17 Refill(s) l tablet 22:03: Matthew 00 pantoprazol 2019- Yes 40 mg = 1 M emoria e 40 mg 1-17 tab, PO, l oral 22:03: Daily, # [place] enteric 00 30 tab, 0 coated Refill(s) tablet Escitalopra Yes 0 Memori a m 5 mg oral 1-17 Refill(s) l tablet 22:03: [place] 00 pantoprazol 2018-0 Yes 40 mg = 1 M emoria e 40 mg 1-17 tab, PO, l oral 22:03: Daily, # [facility] 00 30 tab, 0 coated Refill(s) tablet Carbidopa 2017-05 Yes 1 tab, PO, Me moria 25 MG / 1-29 BID, # 180 l Levodopa 22:43: tab, 2 [place] 100 MG Oral 00 Refill(s), Tablet Pharmacy: [[facility]] Pharmacy Mail Delivery Carbidopa 2017-05 Yes 1 tab, PO, Me mor[facility] 25 MG / 06-24 BID, # 180 l Levodopa 22:43: tab, 2 [place] 100 MG Oral 00 Refill(s), Tablet Pharmacy: [[facility] 25-[facility]] Pharmacy Mail Delivery Galantamine 2017-05 No 8 mg = 1 Me moria 8 MG Oral 1-08 tab, PO, l Tablet 20:19: BID, # 180 Sarah nn [Razadyne] 00 tab, 1 Refill(s), Pharmacy: [facility] Galantamine 2017-05 No 8 mg = 1 Me moria 8 MG Oral 1-08 tab, PO, l Tablet 20:19: BID, # 180 Sarah nn [Razadyne] 00 tab, 1 Refill(s), Pharmacy: [facility] Galantamine 2017-05 No 4 mg = 1 Me moria 4 MG Oral -08 tab, PO, l Tablet 20:18: BID, X 30 Stevie n [Razadyne] 40 day, # 60 tab, 3 Refill(s), Pharmacy: [facility] Delivery Galantamine 2017-05 No 4 mg = 1 Me moria 4 MG Oral -08 tab, PO, l Tablet 20:18: BID, X 30 Stevie n [Razadyne] 40 day, # 60 tab, 3 Refill(s), Pharmacy: [facility] Eliquis 5 Yes 5 mg, PO, Mem oria mg oral 6-29 Q12H, 0 l tablet 15:34: Refill(s) Stevie n 00 Eliquis 5 Yes 5 mg, PO, Mem oria mg oral 6-29 Q12H, 0 l tablet 15:34: Refill(s) Stevie n 00 tamsulosin 2017- Yes .4mg Q.5D Take 0.4 Met hodi (FLOMAX) 4-[address] 0.4 mg 09:27: mouth 2 Hospita capsule,ext 30 (two) l ended times a release day. 24hr carvedilol Yes 12.5mg Q.5D Take 12.5 Methodi (COREG) [...] capsule 30 (two) l times a day. gabapentin 2018-0 Yes 300mg Q.5D Take [...] tablet 30 l extended release 24 hr levothyroxi 2018-0 Yes 50ug QD Take 50 [...] (two) Hospita 30 times a l day. escitalopra 2018-0 Yes 5mg QD Take 5 mg M ethodi m (LEXAPRO) 4-[address] 5 MG tablet 09:27: daily. Hosp brian 30 l sotalol 2018-0 Yes 80mg Q.5D Take 80 [...] tablet 09:27: daily. Hospit a 30 l carvedilol 2018-0 Yes 12.5mg Q.5D Take 12.5 [facility] (COREG) 25 4-[address] MG tablet 09:27: mouth 2 Hospi ta 30 (two) l times a day. pantoprazol 2018-0 Yes 40mg QD Take [...] Hospita tablet 30 times a l day. apixaban 2018-0 Yes 5mg Q.5D Take 5 mg Meth maryse (ELIQUIS) 5 4-[address] mg tablet 09:27: (two) Hospita 30 times a l day. levothyroxi 2018-0 [...] ta 30 (two) l times a day. sotalol 2018-0 Yes 80mg Q.5D Take 80 mg Meth maryse (BETAPACE) 4-[address] 80 MG 09:27: (two) Hospita tablet 30 times a l day. apixaban 2018-0 Yes 5mg Q.5D Take [...] Yes 5mg Q.5D Take 5 mg Meth marsye (ELIQUIS) 5 4-[address] [...] tablet 09:27: daily. Hosp brian 30 l levothyroxi 2018-0 Yes 50ug QD [...] Hospita tablet 30 times a l day. aspirin 81 2018-0 Yes 81 mg = [...] Source Systolic (mm Hg) 2022-09-04 18:09:00 [facility] [place] Diastolic (mm Hg) 2022-09-04 18:09:00 [facility] Heart Rate 2022-09-04 18:09:00 [facility] Height 2022-09-04 18:09:00 5 [ft_i] [facility] Weight 2022-09-04 18:09:00 [facility] BMI Calculated 2022-09-04 18:09:00 [facility] Diastolic (mm Hg) 2022-06-05 20:20:00 [facility] Heart Rate 2022-06-05 20:20:00 [facility] Height 2022-06-05 20:20:00 5 [ft_i] [facility] Weight 2022-06-05 20:20:00 [facility] [place] BMI Calculated 2022-06-05 20:20:00 [facility] Systolic (mm Hg) 2022-06-05 20:20:00 John [facility] Systolic (mm Hg) 2022-02-19 18:57:00 John [facility] Diastolic (mm Hg) 2022-02-19 18:57:00 [facility] Heart Rate 2022-02-19 18:57:00 [facility] [place] Respitory Rate 2022-02-19 18:57:00 [facility] Height 2022-02-19 18:57:00 172.72 cm [facility] [place] Weight 2022-02-19 18:57:00 [facility] [place] BMI Calculated 2022-02-19 18:57:00 [facility] Systolic (mm Hg) 2021-10-24 18:54:00 [facility] [place] Diastolic (mm Hg) 2021-10-24 18:54:00 [facility] Heart Rate 2021-10-24 18:54:00 [facility] [place] Respitory Rate 2021-10-24 18:54:00 [facility] [place] Height 2021-10-24 18:54:00 172.72 cm [facility] [place] Weight 2021-10-24 18:54:00 [facility] BMI Calculated 2021-10-24 18:54:00 [facility] [place] Systolic (mm Hg) 2021-07-24 20:53:00 John [facility] Diastolic (mm Hg) 2021-07-24 20:53:00 [facility] [place] Heart Rate 2021-07-24 20:53:00 [facility] [place] Respitory Rate 2021-07-24 20:53:00 [facility] [place] Height 2021-07-24 20:53:00 172.72 cm [facility] Weight 2021-07-24 20:53:00 [facility] BMI Calculated 2021-07-24 20:53:00 [facility] [place] Systolic (mm Hg) 2021-06-23 16:42:00 John [facility] Diastolic (mm Hg) 2021-06-23 16:42:00 [facility] [place] Heart Rate 2021-06-23 16:42:00 [facility] Respitory Rate 2021-06-23 16:42:00 [facility] [place] Weight 2021-06-23 16:42:00 [facility] [place] Systolic (mm Hg) 2021-04-27 19:54:00 John [facility] Diastolic (mm Hg) 2021-04-27 19:54:00 [facility] [place] Heart Rate 2021-04-27 19:54:00 [facility] [place] Respitory Rate 2021-04-27 19:54:00 [facility] [place] Height 2021-04-27 19:54:00 172.72 cm [facility] Weight 2021-04-27 19:54:00 [facility] BMI Calculated 2021-04-27 19:54:00 [facility] [place] Systolic (mm Hg) 2020-12-15 19:38:00 John [facility] Diastolic (mm Hg) 2020-12-15 19:38:00 [facility] Heart Rate 2020-12-15 19:38:00 [facility] Respitory Rate 2020-12-15 19:38:00 [facility] [place] Height 2020-12-15 19:38:00 167.64 cm [facility] Weight 2020-12-15 19:38:00 [facility] [place] BMI Calculated 2020-12-15 19:38:00 [facility] [place] Systolic (mm Hg) 2020-09-15 21:02:00 John [facility] Diastolic (mm Hg) 2020-09-15 21:02:00 [facility] [place] Heart Rate 2020-09-15 21:02:00 [facility] Respitory Rate 2020-09-15 21:02:00 [facility] Weight 2020-09-15 21:02:00 [facility] Systolic (mm Hg) 2020-06-07 20:22:00 John [facility] [place] Diastolic (mm Hg) 2020-06-07 20:22:00 [facility] Heart Rate 2020-06-07 20:22:00 [facility] Respitory Rate 2020-06-07 20:22:00 [facility] [place] Height 2020-06-07 20:22:00 172.72 cm [facility] Weight 2020-06-07 20:22:00 [facility] BMI Calculated 2020-06-07 20:22:00 [facility] [place] Systolic (mm Hg) 2020-03-04 20:41:00 John [facility] [place] Diastolic (mm Hg) 2020-03-04 20:41:00 [facility] [place] Heart Rate 2020-03-04 20:41:00 [facility] Respitory Rate 2020-03-04 20:41:00 [facility] Height 2020-03-04 20:41:00 170.18 cm [facility] Weight 2020-03-04 20:41:00 [facility] [place] BMI Calculated 2020-03-04 20:41:00 [facility] [place] Systolic (mm Hg) 2019-10-29 18:23:00 John [facility] [place] Diastolic (mm Hg) 2019-10-29 18:23:00 [facility] Heart Rate 2019-10-29 18:23:00 [facility] [place] Respitory Rate 2019-10-29 18:23:00 [facility] Temperature Oral (F) 2019-10-29 18:23:00 98.5 F [facility] Height 2019-10-29 18:23:00 172.72 cm [facility] [place] Weight 2019-10-29 18:23:00 [facility] BMI Calculated 2019-10-29 18:23:00 [facility] [place] Systolic (mm Hg) 2019-07-15 20:40:00 John [facility] [place] Diastolic (mm Hg) 2019-07-15 20:40:00 [facility] [place] Heart Rate 2019-07-15 20:40:00 [facility] Respitory Rate 2019-07-15 20:40:00 [facility] [place] Height 2019-07-15 20:40:00 172.72 cm [facility] Weight 2019-07-15 20:40:00 [facility] BMI Calculated 2019-07-15 20:40:00 [facility] [place] Systolic (mm Hg) 2019-07-02 20:53:00 John [facility] [place] Diastolic (mm Hg) 2019-07-02 20:53:00 [facility] Heart Rate 2019-07-02 20:53:00 [facility] [place] Respitory Rate 2019-07-02 20:53:00 Mem[facility] Height 2019-07-02 20:53:00 172.72 cm [facility] [place] Weight 2019-07-02 20:53:00 [facility] [place] BMI Calculated 2019-07-02 20:53:00 [facility] Systolic (mm Hg) 2019-03-19 21:03:00 John rial [facility] Diastolic (mm Hg) 2019-03-19 21:03:00 [facility] Heart Rate 2019-03-19 21:03:00 [facility] [place] Respitory Rate 2019-03-19 21:03:00 Mem[facility] Height 2019-03-19 21:03:00 172.72 cm [facility] [place] Weight 2019-03-19 21:03:00 [facility] BMI Calculated 2019-03-19 21:03:00 [facility] [place] Systolic (mm Hg) 2019-02-05 21:04:00 John [facility] [place] Diastolic (mm Hg) 2019-02-05 21:04:00 Mem [facility] [place] Heart Rate 2019-02-05 21:04:00 [facility] Respitory Rate 2019-02-05 21:04:00 [facility] [place] Height 2019-02-05 21:04:00 180.34 cm [facility] [place] Weight 2019-02-05 21:04:00 [facility] [place] BMI Calculated 2019-02-05 21:04:00 [facility] [place] Height 2018-10-02 21:15:00 180.34 cm [facility] [place] Weight 2018-10-02 21:15:00 [facility] [place] BMI Calculated 2018-10-02 21:15:00 [facility] [place] Systolic (mm Hg) 2018-10-02 21:15:00 John rial [place] Diastolic (mm Hg) 2018-10-02 21:15:00 [facility] [place] Respitory Rate 2018-10-02 21:15:00 [facility] Heart Rate 2018-10-02 21:15:00 [facility] [place] Weight 2018-06-12 21:56:00 [facility] BMI Calculated 2018-06-12 21:56:00 [facility] Height 2018-06-12 21:56:00 175.26 cm [facility] Systolic (mm Hg) 2018-06-12 21:56:00 [facility] [place] Diastolic (mm Hg) 2018-06-12 21:56:00 Mem [facility] [place] Respitory Rate 2018-06-12 21:56:00 [facility] [place] Heart Rate 2018-06-12 21:56:00 [facility] Height 2018-04-24 22:07:00 172.72 cm [facility] [place] Weight 2018-04-24 22:07:00 [facility] [place] BMI Calculated 2018-04-24 22:07:00 [facility] [place] Systolic (mm Hg) 2018-04-24 22:07:00 John rial [facility] Diastolic (mm Hg) 2018-04-24 22:07:00 Mem [facility] [place] Respitory Rate 2018-04-24 22:07:00 [facility] Heart Rate 2018-04-24 22:07:00 [facility] [place] BMI Calculated 2018-04-03 19:30:00 [facility] Height 2018-04-03 19:30:00 172.72 cm [facility] Weight 2018-04-03 19:30:00 [facility] [place] Respitory Rate 2018-04-03 19:30:00 [facility] [place] Heart Rate 2018-04-03 19:30:00 [facility] [place] Systolic (mm Hg) 2018-04-03 19:30:00 John [facility] Diastolic (mm Hg) 2018-04-03 19:30:00 Mem [facility] Procedures This patient has no known procedures. Plan of Care Planned Activity Planned Date Details Comments Source Future Scheduled 2022-11-15 COVID-19 VACCINE (#1) [facility] Test 02:07:44 [code = COVID-19 VACCINE (#1)] Future Scheduled 2022-11-15 SHINGLES VACCINES (1 [facility] Test 02:07:44 of 2) [code = SHINGLES VACCINES (1 of 2)] Future Scheduled 2022-11-15 65+ PNEUMOCOCCAL [facility] Hospital Test 02:07:44 VACCINE (1 - PCV) [code = 65+ PNEUMOCOCCAL VACCINE (1 - PCV)] Future Scheduled 2022-11-15 INFLUENZA VACCINE Method [facility] Test 02:07:44 [code = INFLUENZA VACCINE] Future Scheduled 2022-11-15 COVID-19 VACCINE (#1) [facility] Test 02:07:44 [code = COVID-19 VACCINE (#1)] Future Scheduled 2022-11-15 SHINGLES VACCINES (1 [facility] Test 02:07:44 of 2) [code = SHINGLES VACCINES (1 of 2)] Future Scheduled 2022-11-15 65+ P[facility]UMOCOCCAL [facility] Test 02:07:44 VACCINE (1 - PCV) [code = 65+ PNEUMOCOCCAL VACCINE (1 - PCV)] Future Scheduled 2022-11-15 INFLUENZA VACCINE Method [facility] Test 02:07:44 [code = INFLUENZA VACCINE] Future Scheduled 2022-10-31 COVID-19 VACCINE (#1) [facility] Test 17:40:58 [code = COVID-19 VACCINE (#1)] Future Scheduled 2022-10-31 [facility]LES [facility]INES [facility] [facility] 17:40:58 of 2) [code = SHINGLES VACCINES (1 of 2)] Future Scheduled 2022-10-31 65+ [facility]OCOCC[facility] Test 17:40:58 VACCINE (1 - PCV) [code = 65+ PNEUMOCOCCAL VACCINE (1 - PCV)] Future Scheduled 2022-10-31 INFLUENZA VACCINE Method ist Hospital Test 17:40:58 [code = INFLUENZA VACCINE] Future Scheduled 2022-08-30 COVID-19 VACCINE (#1) [facility] 05:33:18 [code = COVID-19 VACCINE (#1)] Future Scheduled 2022-08-30 [facility]ONOSCOPY SCREENING [facility] 05:33:18 [code = COLONOSCOPY SCREENING] Future Scheduled 2022-08-30 SHINGLES VACCINES (1 [facility] Test 05:33:18 of 2) [code = SHINGLES VACCINES (1 of 2)] Future Scheduled 2022-08-30 65+ [facility]OCOCC[facility] Test 05:33:18 VACCINE (1 - PCV) [code = 65+ PNEUMOCOCCAL VACCINE (1 - PCV)] Future Scheduled 2022-08-30 INFLUENZA VACCINE Method ist Hospital Test 05:33:18 [code = INFLUENZA VACCINE] Future Scheduled 2022-08-30 COVID-19 VACCINE (#1) [facility] 05:33:18 [code = COVID-19 VACCINE (#1)] Future Scheduled 2022-08-30 [facility] 05:33:18 [code = COLONOSCOPY SCREENING] Future Scheduled 2022-08-30 SHINGLES VACCINES ([address] [facility] 05:33:18 of 2) [code = SHINGLES VACCINES (1 of 2)] Future Scheduled 2022-08-30 65+ [facility]OCOCC[facility] Test 05:33:18 VACCINE (1 - PCV) [code = 65+ PNEUMOCOCCAL VACCINE (1 - PCV)] Future Scheduled 2022-08-30 INFLUENZA VACCINE Method ist [facility] Test 05:33:18 [code = INFLUENZA VACCINE] Future Scheduled 2022-08-30 COVID-19 VACCINE (#1) [facility] 05:33:18 [code = COVID-19 VACCINE (#1)] Future Scheduled 2022-08-30 [facility]ONOSCOPY SCREENING [facility] 05:33:18 [code = COLONOSCOPY SCREENING] Future Scheduled 2022-08-30 SHINGLES [facility]INES ([address] [facility] 05:33:18 of 2) [...] Future Scheduled 2022-08-30 SHINGLES VACCINES ([address] [facility] 05:33:18 of 2) [...] Future Scheduled 2022-08-30 SHINGLES VACCINES ([address] [facility] 05:33:18 of 2) [...] Future Scheduled 2022-08-30 SHINGLES VACCINES ([address] [facility] 05:33:18 of 2) [code = SHINGLES VACCINES (1 of 2)] Future Scheduled 2022-08-30 65+ [facility]OCOCC[facility] Test 05:33:18 VACCINE (1 - PCV) [code = 65+ PNEUMOCOCCAL VACCINE (1 - PCV)] Future Scheduled 2022-08-30 INFLUENZA VACCINE Method ist Hospital Test 05:33:18 [code = INFLUENZA VACCINE] Future Scheduled 2022-08-30 COVID-19 VACCINE (#1) [facility] Test 05:33:18 [code = COVID-19 VACCINE (#1)] Future Scheduled 2022-08-30 [facility] Test 05:33:18 [code = COLONOSCOPY SCREENING] Future Scheduled 2022-08-30 SHINGLES VACCINES ([address] [facility] 05:33:18 of 2) [code = SHINGLES VACCINES (1 of 2)] Future Scheduled 2022-08-30 65+ [facility] Test 05:33:18 VACCINE (1 - PCV) [code = 65+ PNEUMOCOCCAL VACCINE (1 - PCV)] Future Scheduled 2022-08-30 INFLUENZA VACCINE Method ist Hospital Test 05:33:18 [code = INFLUENZA VACCINE] Future Scheduled 2022-08-30 COVID-19 [facility]ACCINE (#[facility]) [facility] Test 05:33:18 [code = COVID-19 VACCINE (#1)] Future Scheduled 2022-08-30 COLONOSCOPY SCREENING [facility] Test 05:33:18 [code = COLONOSCOPY SCREENING] Future Scheduled 2022-08-30 SHINGLES VACCINES ([address] [facility] 05:33:18 of 2) [code = SHINGLES VACCINES (1 of 2)] Future Scheduled 2022-08-30 65+ [facility] Test 05:33:18 VACCINE (1 - PCV) [code = 65+ PNEUMOCOCCAL VACCINE (1 - PCV)] Future Scheduled 2022-08-30 INFLUENZA VACCINE Method ist Hospital Test 05:33:18 [code = INFLUENZA VACCINE] Future Scheduled 2022-01-24 HEPATITIS B VACCINES Met [facility] Test 00:25:16 (1 of 3 - 3-dose series) [code = HEPATITIS B VACCINES (1 of 3 - 3-dose series)] Future Scheduled 2022-01-24 COVID-19 VACCINE (#1) [facility] Test 00:25:16 [code = COVID-19 VACCINE (#1)] Future Scheduled 2022-01-24 COLONOSCOPY SCREENING [facility] Test 00:25:16 [code = COLONOSCOPY SCREENING] Future Scheduled 2022-01-24 SHINGLES VACCINES (1 [facility] Test 00:25:16 of 2) [code = SHINGLES VACCINES (1 of 2)] Future Scheduled 2022-01-24 65[facility] VACCINE (1 - PCV) [code = 65+ PNEUMOCOCCAL VACCINE (1 - PCV)] Future Scheduled 2022-01-24 INFLUENZA VACCINE [facility] Test 00:25:16 [code = INFLUENZA VACCINE] Encounters Start End Encounter Admission Attending Care Care Encounter Source Date/Time Date/Time Type Type Clinicians Facility Department ID 2022-11-22 Outpatient [facility] [id number] [place] 11:43:27 [id number] [facility] 2022-11-21 Outpatient [facility] [id number] [place] 16:26:25 [id number] [facility] 2022-11-16 Outpatient [facility] [id number] [place] 11:58:34 [id number] [facility] 2022-11-13 Outpatient [facility] [id number] [place] 11:31:09 [id number] [facility] 2022-10-24 Outpatient [facility] [id number] [place] 06:07:49 [id number] [facility] 2022-10-12 Outpatient [facility] [id number] [place] 14:59:27 [id number] [facility] 2022-10-03 Outpatient [facility] [id number] [place] 09:48:41 [id number] Health 2022-11-22 2022-11-22 Office [place] [facility] [id number] [place] 12:30:00 13:22:14 Visit Ismael KNOX [id number] [facility] [id number] 2022-11-06 2022-11-06 Outpatient [facility]IE MHIE [id number] [facility] 11:00:00 11:00:00 27 l [facility] 2022-10-22 2022-10-28 Inpatient Gaby DORANTES, [facility] [id number] [facility] 01:32:00 14:05:00 JOSSIE 2022-09-04 2022-09-05 Outpatient MHIE MNA [id number] [facility] 18:00:00 04:59:59 Neurology 26 l Cady [place] 2022-06-05 2022-06-06 Outpatient MHIE MNA [id number] [facility] 20:30:00 05:59:59 Neurology 25 l Cady [place] 2022-02-19 2022-02-20 Outpatient nullFlavo MNA [id number] [facility] 19:00:00 04:59:59 r Neurology 24 l Cady Matthew 2021-10-24 2021-10-25 Outpatient nullFlavo MNA [id number] [facility] 19:00:00 04:59:59 r Neurology 23 l Cady [place] 2021-07-24 2021-07-25 Outpatient nullFlavo MNA [id number] [facility] 21:00:00 05:59:59 r Neurology 21 l Cady [place] 2021-06-23 2021-06-24 Outpatient nullFlavo MNA [id number] [facility] 16:45:00 05:59:59 r Neurology 22 l Cady Matthew 2021-04-27 2021-04-28 Outpatient nullFlavo MNA [id number] [facility] 20:00:00 05:59:59 r Neurology 20 l Cady [place] 2020-12-15 2020-12-16 Outpatient nullFlavo MNA [id number] [facility] 19:30:00 04:59:59 r Neurology 19 l Cady [place] 2020-12-06 2020-12-06 Ambulatory nullFlavo MNA [id number] [facility] 19:30:00 19:30:00 Pre-Reg r Neurology 17 l [facility] 2020-09-20 2020-09-22 Outside nullFlavo MNA [id number] [facility] 13:37:28 04:59:59 Medical r Neurology 08 l Records [facility] 2020-09-15 2020-09-16 Outpatient nullFlavo MNA [id number] [facility] 20:45:00 04:59:59 r Neurology 18 l Cady Castro 2020-06-07 2020-06-08 Outpatient nullFlavo MNA [id number] [facility] 20:30:00 05:59:59 r Neurology 16 l Cady Castro 2020-03-04 2020-03-05 Outpatient nullFlavo MNA [id number] [facility] 20:15:00 04:59:59 r Neurology 15 l Cady Castro 2019-12-18 2019-12-18 Outpatient MHIE MHIE [id number] [facility] 22:15:00 22:15:00 13 l [place] 2019-12-18 2019-12-18 Outpatient MHIE MHIE [id number] [facility] 10:15:00 10:15:00 14 oni [place] 2019-11-30 2019-12-01 Between nullFlavo MNA [id number] [facility] 20:57:10 20:57:10 Visit r Neurology 09 l Cady Castro 2019-10-29 2019-10-30 Outpatient nullFlavo MNA [id number] [facility] 18:15:00 04:59:59 r Neurology 11 l Cady Castro 2019-07-15 2019-07-16 Outpatient nullFlavo MNA [id number] [facility] 20:30:00 05:59:59 r Neurology 12 l Cady Castro 2019-07-02 2019-07-03 Outpatient nullFlavo MNA [id number] [facility] 20:30:00 05:59:59 r Neurology 10 l Cady Castro 2019-03-19 2019-03-20 Outpatient nullFlavo MNA [id number] [facility] 21:00:00 04:59:59 r Neurology 09 l Cady Castro 2019-02-05 2019-02-06 Outpatient nullFlavo MNA [id number] [facility] 21:00:00 04:59:59 r Neurology 08 l Cady Castro 2018-10-02 2018-10-03 Outpatient nullFlavo MNA [id number] [facility] 21:00:00 04:59:59 r Neurology 07 l Cady Castro 2018-06-12 2018-06-13 Outpatient nullFlavo MNA [id number] [facility] 21:45:00 05:59:59 r Neurology 06 l Cady Castro 2018-04-24 2018-04-25 Outpatient nullFlavo MNA [id number] [facility] 21:45:00 05:59:59 r Neurology 05 l Cady Castro 2018-04-03 2018-04-04 Outpatient nullFlavo MNA [id number] [facility] 19:15:00 05:59:59 r Neurology 04 l Cady Castro 2018-03-10 2018-03-12 Phone nullFlavo MNA [id number] [facility] 19:22:00 04:59:59 Message r Neurology 07 l Cady Castro 2018-03-10 2018-03-12 Phone nullFlavo MNA [id number] [facility] 19:21:00 04:59:59 Message r Neurology 06 l Cady Castro 2018-01-23 2018-01-23 Outpatient MHIE MHIE [id number] [facility] 08:45:00 08:45:00 03 oni Matthew 2018-01-01 2018-01-01 Outpatient MHIE MHIE [id number] [facility] 11:30:00 11:30:00 02 oni Castro 2017-12-04 2017-12-04 Outpatient MHIE MHIE [id number] [facility] 10:45:00 10:45:00 00 oni Castro 2017-11-22 2017-11-22 Outpatient MHIE MHIE [id number] [facility] 10:15:00 10:15:00 01 oni Castro Results This patient has no known results.
--- NOTE | 2022-11-29 11:08 | RAD REPORT ---
EXAM DESCRIPTION: CT - Head Brain Wo Cont - 11/29/2022 10:54 am CLINICAL HISTORY: WEAKNESS Headache, drowsiness COMPARISON: Head Brain Wo Cont dated 08/30/2022; Head Brain Wo Cont dated 02/13/2019 TECHNIQUE: All CT scans are performed using dose optimization technique as appropriate and may inclu de automated exposure control or mA/KV adjustment according to patient size. FINDINGS: No intracranial hemorrhage, hydrocephalus or extra-axial fluid collection.Moderate general ized brain atrophy is present with mild periventricular and deep white matter chronic microvascular i schemic changes.No areas of brain edema or evidence of midline shift. The paranasal sinuses and mastoids are clear. The calvarium is intact. IMPRESSION: No acute intracranial abnormality.
--- NOTE | 2022-11-29 11:27 | RAD REPORT ---
EXAM DESCRIPTION: RAD - Chest Single View - 11/29/2022 11:12 am CLINICAL HISTORY: weakness Chest pain. COMPARISON: Chest Single View dated 10/21/2022; Chest Single View dated 08/30/2022; Chest Pa And Lat (2 Views) dated 01/18/2020; Chest Single View dated 01/06/2018 FINDINGS: Portable technique limits examination quality. The lungs are grossly clear. The heart is upper limit of normal in size. No displaced fractures. IMPRESSION: No acute intrathoracic process suspected.
--- NOTE | 2022-11-29 11:27 | RAD REPORT ---
EXAM DESCRIPTION: RAD - Hip Right 2 View - 11/29/2022 11:12 am CLINICAL HISTORY: PAIN COMPARISON: Hip Right 2 View dated 10/21/2022; Hip Right 2 View dated 01/09/2011 FINDINGS: Right total hip arthroplasty noted. No hardware loosening seen. No evidence of infection. No fracture evident.
--- NOTE | 2022-11-29 11:28 | RAD REPORT ---
EXAM DESCRIPTION: RAD - Knee Left 3 View - 11/29/2022 11:12 am CLINICAL HISTORY: PAIN COMPARISON: Knee Left 2 View dated 12/18/2016 FINDINGS: Total knee arthroplasty noted. No hardware loosening or infection. No fracture seen. The b ones are quite osteopenic.
[2022-11-29 11:56] LABS: Absolute Lymphocytes (CBC) 0.9 K/uL (0.7-4.9); Hematocrit 38.9 % (39.6-49.0); Lymphocytes % 8.5 % (15.3-44.8); MCV 95.4 fL (80-100); RBC Red Blood Cell Count 4.07 M/uL (4.33-5.43)
[2022-11-29] MEDS ORDERED: NA CHLORIDE 0.9% 500 ML ONE (11:59)
[2022-11-29 12:01] LABS: Specific Gravity 1.015 (1.005-1.030); Urine Bacteria <20 /HPF (<20); Urine Bilirubin NEGATIVE (Negative); Urine Blood Negative (Negative); Urine Clarity Extremely Turbid (Clear); Urine Color Light-Yellow (Yellow); Urine Glucose NEGATIVE (Negative); Urine Mucus Slight /HPF (None Seen); Urine Protein NEGATIVE (Negative); Urine RBC <5 /HPF (None Seen); Urine Urobilinogen Normal (Normal); Urine pH 7.5 (5.0-7.0)
[2022-11-29 12:06] LABS: Protime INR 1.33
[2022-11-29 12:16] LABS: Magnesium 2.2 mg/dL (1.6-2.4); Potassium 3.9 mEq/L (3.5-5.1); Troponin High Sensitivity 22.6 pg/mL (<58.9)
[2022-11-29] MEDS ORDERED: METOPROLOL TAR 25 MG TAB ONE (13:05)
[2022-11-29] MEDS ORDERED: MAGNESIUM SULFATE 1 gm IVPB 1 GM/100 ML BAG IV ONE (13:05)
--- NOTE | 2022-11-29 13:52 | EDPHYS ---
Physician Documentation [facility] Name: Sunday Pinto Jr Age: 77 yrs Sex: Male : 1945 Arrival Date: 11/29/2022 Time: 10:36 Bed 18 Private MD: ED Physician Donta Willard HPI: 11/29 10:55 This 77 yrs old Male presents to ER via EMS with complaints of weakness. rn 10:55 Pt reports generalized weakness, worse over last 2 days, no vomiting/fever/diarrhea. rn EMS reports afib with rvr, but BP normal/high. reports eating ok, patient reports not drinking much water. No recent medication changes. No fall. . Onset: The symptoms/episode began/occurred 2 day(s) ago. Severity of symptoms: At their worst the symptoms were moderate in the emergency department the symptoms are unchanged. The patient has experienced similar episodes in the past. The patient has not recently seen a physician. Historical: - Allergies: 10:45 Bactrim; ll1 10:45 butorphanol tartrate; ll1 10:45 PENICILLINS; ll1 10:45 Stadol; ll1 - Home Meds: 16:07 Aspir-81 81 mg Oral TbEC 1 tab once daily [Active]; carbidopa-levodopa 25-100 mg Oral eh3 Tablet,disintegrating 2 times per day [Active]; Eliquis 5 mg Oral tablet every 12 hours [Active]; escitalopram oxalate 5 mg Oral tab 1 tab once daily [Active]; finasteride 5 mg Oral tab 1 tab once daily [Active]; gabapentin 300 mg Oral tab 2-3 times per day as needed [Active]; galantamine 8 mg Oral tablet 2 times per day [Active]; galantamine 4 mg Oral tab 1 tab 2 times per day [Active]; levothyroxine 50 mcg tab daily [Active]; liothyronine 5 mcg Oral tab 1 tab once daily [Active]; meloxicam 15 mg Oral tab 1 tab once daily [Active]; memantine 5 mg Oral tablet 2 times per day [Active]; mirtazapine 15 mg Oral Tablet,disintegrating daily [Active]; mupirocin topical [Active]; nitrofurantoin macrocrystal 100 mg Oral cap 1 cap every 6 hours [Active]; pantoprazole 40 mg Oral tablet, delayed release (enteric coated) daily [Active]; ropinirole 0.5 mg Oral tab 1 tab daily [Active]; Santyl 250 unit/gram Topical ointment daily [Active]; sotalol 80 mg Oral tab 1 tab 2 times per day [Active]; tamsulosin 0.4 mg Oral cp24 1 cap once daily [Active]; tramadol 50 mg Oral tab 1 tab every 6 hours [Active]; - PMHx: 10:45 Anxiety; Hypertension; BPH; Hypothyroidism; Atrial fibrillation; Dementia; Parkinson's ll1 disease; - PSHx: 10:45 Hip SX; ll1 - Immunization history:: Adult Immunizations up to date. - Social history:: Smoking status: Patient denies any tobacco usage or history of. - Family history:: not pertinent. - Hospitalizations: : No recent hospitalization is reported. ROS: 10:55 Constitutional: Negative for fever, chills, and weight loss, Cardiovascular: Negative rn for chest pain, palpitations, and edema, Respiratory: Negative for shortness of breath, cough, wheezing, and pleuritic chest pain, Abdomen/GI: Negative for abdominal pain, nausea, vomiting, diarrhea, and constipation, Back: Negative for injury and pain, MS/Extremity: Negative for injury and deformity, Skin: Negative for injury, rash, and discoloration, Neuro: Negative for headache, numbness, tingling, and seizure. Exam: 10:55 Constitutional: This is a well developed, well nourished patient who is awake, alert, rn and in no acute distress. ENT: dry MM Cardiovascular: Irregularly irregular, regular rate Respiratory: No increased work of breathing, no retractions or nasal flaring. Abdomen/GI: Soft, non-tender Skin: Warm, dry MS/ Extremity: Pulses equal, no cyanosis Neuro: Awake and alert, GCS 15, oriented to person, place, time, and situation. Cranial nerves II-XII grossly intact. Motor strength 4/5 in all extremities. Sensory grossly intact. 13:47 ECG was reviewed by the Attending Physician. rn Vital Signs: 10:43 BP 140 / 97; Pulse 88; Resp 16; Temp 97.4; Pulse Ox 97% on R/A; Weight 84 kg; Height 5 ll1 ft. 8 in. ; Pain 4/10; 11:00 BP 139 / 102; Pulse 120; Resp 16; Pulse Ox 96% on R/A; eh3 12:00 BP 128 / 94; Pulse 125; Resp 16; Pulse Ox 98% on R/A; eh3 13:00 BP 141 / 109; Pulse 133; Resp 17; Pulse Ox 96% on R/A; eh3 14:00 BP 129 / 107; Pulse 121; Resp 14; Pulse Ox 98% on R/A; eh3 15:00 BP 127 / 94; Pulse 128; Resp 15; Pulse Ox 99% on R/A; eh3 10:43 Body Mass Index 28.16 (84.00 kg, 172.72 cm) ll1 10:43 Pain Scale: Adult ll1 MDM: 10:42 Patient medically screened. kb 13:50 Differential Diagnosis UTI, dehydration, afib with rvr, electrolyte disturbance, CHF. rn Data reviewed: vital signs, nurses notes, lab test result(s), EKG, radiologic studies, CT scan, plain films, and as a result, I will admit patient. Consideration of Admission/Observation Patient was admitted/placed on observation. Escalation of care including admission/observation considered. Counseling: I had a detailed discussion with the patient and/or guardian regarding: the historical points, exam findings, and any diagnostic results supporting the discharge/admit diagnosis, lab results, radiology results, the need for further work-up and treatment in the hospital. Response to treatment: the patient's symptoms have mildly improved after treatment, and as a result, I will admit patient. 11/29 10:43 Order name: Basic Metabolic Panel; Complete Time: 12:37 rn 11/29 10:43 Order name: CBC with Diff; Complete Time: 12:37 rn 11/29 10:43 Order name: Magnesium; Complete Time: 12:37 rn 11/29 10:43 Order name: Protime (+inr); Complete Time: 12:37 rn 11/29 10:43 Order name: Ptt, Activated; Complete Time: 12:37 rn 11/29 10:43 Order name: Troponin High Sensitivity; Complete Time: 12:37 rn 11/29 10:43 Order name: Urinalysis w/ reflexes; Complete Time: 12:37 rn 11/29 10:43 Order name: BNP; Complete Time: 12:37 rn 11/29 14:45 Order name: Urinalysis w/ reflexes EDMS 11/29 14:45 Order name: Basic Metabolic Panel EDMS 11/29 14:45 Order name: Basic Metabolic Panel EDMS 11/29 14:45 Order name: Basic Metabolic Panel EDMS 11/29 14:45 Order name: Basic Metabolic Panel EDMS 11/29 14:45 Order name: CBC with Automated Diff EDMS 11/29 14:45 Order name: CBC with Automated Diff EDMS 11/29 14:45 Order name: CBC with Automated Diff EDMS 11/29 14:45 Order name: CBC with Automated Diff EDMS 11/29 14:45 Order name: Magnesium EDMS 11/29 14:45 Order name: Magnesium EDMS 11/29 14:45 Order name: Magnesium EDMS 11/29 14:45 Order name: Magnesium EDMS 11/29 14:45 Order name: NT PRO-BNP EDMS 11/29 14:45 Order name: NT PRO-BNP EDMS 11/29 14:45 Order name: NT PRO-BNP EDMS 11/29 14:45 Order name: NT PRO-BNP EDMS 11/29 10:43 Order name: CT Head Brain wo Cont; Complete Time: 11:42 rn 11/29 10:43 Order name: Chest Single View XRAY; Complete Time: 11:42 rn 11/29 10:43 Order name: XRAY Knee LEFT 3 view; Complete Time: 11:42 rn 11/29 11:14 Order name: Hip Right 2 View; Complete Time: 11:42 EDMS 11/29 10:43 Order name: EKG; Complete Time: 10:44 rn 11/29 14:39 Order name: Diet Heart Healthy; Complete Time: 14:39 eh3 11/29 14:45 Order name: Physical Therapy Consult EDMS 11/29 14:45 Order name: Heart Healthy EDMS 11/29 10:43 Order name: Cardiac monitoring; Complete Time: 11:44 rn 11/29 10:43 Order name: EKG - Nurse/Tech; Complete Time: 11:44 rn 11/29 10:43 Order name: IV Saline Lock; Complete Time: 11:44 rn 11/29 10:43 Order name: Labs collected and sent; Complete Time: 11:44 rn 11/29 10:43 Order name: O2 Per Protocol; Complete Time: 11:49 rn 11/29 10:43 Order name: O2 Sat Monitoring; Complete Time: 11:49 rn EC:47 Rate is 122 beats/min. Rhythm is irregularly irregular. QRS Catharpin is Normal. QRS rn interval is normal. QT interval is normal. No Q waves. T waves are Normal. No ST changes noted. Clinical impression: Atrial Fibrillation. Reviewed by me. Administered Medications: 11:30 Drug: NS 0.9% IV 500 ml Route: IV; Rate: bolus; Site: right antecubital; [facility] 12:30 Follow up: IV Status: Completed infusion; IV Intake: 500ml [facility] 13:00 Drug: Magnesium Sulfate IVPB 1 grams Route: IVPB; Infused Over: 1 hrs; Site: right [facility] antecubital; 14:02 Follow up: Response: No adverse reaction; IV Status: Completed infusion; IV Intake: eh3 100ml 13:00 Drug: Metoprolol PO 25 mg Route: PO; [facility] 14:02 Follow up: Response: No adverse reaction [facility] 15:25 Not Given (Duplicate Order; hospitalist ordered IV metoprolol instead): Sotalol PO 40 rn mg PO once Disposition Summary: 11/29/22 13:51 Hospitalization Ordered Hospitalization Status: Inpatient Admission rn Provider: Narciso Campbell rn Location: Telemetry/MedSurg (Inpatient) rn Condition: Stable rn Problem: an acute exacerbation rn Symptoms: have improved rn Bed/Room Type: Standard rn Room Assignment: 431(11/29/22 15:23) em1 Diagnosis - Persistent atrial fibrillation - with RVR rn - Muscle weakness (generalized) rn Forms: - Medication Reconciliation Form rn - SBAR form rn Signatures: Dispatcher [employer] [facility] Grecia Hernández FNP-C REPAIR TABLE OPERATOR-Donta Garnica MD MD rn Martinez, Eric em1 Mecca Vance RN RN 1 Amna Ibanez RN RN 3 Corrections: (The following items were deleted from the chart) 11:14 10:44 Hip Right 1 View+RAD.RAD.BRZ ordered. [facility] 13:48 13:47 Rate is 122 beats/min. Rhythm is irregularly irregular. QRS Catharpin is Normal. SD rn interval is normal. QRS interval is normal. QT interval is normal. No Q waves. T waves are Normal. No ST changes noted. Clinical impression: Atrial Fibrillation. Reviewed by me. rn 15:23 13:51 rn em1
--- NOTE | 2022-11-29 13:52 | ER ---
Nurse's Notes [facility] Name: Sunday Pinto Jr Age: 77 yrs Sex: Male : 1945 Arrival Date: 11/29/2022 Time: 10:36 Bed 18 Private MD: Diagnosis: Persistent atrial fibrillation-with RVR;Muscle weakness (generalized) Presentation: 11/29 10:43 Chief complaint: Patient states: Weakness for 2 days. EMS states: FS 113, VSS. A fib ll1 with HX. Coronavirus screen: Client denies travel out of the [place] in the last 14 days. At this time, the client does not indicate any symptoms associated with coronavirus-19. Coronavirus screen: Vaccine status: Patient reports receiving the 2nd dose of the covid vaccine. Ebola Screen: Patient denies travel to an Ebola-affected area in the 21 days before illness onset. Initial Sepsis Screen: Does the patient meet any 2 criteria? No. Patient's initial sepsis screen is negative. Does the patient have a suspected source of infection? No. Patient's initial sepsis screen is negative. Risk Assessment: Do you want to hurt yourself or someone else? Patient reports no desire to harm self or others. Onset of symptoms was November 28, 2022. 10:43 Method Of Arrival: EMS ll1 10:43 Acuity: SABINO 3 ll1 Historical: - Allergies: 10:45 Bactrim; ll1 10:45 butorphanol tartrate; ll1 10:45 PENICILLINS; ll1 10:45 Stadol; ll1 - Home Meds: 16:07 Aspir-81 81 mg Oral TbEC 1 tab once daily [Active]; carbidopa-levodopa 25-100 mg Oral eh3 Tablet,disintegrating 2 times per day [Active]; Eliquis 5 mg Oral tablet every 12 hours [Active]; escitalopram oxalate 5 mg Oral tab 1 tab once daily [Active]; finasteride 5 mg Oral tab 1 tab once daily [Active]; gabapentin 300 mg Oral tab 2-3 times per day as needed [Active]; galantamine 8 mg Oral tablet 2 times per day [Active]; galantamine 4 mg Oral tab 1 tab 2 times per day [Active]; levothyroxine 50 mcg tab daily [Active]; liothyronine 5 mcg Oral tab 1 tab once daily [Active]; meloxicam 15 mg Oral tab 1 tab once daily [Active]; memantine 5 mg Oral tablet 2 times per day [Active]; mirtazapine 15 mg Oral Tablet,disintegrating daily [Active]; mupirocin topical [Active]; nitrofurantoin macrocrystal 100 mg Oral cap 1 cap every 6 hours [Active]; pantoprazole 40 mg Oral tablet, delayed release (enteric coated) daily [Active]; ropinirole 0.5 mg Oral tab 1 tab daily [Active]; Santyl 250 unit/gram Topical ointment daily [Active]; sotalol 80 mg Oral tab 1 tab 2 times per day [Active]; tamsulosin 0.4 mg Oral cp24 1 cap once daily [Active]; tramadol 50 mg Oral tab 1 tab every 6 hours [Active]; - PMHx: 10:45 Anxiety; Hypertension; BPH; Hypothyroidism; Atrial fibrillation; Dementia; Parkinson's ll1 disease; - PSHx: 10:45 Hip SX; ll1 - Immunization history:: Adult Immunizations up to date. - Social history:: Smoking status: Patient denies any tobacco usage or history of. - Family history:: not pertinent. - Hospitalizations: : No recent hospitalization is reported. Screenin:00 [facility] ED Fall Risk Assessment (Adult) Score/Fall Risk Level 0 - 2 = Low Risk. Abuse eh3 screen: Denies threats or abuse. Denies injuries from another. Nutritional screening: No deficits noted. Tuberculosis screening: No symptoms or risk factors identified. Assessment: 11:00 General: Appears in no apparent distress. uncomfortable, Behavior is calm, cooperative, eh3 appropriate for age. Pain: Complains of pain in back. Neuro: Level of Consciousness is awake, alert, obeys commands, Oriented to person, place, time, situation. Cardiovascular: Capillary refill < 3 seconds Patient's skin is warm and dry. Respiratory: Airway is patent Respiratory effort is even, unlabored, Respiratory pattern is regular, symmetrical. GI: Abdomen is round non-distended. Derm: Skin is pink, warm \T\ dry. Musculoskeletal: Circulation, motion, and sensation intact. 12:00 Reassessment: Patient appears in no apparent distress at this time. Patient and/or eh3 family updated on plan of care and expected duration. Pain level reassessed. Patient is alert, oriented x 3, equal unlabored respirations, skin warm/dry/pink. 13:00 Reassessment: Patient appears in no apparent distress at this time. Patient and/or eh3 family updated on plan of care and expected duration. Pain level reassessed. Patient is alert, oriented x 3, equal unlabored respirations, skin warm/dry/pink. 14:00 Reassessment: Patient appears in no apparent distress at this time. Patient and/or eh3 family updated on plan of care and expected duration. Pain level reassessed. Patient is alert, oriented x 3, equal unlabored respirations, skin warm/dry/pink. 15:00 Reassessment: Patient appears in no apparent distress at this time. Patient and/or eh3 family updated on plan of care and expected duration. Pain level reassessed. Patient is alert, oriented x 3, equal unlabored respirations, skin warm/dry/pink. 15:50 Reassessment: Failed attempt to call report to 4th floor, charge nurse asks for more 3 time. Vital Signs: 10:43 BP 140 / 97; Pulse 88; Resp 16; Temp 97.4; Pulse Ox 97% on R/A; Weight 84 kg; Height 5 ll1 ft. 8 in. ; Pain 4/10; 11:00 BP 139 / 102; Pulse 120; Resp 16; Pulse Ox 96% on R/A; eh3 12:00 BP 128 / 94; Pulse 125; Resp 16; Pulse Ox 98% on R/A; eh3 13:00 BP 141 / 109; Pulse 133; Resp 17; Pulse Ox 96% on R/A; eh3 14:00 BP 129 / 107; Pulse 121; Resp 14; Pulse Ox 98% on R/A; eh3 15:00 BP 127 / 94; Pulse 128; Resp 15; Pulse Ox 99% on R/A; eh3 10:43 Body Mass Index 28.16 (84.00 kg, 172.72 cm) ll1 10:43 Pain Scale: Adult ll1 ED Course: 10:39 Patient arrived in ED. am2 10:42 Donta Willard MD is Attending Physician. rn 10:44 Triage completed. ll1 10:46 Arm band placed on Patient placed in an exam room, on a stretcher. ll1 10:47 Amna Ibanez, RN is Primary Nurse. eh3 10:55 CT Head Brain wo Cont In Process Unspecified. EDMS 11:00 Patient has correct armband on for positive identification. Bed in low position. Call 3 light in reach. Side rails up X2. Client placed on continuous cardiac and pulse oximetry monitoring. NIBP monitoring applied. 11:14 Chest Single View XRAY In Process Unspecified. EDMS 11:14 XRAY Knee LEFT 3 view In Process Unspecified. EDMS 11:14 Hip Right 2 View In Process Unspecified. EDMS 11:44 EKG done, by ED staff. [facility] 13:51 Narciso Campbell MD is Hospitalizing Provider. rn 16:10 No provider procedures requiring assistance completed. Patient admitted, IV remains in eh3 place. Administered Medications: 11:30 Drug: NS 0.9% IV 500 ml Route: IV; Rate: bolus; Site: right antecubital; 3 12:30 Follow up: IV Status: Completed infusion; IV Intake: 500ml 3 13:00 Drug: Magnesium Sulfate IVPB 1 grams Route: IVPB; Infused Over: 1 hrs; Site: right [facility] antecubital; 14:02 Follow up: Response: No adverse reaction; IV Status: Completed infusion; IV Intake: eh3 100ml 13:00 Drug: Metoprolol PO 25 mg Route: PO; 3 14:02 Follow up: Response: No adverse reaction 3 15:25 Not Given (Duplicate Order; hospitalist ordered IV metoprolol instead): Sotalol PO 40 rn mg PO once Medication: 16:07 VIS not applicable for this client. 3 Intake: 12:30 IV: 500ml; Total: 500ml. 3 14:02 IV: 100ml; Total: 600ml. 3 Outcome: 13:51 Decision to Hospitalize by Provider. rn 16:10 Admitted to ER Hold. Please see [facility] for further documentation. 3 16:10 Condition: stable 16:10 Instructed on the need for admit. 16:56 Patient left the ED. 3 Signatures: Dispatcher [employer] EDMS Donta Willard MD MD rn Moreno, Amanda am2 Lewis, Lynsay, RN RN 1 Amna Ibanez RN RN 3 Zaynab Pfeiffer 8 Corrections: (The following items were deleted from the chart) 16:07 16:07 Patient has correct armband on for positive identification. Bed in low position. eh3 Call light in reach. Side rails up X2. eh3 : 16:07 Client placed on continuous cardiac and pulse oximetry monitoring. NIBP eh3 monitoring applied. eh3
--- NOTE | 2022-11-29 14:33 | P.HP ---
Certification for Inpatient Patient admitted to: Inpatient With expected LOS: <2 Midnights Patient will require the following post-hospital care: Other (Request DC to Rehab) Practitioner: I am a practitioner with admitting privileges, knowledge of patient current condition, hospital course, and medical plan of care. Services: Services provided to patient in accordance with Admission requirements found in Title 42 Section 412.3 of the Code of Federal Regulations Patient History Date of Service: 11/29/22 Reason for admission: AFib RVR History of Present Illness: 77 yrs old male with past medical history of Atrial Fibrillation RVR on eliquis, Dementia, Parkinson's, Hypothyroidism presents to the presents to ER via EMS with complaints of weakness. On arrival to ED was in AFib RVR unontrolled rate. reports he was taken off Sotalol, he was supposed to follow up with a different Card apt and was not able.. is at bedside is primary historian, reports generalized weakness that is progressively getting worse over last 2 days. She reports he is not drinking, Reports Hip fracture in September, went to Rehab was doing OK until this last week. She denies recent fever, cough, chills, chest pain, abdominal pain. ER course Gen weakness, CT of head No acute abn, Xray hip/knee no acute fracture abn EKG Afib RVR per EMS Rate 122, treated IVF 500 cc bolus. mag sulfate, Metoprolol 25 po, Sotalol 40 po Lab evaluation Trop normal, BNP elev 2258, CBC unremarkable, microcytic anemia 12.5/38.9, CXR no abnormality, DDX SVT, Afib RVR, UTI, dehydration, sepsis, Allergies butorphanol tartrate [From Stadol] Allergy (Verified 07/30/22 15:10) Unknown sulfamethoxazole [From Bactrim] Allergy (Verified 07/30/22 15:10) Unknown trimethoprim [From Bactrim] Allergy (Verified 07/30/22 15:10) Unknown PENICILLINS Allergy (Uncoded 07/30/22 15:10) Unknown Home Medications: Galantamine HBr [Galantamine ER] 12 mg PO BIDWM 10/28/22 Levothyroxine [Synthroid*] 50 mcg PO 0630 10/28/22 Memantine HCl [Namenda] 5 mg PO BID 10/28/22 Pantoprazole [Protonix Tab*] 40 mg PO DAILY 10/28/22 Ensure Enlive 237 ml PO BID can 11/09/22 Lidocaine 4% Patch [Lidoderm 5% Patch*] 1 patch TOP DAILY pat 11/09/22 Apixaban [Eliquis] 5 mg PO BID 11/29/22 Carbidopa/Levodopa [Carbidopa-Levo 25-250 mg Odt] 25 - 250 mg PO QID 11/29/22 Gabapentin 300 mg PO BID 11/29/22 Mirtazapine 15 mg PO BEDTIME 11/29/22 - Past Medical/Surgical History Diabetic: No -: CAD, previous stents. -: BPH -: Hypothyroidism -: Atrial fibrillation, chronic anti coagulation therapy -: Dementia -: Neuropathy -: GERD -: tonsillectomy- as a child -: left shoulder 1966 -: colon 2006 -: gallbladder 1992 -: Green light procedure -: left knee sx -: turp Psychosocial/ Personal History: Patient is . He has 2 children. - Family History Mother -: Hypertension - Social History Smoking Status: Never smoker Alcohol use: No CD- Drugs: No Caffeine use: No Review of Systems General: Unremarkable Physical Examination - Physical Exam General: Oriented x2, Cooperative, Other (Flat affect) HEENT: Atraumatic, Normocephalic, PERRLA Neck: Supple, 2+ carotid pulse no bruit, JVD not distended Respiratory: Diminished Cardiovascular: No edema, Normal pulses, Irregular heart rate/rhythm Capillary refill: <2 Seconds Gastrointestinal: Soft and benign, Non-distended Musculoskeletal: No clubbing, No swelling Integumentary: Other (Stage 1 Sacral ulcer, Blister Left inner heel, covered with meplex) Neurological: Other (AOx2, parkinsonian tremor), Dementia - Studies Laboratory Data (last 24 hrs) 11/29/22 11:40: PT 14.6 H, INR 1.33, APTT 32.6 11/29/22 11:40: WBC 10.70, Hgb 12.5 L, Hct 38.9 L, Plt Count 308 11/29/22 11:40: Sodium 141, Potassium 3.9, BUN 17, Creatinine 1.03, Glucose 100, Magnesium 2.2 Assessment and Plan - Problems (Diagnosis) (1) Atrial fibrillation Onset Date: 01/07/18 Current Visit: Yes Status: Acute Plan: Card consulted Betapace restarted Qualifiers: Atrial fibrillation type: chronic (2) Elevated brain natriuretic peptide (BNP) level Current Visit: Yes Status: Acute Plan: Card consulted resume home card meds, Daily wt, IO (3) Dementia Onset Date: 01/07/18 Current Visit: No Status: Chronic Plan: fall precautions resume home meds Qualifiers: Dementia type: unspecified type (4) BPH (benign prostatic hyperplasia) Onset Date: 01/07/18 Current Visit: No Status: Chronic Qualifiers: Lower urinary tract symptom presence: symptoms present Lower urinary tract symptom detail: unspecified Qualified Code(s): N40.1 - Benign prostatic hyperplasia with lower urinary tract symptoms (5) Hypothyroidism Onset Date: 01/07/18 Current Visit: No Status: Chronic Plan: TSH in am resume home meds Qualifiers: Hypothyroidism type: unspecified Qualified Code(s): E03.9 - Hypothyroidism, unspecified (6) Blister of ankle Current Visit: Yes Status: Acute Plan: wound care to follow (7) Stage 1 skin ulcer of sacral region Current Visit: Yes Status: Acute Plan: turn q 2 hours prevent pressure ulcer (8) Parkinson disease Current Visit: Yes Status: Chronic Plan: resume approp home meds PT consult Discharge Plan: Other (Family request Rehab) Plan to discharge in: 48 Hours - Advance Directives Does patient have a Living Will: Yes Does patient have a Durable POA for Healthcare: No - Code Status/Comfort Care Code Status Assessed: Yes Code Status: Full Code Physician Review: Patient Assessed, Agree with Above Assessment and Plan Critical Care: Yes Time Spent Managing Pts Care (In Minutes): 55
[2022-11-29] MEDS ORDERED: ONDANSETRON 4 MG/2 ML VIAL IV PRN (14:38)
[2022-11-29] MEDS ORDERED: ACETAMINOPHEN 500 MG TAB PO PRN (14:38)
[2022-11-29] MEDS ORDERED: METOPROLOL TARTRATE 5 MG/5 ML INJ IV PRN (15:11)
[2022-11-29] MEDS ORDERED: METOPROLOL TARTRATE 5 MG/5 ML INJ IV ONE (15:35)
[2022-11-29] MEDS ORDERED: FUROSEMIDE 40 MG/4 ML VIAL IV SCH (17:00)
[2022-11-29] MEDS ORDERED: SOTALOL HCL 80 MG TAB PO ONE (18:04)
[2022-11-29 18:14] VITALS: BMI 27.6
[2022-11-29] MEDS: APIXABAN 5 MG TABLET PO SCH (21:13)
[2022-11-29] MEDS: MEMANTINE HCL 10 MG TABLET PO SCH (21:14)
[2022-11-29] MEDS: MIRTAZAPINE 15 MG TAB PO SCH (21:14)
[2022-11-29] MEDS: CARBIDOPA/LEVODOPA 25/250 TAB PO SCH (21:14)
[2022-11-29] MEDS: GABAPENTIN 300 MG CAP PO SCH (21:14)
--- NOTE | 2022-11-29 21:25 | CON ---
Date of Consultation: 11/29/2022 Reason For Consultation: Atrial fibrillation with rapid ventricular response. History Of Present Illness: 77-year-old male with history of atrial fibrillation, dementia, Parkinso n disease, hypothyroidism, brought in with generalized weakness. is the caregiver. She could n ot move him out of the chair anymore and he was very weak and not eating very well. So he was jose t into the emergency room. He was found to be in atrial fibrillation with rapid ventricular response . Hence, I was consulted. Past Medical History: As outlined above in the HPI. Medications: Refer to reconciliation sheet for detailed list. Medications were reviewed. Allergies: TO SULFA AND BACTRIM, WELL , PENICILLIN. Family History: No premature coronary artery disease or cancer. Social History: Does not smoke or drink. Does not use any drugs. Review of Systems: All systems were reviewed and they were negative except as mentioned in the HPI. Physical Examination: Vital Signs: Reviewed. Head and Neck: Pupils are equal, reactive to light. Intact eye movements. No JVD. No cervical lym phadenopathy. Neck is supple. Thyroid is not enlarged. Lungs: Clear to auscultation bilaterally. No rhonchi, wheezing, or crackles. No accessory muscle u se. Heart: Irregularly irregular. No extra sounds. Abdomen: Soft, nontender. Bowel sounds positive. No organomegaly. No masses or hernia. No rigidi ty or rebound. Extremities: No edema, clubbing, or cyanosis. Intact pulses. Skin: No rash. Neurologic: Alert, awake, and oriented x3. No acute focal deficits appreciated. Investigations: BUN 17, creatinine 1.03, and hemoglobin 12.5. Assessment And Recommendations: 1.Atrial fibrillation with rapid ventricular response. Started on sotalol 80 mg twice a day and the patient needs anticoagulation also. Eliquis will be appropriate 5 mg twice a day and after the thir d dose of the sotalol if he continues to be in atrial fibrillation, we will do a BERNY-guided cardiover kristie. 2.Elevated NT-proBNP. This is likely chronic congestive heart failure and he does not appear to be fluid overloaded at this moment. I will definitely hold on IV Lasix and just put him on Lasix by rigoberto th 40 mg daily. Monitor BUN and creatinine. 3.Hypertension. Blood pressure is controlled. SR/MODL Voice ID: [id number] Report ID: [id number]
[2022-11-30 03:50] LABS: Hematocrit 36.4 % (39.6-49.0); Lymphocytes % 11.5 % (15.3-44.8); MCV 93.9 fL (80-100); MPV 8.2 fL (7.6-11.3); RBC Red Blood Cell Count 3.87 M/uL (4.33-5.43)
[2022-11-30 04:10] LABS: Magnesium 2.4 mg/dL (1.6-2.4); Potassium 3.6 mEq/L (3.5-5.1)
[2022-11-30] MEDS: LEVOTHYROXINE SOD 0.05 MG TABLET PO SCH (05:58)
[2022-11-30] MEDS: SOTALOL HCL 80 MG TAB PO SCH ×2 (05:58→18:11)
[2022-11-30] MEDS ORDERED: POTASSIUM 25 MEQ EFFERV TAB PO ONE (06:00)
[2022-11-30] MEDS: GALANTAMINE PO SCH ×2 (08:00→16:23)
[2022-11-30] MEDS: MEMANTINE HCL 10 MG TABLET PO SCH ×2 (08:05→20:28)
[2022-11-30] MEDS: APIXABAN 5 MG TABLET PO SCH ×2 (08:05→20:29)
[2022-11-30] MEDS: GABAPENTIN 300 MG CAP PO SCH ×2 (08:05→20:28)
[2022-11-30] MEDS: CARBIDOPA/LEVODOPA 25/250 TAB PO SCH ×3 (08:05→16:25)
[2022-11-30] MEDS: PANTOPRAZOLE 40MG TABLET PO SCH (08:05)
[2022-11-30] MEDS: LIDOCAINE 4% PATCH TOP SCH (08:05)
--- NOTE | 2022-11-30 10:49 | RAD REPORT ---
EXAM DESCRIPTION: MRI - Brain Wo Cont - 11/30/2022 10:42 am CLINICAL HISTORY: HALLUCINATIONS COMPARISON: MRA Head Wo Cont dated 01/06/2018; Brain W/Wo Cont dated 01/06/2018; MRI BRAIN WITHOUT CON TRAST dated 08/02/2014 TECHNIQUE: Sagittal T1-weighted images were obtained along with PD/heavily T2-weighted and T2-FLAIR images. Axial DWI and ADC mapping sequences were also obtained along with coronal heavily T2-weighted images were obtained. FINDINGS: No intracranial hemorrhage, mass or acute infarction. There is no edema or shift of midlin e structures. No extra-axial fluid collections. Signal voids are seen as a normal finding in the mattie r intracranial vessels. Mild T2/FLAIR hyperintense foci within the subcortical and deep white matter that is mildly progressed since 01/06/2018 and likely reflects chronic small vessel ischemic changes. Cerebral atrophy. Mastoid air cells and paranasal sinuses are clear. IMPRESSION: No acute intracranial abnormality. Specifically, no evidence of acute infarct. Mild prog ression of nonspecific T2/FLAIR hyperintense white matter signal changes that likely reflects chronic small vessel ischemic changes.
[2022-11-30 13:16] LABS: Specific Gravity 1.019 (1.005-1.030); Urine Bacteria None Seen /HPF (<20); Urine Bilirubin NEGATIVE (Negative); Urine Blood Negative (Negative); Urine Clarity Clear (Clear); Urine Color Yellow (Yellow); Urine Glucose NEGATIVE (Negative); Urine Mucus Slight /HPF (None Seen); Urine Protein 1+ (Negative); Urine RBC <5 /HPF (None Seen); Urine Urobilinogen Normal (Normal); Urine pH 7.5 (5.0-7.0)
--- NOTE | 2022-11-30 16:51 | PN ---
Date of Progress Note: 11/30/2022 Subjective: Seen by bedside, doing well. No distress. Review of Systems: No chest pain, shortness of breath, orthopnea, or cough. No nausea, vomiting, or diarrhea. All othe r systems reviewed are negative. Physical Examination: Vital Signs: Showed temperature is 97.3, pulse 88, breathing at 20, blood pressure 125/72, saturatin g 97% on room air. General: Pleasant elderly male, in no distress. Head and Neck: Pupils are equal, reactive to light. Intact eye movements. No JVD. No cervical lym phadenopathy. Neck: Supple. Thyroid is not enlarged. Lungs: Clear to auscultation bilaterally. No rhonchi, wheezing, or crackles. No accessory muscle u se. Heart: Irregularly irregular. No extra sounds. Abdomen: Soft, nontender. Bowel sounds positive. No organomegaly. No masses or hernia. No rigidi ty or rebound. Extremities: No clubbing, cyanosis. Intact pulses. Skin: No rash. Neurologic: Alert, awake, and oriented x3. No acute focal deficits appreciated. Investigation: Labs reviewed. Assessment And Recommendations: 1.Atrial fibrillation. Rate appears to be controlled at the present time. Continue current managem ent with sotalol 80 mg twice a day and Eliquis 5 mg twice a day. He can be released on this regimen and will follow him as an outpatient in about 4 weeks. He could convert to sinus rhythm on that and he might need an electrical cardioversion. 2.Hypertension. Blood pressure is controlled. Continue current management. Cardiology will roe davila SR/YUE Voice ID: [id number] Report ID: [id number]
[2022-11-30] MEDS: GALANTAMINE 12 MG PO SCH (17:00)
--- NOTE | 2022-11-30 17:50 | P.PN ---
Subjective Date of Service: 11/30/22 Chief Complaint: AFib RVR No acute events overnight. History is provided primarily by his at bedside. She states that he has began hallucinating. I spoke with his neurologist, Dr. Rey, who recommended decreasing levodopa dose from 250 mg to 100 mg. Review of Systems 10-point ROS is otherwise unremarkable Neurological: Weakness, Confusion, Other (hallucinations per ) Physical Examination - Vital Signs Temperature: 97.3 F Blood Pressure: 125/72 Pulse: 88 Respirations: 20 Pulse Ox (%): 97 - Physical Exam General: Alert, In no apparent distress, Oriented x2 HEENT: Atraumatic, Sclerae nonicteric Neck: JVD not distended Respiratory: Clear to auscultation bilaterally, Normal air movement Cardiovascular: No edema, No gallops, No rubs, No murmurs, Irregular heart rate/rhythm Gastrointestinal: Normal bowel sounds, Soft and benign, Non-distended, No tenderness, No rebound, No guarding Musculoskeletal: No clubbing Integumentary: Pressure ulcer (stage I sacral pressure) Neurological: Other (resting, pill-rolling tremor), Dementia Assessment And Plan - Plan # Paroxysmal Atrial Fibrillation with Rapid Ventricular Response # Coronary Artery Disease s/p PCI His [id number] = 4 (HTN=1, Age>75=2, CAD=1), which warrants anticoagulation. - Currently rate-controlled - Cardiology consulted and he was evaluated by Dr. Parker - recommendations appreciated - Continue sotalol and apixaban # Advanced Parkinson's Disease with Hallucinations # Dementia - CT head = "no acute intracranial abnormality." - MRI brain = "no acute intracranial abnormality. Specifically, no evidence of acute infarct. Mild progression of nonspecific T2/FLAIR hyperintense white matter signal changes that likely reflects chronic small vessel ischemic changes." - Consulted Neurology and spoke with Dr. Rey - recommendations appreciated - He believes that his levodopa dose is too high. Recommended decreasing levodopa from 250 mg to 100 mg - Continue carbidopa-levodopa, memantine, galantamine, mirtazapine Consult PT/OT # Hypothyroidism - Continue home levothyroxine # Stage I Sacral Pressure Ulcer - Wound care consulted # Benign Prostatic Hyperplasia - Not on medication at home Narciso Campbell M.D.
[2022-11-30] MEDS: MIRTAZAPINE 15 MG TAB PO SCH (20:29)
[2022-11-30] MEDS: CARBIDOPA/LEVODOPA 25/100 TAB PO SCH (20:29)
[2022-12-01 04:38] LABS: Absolute Lymphocytes (CBC) 1.1 K/uL (0.7-4.9); Hematocrit 37.3 % (39.6-49.0); MCV 94.2 fL (80-100); MPV 8.4 fL (7.6-11.3); RBC Red Blood Cell Count 3.96 M/uL (4.33-5.43)
[2022-12-01 04:53] LABS: Magnesium 2.2 mg/dL (1.6-2.4); Potassium 3.5 mEq/L (3.5-5.1)
[2022-12-01] MEDS ORDERED: POTASSIUM CL SA 10 MEQ TAB PO ONE (05:01)
[2022-12-01] MEDS: LEVOTHYROXINE SOD 0.05 MG TABLET PO SCH (05:43)
[2022-12-01] MEDS: SOTALOL HCL 80 MG TAB PO SCH ×2 (05:43→17:01)
[2022-12-01] MEDS: LIDOCAINE 4% PATCH TOP SCH (07:40)
[2022-12-01] MEDS: APIXABAN 5 MG TABLET PO SCH ×2 (07:41→21:18)
[2022-12-01] MEDS: GALANTAMINE 12 MG PO SCH ×2 (07:41→17:00)
[2022-12-01] MEDS: GABAPENTIN 300 MG CAP PO SCH ×2 (07:41→21:18)
[2022-12-01] MEDS: CARBIDOPA/LEVODOPA 25/100 TAB PO SCH ×4 (07:41→21:18)
[2022-12-01] MEDS: MEMANTINE HCL 10 MG TABLET PO SCH ×2 (07:41→21:18)
[2022-12-01] MEDS: PANTOPRAZOLE 40MG TABLET PO SCH (07:41)
--- NOTE | 2022-12-01 13:56 | P.PN ---
Subjective Date of Service: 12/01/22 Chief Complaint: AFib RVR No acute events overnight. This morning, he is much more interactive. He is alert and oriented x 2-3. Per his , he is no longer experiencing hallucinations. He remains in atrial fibrillation, with heart rates in the 90s- 100s. He reports generalized weakness. His is inquiring about inpatient rehab placement. PT was in the room beginning their evaluation at the time of my visit. Review of Systems 10-point ROS is otherwise unremarkable General: Weakness (generalized) Physical Examination - Vital Signs Temperature: 97.4 F Blood Pressure: 147/74 Pulse: 94 Respirations: 16 Pulse Ox (%): 98 Assessment And Plan - Plan - Physical Exam General: Alert, In no apparent distress, Oriented x2-3 HEENT: Atraumatic, Sclerae nonicteric Respiratory: Clear to auscultation bilaterally, Normal air movement Cardiovascular: No edema, No murmurs, Irregular heart rate/rhythm Gastrointestinal: Normal bowel sounds, Soft, Non-distended, No tenderness Musculoskeletal: No clubbing Integumentary: Pressure ulcer (stage I sacral pressure) Neurological: Other (resting, pill-rolling tremor), Dementia, muscle rigidity consistent with Parkinson's disease # Paroxysmal Atrial Fibrillation with Rapid Ventricular Response # Coronary Artery Disease s/p PCI His [id number] = 4 (HTN=1, Age>75=2, CAD=1), which warrants anticoagulation. - Currently rate-controlled - Cardiology consulted and he was evaluated by Dr. Parker - recommendations appreciated - Continue sotalol and apixaban # Advanced Parkinson's Disease with Hallucinations # Dementia - CT head = "no acute intracranial abnormality." - MRI brain = "no acute intracranial abnormality. Specifically, no evidence of acute infarct. Mild progression of nonspecific T2/FLAIR hyperintense white matter signal changes that likely reflects chronic small vessel ischemic changes." - Consulted Neurology and spoke with Dr. Rey - recommendations appreciated - He believes that his levodopa dose is too high. Recommended decreasing levodopa from 250 mg to 100 mg - Hallucinations have improved with medication adjustment - Continue carbidopa-levodopa, memantine, galantamine, mirtazapine Consult PT/OT # Hypothyroidism - Continue home levothyroxine # Stage I Sacral Pressure Ulcer - Wound care consulted # Benign Prostatic Hyperplasia - Not on medication at home Narciso Campbell M.D.
--- NOTE | 2022-12-01 16:24 | EKG ---
Test Date: 2022-11-29 Test Time: 11:39:14 Recreation Attendant Supervisor: MINERVA MEASUREMENT RESULTS: Intervals: Rate: 122 VA: QRSD: 88 QT: 282 QTc: 401 [place]: P: VA: QRS: -21 T: 147 INTERPRETIVE STATEMENTS: Atrial fibrillation Nonspecific T wave abnormality, probably digitalis effect Abnormal ECG Compared to ECG 10/21/2022 13:57:40 T-wave abnormality now present Left-axis deviation no longer present ST (T wave) deviation no longer present Electronically Signed On 12-01-22 16:20:34 CDT by Reinaldo Parker
--- NOTE | 2022-12-01 19:25 | PN ---
Date of Progress Note: 12/01/2022 Subjective: Seen by bedside. Continues to be in atrial fibrillation, but rate is acceptable. Review of Systems: No new complaints. No chest pain or shortness of breath. He has generalized weakness. No significa nt dementia. Physical Examination: Vital signs: Reviewed. Head and Neck: Pupils are equal, reactive to light. Intact eye movements. No cervical lymphadenopa thy. Neck is supple. Thyroid is not enlarged. Lungs: Decreased breathing sounds. No accessory muscle use or muscle retraction. Heart: Irregularly irregular. No extra sounds. Abdomen: Soft, nontender. Bowel sounds positive. No organomegaly. No masses or hernia. No rigidi ty or rebound. Extremities: No clubbing, cyanosis. Intact pulses. Skin: No rash. Neurologic: Alert, awake, with no new focal deficits appreciated. Investigations: BUN is 25, creatinine 0.97, and hemoglobin 12.6. Assessment And Recommendations: 1.Atrial fibrillation, rate is controlled at the present time. Continue Eliquis and sotalol. If he art rate goes above 100, then recommend to increase sotalol to 120 mg twice a day. 2.Chronic diastolic heart failure. Appears to be euvolemic. Dose Lasix as needed. SR/MODL Voice ID: [id number] Report ID: [id number]
[2022-12-01] MEDS: MIRTAZAPINE 15 MG TAB PO SCH (21:18)
[2022-12-02] MEDS: LEVOTHYROXINE SOD 0.05 MG TABLET PO SCH (06:00)
[2022-12-02] MEDS: SOTALOL HCL 80 MG TAB PO SCH ×2 (06:01→19:00)
[2022-12-02] MEDS: LIDOCAINE 4% PATCH TOP SCH (09:00)
[2022-12-02] MEDS: CARBIDOPA/LEVODOPA 25/100 TAB PO SCH ×4 (09:00→22:15)
[2022-12-02] MEDS: PANTOPRAZOLE 40MG TABLET PO SCH (09:00)
[2022-12-02] MEDS: MEMANTINE HCL 10 MG TABLET PO SCH ×2 (09:00→22:15)
[2022-12-02] MEDS: GABAPENTIN 300 MG CAP PO SCH ×2 (09:00→22:15)
[2022-12-02] MEDS: GALANTAMINE 12 MG PO SCH ×2 (09:01→19:00)
[2022-12-02] MEDS: APIXABAN 5 MG TABLET PO SCH ×2 (09:01→22:15)
[2022-12-02] MEDS: THIAMINE 200 MG/2 ML INJ IVP SCH (09:01)
[2022-12-02] MEDS ORDERED: Ringers Lactate 250 ML IV ONE (12:45)
[2022-12-02] MEDS: DOCUSATE NA 100 MG CAP PO SCH ×2 (13:01→22:15)
[2022-12-02] MEDS: Ringers Lactate 1,000 ML IV SCH ×2 (15:00→23:34)
--- NOTE | 2022-12-02 15:55 | P.PN ---
Subjective Date of Service: 12/02/22 Chief Complaint: AFib RVR No acute events overnight. He appears comfortable this morning. He remains in atrial fibrillation, rate-controlled. His primary concern this morning is generalized weakness. His is requesting inpatient rehab placement. PT unavailable today. Can assess tomorrow. He denies chest pain, palpitations, or shortness of breath. Review of Systems 10-point ROS is otherwise unremarkable General: Weakness (generalized) Physical Examination - Vital Signs Temperature: 97.4 F Blood Pressure: 98/65 Pulse: 75 Respirations: 16 Pulse Ox (%): 94 Assessment And Plan - Plan - Physical Exam General: Alert, In no apparent distress, Oriented x2-3 HEENT: Atraumatic, Sclerae nonicteric Respiratory: Clear to auscultation bilaterally, Normal air movement Cardiovascular: No edema, No murmurs, Irregular heart rate/rhythm Gastrointestinal: Normal bowel sounds, Soft, Non-distended, No tenderness Musculoskeletal: No clubbing Integumentary: Pressure ulcer (stage I sacral pressure) Neurological: Other (resting, pill-rolling tremor), Dementia, muscle rigidity consistent with Parkinson's disease # Paroxysmal Atrial Fibrillation with Rapid Ventricular Response # Coronary Artery Disease s/p PCI His [id number] = 4 (HTN=1, Age>75=2, CAD=1), which warrants anticoagulation. - Currently rate-controlled - Cardiology consulted and he was evaluated by Dr. Parker - recommendations appreciated - Continue sotalol and apixaban # Advanced Parkinson's Disease with Hallucinations # Dementia - CT head = "no acute intracranial abnormality." - MRI brain = "no acute intracranial abnormality. Specifically, no evidence of acute infarct. Mild progression of nonspecific T2/FLAIR hyperintense white matter signal changes that likely reflects chronic small vessel ischemic changes." - Consulted Neurology and spoke with Dr. Rey - recommendations appreciated - He believes that his levodopa dose is too high. Recommended decreasing levodopa from 250 mg to 100 mg - Hallucinations have improved with medication adjustment - Continue carbidopa-levodopa, memantine, galantamine, mirtazapine Consult PT/OT - appreciate recs regarding possible SNF vs IPR # Hypothyroidism - Continue home levothyroxine # Stage I Sacral Pressure Ulcer - Wound care consulted # Benign Prostatic Hyperplasia - Not on medication at home Narciso Campbell M.D.
[2022-12-02] MEDS: MIRTAZAPINE 15 MG TAB PO SCH (22:15)
[2022-12-03] MEDS: SOTALOL HCL 80 MG TAB PO SCH ×2 (05:41→17:00)
[2022-12-03] MEDS: LEVOTHYROXINE SOD 0.05 MG TABLET PO SCH (05:41)
[2022-12-03 07:10] LABS: Potassium 4.1 mEq/L (3.5-5.1)
[2022-12-03] MEDS: CARBIDOPA/LEVODOPA 25/100 TAB PO SCH ×4 (08:48→20:40)
[2022-12-03] MEDS: DOCUSATE NA 100 MG CAP PO SCH ×2 (08:48→20:40)
[2022-12-03] MEDS: THIAMINE 200 MG/2 ML INJ IVP SCH (08:48)
[2022-12-03] MEDS: GABAPENTIN 300 MG CAP PO SCH ×2 (08:48→20:41)
[2022-12-03] MEDS: PANTOPRAZOLE 40MG TABLET PO SCH (08:48)
[2022-12-03] MEDS: LIDOCAINE 4% PATCH TOP SCH (08:49)
[2022-12-03] MEDS: MEMANTINE HCL 10 MG TABLET PO SCH ×2 (08:49→20:41)
[2022-12-03] MEDS: APIXABAN 5 MG TABLET PO SCH ×2 (08:49→20:40)
[2022-12-03] MEDS: GALANTAMINE 12 MG PO SCH ×2 (08:51→16:57)
[2022-12-03] MEDS: Ringers Lactate 1,000 ML IV SCH (11:00)
--- NOTE | 2022-12-03 15:04 | CON ---
Date of Consultation: 12/01/2022 Reason For Consultation: Hallucinations, dementia, Parkinson's. History: A 77-year-old gentleman with a history of Alzheimer disease with superimposed parkinsonism who fell and broke his hip on the right in September and that was repaired surgically. Then, he went to re [facility]. We had just seen him in the office, maybe 2 weeks ago and he is still on a wheelchair even afte r rehab. The patient was getting some home health, but then came into the emergency department on and was in AFib with RVR. He has a history of AFib with RVR with a chief complaint of generali zed weakness. He was admitted to the hospital. noted that the patient having hallucinations. Brain MRI, no stroke. He was on 25/250 carbidopa and levodopa 4 times daily and somewhat counterintu itively what feels like he does not do well on that strength of carbidopa and levodopa. So, after di scussing that with his attending yesterday, we decreased his carbidopa and levodopa to 25/100 q.i.d. Hallucinations are better today. Still has dementia. He is still quite debilitated. EKG demonstra charity persistent AFib. QTc 401. Consultation was requested. Past Medical History: Neurologic history as alluded to; AFib, RVR, now rate controlled; coronary dis ease; neuropathy. Allergies: BUTORPHANOL, BACTRIM, PENICILLIN. Medications: Tylenol, Eliquis 5 b.i.d., Sinemet 25/100 as alluded to, gabapentin 300 b.i.d., levothy roxine, Namenda 5 b.i.d., galantamine 12 b.i.d. for the dementia, sotalol 80 b.i.d., pantoprazole, mi rtazapine 15 at night, metoprolol as needed. Social History: Lives with his . Requires assistance with activities of daily living. Family History: Noncontributory. Review of Systems: Constitutional: Chronically ill. Eyes: Negative. Ears, nose, and throat: No dysarthria, no dysphagia. Cardiovascular: AFib with RVR. Pulmonary: Negative. GI: Negative. : Negative. No urinary tract infection. Neurologic: As noted. Psychiatric: Hallucinations reported. Physical Examination: Vital Signs: 97.4, 94, 16, 147/74. General: Thin gentleman, lying in bed. He recognizes me. He had difficulty recalling the name. He knows he is in the hospital. Heart: Irregularly regular. Lungs: Clear. Neurologic: Mental status as alluded to. The patient has 1-2+ masking, decreased blink rate. Mild resting chin tremor. Upper extremities full strength. Mild to moderate bilateral cogwheeling. No r esting tremor. Lower extremities are 3+, fairly antigravity. Sensation decreased symmetrically dist ally. Reflexes 1/4. Toes are downgoing. Pertinent Labs: Brain MRI, no acute stroke. White count 6.9, hemoglobin 12.6, platelets 303. Creat inine 0.97. TSH 1.9. Troponin high sensitivity 22.6, normal. Chest x-ray, clear. Impression: Hallucination, seems better on the lower dose of the carbidopa and levodopa. Parkinsoni sm is moderate presently. Mental status is generally oriented x2. He is not at that baseline presen tly. Plan: Leave the carbidopa and levodopa same for now. We will increase the Namenda to 10 mg b.i.d. May give us a little more room to further adjust the carbidopa and levodopa if needed, perhaps 2 of t he 25/100 q.i.d. make prove to be difficult post discharge. The would like him re-evaluated for rehab the seems reasonable. We will see what their evaluation shows. If not, may need a higher lev el of care. He is in the 70s and so she and at this point, he is max assist for bed transfers and ou t of bed. Thank you for the consult. We will follow up on Saturday. CYDNEY Voice ID: [id number] Report ID: [id number]
--- NOTE | 2022-12-03 16:51 | P.PN ---
Subjective Date of Service: 12/03/22 Chief Complaint: AFib RVR Patient has no new complaint. Family report patient is currently maximum assist. No issues overnight. No agitation reported. He has been tolerating his diet. Physical Examination - Vital Signs Temperature: 97.2 F Blood Pressure: 134/84 Pulse: 77 Respirations: 16 Pulse Ox (%): 98 Assessment And Plan - Plan Physical Exam General: Alert, In no apparent distress, Oriented x2-3 HEENT: Atraumatic, Sclerae nonicteric Respiratory: Clear to auscultation bilaterally, Normal air movement Cardiovascular: No edema, No murmurs, Irregular heart rate/rhythm Gastrointestinal: Normal bowel sounds, Soft, Non-distended, No tenderness Musculoskeletal: No clubbing Integumentary: Pressure ulcer (stage I sacral pressure) Neurological: resting, pill-rolling tremor, Dementia, muscle rigidity consistent with Parkinson's disease Paroxysmal Atrial Fibrillation with Rapid Ventricular Response Coronary Artery Disease s/p PCI His [id number] = 4 (HTN=1, Age>75=2, CAD=1), which warrants anticoagulation. - Currently rate-controlled - Cardiology consulted and he was evaluated by Dr. Parker - Continue sotalol and apixaban Advanced Parkinson's Disease with Hallucinations Dementia - CT head = "no acute intracranial abnormality." - MRI brain = "no acute intracranial abnormality. Specifically, no evidence of acute infarct. Mild progression of nonspecific T2/FLAIR hyperintense white matter signal changes that likely reflects chronic small vessel ischemic changes." -Seen by Neurology Dr. Rey who believes that his levodopa dose is too high. Recommended decreasing levodopa from 250 mg to 100 mg -Hallucinations have improved since medication adjustment but his mobility is significantly impaired. He is currently maximum assist. - Continue carbidopa-levodopa, galantamine, mirtazapine. Namenda dose increased to 10 mg twice daily per neurology. Continue PT/OT -Family would like to explore the possibility of admission to inpatient rehab. -Social service consulted to evaluate for inpatient rehab Hypothyroidism - Continue home levothyroxine Stage I Sacral Pressure Ulcer - Wound care consulted Benign Prostatic Hyperplasia - Not on medication at home -Monitor. DVT prophylaxis: Eliquis
--- NOTE | 2022-12-03 17:48 | PN ---
Date of Progress Note: 12/03/2022 Subjective: Seen by bedside. Doing clinically well. Heart rate is controlled. Review of Systems: No tachycardia, palpitations, nausea, vomiting, diarrhea. All other systems reviewed and they were n egative. Physical Examination: Vital Signs: Reviewed. Head and Neck: Pupils are equal, reactive to light. No JVD. No cervical lymphadenopathy. Neck is supple. Thyroid is not enlarged. Lungs: Decreased breathing sounds bilaterally. No accessory muscle use or muscle retraction. Heart: Irregularly irregular. No extra sounds. Abdomen: Soft, nontender. Bowel sounds positive. No organomegaly. No masses or hernia. No rigidi ty or rebound. Extremities: No clubbing or cyanosis. Intact pulses. Skin: No rash. Neurologic: Alert, awake. No acute focal deficits appreciated. Lymph Nodes: No cervical or axillary lymphadenopathy. Investigations: BUN 26, creatinine 0.03, hemoglobin 12.6. Assessment And Recommendations: 1.Atrial fibrillation, now rate is controlled. Continue sotalol and Eliquis and plan for followup a s an outpatient basis. 2.Chronic diastolic heart failure. He appears to be euvolemic. Continue current management. SR/MODL Voice ID: [id number] Report ID: [id number]
--- NOTE | 2022-12-03 20:09 | PN ---
Reason: Hallucinations, Parkinson's with dementia. Interval History: The patient is stable, not hallucinating, still maximum assist, being evaluated fo r rehab. On exam, afebrile, vitals stable. He is awake, alert, very hard of hearing, moderate maski ng. Upper extremity strength 4+, lower extremity fairly antigravity, bilateral cogwheeling, moderate generalized bradykinesia, reflexes symmetric, gait not tested. Impression: Dementia, parkinsonism. Plan: Decreased Remeron to 7.5 at night. Increase Sinemet 25/100 to 2 tablets t.i.d. We will sheree ingris to follow with you. SCOOTER/YUE Voice ID: [id number] Report ID: [id number]
[2022-12-03] MEDS ORDERED: MIRTAZAPINE 15 MG TAB PO SCH (21:00)
[2022-12-04] MEDS: SOTALOL HCL 80 MG TAB PO SCH (06:00)
[2022-12-04] MEDS: LEVOTHYROXINE SOD 0.05 MG TABLET PO SCH (06:01)
[2022-12-04] MEDS: PANTOPRAZOLE 40MG TABLET PO SCH (07:54)
[2022-12-04] MEDS: THIAMINE 200 MG/2 ML INJ IVP SCH (07:54)
[2022-12-04] MEDS: CARBIDOPA/LEVODOPA 25/100 TAB PO SCH ×2 (07:54→14:00)
[2022-12-04] MEDS: APIXABAN 5 MG TABLET PO SCH (07:54)
[2022-12-04] MEDS: LIDOCAINE 4% PATCH TOP SCH (07:55)
[2022-12-04] MEDS: MEMANTINE HCL 10 MG TABLET PO SCH (07:55)
[2022-12-04] MEDS: GABAPENTIN 300 MG CAP PO SCH (07:55)
[2022-12-04] MEDS: DOCUSATE NA 100 MG CAP PO SCH (07:55)
[2022-12-04] MEDS: GALANTAMINE 12 MG PO SCH (07:55)
[2022-12-04 10:01] VITALS: TEMP 97.5
[2022-12-04 10:44] VITALS: O2SAT 97
--- NOTE | 2022-12-04 16:27 | P.DS ---
Admission Date: 11/29/22 Discharge Date: 12/04/22 Disposition: TRANSFER TO INPATIENT REHAB Discharge Condition: FAIR Reason for Admission: AFib RVR Brief History of Present Illness: 77 yrs old male with past medical history of Atrial Fibrillation RVR on eliquis, Dementia, Parkinson's, Hypothyroidism presented to the presents to ER via EMS with complaints of weakness. On arrival to ED was in AFib RVR uncontrolled rate. reports he was taken off Sotalol, he was supposed to follow up with a different Card apt and was not able.. is at bedside is primary historian, reports generalized weakness that is progressively getting worse over last 2 days. She reports he is not drinking, Reports Hip fracture in September, went to Rehab and became better. ER course Gen weakness, CT of head No acute abn, Xray hip/knee no acute fracture abn EKG Afib RVR per EMS Rate 122, treated IVF 500 cc bolus. mag sulfate, Metoprolol 25 po, Sotalol 40 po Lab evaluation Trop normal, BNP elev 2258, CBC unremarkable, microcytic anemia 12.5/38.9, CXR no abnormality, Patient was admitted for further management. Hospital Course: Paroxysmal Atrial Fibrillation with Rapid Ventricular Response Coronary Artery Disease s/p PCI His [id number] = 4 (HTN=1, Age>75=2, CAD=1), which warrants anticoagulation. -Seen by cardiology and restarted on sotalol - Currently rate-controlled Advanced Parkinson's Disease with Hallucinations Dementia - CT head = "no acute intracranial abnormality." - MRI brain = "no acute intracranial abnormality. Specifically, no evidence of acute infarct. Mild progression of nonspecific T2/FLAIR hyperintense white matter signal changes that likely reflects chronic small vessel ischemic changes." -Seen by Neurology Dr. Rey who believes that his levodopa dose was too high. Recommended decreasing levodopa from 250 mg to 100 mg -Hallucinations improved since medication adjustment but his mobility was significantly impaired. He is currently maximum assist. - Namenda dose increased to 10 mg twice daily per neurology. Carbidopa-levodopa dose titrated to 25 mg 3 times daily, continued galantamine, mirtazapine. Patient seen and evaluated by PT. -Patient has been accepted to inpatient rehab at [facility]. Hypothyroidism - Continued home levothyroxine Stage I Sacral Pressure Ulcer -Local wound care Vital Signs/Physical Exam: Temp Pulse Resp BP Pulse Ox 97.5 F 95 H 14 144/86 H 94 12/04/22 08:00 12/04/22 08:00 12/04/22 08:00 12/04/22 08:00 12/04/22 08:00 General: In no apparent distress HEENT: Mucous membr. moist/pink Neck: JVD not distended Respiratory: Clear to auscultation bilaterally, Normal air movement Cardiovascular: No edema, Regular rate/rhythm, Normal S1 S2 Gastrointestinal: Normal bowel sounds, Soft and benign, Non-distended, No tenderness Musculoskeletal: No swelling Integumentary: No cyanosis Neurological: Other (No focal motor deficit) Laboratory Data at Discharge: WBC 6.90 thou/uL (4.3-10.9) 12/01/22 03:55 Hgb 12.6 g/dL (13.6-17.9) L 12/01/22 03:55 Hct 37.3 % (39.6-49.0) L 12/01/22 03:55 Plt Count 303 thou/uL (152-406) 12/01/22 03:55 PT 14.6 SECONDS (9.5-12.5) H 11/29/22 11:40 INR 1.33 11/29/22 11:40 APTT 32.6 SECONDS (24.3-36.9) 11/29/22 11:40 Sodium 143 mEq/L (136-145) 12/03/22 06:44 Potassium 4.1 mEq/L (3.5-5.1) 12/03/22 06:44 BUN 26 mg/dL (7-18) H 12/03/22 06:44 Creatinine 1.03 mg/dL (0.70-1.30) 12/03/22 06:44 Glucose 90 mg/dL (74-106) 12/03/22 06:44 Phosphorus 3.4 mg/dL (2.5-4.9) 12/01/22 03:55 Magnesium 2.2 mg/dL (1.6-2.4) 12/01/22 03:55 Home Medications: Galantamine HBr [Galantamine ER] 12 mg PO BIDWM 10/28/22 Levothyroxine [Synthroid*] 50 mcg PO 0630 10/28/22 Memantine HCl [Namenda] 5 mg PO BID 10/28/22 Pantoprazole [Protonix Tab*] 40 mg PO DAILY 10/28/22 Ensure Enlive 237 ml PO BID can 11/09/22 Lidocaine 4% Patch [Lidoderm 5% Patch*] 1 patch TOP DAILY pat 11/09/22 Apixaban [Eliquis] 5 mg PO BID 11/29/22 Gabapentin 300 mg PO BID 11/29/22 Carbidopa/Levodopa 25-100 [Sinemet 25-100*] 2 tab PO TID tab 12/04/22 Docusate [Colace Cap*] 100 mg PO BID cap 12/04/22 Mirtazapine [Remeron*] 7.5 mg PO BEDTIME tab 12/04/22 Sotalol HCl [Betapace*] 80 mg PO BID 6AM 6PM tab 12/04/22 Diet: Regular Activity: Fall precautions Followup: William Gregory DO [Primary Care Provider] - Time spent managing pt's care (in minutes): 33
[2022-12-04 17:14] VITALS: BP 119/80
== END 2022-12-04 18:45 | DRG 309 ==
LOC: ER 10:36 → ERHOLD 14:38 → 4TH 16:44
PROVIDERS: ADMIT Internal Medicine; ATTEND Internal Medicine
DX: I48.0 Paroxysmal atrial fibrillation (principal); F02.82 Dementia in other diseases classified elsewhere, unspecified severity, with psychotic disturbance; I50.32 Chronic diastolic (congestive) heart failure; I11.0 Hypertensive heart disease with heart failure; E03.9 Hypothyroidism, unspecified; G20 Parkinson's disease; F03.90 Unspecified dementia, unspecified severity, without behavioral disturbance, psychotic disturbance, mood disturbance, and anxiety; N40.1 Benign prostatic hyperplasia with lower urinary tract symptoms; K21.9 Gastro-esophageal reflux disease without esophagitis; L89.151 Pressure ulcer of sacral region, stage 1; S90.529A Blister (nonthermal), unspecified ankle, initial encounter; I25.10 Atherosclerotic heart disease of native coronary artery without angina pectoris; Z95.5 Presence of coronary angioplasty implant and graft; Z88.1 Allergy status to other antibiotic agents; Z88.0 Allergy status to penicillin; Z88.8 Allergy status to other drugs, medicaments and biological substances; Z79.82 Long term (current) use of aspirin; Z79.01 Long term (current) use of anticoagulants; Z79.890 Hormone replacement therapy; Z79.899 Other long term (current) drug therapy
CPT/HCPCS: 36415; 70450; 70551; 71045; 80048; 81001; 83735; 83880; 84100; 84443; 84484; 85025; 85610; 85730; 93005; 96361; 96365; 97110; 97112; 97116; 97161; 97530; 99285; J1940; J2001; J3411; J3475; J7040; J7120

== ENCOUNTER 2022-12-20 12:40 | Inpatient (IN) | payer OTHER, BC ==
--- OUTSIDE RECORDS SUMMARY | 2022-12-20 12:51 | XMS REPORT | Continuity of Care Document ---
:1945 Author Organization [facility] t Address [address] [place] [address] [address] [place] [address] Care Team Providers Name Role Phone No , Pcp Primary Care Physician Unavailable Gonzalo Wells Rahil Attending Clinician Unavailable Ismael Smith MD Attending Clinician JOSSIE DORANTES Attending Clinician Unavailable Gonzalo Wells Rahil Admitting Clinician Unavailable JOSSIE DORANTES Admitting Clinician Unavailable Payers Payer Name Policy Type Policy Number Effective Date Expiration Date S roxi [facility] [id number] BCTI BCTI [id number] Problems Condition Condition Condition Status Onset Resolution [...] He rmann Active 00 08/15/2016 Problem 09/07/2022 [facility] Lumbar Problem Active 2014-052022-09-07 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-09-07 Aleksandr cotton movement eye 1-18 14:18:20 l sleep movement 00:00: Matthew behavior sleep 00 disorder behavior (disorder) disorder (disorder) Active 04/13/2015 Problem 09/07/2022 [facility] Essential Essential Problem Active 2022-09-07 Memoria hypertensi hypertensi 3- 14:18:20 l on on 00:00: [place] (disorder) (disorder) 00 Active 07/28/2014 Problem 09/07/2022 [facility] Hypothyroi Hypothyro Problem Active 2022-09-07 Memoria dism idism 3- 14:18:20 l (disorder) (disorder) 00:00: He rmann Active 00 07/28/2014 Problem 09/07/2022 [facility] Dementia Dementia Problem Resolve 2022-02-22 Memoria (disorder) (disorder) d 02:55:41 l Resolved [place] Problem 02/22/2022 [facility] Alzheimer' Alzheimer Problem Active 2022-09-07 Memoria s disease 's disease 14:18:20 l (disorder) (disorder) He rmann Active Problem 09/07/2022 [facility] Atrial Atrial Problem Active 2022-09-07 [facility] fibrillati fibrillati 14:18:20 l on on [place] (disorder) (disorder) Active Problem 09/07/2022 [facility] History of History Problem Active 2022-09-07 Memoria fall of fall 14:18:20 l (situation (situation He rmann ) ) Active Problem 09/07/2022 [facility] Lumbar Lumbar Problem Active 2022-09-07 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-13 02:55:41 02:55:41 l disorder disorder 00:00: Stevie n (disorder) (disorder) 00 Resolved 04/13/2015 Problem 02/22/2022 [facility] Amnesia Amnesia Problem Resolve 2022-02-22 2022-02-22 Memoria (finding) (finding) d 07-28 02:55:41 02:55:41 l Resolved 00:00: Matthew 07/28/2014 00 Problem 02/22/2022 [facility] Allergies, Adverse Reactions, Alerts Allergy Allergy Status Severity Reaction(s) Onset Inactive Treating Comm ents Source Name Type Date Date Clinician Sulfamet Allergy Active [place] hoxazole to [facility] -Trimeth substanc 00:00: oprim e 00 Statins Propensi Active Myalgia [facility] to [facility] adverse 00:00: reaction 00 s Sulfamet [...] penicill Active Memori a ins ins l [place] Family History Family Member Diagnosis Comments Start Date Stop Date Source Natural mother Heart disease [facility] Social History Social Habit Start Date Stop Date Quantity Comments Source Gender identity [facility] Sexual orientation [facility] Alcohol intake 2017-09-18 2017-09-18 Current [facility] 00:00:00 00:00:00 non-drinker of Hospital alcohol (finding) Tobacco use and 2017-09-11 2017-09-11 Smokeless [facility] exposure 00:00:00 00:00:00 tobacco non-user Hospital History of Social 2017-09-11 2017-09-[address] function 00:00:00 00:00:00 Hospital Sex Ass[birth year] At [birth year] [facility] 00:00:00 00:00:00 Hospital Smoking Status Start Date Stop Date Source Tobacco smoking consumption unknown [facility] Tobacco smoking status [facility] Medications Ordered Filled Start Stop Current Ordering Indication Dosage Frequency Signature Comments Components Source Medication Medication Date Date Medication? Clinician (SIG) Name Name memantine 5 Yes = 1 tab, Me moria mg oral 4-11 PO, BID, # l tablet 18:41: 180 tab, 1 Sarah nn 00 Refill(s), Pharmacy: [facility], 157.48, cm, 09/04/22 [...] Stevie n oral tablet 00 Refill(s), Pharmacy: [facility], 172.72, cm, 06/05/22 14:44:00 HEDIS MANAGER, Height, 82.898, kg, 06/05/22 14:44:00 HEDIS MANAGER, Weight carbidopa-l 2022-0 Yes 2 tab, PO, Memoria evodopa 25 1-10 TID, # 540 l mg-100 mg 21:23: tab, 1 Stevie n oral tablet 00 Refill(s), Pharmacy: [facility], 172.72, cm, 06/05/22 14:44:00 HEDIS MANAGER, Height, 82.898, kg, 06/05/22 14:44:00 HEDIS MANAGER, Weight galantamine Yes = 1 tab, Me moria 12 mg oral 1-10 PO, BID, # l tablet 21:18: 180 tab, 1 Sarah nn 00 Refill(s), Pharmacy: [facility], 172.72, cm, 06/05/22 14:44:00 HEDIS MANAGER, Height, 82.898, kg, 06/05/22 14:44:00 HEDIS MANAGER, Weight galantamine Yes = 1 tab, Me moria 12 mg oral 1-10 PO, BID, # l tablet 21:18: 180 tab, 1 Sarah nn 00 Refill(s), Pharmacy: [facility], 172.72, cm, 06/05/22 14:44:00 HEDIS MANAGER, Height, 82.898, kg, 06/05/22 14:44:00 HEDIS MANAGER, Weight memantine 5 2021-05 Yes = 1 tab, Me moria mg oral 0-13 PO, BID, # l tablet 13:34: 180 tab, 1 Sarah nn 00 Refill(s), Pharmacy: [facility], 172.72, cm, 02/19/22 14:08:00 CDT, Height, 87.5, kg, 02/19/22 14:08:00 CDT, Weight gabapentin 2021-05 Yes = 1 cap, Mem oria 300 mg oral 0-13 PO, TID, # l capsule 13:34: 270 Matthew 00 unknown unit, 1 Refill(s), Pharmacy: [facility], 172.72, cm, 02/19/22 14:08:00 CDT, Height, 87.5, kg, 02/19/22 14:08:00 CDT, Weight memantine 5 2021-05 Yes = 1 tab, Me moria mg oral 0-13 PO, BID, # l tablet 13:34: 180 tab, 1 Sarah nn 00 Refill(s), Pharmacy: [facility], 172.72, cm, 02/19/22 14:08:00 CDT, Height, 87.5, kg, 02/19/22 14:08:00 CDT, Weight gabapentin 2021-05 Yes = 1 cap, Mem oria 300 mg oral 0-13 PO, TID, # l capsule 13:34: 270 [place] 00 unknown unit, 1 Refill(s), Pharmacy: [facility], 172.72, cm, 02/19/22 14:08:00 CDT, Height, 87.5, kg, 02/19/22 14:08:00 CDT, Weight carbidopa-l 2021-0 Yes 1 tab, PO, Memoria evodopa 25 9-26 TID, # 270 l mg-250 mg 19:26: tab, 1 Stevie n oral tablet 00 Refill(s), Pharmacy: [facility], 172.72, cm, 02/19/22 14:08:00 CDT, Height, 87.5, kg, 02/19/22 14:08:00 CDT, Weight carbidopa-l 2021-0 Yes 1 tab, PO, Memoria evodopa 25 9-26 TID, # 270 l mg-250 mg 19:26: tab, 1 Stevie n oral tablet 00 Refill(s), Pharmacy: [facility], 172.72, cm, 02/19/22 14:08:00 CDT, Height, 87.5, kg, 02/19/22 14:08:00 CDT, Weight tramadol 50 2021-0 Yes 0 Memori a mg oral 9-26 Refill(s) l tablet 19:10: Matthew 00 tramadol 50 2021-0 Yes 0 Memori a mg oral 9-26 Refill(s) l tablet 19:10: [place] 00 mirtazapine 2021-0 Yes = 1 tab, Me moria 15 mg oral 8-02 PO, l tablet 16:43: Bedtime, # Sarah nn 00 90 tab, 2 Refill(s), Pharmacy: [facility] (Now [facility]), 172.72, cm, 10/24/21 13:54:00 CDT, Height, 93.21, kg, 10/24/21 13:54:00 CDT, Weight mirtazapine 2021-0 Yes = 1 tab, Me moria 15 mg oral 8-02 PO, l tablet 16:43: Bedtime, # Sarah nn 00 90 tab, 2 Refill(s), Pharmacy: [facility] (Now [facility]), 172.72, cm, 10/24/21 13:54:00 CDT, Height, 93.21, kg, 10/24/21 13:54:00 CDT, Weight gabapentin 0 Yes 300 mg = 1 M emoria 300 mg oral 5-31 cap, PO, l capsule 19:27: TID, # 270 Herm volodymyr 00 cap, 1 Refill(s), Pharmacy: [facility], 172.72, cm, 10/24/21 13:54:00 CDT, Height, 93.21, kg, 10/24/21 13:54:00 CDT, Weight gabapentin 0 Yes 300 mg = 1 M emoria 300 mg oral 5-31 cap, PO, l capsule 19:27: TID, # 270 Herm volodymyr 00 cap, 1 Refill(s), Pharmacy: [facility], 172.72, cm, 10/24/21 13:54:00 CDT, Height, 93.21, kg, 10/24/21 13:54:00 CDT, Weight QUEtiapine 0 Yes TAKE 1 Memor ia 50 mg oral 5-31 TABLET BY l tablet 19:23: MOUTH ONCE Sarah nn 00 DAILY AT NIGHT hydrochloro 2021-0 Yes 0 Memori a thiazide-sp [...] day, # 270 cap, 2 Refill(s), Pharmacy: [facility], 172.72, cm, 07/24/21 14:53:00 HEDIS MANAGER, Height, 94.091, kg, 07/24/21 14:53:00 HEDIS MANAGER, Weight gabapentin 2022-0 No 300 mg = 1 M emoria 300 mg oral 3-17 cap, PO, l capsule 14:34: TID, X 90 Sarah nn day, # 270 cap, 2 Refill(s), Pharmacy: [facility], 172.72, cm, 07/24/21 14:53:00 HEDIS MANAGER, Height, 94.091, kg, 07/24/21 14:53:00 HEDIS MANAGER, Weight tramadol Yes TAKE 1 Memoria hydrochlori [...] [Seroquel] 00 30 tab, 2 Refill(s), Pharmacy: [facility], 172.72, cm, 04/27/21 14:07:00 HEDIS MANAGER, Height, 97.727, kg, 06/23/21 10:42:00 HEDIS MANAGER, Weight quetiapine Yes 25 mg = 1 Me moria 25 MG Oral 1-29 tab, PO, l Tablet 00:23: Bedtime, # Sarah nn [Seroquel] 00 30 tab, 2 Refill(s), Pharmacy: [facility], 172.72, cm, 04/27/21 14:07:00 HEDIS MANAGER, Height, 97.727, kg, 06/23/21 10:42:00 HEDIS MANAGER, Weight quetiapine No 25 mg = 1 Me moria 25 MG Oral 1-28 tab, PO, l Tablet 17:12: Bedtime, # Sarah nn [Seroquel] 00 90 tab, 2 Refill(s), Pharmacy: [facility], 172.72, cm, 04/27/21 14:07:00 HEDIS MANAGER, Height, 97.727, kg, 06/23/21 10:42:00 HEDIS MANAGER, Weight quetiapine No 25 mg = 1 Me moria 25 MG Oral -28 tab, PO, l Tablet 17:12: Bedtime, # Sarah nn [Seroquel] 00 90 tab, 2 Refill(s), Pharmacy: [facility], 172.72, cm, 04/27/21 14:07:00 HEDIS MANAGER, Height, 97.727, kg, 06/23/21 10:42:00 HEDIS MANAGER, Weight Carbidopa 0 Yes 1 tab, PO, Me moria 25 MG / 06-23 BID, # 180 l Levodopa 17:11: tab, 2 Matthew 250 MG Oral 00 Refill(s), Tablet Pharmacy: [facility], 172.72, cm, 04/27/21 14:07:00 HEDIS MANAGER, Height, 97.727, kg, 06/23/21 10:42:00 HEDIS MANAGER, Weight Carbidopa 0 Yes 1 tab, PO, Me moria 25 MG / 06-23 BID, # 180 l Levodopa 17:11: tab, 2 [place] 250 MG Oral 00 Refill(s), Tablet Pharmacy: [facility], 172.72, cm, 04/27/21 14:07:00 HEDIS MANAGER, Height, 97.727, kg, 06/23/21 10:42:00 HEDIS MANAGER, Weight predniSONE 0 Yes See Memoria 10 mg oral -28 Special l tablet 16:53: Instructio Sarah nn [...] # 360 l Levodopa 20:17: tab, 2 [place] 100 MG Oral 00 Refill(s), Tablet Pharmacy: [facility], 172.72, cm, 04/27/21 14:07:00 HEDIS MANAGER, Height, 97.727, kg, 04/27/21 14:07:00 HEDIS MANAGER, Weight Carbidopa 2020- Yes 1 tab, PO, Me moria 25 MG / 2-02 QID, # 360 l Levodopa 20:17: tab, 2 [place] 100 MG Oral 00 Refill(s), Tablet Pharmacy: [facility], 172.72, cm, 04/27/21 14:07:00 HEDIS MANAGER, Height, 97.727, kg, 04/27/21 14:07:00 HEDIS MANAGER, Weight gabapentin 2020-0 Yes See Memoria 300 MG Oral 9-07 Instructio l Capsule 14:41: ns, TAKE 1 Herm volodymyr 00 CAPSULE TWICE DAILY, # 180 unknown unit, 2 Refill(s), Pharmacy: [facility], 167.64, cm, 12/15/20 14:56:00 CDT, Height, 100, kg, 12/15/20 14:56:00 CDT, Weight gabapentin 2020-0 Yes See Memoria 300 MG Oral 9-07 Instructio l Capsule 14:41: ns, TAKE 1 Herm volodymyr 00 CAPSULE TWICE DAILY, # 180 unknown unit, 2 Refill(s), Pharmacy: [facility], 167.64, cm, 12/15/20 14:56:00 CDT, Height, 100, kg, 12/15/20 14:56:00 CDT, Weight Memantine 2020-0 Yes 5 mg = 1 John shayy hydrochlori 7-22 tab, PO, l de 5 MG 20:05: BID, # 180 Herm volodymyr Oral Tablet 00 tab, 2 [Namenda] Refill(s), Pharmacy: [facility], 167.64, cm, 12/15/20 14:56:00 CDT, Height, 100, kg, 12/15/20 14:56:00 CDT, Weight Memantine 2020-0 Yes 5 mg = 1 John shayy hydrochlori 7-22 tab, PO, l de 5 MG 20:05: BID, # 180 Herm volodymyr Oral Tablet 00 tab, 2 [Namenda] Refill(s), Pharmacy: [facility], 167.64, cm, 12/15/20 14:56:00 CDT, Height, 100, kg, 12/15/20 14:56:00 CDT, Weight Carbidopa 2020-0 Yes See Memoria 25 MG / 6-30 Instructio l Levodopa 13:17: ns, TAKE 1 Her sanders 250 MG Oral 00 TABLET Tablet TWICE DAILY, # 180 tab, 2 Refill(s), Pharmacy: [facility], 172.72, cm, 06/07/20 15:02:00 HEDIS MANAGER, Height, 100, kg, 09/15/20 16:02:00 CDT, Weight galantamine 2020-0 Yes See Memori a 12 mg oral 6-30 Instructio l tablet 13:17: ns, TAKE 1 Sarah nn 00 TABLET TWICE DAILY, # 180 tab, 2 Refill(s), Pharmacy: [facility], 172.72, cm, 06/07/20 15:02:00 HEDIS MANAGER, Height, 100, kg, 09/15/20 16:02:00 CDT, Weight Mirtazapine 2020-0 Yes See Memori a 15 MG Oral 6-30 Instructio l Tablet 13:17: ns, TAKE 1 Sarah nn 00 TABLET AT BEDTIME, # 90 tab, 2 Refill(s), Pharmacy: [facility], 172.72, cm, 06/07/20 15:02:00 HEDIS MANAGER, Height, 100, kg, 09/15/20 16:02:00 CDT, Weight Carbidopa 2020-0 Yes See Memoria 25 MG / 6-30 Instructio l Levodopa 13:17: ns, TAKE 1 Her sanders 250 MG Oral 00 TABLET Tablet TWICE DAILY, # 180 tab, 2 Refill(s), Pharmacy: [facility], 172.72, cm, 06/07/20 15:02:00 HEDIS MANAGER, Height, 100, kg, 09/15/20 16:02:00 CDT, Weight galantamine 2020-0 Yes See Memori a 12 mg oral 6-30 Instructio l tablet 13:17: ns, TAKE 1 Sarah nn 00 TABLET TWICE DAILY, # 180 tab, 2 Refill(s), Pharmacy: [facility], 172.72, cm, 06/07/20 15:02:00 HEDIS MANAGER, Height, 100, kg, 09/15/20 16:02:00 CDT, Weight Mirtazapine 2020-0 Yes See Memori a 15 MG Oral 6-30 Instructio l Tablet 13:17: ns, TAKE 1 Sarah nn 00 TABLET AT BEDTIME, # 90 tab, 2 Refill(s), Pharmacy: [facility], 172.72, cm, 06/07/20 15:02:00 HEDIS MANAGER, Height, 100, kg, 09/15/20 16:02:00 CDT, Weight Memantine 2020-0 Yes 5 mg = 1 John shayy hydrochlori 4-22 tab, PO, l de 5 MG 21:37: BID, # 60 Sarah nn Oral Tablet 00 tab, 3 [Namenda] Refill(s), Pharmacy: [facility], 172.72, cm, 06/07/20 15:02:00 HEDIS MANAGER, Height, 100, kg, 09/15/20 16:02:00 CDT, Weight Memantine 2020-0 Yes 5 mg = 1 John shayy hydrochlori 4-22 tab, PO, l de 5 MG 21:37: BID, # 60 Sarah nn Oral Tablet 00 tab, 3 [Namenda] Refill(s), Pharmacy: [facility], 172.72, cm, 06/07/20 15:02:00 HEDIS MANAGER, Height, 100, kg, 09/15/20 16:02:00 CDT, Weight gabapentin 2020-0 Yes See Memoria 300 MG Oral 1-08 Instructio l Capsule 16:01: ns, TAKE 1 Herm volodymyr 00 CAPSULE TWICE DAILY, # 180 unknown unit, 2 Refill(s), Pharmacy: [facility], 170.18, cm, 03/04/20 15:48:00 CDT, Height, 100, kg, 03/04/20 15:48:00 CDT, Weight gabapentin 2020-0 Yes See Memoria 300 MG Oral 1-08 Instructio l Capsule 16:01: ns, TAKE 1 Herm volodymyr 00 CAPSULE TWICE DAILY, # 180 unknown unit, 2 Refill(s), Pharmacy: [facility], 170.18, cm, 03/04/20 15:48:00 CDT, Height, 100, kg, 03/04/20 15:48:00 CDT, Weight Carbidopa 2020-1 Yes 1 tab, PO, Me moria 25 MG / 0-09 BID, # 180 l Levodopa 21:10: tab, 2 [place] 250 MG Oral 00 Refill(s), Tablet Pharmacy: [facility], 170.18, cm, 03/04/20 15:48:00 CDT, Height, 100, kg, 03/04/20 15:48:00 CDT, Weight Carbidopa 2020-1 Yes 1 tab, PO, Me moria 25 MG / 0-09 BID, # 180 l Levodopa 21:10: tab, 2 [place] 250 MG Oral 00 Refill(s), Tablet Pharmacy: [facility], 170.18, cm, 03/04/20 15:48:00 CDT, Height, 100, kg, 03/04/20 15:48:00 CDT, Weight gabapentin 2020-0 Yes See Memoria 300 MG Oral 7-06 Instructio l Capsule 20:57: ns, TAKE 1 Herm volodymyr 00 CAPSULE TWICE DAILY, # 180 unknown unit, 1 Refill(s), Pharmacy: [facility], 172.72, cm, 10/29/19 13:23:00 CDT, Height, 105.455, kg, 10/29/19 13:23:00 CDT, Weight gabapentin 2020-0 Yes See Memoria 300 MG Oral 7-06 Instructio l Capsule 20:57: ns, TAKE 1 Herm volodymyr 00 CAPSULE TWICE DAILY, # 180 unknown unit, 1 Refill(s), Pharmacy: [facility], 172.72, cm, 10/29/19 13:23:00 CDT, Height, 105.455, kg, 10/29/19 13:23:00 CDT, Weight galantamine 2020-0 Yes 12 mg = 1 M emoria 12 mg oral 6-04 tab, PO, l tablet 18:34: BID, # 360 Sarah nn 00 tab, 2 Refill(s), Pharmacy: [facility] galantamine 2020-0 Yes 12 mg = 1 M emoria 12 mg oral 6-04 tab, PO, l tablet 18:34: BID, # 360 Sarah nn 00 tab, 2 Refill(s), Pharmacy: [facility] galantamine 2020-0 No See Memori a 8 mg oral 4-01 Instructio l tablet 13:52: ns, # 180 Stevie n 38 tab, Refill(s) 1, TAKE 1 TABLET TWICE DAILY, Pharmacy: [facility] galantamine 2020-0 No See Memori a 8 mg oral 4-01 Instructio l tablet 13:52: ns, # 180 Stevie n 38 tab, Refill(s) 1, TAKE 1 TABLET TWICE DAILY, Pharmacy: [facility] Mirtazapine 2020-0 Yes 15 mg = 1 M emoria 15 MG Oral 3-13 tab, PO, l Tablet 14:18: Bedtime, # Sarah nn [Remeron] 00 90 tab, 1 Refill(s), Pharmacy: [facility] Mirtazapine 2020-0 Yes 15 mg = 1 M emoria 15 MG Oral 3-13 tab, PO, l Tablet 14:18: Bedtime, # Sarah nn [Remeron] 00 90 tab, 1 Refill(s), Pharmacy: [facility] Mirtazapine 2020-0 Yes 15 mg = 1 M emoria 15 MG Oral 2-19 tab, PO, l Tablet 20:56: Bedtime, # Sarah nn [Remeron] 00 30 tab, 2 Refill(s), Pharmacy: [facility] Mirtazapine 2020-0 Yes 15 mg = 1 M emoria 15 MG Oral 2-19 tab, PO, l Tablet 20:56: Bedtime, # Sarah nn [Remeron] 00 30 tab, 2 Refill(s), Pharmacy: [facility] Carbidopa 2020-0 Yes 1 tab, PO, Me moria 25 MG / 2-06 TID, # 270 l Levodopa 21:30: tab, 2 Matthew 100 MG Oral 00 Refill(s), Tablet Pharmacy: [facility] Carbidopa 2020-0 Yes 1 tab, PO, Me moria 25 MG / 2-06 TID, # 270 l Levodopa 21:30: tab, 2 [place] 100 MG Oral 00 Refill(s), Tablet Pharmacy: [facility] Galantamine 2019- Yes 8 mg = 1 Me moria 8 MG Oral 0-24 tab, PO, l Tablet 21:29: BID, # 180 Sarah nn [Razadyne] 53 tab, 1 Refill(s), Pharmacy: [facility] Galantamine 2018-05 Yes 8 mg = 1 Me moria 8 MG Oral 0-24 tab, PO, l Tablet 21:29: BID, # 180 Sarah nn [Razadyne] 53 tab, 1 Refill(s), Pharmacy: [facility] Tylenol 2018-05 Yes [...] 0 Memoria 0-24 Refill(s) l 21:10: escitalopra 2019 Yes = 1 tab, Me moria m 5 mg oral 9-17 PO, Daily, l tablet 12:50: # 90 tab, Stevie n 56 Refill(s) 2, Pharmacy: [facility] escitalopra Yes = 1 tab, Me moria m 5 mg oral 9-17 PO, Daily, l tablet 12:50: # 90 tab, Stevie n 56 Refill(s) 2, Pharmacy: [facility] Carbidopa 2018- Yes = 1 tab, John shayy 25 MG / 6-19 PO, BID, # l Levodopa 23:07: 180 tab, Sarah nn 100 MG Oral 37 Refill(s) Tablet 2, Pharmacy: [facility] Carbidopa Yes = 1 tab, John shayy 25 MG / 6-19 PO, BID, # l Levodopa 23:07: 180 tab, Sarah nn 100 MG Oral 37 Refill(s) Tablet 2, Pharmacy: [facility] gabapentin Yes 300 mg = 1 M emoria 300 MG Oral 5-09 cap, PO, l Capsule 21:32: BID, # 180 Herm volodymyr 32 cap, 3 Refill(s), Pharmacy: [facility] gabapentin Yes 300 mg = 1 M emoria 300 MG Oral 5-09 cap, PO, l Capsule 21:32: BID, # 180 Herm volodymyr 32 cap, 3 Refill(s), Pharmacy: [facility] Galantamine Yes 8 mg = 1 Me moria 8 MG Oral 5-09 tab, PO, l Tablet 21:32: BID, # 180 Sarah nn [Razadyne] 28 tab, 1 Refill(s), Pharmacy: [facility] Galantamine Yes 8 mg = 1 Me moria 8 MG Oral 5-09 tab, PO, l Tablet 21:32: BID, # 180 Sarah nn [Razadyne] 28 tab, 1 Refill(s), Pharmacy: [facility] Escitalopra Yes 0 Memori a m 5 mg oral 1-17 Refill(s) l tablet 22:03: pantoprazol 2019-0 Yes 40 mg = 1 M emoria e 40 mg 1-17 tab, PO, l oral 22:03: Daily, # [place] enteric 00 30 tab, 0 coated Refill(s) tablet Escitalopra 2019-0 Yes 0 Memori a m 5 mg oral 1-17 Refill(s) l tablet 22:03: pantoprazol 2019-0 Yes 40 mg = 1 M emoria e 40 mg 1-17 tab, PO, l oral 22:03: Daily, # Matthew enteric 00 30 tab, 0 coated Refill(s) tablet Carbidopa 2017-05 Yes 1 tab, PO, Me moria 25 MG / 06-24 BID, # 180 l Levodopa 22:43: tab, 2 [place] 100 MG Oral 00 Refill(s), Tablet Pharmacy: [[facility] Mail Delivery Carbidopa 2017-05 Yes 1 tab, PO, Me moria 25 MG / 06-24 BID, # 180 l Levodopa 22:43: tab, 2 Matthew 100 MG Oral 00 Refill(s), Tablet Pharmacy: [[facility] 25-[facility]] Pharmacy Mail Delivery Galantamine 2017-05 No 8 mg = 1 Me moria 8 MG Oral -08 tab, PO, l Tablet 20:19: BID, # 180 Sarah nn [Razadyne] 00 tab, 1 Refill(s), Pharmacy: [facility] Galantamine 2017-05 No 8 mg = 1 Me moria 8 MG Oral -08 tab, PO, l Tablet 20:19: BID, # 180 Sarah nn [Razadyne] 00 tab, 1 Refill(s), Pharmacy: [facility] Galantamine 2017-05 No 4 mg = 1 Me moria 4 MG Oral -08 tab, PO, l Tablet 20:18: BID, X 30 Stevie n [Razadyne] 40 day, # 60 tab, 3 Refill(s), Pharmacy: [facility] Galantamine 2017-05 No 4 mg = 1 Me moria 4 MG Oral -08 tab, PO, l Tablet 20:18: BID, X 30 Stevie n [Razadyne] 40 day, # 60 tab, 3 Refill(s), Pharmacy: [facility] Eliquis 5 Yes 5 mg, PO, Mem oria mg oral 6-29 Q12H, 0 l tablet 15:34: Refill(s) Stevie n 00 Eliquis 5 Yes 5 mg, PO, Mem oria mg oral 6-29 Q12H, 0 l tablet 15:34: Refill(s) Stevie n 00 tamsulosin Yes .4mg Q.5D Take 0.4 Met hodi [...] by mouth st (PANTOPRAZO 09:27: daily. [facility]) 30 l gabapentin 2018-0 Yes [...] Hospita 30 times a l day. sotalol 0 Yes 80mg Q.5D Take 80 mg Meth maryse (BETAPACE) 4-[address] 80 MG 09:27: (two) Hospita tablet 30 times a l day. aspirin 81 Yes 81 mg = 1 Me moria mg tablet, 3-13 tab, CHEW, l chewable 15:24: Daily, 0 Sarah nn 00 Refill(s) levothyroxi 2017- Yes 50 Memori a ne 50 mcg [...] Systolic (mm Hg) 2022-09-04 18:09:00 John rial [place] Diastolic (mm Hg) 2022-09-04 18:09:00 Mem orial Matthew Heart Rate 2022-09-04 18:09:00 [place] [facility] 2022-09-04 18:09:00 5 [ft_i] [facility] Weight 2022-09-04 18:09:00 [facility] BMI Calculated 2022-09-04 18:09:00 [facility] Diastolic (mm Hg) 2022-06-05 20:20:00 [facility] Heart Rate 2022-06-05 20:20:00 [facility] Height 2022-06-05 20:20:00 5 [ft_i] [facility] Weight 2022-06-05 20:20:00 [facility] BMI Calculated 2022-06-05 20:20:00 [facility] [place] Systolic (mm Hg) 2022-06-05 20:20:00 [facility] [place] Systolic (mm Hg) 2022-02-19 18:57:00 John [facility] [place] Diastolic (mm Hg) 2022-02-19 18:57:00 [facility] [place] Heart Rate 2022-02-19 18:57:00 [facility] [place] Respitory Rate 2022-02-19 18:57:00 [facility] Height 2022-02-19 18:57:00 172.72 cm [facility] Weight 2022-02-19 18:57:00 [facility] BMI Calculated 2022-02-19 18:57:00 [facility] Systolic (mm Hg) 2021-10-24 18:54:00 [facility] [place] Diastolic (mm Hg) 2021-10-24 18:54:00 [facility] [place] Heart Rate 2021-10-24 18:54:00 [facility] Respitory Rate 2021-10-24 18:54:00 [facility] [place] Height 2021-10-24 18:54:00 172.72 cm [facility] [place] Weight 2021-10-24 18:54:00 [facility] BMI Calculated 2021-10-24 18:54:00 [facility] Systolic (mm Hg) 2021-07-24 20:53:00 [facility] [place] Diastolic (mm Hg) 2021-07-24 20:53:00 [facility] [place] Heart Rate 2021-07-24 20:53:00 [facility] [place] Respitory Rate 2021-07-24 20:53:00 [facility] Height 2021-07-24 20:53:00 172.72 cm [facility] Weight 2021-07-24 20:53:00 [facility] BMI Calculated 2021-07-24 20:53:00 [facility] Systolic (mm Hg) 2021-06-23 16:42:00 [facility] [place] Diastolic (mm Hg) 2021-06-23 16:42:00 [facility] Heart Rate 2021-06-23 16:42:00 [facility] [place] Respitory Rate 2021-06-23 16:42:00 [facility] [place] Weight 2021-06-23 16:42:00 [facility] Systolic (mm Hg) 2021-04-27 19:54:00 [facility] [place] Diastolic (mm Hg) 2021-04-27 19:54:00 [facility] Heart Rate 2021-04-27 19:54:00 [facility] Respitory Rate 2021-04-27 19:54:00 [facility] Height 2021-04-27 19:54:00 172.72 cm [facility] Weight 2021-04-27 19:54:00 [facility] BMI Calculated 2021-04-27 19:54:00 [facility] Systolic (mm Hg) 2020-12-15 19:38:00 [facility] [place] Diastolic (mm Hg) 2020-12-15 19:38:00 [facility] Heart Rate 2020-12-15 19:38:00 [facility] Respitory Rate 2020-12-15 19:38:00 [facility] [place] Height 2020-12-15 19:38:00 167.64 cm [facility] [place] Weight 2020-12-15 19:38:00 [facility] BMI Calculated 2020-12-15 19:38:00 [facility] Systolic (mm Hg) 2020-09-15 21:02:00 John rial [facility] Diastolic (mm Hg) 2020-09-15 21:02:00 [facility] [place] Heart Rate 2020-09-15 21:02:00 [facility] Respitory Rate 2020-09-15 21:02:00 [facility] Weight 2020-09-15 21:02:00 [facility] [place] Systolic (mm Hg) 2020-06-07 20:22:00 John rial Matthew Diastolic (mm Hg) 2020-06-07 20:22:00 [facility] [place] Heart Rate 2020-06-07 20:22:00 [facility] [place] Respitory Rate 2020-06-07 20:22:00 [facility] Height 2020-06-07 20:22:00 172.72 cm [facility] [place] Weight 2020-06-07 20:22:00 [facility] [place] BMI Calculated 2020-06-07 20:22:00 [facility] [place] Systolic (mm Hg) 2020-03-04 20:41:00 John rial [facility] Diastolic (mm Hg) 2020-03-04 20:41:00 [facility] [place] Heart Rate 2020-03-04 20:41:00 [facility] [place] Respitory Rate 2020-03-04 20:41:00 [facility] Height 2020-03-04 20:41:00 170.18 cm [facility] [place] Weight 2020-03-04 20:41:00 [facility] BMI Calculated 2020-03-04 20:41:00 [facility] [place] Systolic (mm Hg) 2019-10-29 18:23:00 John [facility] [place] Diastolic (mm Hg) 2019-10-29 18:23:00 [facility] Heart Rate 2019-10-29 18:23:00 [facility] [place] Respitory Rate 2019-10-29 18:23:00 [facility] [place] Temperature Oral (F) 2019-10-29 18:23:00 98.5 F [facility] [place] Height 2019-10-29 18:23:00 172.72 cm [facility] [place] Weight 2019-10-29 18:23:00 [facility] [place] BMI Calculated 2019-10-29 18:23:00 [facility] [place] Systolic (mm Hg) 2019-07-15 20:40:00 [facility] [place] Diastolic (mm Hg) 2019-07-15 20:40:00 [facility] Heart Rate 2019-07-15 20:40:00 [facility] Respitory Rate 2019-07-15 20:40:00 [facility] Height 2019-07-15 20:40:00 172.72 cm [facility] [place] Weight 2019-07-15 20:40:00 [facility] [place] BMI Calculated 2019-07-15 20:40:00 [facility] Systolic (mm Hg) 2019-07-02 20:53:00 John rial Matthew Diastolic (mm Hg) 2019-07-02 20:53:00 [facility] [place] Heart Rate 2019-07-02 20:53:00 [facility] [place] Respitory Rate 2019-07-02 20:53:00 [facility] Height 2019-07-02 20:53:00 172.72 cm [facility] Weight 2019-07-02 20:53:00 [facility] BMI Calculated 2019-07-02 20:53:00 [facility] [place] Systolic (mm Hg) 2019-03-19 21:03:00 [facility] [place] Diastolic (mm Hg) 2019-03-19 21:03:00 [facility] [place] Heart Rate 2019-03-19 21:03:00 [facility] [place] Respitory Rate 2019-03-19 21:03:00 [facility] [place] Height 2019-03-19 21:03:00 172.72 cm [facility] Weight 2019-03-19 21:03:00 [facility] BMI Calculated 2019-03-19 21:03:00 [facility] [place] Systolic (mm Hg) 2019-02-05 21:04:00 John [facility] [place] Diastolic (mm Hg) 2019-02-05 21:04:00 [facility] Heart Rate 2019-02-05 21:04:00 [facility] Respitory Rate 2019-02-05 21:04:00 [facility] [place] Height 2019-02-05 21:04:00 180.34 cm [facility] [place] Weight 2019-02-05 21:04:00 [facility] [place] BMI Calculated 2019-02-05 21:04:00 [facility] [place] Height 2018-10-02 21:15:00 180.34 cm [facility] Weight 2018-10-02 21:15:00 [facility] [place] BMI Calculated 2018-10-02 21:15:00 [facility] Systolic (mm Hg) 2018-10-02 21:15:00 John [facility] [place] Diastolic (mm Hg) 2018-10-02 21:15:00 [facility] Respitory Rate 2018-10-02 21:15:00 [facility] [place] Heart Rate 2018-10-02 21:15:00 [facility] Weight 2018-06-12 21:56:00 [facility] [place] BMI Calculated 2018-06-12 21:56:00 [facility] Height 2018-06-12 21:56:00 175.26 cm [facility] [place] Systolic (mm Hg) 2018-06-12 21:56:00 John [facility] [place] Diastolic (mm Hg) 2018-06-12 21:56:00 [facility] Respitory Rate 2018-06-12 21:56:00 [facility] Heart Rate 2018-06-12 21:56:00 [facility] [place] Height 2018-04-24 22:07:00 172.72 cm [facility] Weight 2018-04-24 22:07:00 [facility] [place] BMI Calculated 2018-04-24 22:07:00 [facility] Systolic (mm Hg) 2018-04-24 22:07:00 John rial [facility] Diastolic (mm Hg) 2018-04-24 22:07:00 [facility] [place] Respitory Rate 2018-04-24 22:07:00 [facility] Heart Rate 2018-04-24 22:07:00 [facility] [place] BMI Calculated 2018-04-03 19:30:00 [facility] Height 2018-04-03 19:30:00 172.72 cm [facility] [place] Weight 2018-04-03 19:30:00 [facility] [place] Respitory Rate 2018-04-03 19:30:00 [facility] Heart Rate 2018-04-03 19:30:00 [facility] Systolic (mm Hg) 2018-04-03 19:30:00 John [facility] [place] Diastolic (mm Hg) 2018-04-03 19:30:00 [facility] [place] Procedures This patient has no known procedures. Plan of Care Planned Activity Planned Date Details Comments Source Future Scheduled 2022-11-15 COVID-19 VACCINE (#1) [facility] Test 02:07:44 [code = COVID-19 VACCINE (#1)] Future Scheduled 2022-11-15 SHINGLES VACCINES (1 [facility] Test 02:07:44 of 2) [code = SHINGLES VACCINES (1 of 2)] Future Scheduled 2022-11-15 65+ [facility]CCAL [facility] 02:07:44 VACCINE (1 - PCV) [code = 65+ PNEUMOCOCCAL VACCINE (1 - PCV)] Future Scheduled 2022-11-15 INFLUENZA VACCINE [facility] 02:07:44 [code = INFLUENZA VACCINE] Future Scheduled 2022-11-15 COVID-19 VACCINE (#1) [facility] Test 02:07:44 [code = COVID-19 VACCINE (#1)] Future Scheduled 2022-11-15 SHINGLES VACCINES (1 [facility] Test 02:07:44 of 2) [code = SHINGLES VACCINES (1 of 2)] Future Scheduled 2022-11-15 65+ [facility]OCCAL [facility] 02:07:44 VACCINE (1 - PCV) [code = 65+ PNEUMOCOCCAL VACCINE (1 - PCV)] Future Scheduled 2022-11-15 [facility] VACCINE [facility] 02:07:44 [code = INFLUENZA VACCINE] Future Scheduled 2022-11-15 COVID-19 VACCINE (#1) [facility] Test 02:07:44 [code = COVID-19 VACCINE (#1)] Future Scheduled 2022-11-15 SHINGLES VACCINES (1 [facility] Test 02:07:44 of 2) [code = SHINGLES VACCINES (1 of 2)] Future Scheduled 2022-11-15 65+ [facility]OCCAL [facility] Test 02:07:44 VACCINE (1 - PCV) [code = 65+ PNEUMOCOCCAL VACCINE (1 - PCV)] Future Scheduled 2022-11-15 [facility]ZA VACCINE [facility] Test 02:07:44 [code = INFLUENZA VACCINE] Future Scheduled 2022-11-15 COVID-19 VACCINE (#1) [facility] Test 02:07:44 [code = COVID-19 VACCINE (#1)] Future Scheduled 2022-11-15 SHINGLES VACCINES (1 [facility] Test 02:07:44 of 2) [code = SHINGLES VACCINES (1 of 2)] Future Scheduled 2022-11-15 65+ [facility]OCOCCAL [facility] Test 02:07:44 VACCINE (1 - PCV) [code = 65+ PNEUMOCOCCAL VACCINE (1 - PCV)] Future Scheduled 2022-11-15 [facility]ENZA VACCINE [facility] Test 02:07:44 [code = INFLUENZA VACCINE] Future Scheduled 2022-10-31 COVID-19 VACCINE (#1) [facility] Test 17:40:58 [code = COVID-19 VACCINE (#1)] Future Scheduled 2022-10-31 SHINGLES VACCINES (1 [facility] Test 17:40:58 of 2) [code = SHINGLES VACCINES (1 of 2)] Future Scheduled 2022-10-31 65+ [facility]OCOCCAL [facility] Test 17:40:58 VACCINE (1 - PCV) [code = 65+ PNEUMOCOCCAL VACCINE (1 - PCV)] Future Scheduled 2022-10-31 INFLUENZA VACCINE [facility] Test 17:40:58 [code = INFLUENZA VACCINE] Future Scheduled 2022-08-30 COVID-19 VACCINE (#1) [facility] Test 05:33:18 [code = COVID-19 VACCINE (#1)] Future Scheduled 2022-08-30 [facility] 05:33:18 [code = COLONOSCOPY SCREENING] Future Scheduled 2022-08-30 SHINGLES VACCINES (1 [facility] 05:33:18 of 2) [...] Future Scheduled 2022-08-30 SHINGLES VACCINES (1 [facility] 05:33:18 of 2) [...] Future Scheduled 2022-08-30 SHINGLES VACCINES (1 [facility] 05:33:18 of 2) [...] Future Scheduled 2022-08-30 SHINGLES VACCINES (1 [facility] Test 05:33:18 of 2) [...] VACCINE (#1)] Future Scheduled 2022-08-30 [facility]CRE[facility]ING [facility] Test 05:33:18 [code = COLONOSCOPY SCREENING] Future Scheduled 2022-08-30 SHINGLES VACCINES (1 [facility] Test 05:33:18 of 2) [code = SHINGLES VACCINES (1 of 2)] Future Scheduled 2022-08-30 65[facility] Test 05:33:18 VACCINE (1 - PCV) [code = 65+ PNEUMOCOCCAL VACCINE (1 - PCV)] Future Scheduled 2022-08-30 [facility]ENZA VACCINE [facility] Test 05:33:18 [code = INFLUENZA VACCINE] Future Scheduled 2022-08-30 COVID-19 VACCINE (#1) [facility] Test 05:33:18 [code = COVID-19 VACCINE (#1)] Future Scheduled 2022-08-30 [facility]CRE[facility]ING [facility] Test 05:33:18 [code = COLONOSCOPY SCREENING] Future Scheduled 2022-08-30 SHINGLES VACCINES (1 [facility] 05:33:18 of 2) [...] VACCINE (#1)] Future Scheduled 2022-08-30 [facility]CRE[facility]ING [facility] Test 05:33:18 [code = COLONOSCOPY SCREENING] Future Scheduled 2022-08-30 SHINGLES VACCINES (1 [facility] 05:33:18 of 2) [code = SHINGLES VACCINES (1 of 2)] Future Scheduled 2022-08-30 65+ [facility]OCOCCAL [facility] Test 05:33:18 VACCINE (1 - PCV) [code = 65+ PNEUMOCOCCAL VACCINE (1 - PCV)] Future Scheduled 2022-08-30 INFLUENZA VACCINE [facility] Test 05:33:18 [code = INFLUENZA VACCINE] Future Scheduled 2022-08-30 COVID-19 VACCINE (#1) [facility] 05:33:18 [code = COVID-19 VACCINE (#1)] Future Scheduled 2022-08-30 [facility]CRE[facility]ING [facility] Test 05:33:18 [code = COLONOSCOPY SCREENING] Future Scheduled 2022-08-30 SHINGLES VACCINES (1 [facility] Test 05:33:18 of 2) [code = SHINGLES VACCINES (1 of 2)] Future Scheduled 2022-08-30 65+ [facility]OCCAL [facility] Test 05:33:18 VACCINE (1 - PCV) [code = 65+ PNEUMOCOCCAL VACCINE (1 - PCV)] Future Scheduled 2022-08-30 INFLUENZA VACCINE [facility] Test 05:33:18 [code = INFLUENZA VACCINE] Future Scheduled 2022-01-24 HEPATITIS B VACCINES [facility] Test 00:25:16 (1 of 3 - 3-dose series) [code = HEPATITIS B VACCINES (1 of 3 - 3-dose series)] Future Scheduled 2022-01-24 COVID-19 VACCINE (#1) [facility] Test 00:25:16 [code = COVID-19 VACCINE (#1)] Future Scheduled 2022-01-24 COLONOSCOPY SCREENING [facility] Test 00:25:16 [code = COLONOSCOPY SCREENING] Future Scheduled 2022-01-24 SHINGLES VACCINES (1 [facility] 00:25:16 of 2) [code = [...] Type Clinicians Facility Department ID 2022-11-22 Outpatient [facility] [id number] [place] 11:43:27 [id number] [facility] 2022-11-21 Outpatient [facility] [id number] [place] 16:26:25 [id number] [facility] 2022-11-16 Outpatient [facility] [id number] [place] 11:58:34 [id number] [facility] 2022-11-13 Outpatient [facility] [id number] [place] 11:31:09 [id number] [facility] 2022-10-24 Outpatient [facility] [id number] [place] 06:07:49 [id number] [facility] 2022-10-12 Outpatient [facility] [id number] [place] 14:59:27 [id number] [facility] 2022-10-03 Outpatient [facility] [id number] [place] 09:48:41 [id number] [facility] 2022-12-04 2022-12-18 [id number] 19:26:00 12:39:00 Gonzalo 07[facility] Stephany pena 2022-11-22 2022-11-22 Office [facility] [id number] [place] 12:30:00 13:22:14 Visit Ismael KNOX [id number] [facility] [id number] 2022-11-06 2022-11-06 Outpatient CUATE CUELLO [id number] [facility] 11:00:00 11:00:00 27 l Matthew 2022-10-22 2022-10-28 Inpatient E JOSE E, [facility] MED [id number] [facility] 01:32:00 14:05:00 JOSSIE 2022-09-04 2022-09-05 Outpatient MHIE MNA [id number] [facility] 18:00:00 04:59:59 Neurology 26 l Cady Castro 2022-06-05 2022-06-06 Outpatient [facility] MNA [id number] [facility] 20:30:00 05:59:59 Neurology 25 l Cady Castro 2022-02-19 2022-02-20 Outpatient nullFlavo MNA [id number] [facility] 19:00:00 04:59:59 r Neurology 24 l Cady Castro 2021-10-24 2021-10-25 Outpatient nullFlavo MNA [id number] [facility] 19:00:00 04:59:59 r Neurology 23 l Cady Castro 2021-07-24 2021-07-25 Outpatient nullFlavo MNA [id number] [facility] 21:00:00 05:59:59 r Neurology 21 l Cady Castro 2021-06-23 2021-06-24 Outpatient nullFlavo MNA [id number] [facility] 16:45:00 05:59:59 r Neurology 22 l Cady Castro 2021-04-27 2021-04-28 Outpatient nullFlavo MNA [id number] [facility] 20:00:00 05:59:59 r Neurology 20 l Cady Castro 2020-12-15 2020-12-16 Outpatient nullFlavo MNA [id number] [facility] 19:30:00 04:59:59 r Neurology 19 l Cady Castro 2020-12-06 2020-12-06 Ambulatory nullFlavo MNA [id number] [facility] 19:30:00 19:30:00 Pre-Reg r Neurology 17 l Cady Castro 2020-09-20 2020-09-22 Outside nullFlavo MNA [id number] [facility] 13:37:28 04:59:59 Medical r Neurology 08 l Records Cady Castro 2020-09-15 2020-09-16 Outpatient nullFlavo MNA [id number] [facility] 20:45:00 04:59:59 r Neurology 18 l Cady Castro 2020-06-07 2020-06-08 Outpatient nullFlavo MNA [id number] [facility] 20:30:00 05:59:59 r Neurology 16 l Cady Castro 2020-03-04 2020-03-05 Outpatient nullFlavo MNA [id number] [facility] 20:15:00 04:59:59 r Neurology 15 l Cady Castro 2019-12-18 2019-12-18 Outpatient MHIE MHIE [id number] [facility] 22:15:00 22:15:00 13 oni Matthew 2019-12-18 2019-12-18 Outpatient MHIE IE [id number] [facility] 10:15:00 10:15:00 14 oni Matthew 2019-11-30 2019-12-01 Between nullFlavo MNA [id number] [facility] 20:57:10 20:57:10 Visit r Neurology 09 l Cady Castro 2019-10-29 2019-10-30 Outpatient nullFlavo MNA [id number] [facility] 18:15:00 04:59:59 r Neurology 11 l Cady Castro 2019-07-15 2019-07-16 Outpatient nullFlavo MNA [id number] [facility] 20:30:00 05:59:59 r Neurology 12 l Cady Villelaann 2019-07-02 2019-07-03 Outpatient nullFlavo MNA [id number] [facility] 20:30:00 05:59:59 r Neurology 10 l Cady Castro 2019-03-19 2019-03-20 Outpatient nullFlavo MNA [id number] [facility] 21:00:00 04:59:59 r Neurology 09 l Cady Castro 2019-02-05 2019-02-06 Outpatient nullFlavo MNA [id number] [facility] 21:00:00 04:59:59 r Neurology 08 l Cady Villelaann 2018-10-02 2018-10-03 Outpatient nullFlavo MNA [id number] [facility] 21:00:00 04:59:59 r Neurology 07 l Cady Castro 2018-06-12 2018-06-13 Outpatient nullFlavo MNA [id number] [facility] 21:45:00 05:59:59 r Neurology 06 l Cady Villelaann 2018-04-24 2018-04-25 Outpatient nullFlavo MNA [id number] [facility] 21:45:00 05:59:59 r Neurology 05 l Cady Villelaann 2018-04-03 2018-04-04 Outpatient nullFlavo MNA [id number] [facility] 19:15:00 05:59:59 r Neurology 04 l Jasper Matthew 2018-03-10 2018-03-12 Phone nullFlavo MNA [id number] [facility] 19:22:00 04:59:59 Message r Neurology 07 oni Castro 2018-03-10 2018-03-12 Phone nullFlavo MNA [id number] [facility] 19:21:00 04:59:59 Message r Neurology 06 oni Lazar Matthew 2018-01-23 2018-01-23 Outpatient MHIE MHIE [id number] [facility] 08:45:00 08:45:00 03 oni Matthew 2018-01-01 2018-01-01 Outpatient MHIE MHIE [id number] [facility] 11:30:00 11:30:00 02 oni Castro 2017-12-04 2017-12-04 Outpatient MHIE MHIE [id number] [facility] 10:45:00 10:45:00 00 oni Castro 2017-11-22 2017-11-22 Outpatient MHIE MHIE [id number] [facility] 10:15:00 10:15:00 01 oni Castro Results This patient has no known results.
[2022-12-20] MEDS ORDERED: NA CHLORIDE 0.9% 100 ML ONE (13:34)
[2022-12-20] MEDS ORDERED: NA CHLORIDE 0.9% 1,000 ML ONE (13:34)
[2022-12-20] MEDS ORDERED: CEFEPIME 2 GM VIAL ONE (13:34)
--- NOTE | 2022-12-20 13:39 | RAD REPORT ---
EXAM DESCRIPTION: CT - Thorax Wo Con - 12/20/2022 1:19 pm CLINICAL HISTORY: DYSPNEA COMPARISON: No comparisons FINDINGS: Chest Wall: No suspicious thyroid nodules or pathologic lymphadenopathy. Lungs: Mild airspace disease present in the left upper lobe and left lower lobe. Pleura: Moderate left and small right pleural effusion. Mediastinum/johnny: No pathologic lymphadenopathy. Pulmonary arteries/Aorta: Limited evaluation without contrast. No aortic aneurysm. Heart: No significant pericardial effusion. Cardiomegaly. Multi-vessel coronary artery disease. Upper abdomen: Rounded structure along the lesser curvature of the stomach measuring 6.1 cm is noted. This has soft tissue attenuation. It is only partially imaged. Bones: No acute abnormality. All CT scans are performed using dose optimization technique as appropriate and may include automated exposure control or mA/KV adjustment according to patient size. IMPRESSION: Bilateral pleural effusions, left greater than right with airspace disease that could re flect pneumonia. Rounded mass along the lesser curvature of the stomach was present in retrospect on the noncontrast C T from 10/13/2022 . The imaged portions are similar in size. Recommend gastroenterology referral for endoscopy.
[2022-12-20 13:51] LABS: Blood O2 Saturation 96.1 % (92-98.5)
[2022-12-20 13:52] LABS: Arterial Blood Carboxyhemoglob 1.3 % (0-1.5); Blood Gas Oxyhemoglobin 93.7 % (94-97)
[2022-12-20 14:13] LABS: Absolute Lymphocytes (CBC) 0.5 K/uL (0.7-4.9); Lymphocytes % 2.7 % (15.3-44.8); MCV 94.4 fL (80-100); MPV 9.3 fL (7.6-11.3); RBC Red Blood Cell Count 4.34 M/uL (4.33-5.43)
[2022-12-20 15:29] LABS: AST/SGOT 43 U/L (15-37); Alkaline Phosphatase 132 U/L (45-117); BUN Blood Urea Nitrogen 29 mg/dL (7-18); Bicarbonate 29 mEq/L (21-32); Bilirubin Direct 0.6 mg/dL (0-0.2); Bilirubin Indirect, Calculated 0.5 mg/dL (0.2-0.8); Bilirubin Total 1.1 mg/dL (0.2-1.0); Glomerular Filtration Rate 74 ml/min (=/>90); Glucose Level 168 mg/dL (74-106); NT PRO-BNP 6577 pg/mL (<450); Potassium 3.8 mEq/L (3.5-5.1); Protein, Total 6.2 g/dL (6.4-8.2); Sodium Level 142 mEq/L (136-145); Troponin High Sensitivity 17.4 pg/mL (<58.9)
[2022-12-20 15:33] LABS: ALT/SGPT < 10 U/L (16-61)
--- NOTE | 2022-12-20 15:36 | ER ---
Nurse's Notes [facility] Name: Sunday Pinto Jr Age: 77 yrs Sex: Male : 1945 Arrival Date: 12/20/2022 Time: 12:40 Bed 7 Private MD: Diagnosis: COVID-19, pneumonia, respiratory failure, sepsis Presentation: 12/20 12:40 Chief complaint: Patient states: SOB, cough since 2 days ago, AMS today, family tested eh3 positive for covid and home test of pt today was positive. Coronavirus screen: Vaccine status: Patient reports receiving the 2nd dose of the covid vaccine. Ebola Screen: No symptoms or risks identified at this time. Initial Sepsis Screen: Does the patient meet any 2 criteria? RR > 20 per min. Altered Mental Status. HR > 90 bpm. Yes Does the patient have a suspected source of infection? Yes: Productive cough/pneumonia. Risk Assessment: Do you want to hurt yourself or someone else? Patient reports no desire to harm self or others. Onset of symptoms was December 18, 2022. 12:40 Method Of Arrival: EMS: [facility] 3 12:40 Acuity: SABINO 2 eh3 12:40 Care prior to arrival: Medication(s) given: Albuterol Neb x 1, Atrovent Neb x 1, Normal eh3 saline infusion, 1000 mL, Solumedrol 125mg IV initiated. 18 GA, in the right forearm. Triage Assessment: 12:40 General: Appears in no apparent distress. Behavior is cooperative. Pain: Unable to use eh3 pain scale. Patient is disoriented. Neuro: Level of Consciousness is awake, lethargic, Oriented to not responding verbally, pt cannot hear due to not having hearing aids in. Cardiovascular: Capillary refill < 3 seconds Patient's skin is warm and dry. Rhythm is atrial fibrillation with rapid ventricular response. Respiratory: Reports shortness of breath cough that is Airway is patent Respiratory effort is even, shallow, weak, Respiratory pattern is tachypnea Breath sounds with rhonchi bilaterally. Onset: The symptoms/episode began/occurred yesterday, the patient has severe shortness of breath. GI: Abdomen is round non-distended. Derm: Skin is fragile, with poor turgor. Musculoskeletal: No signs and/or symptoms reported regarding the musculoskeletal system. Historical: - Allergies: 12:40 Bactrim; eh3 12:40 butorphanol tartrate; eh3 12:40 PENICILLINS; eh3 12:40 Stadol; eh3 - Home Meds: 12:40 Aspir-81 81 mg Oral TbEC 1 tab once daily [Active]; carbidopa-levodopa 25-100 mg Oral eh3 Tablet,disintegrating 2 times per day [Active]; Eliquis 5 mg Oral tablet every 12 hours [Active]; escitalopram oxalate 5 mg Oral tab 1 tab once daily [Active]; finasteride 5 mg Oral tab 1 tab once daily [Active]; gabapentin 300 mg Oral tab 2-3 times per day as needed [Active]; galantamine 4 mg Oral tab 1 tab 2 times per day [Active]; galantamine 8 mg Oral tablet 2 times per day [Active]; levothyroxine 50 mcg tab daily [Active]; liothyronine 5 mcg Oral tab 1 tab once daily [Active]; meloxicam 15 mg Oral tab 1 tab once daily [Active]; memantine 5 mg Oral tablet 2 times per day [Active]; mirtazapine 15 mg Oral Tablet,disintegrating daily [Active]; mupirocin topical [Active]; nitrofurantoin macrocrystal 100 mg Oral cap 1 cap every 6 hours [Active]; pantoprazole 40 mg Oral tablet, delayed release (enteric coated) daily [Active]; ropinirole 0.5 mg Oral tab 1 tab daily [Active]; Santyl 250 unit/gram Topical ointment daily [Active]; sotalol 80 mg Oral tab 1 tab 2 times per day [Active]; tamsulosin 0.4 mg Oral cp24 1 cap once daily [Active]; tramadol 50 mg Oral tab 1 tab every 6 hours [Active]; - PMHx: 12:40 Anxiety; Atrial fibrillation; BPH; Dementia; Hypertension; Hypothyroidism; Parkinson's eh3 disease; - PSHx: 12:40 hip SX; eh3 - Immunization history:: Adult Immunizations up to date. - Social history:: Smoking status: unknown. - Code Status:: DNAR. Screenin:40 [facility] ED Fall Risk Assessment (Adult) Score/Fall Risk Level 0 - 2 = Low Risk. Abuse eh3 screen: Denies threats or abuse. Denies injuries from another. Nutritional screening: No deficits noted. Tuberculosis screening: No symptoms or risk factors identified. Assessment: 12:40 Reassessment: No changes from previously documented assessment. See triage assessment. eh3 Cardiovascular: Capillary refill < 3 seconds Patient's skin is warm and dry. Rhythm is atrial fibrillation with rapid ventricular response Parent/caregiver reports patient has had fatigue. 13:00 Reassessment: Pt maintaining SpO2 95% on nonrebreather mask, RT paged. eh3 13:15 Reassessment: Pt in CT, pt's son and daughter waiting at bedside. eh3 13:30 Reassessment: Patient appears in no apparent distress at this time. Patient and/or eh3 family updated on plan of care and expected duration. Pain level reassessed. Pt placed on BiPAP by RT. 14:00 Reassessment: Patient appears in no apparent distress at this time. Maintaining SpO2 eh3 95% on BiPAP. Family at bedside. Pt opened eyes and stated he is not feeling well, but is breathing better than before. 14:30 Reassessment: Patient appears in no apparent distress at this time. Provider notified [facility] of SpO2 83% on BiPAP, RT paged. 15:00 Reassessment: RT at bedside. Pt placed on CPAP by RT. eh3 15:30 Reassessment: Patient appears in no apparent distress at this time. Patient and/or eh3 family updated on plan of care and expected duration. Pain level reassessed. Facial hair trimmed and CPAP mask tightened, pt maintaining SpO2 of 95-100% on CPAP. 16:00 Reassessment: Patient appears in no apparent distress at this time. Family at bedside. eh3 Pt repositioned to left side due to c/o pain at sacrum. 16:30 Reassessment: Patient appears in no apparent distress at this time. Patient and/or eh3 family updated on plan of care and expected duration. Pain level reassessed. 17:00 Reassessment: Patient appears in no apparent distress at this time. Patient and/or eh3 family updated on plan of care and expected duration. Pain level reassessed. 17:30 Reassessment: Patient appears in no apparent distress at this time. Patient and/or eh3 family updated on plan of care and expected duration. Pain level reassessed. 18:00 Reassessment: Patient appears in no apparent distress at this time. Patient and/or eh3 family updated on plan of care and expected duration. Pain level reassessed. 18:30 Reassessment: Patient appears in no apparent distress at this time. Patient and/or eh3 family updated on plan of care and expected duration. Pain level reassessed. 19:00 Reassessment: Patient appears in no apparent distress at this time. Patient and/or eh3 family updated on plan of care and expected duration. Pain level reassessed. Repositioned to right side. Vital Signs: 12:40 BP 154 / 98; Pulse 124; Resp 28; Pulse Ox 74% on 6 lpm NC; eh3 12:45 Pulse Ox 93% on 15 lpm Non-rebreather mask; eh3 13:00 BP 153 / 99; Pulse 118; Resp 28; Pulse Ox 95% on 15 lpm Non-rebreather mask; eh3 13:30 BP 135 / 89; Pulse 108; Resp 28; Pulse Ox 95% on BiPAP; eh3 13:45 BP 130 / 103; Pulse 206; Resp 31; Pulse Ox 95% on BiPAP; eh3 14:00 BP 141 / 100; Pulse 108; Resp 33; Pulse Ox 95% on BiPAP; eh3 14:15 BP 137 / 115; Pulse 112; Resp 29; Pulse Ox 87% on BiPAP; eh3 14:30 BP 129 / 96; Pulse 122; Resp 33; Pulse Ox 83% on BiPAP; eh3 14:45 BP 145 / 100; Pulse 113; Resp 33; Pulse Ox 79% on BiPAP; eh3 15:00 BP 146 / 106; Pulse 119; Resp 33; Pulse Ox 88% on BiPAP; eh3 15:15 BP 140 / 92; Pulse 115; Resp 31; Pulse Ox 98% on CPAP; eh3 15:30 BP 129 / 97; Pulse 120; Resp 30; Pulse Ox 94% on BiPAP; eh3 15:45 BP 136 / 105; Pulse 116; Resp 30; Pulse Ox 98% on CPAP; eh3 16:00 BP 143 / 112; Pulse 113; Resp 31; Pulse Ox 97% on CPAP; eh3 16:15 BP 150 / 110; Pulse 114; Resp 27; Pulse Ox 96% on CPAP; eh3 16:30 BP 153 / 112; Pulse 119; Resp 30; Pulse Ox 100% on CPAP; eh3 16:45 BP 156 / 118; Pulse 116; Resp 31; Pulse Ox 100% on CPAP; eh3 17:00 BP 136 / 108; Pulse 113; Resp 29; Pulse Ox 99% on CPAP; eh3 17:15 BP 153 / 121; Pulse 109; Resp 29; Pulse Ox 100% on CPAP; eh3 17:30 BP 144 / 112; Pulse 117; Resp 28; Pulse Ox 100% on CPAP; eh3 17:45 BP 161 / 124; Pulse 110; Resp 32; Pulse Ox 100% on CPAP; eh3 18:00 BP 161 / 124; Pulse 110; Resp 32; Pulse Ox 100% on CPAP; eh3 18:15 BP 152 / 108; Pulse 117; Resp 34; Pulse Ox 100% on CPAP; eh3 18:30 BP 149 / 107; Pulse 120; Resp 33; Pulse Ox 100% on CPAP; eh3 18:45 BP 159 / 106; Pulse 112; Resp 30; Pulse Ox 100% on CPAP; eh3 19:00 BP 139 / 102; Pulse 120; Resp 29; Pulse Ox 100% on CPAP; eh3 12/21 00:00 BP 124 / 78; Pulse 121; Resp 21; Pulse Ox 100% on BiPAP; jb4 ED Course: 12/20 12:40 Arm band placed on left wrist. eh3 12:40 Patient has correct armband on for positive identification. Bed in low position. Call eh3 light in reach. Side rails up X2. Adult w/ patient. Client placed on continuous cardiac and pulse oximetry monitoring. NIBP monitoring applied. Droplet isolation initiated. 12:40 Maintain EMS IV. Dressing intact. Good blood return noted. Site clean \T\ dry. Gauge \T\ eh 3 site: 18g RFA. 12:56 Patient arrived in ED. kj1 12:57 Pedro Jain MD is Attending Physician. sp3 13:08 Amna Ibanez, LUCRETIA is Primary Nurse. eh3 13:13 Triage completed. eh3 13:20 CT Chest Wo Con In Process Unspecified. EDMS 13:35 First set of blood cultures drawn by me. eh3 13:35 Inserted saline lock: 20 gauge in left antecubital area, using aseptic technique. Blood eh3 collected. 13:52 Second set of blood cultures drawn by me. eh3 15:36 Aden Irizarry is Hospitalizing Provider. sp3 18:00 Assisted with urinal. Repositioned patient. Cleaned of incontinence. eh3 19:15 Report given to LUCRETIA Leonard. 3 12/21 06:29 Provided Education on: . kd3 06:29 No provider procedures requiring assistance completed. Patient admitted, IV remains in kd3 place. Administered Medications: 12/20 13:25 Drug: NS 0.9% IV 1000 ml Route: IV; Rate: 1 bolus; Site: right forearm; eh3 15:00 Follow up: IV Status: Completed infusion; IV Intake: 1000ml eh3 13:55 Drug: Cefepime IVPB 2 grams Route: IVPB; Rate: 200 ml/hr; Infused Over: 30 mins; Site: 3 left antecubital; 14:30 Follow up: Response: No adverse reaction; IV Status: Completed infusion; IV Intake: eh3 100ml Medication: 12/21 06:29 VIS not applicable for this client. kd3 Intake: 12/20 14:30 IV: 100ml; Total: 100ml. eh3 15:00 IV: 1000ml; Total: 1100ml. 3 Outcome: 15:36 Decision to Hospitalize by Provider. 3 12/21 06:29 Admitted to ER Hold. Please see [facility] for further documentation. kd3 Condition: stable Discharge instructions given to patient, Instructed on the need for admit. 15:40 Patient left the ED. bp Signatures: Dispatcher [employer] EDMS Isaac Oliveira RN RN Duran Lr RN RN Laura Ann kj1 Pedro Jain MD MD sp3 Aisha Bautista RN RN kd3 Amna Ibanez RN RN 3 Corrections: (The following items were deleted from the chart) 12/20 13:21 12:40 Cardiovascular: Capillary refill < 3 seconds Patient's skin is warm and dry. eh3 eh3 15:52 15:50 Reassessment: Provider notified of SpO2 79% on BiPAP, RT paged 3 eh3 16:41 13:30 Reassessment: Patient appears in no apparent distress at this time. Patient eh3 and/or family updated on plan of care and expected duration. Pain level reassessed. eh3 16:44 13:15 Reassessment: Patient appears in no apparent distress at this time. Patient eh3 and/or family updated on plan of care and expected duration. Pain level reassessed. Pt's son and daughter at bedside eh3 16:44 13:30 Reassessment: Patient appears in no apparent distress at this time. Pt placed on [facility] BiPAP by RT [facility] 16:46 14:30 Reassessment: Provider notified of SpO2 83% on BiPAP, RT paged [place] [id number] 16:51 15:15 BP 140 / 92; Pulse 115bpm; Resp 31bpm; Pulse Ox 98% BiPAP; [place] [id number] 18:40 18:00 Assisted with urinal. Cleaned of incontinence. [place] [id number]
--- NOTE | 2022-12-20 15:36 | EDPHYS ---
Physician Documentation [facility] Name: Sunday Pinto Jr Age: 77 yrs Sex: Male : 1945 Arrival Date: 12/20/2022 Time: 12:40 Bed 7 Private MD: ED Physician Pedro Jain HPI: 12/20 13:10 This 77 yrs old Male presents to ER via Unassigned with complaints of Shortness Of sp3 Breath, COVID+. 13:10 77-year-old male with history of atrial fibrillation, Parkinson's, hypertension on sp3 Eliquis now presents to the ED with chief complaint shortness of breath and cough for 3 days. Patient was tested at home for COVID-19 which was positive. Patient recently was discharged from the hospital for hip fracture and rehabilitation. Per family, his shortness of breath and difficulty breathing has continued to get worse and so they are bringing him to the ED by EMS. Per EMS on nonrebreather, pulse oxygenation was in the 90 to 91% range. Review of systems and history physical limited secondary to patient being nonverbal Currently due to his symptoms. After discussion with family, patient is a DNR/DNI but potential BiPAP usage is okay.. Historical: - Allergies: 12:40 Bactrim; eh3 12:40 butorphanol tartrate; eh3 12:40 PENICILLINS; eh3 12:40 Stadol; eh3 - Home Meds: 12:40 Aspir-81 81 mg Oral TbEC 1 tab once daily [Active]; carbidopa-levodopa 25-100 mg Oral eh3 Tablet,disintegrating 2 times per day [Active]; Eliquis 5 mg Oral tablet every 12 hours [Active]; escitalopram oxalate 5 mg Oral tab 1 tab once daily [Active]; finasteride 5 mg Oral tab 1 tab once daily [Active]; gabapentin 300 mg Oral tab 2-3 times per day as needed [Active]; galantamine 4 mg Oral tab 1 tab 2 times per day [Active]; galantamine 8 mg Oral tablet 2 times per day [Active]; levothyroxine 50 mcg tab daily [Active]; liothyronine 5 mcg Oral tab 1 tab once daily [Active]; meloxicam 15 mg Oral tab 1 tab once daily [Active]; memantine 5 mg Oral tablet 2 times per day [Active]; mirtazapine 15 mg Oral Tablet,disintegrating daily [Active]; mupirocin topical [Active]; nitrofurantoin macrocrystal 100 mg Oral cap 1 cap every 6 hours [Active]; pantoprazole 40 mg Oral tablet, delayed release (enteric coated) daily [Active]; ropinirole 0.5 mg Oral tab 1 tab daily [Active]; Santyl 250 unit/gram Topical ointment daily [Active]; sotalol 80 mg Oral tab 1 tab 2 times per day [Active]; tamsulosin 0.4 mg Oral cp24 1 cap once daily [Active]; tramadol 50 mg Oral tab 1 tab every 6 hours [Active]; - PMHx: 12:40 Anxiety; Atrial fibrillation; BPH; Dementia; Hypertension; Hypothyroidism; Parkinson's eh3 disease; - PSHx: 12:40 hip SX; eh3 - Immunization history:: Adult Immunizations up to date. - Social history:: Smoking status: unknown. - Code Status:: DNAR. ROS: 13:12 Unable to obtain ROS due to baseline dementia. sp3 Exam: 13:12 Head/Face: Normocephalic, atraumatic. Eyes: Pupils equal round and reactive to light, sp3 extra-ocular motions intact. Lids and lashes normal. Conjunctiva and sclera are non-icteric and not injected. Cornea within normal limits. Periorbital areas with no swelling, redness, or edema. ENT: Nares patent. No nasal discharge, no septal abnormalities noted. External auditory canals are clear. Oropharynx with no redness, swelling, or masses, exudates, or evidence of obstruction, uvula midline. Mucous membranes moist. Neck: Trachea midline, no thyromegaly or masses palpated, and no cervical lymphadenopathy. Supple, full range of motion without nuchal rigidity, or vertebral point tenderness. No Meningismus. Chest/axilla: Normal chest wall appearance and motion. Nontender with no deformity. No lesions are appreciated. Abdomen/GI: Soft, non-tender, with normal bowel sounds. No distension or tympany. No guarding or rebound. No evidence of tenderness throughout. Skin: Warm, dry with normal turgor. Normal color with no rashes, no lesions, and no evidence of cellulitis. MS/ Extremity: Pulses equal, no cyanosis. Neurovascular intact. Full, normal range of motion. 13:12 Constitutional: The patient appears Generally weak and tachypneic. Heart rate is in the 120s. 13:12 Cardiovascular: Rate: tachycardic. 13:12 Respiratory: Breath sounds: Coarse rhonchi bilaterally.. 14:18 ECG was reviewed by the Attending Physician. EKG demonstrates atrial fibrillation at sp3 120 bpm with normal intervals except ID, leftward axis, nonspecific diffuse ST/T changes without evidence of ischemia. Vital Signs: 12:40 BP 154 / 98; Pulse 124; Resp 28; Pulse Ox 74% on 6 lpm NC; eh3 12:45 Pulse Ox 93% on 15 lpm Non-rebreather mask; eh3 13:00 BP 153 / 99; Pulse 118; Resp 28; Pulse Ox 95% on 15 lpm Non-rebreather mask; eh3 13:30 BP 135 / 89; Pulse 108; Resp 28; Pulse Ox 95% on BiPAP; eh3 13:45 BP 130 / 103; Pulse 206; Resp 31; Pulse Ox 95% on BiPAP; eh3 14:00 BP 141 / 100; Pulse 108; Resp 33; Pulse Ox 95% on BiPAP; eh3 14:15 BP 137 / 115; Pulse 112; Resp 29; Pulse Ox 87% on BiPAP; eh3 14:30 BP 129 / 96; Pulse 122; Resp 33; Pulse Ox 83% on BiPAP; eh3 14:45 BP 145 / 100; Pulse 113; Resp 33; Pulse Ox 79% on BiPAP; eh3 15:00 BP 146 / 106; Pulse 119; Resp 33; Pulse Ox 88% on BiPAP; eh3 15:15 BP 140 / 92; Pulse 115; Resp 31; Pulse Ox 98% on CPAP; eh3 15:30 BP 129 / 97; Pulse 120; Resp 30; Pulse Ox 94% on BiPAP; eh3 15:45 BP 136 / 105; Pulse 116; Resp 30; Pulse Ox 98% on CPAP; eh3 16:00 BP 143 / 112; Pulse 113; Resp 31; Pulse Ox 97% on CPAP; eh3 16:15 BP 150 / 110; Pulse 114; Resp 27; Pulse Ox 96% on CPAP; eh3 16:30 BP 153 / 112; Pulse 119; Resp 30; Pulse Ox 100% on CPAP; eh3 16:45 BP 156 / 118; Pulse 116; Resp 31; Pulse Ox 100% on CPAP; eh3 17:00 BP 136 / 108; Pulse 113; Resp 29; Pulse Ox 99% on CPAP; eh3 17:15 BP 153 / 121; Pulse 109; Resp 29; Pulse Ox 100% on CPAP; eh3 17:30 BP 144 / 112; Pulse 117; Resp 28; Pulse Ox 100% on CPAP; eh3 17:45 BP 161 / 124; Pulse 110; Resp 32; Pulse Ox 100% on CPAP; eh3 18:00 BP 161 / 124; Pulse 110; Resp 32; Pulse Ox 100% on CPAP; eh3 18:15 BP 152 / 108; Pulse 117; Resp 34; Pulse Ox 100% on CPAP; eh3 18:30 BP 149 / 107; Pulse 120; Resp 33; Pulse Ox 100% on CPAP; eh3 18:45 BP 159 / 106; Pulse 112; Resp 30; Pulse Ox 100% on CPAP; eh3 19:00 BP 139 / 102; Pulse 120; Resp 29; Pulse Ox 100% on CPAP; eh3 12/21 00:00 BP 124 / 78; Pulse 121; Resp 21; Pulse Ox 100% on BiPAP; jb4 MDM: 12/20 13:02 Patient medically screened. sp3 13:14 Data reviewed: vital signs, nurses notes, EMS record, lab test result(s), EKG, sp3 radiologic studies. ED course: 77-year-old male with COVID-19 now and respiratory distress. We will start BiPAP at 12/5 and titrate oxygenation. Normal saline 1 L has been ordered along with antibiotics for potential secondary infection. Blood cultures are also pending. We will also assess for flu in case there is a secondary viral infection occurring. Patient will be admitted to hospitalist service for further care. ABG and all lab work as well as a CT scan of the chest are all pending.. 15:34 ED course: Patient with sepsis as well as BNP of greater than 6000. I have given 1 L sp3 normal saline in ED and will hold off. Heart rate is now down into the 100-105 range. Antibiotics have been given and will defer to inpatient team for further coverage. Pulse oxygenation is now 98% once BiPAP has been optimized. Patient will be admitted at this time.. 12/20 13:01 Order name: Basic Metabolic Panel; Complete Time: 15:34 sp3 12/20 13:01 Order name: CBC with Diff; Complete Time: 15:09 3 12/20 13:01 Order name: LFT's; Complete Time: 15:34 12/20 13:01 Order name: Magnesium; Complete Time: 15:34 12/20 13:01 Order name: NT PRO-BNP; Complete Time: 15:34 12/20 13:01 Order name: PT-INR; Complete Time: 16:53 12/20 13:01 Order name: Troponin HS; Complete Time: 15:34 12/20 13:01 Order name: Blood Culture Adult (2) 12/20 13:01 Order name: Flu; Complete Time: 15:17 12/20 13:02 Order name: CRP; Complete Time: 15:34 12/20 13:06 Order name: ABG; Complete Time: 13:55 sp3 12/21 02:24 Order name: Basic Metabolic Panel EDMS 12/21 02:24 Order name: Phosphorus EDMS 12/21 02:24 Order name: Magnesium EDMS 12/21 02:29 Order name: CBC with Automated Diff EDMS 12/21 02:55 Order name: ABG Arterial Blood Gas EDMS 12/20 13:01 Order name: CT Chest Wo Con; Complete Time: 13:55 3 12/20 13:06 Order name: BIPAP: Bipap 04/30 15:59 Order name: ARTERIAL BLOOD GAS EDMS 12/20 15:59 Order name: BiPap ([employer] Only) EDMS 12/20 13:01 Order name: EKG; Complete Time: 13:02 12/20 13:01 Order name: Cardiac monitoring; Complete Time: 13:22 12/20 13:01 Order name: EKG - Nurse/Tech; Complete Time: 13:22 12/20 13:01 Order name: IV Saline Lock; Complete Time: 13:22 12/20 13:01 Order name: Labs collected and sent; Complete Time: 14:06 12/20 13:01 Order name: O2 Per Protocol; Complete Time: 13:22 12/20 13:01 Order name: O2 Sat Monitoring; Complete Time: 13:22 sp3 07/27 14:16 Order name: Labs - recollect needed: green top; Complete Time: 14:39 iw Administered Medications: 13:25 Drug: NS 0.9% IV 1000 ml Route: IV; Rate: 1 bolus; Site: right forearm; [facility] 15:00 Follow up: IV Status: Completed infusion; IV Intake: 1000ml 3 13:55 Drug: Cefepime IVPB 2 grams Route: IVPB; Rate: 200 ml/hr; Infused Over: 30 mins; Site: [facility] left antecubital; 14:30 Follow up: Response: No adverse reaction; IV Status: Completed infusion; IV Intake: eh3 100ml Disposition Summary: 12/20/22 15:36 Hospitalization Ordered Hospitalization Status: Inpatient Admission sp3 Provider: Aden Irizarry sp3 Condition: Stable sp3 Problem: new sp3 Symptoms: have worsened sp3 Bed/Room Type: Standard sp3 Location: Telemetry/MedSurg (Inpatient)(12/21/22 12:14) eb Room Assignment: [facility](12/21/22 12:14) eb Diagnosis - COVID-19, pneumonia, respiratory failure, sepsis sp3 Forms: - Medication Reconciliation Form sp3 - SBAR form sp3 Signatures: Dispatcher [employer] EDMS Emma Roland RN RN mw Williams, Irene, RN RN Keara Durant Emily, RN RN eb1 Pedro Jain MD MD 3 Amna Ibanez RN RN 3 Corrections: (The following items were deleted from the chart) 17:51 15:36 Telemetry/MedSurg (Inpatient) sp3 17:51 15:36 sp3 12/21 00:07 12/20 17:51 [facility] ER HOLD [facility] 12/21 00:07 12/20 17:51 ERHOLD- [facility] 12/21 00:38 00:07 407 mw eb1 00:55 00:07 Telemetry/MedSurg (Inpatient) [facility] 00:55 00:38 417 eb1 mw 12:14 00:55 [facility] ER HOLD mw eb 12:14 00:55 ERHOLD- mw eb
[2022-12-20 16:38] LABS: Protime INR 1.72
--- NOTE | 2022-12-20 17:49 | P.HP ---
Certification for Inpatient Patient admitted to: Inpatient With expected LOS: >2 Midnights Practitioner: I am a practitioner with admitting privileges, knowledge of patient current condition, hospital course, and medical plan of care. Services: Services provided to patient in accordance with Admission requirements found in Title 42 Section 412.3 of the Code of Federal Regulations Patient History Date of Service: 12/20/22 Reason for admission: Shortness of breath History of Present Illness: 77-year-old gentleman with a history of Parkinson's disease and chronic atrial fibrillation, recently discharged from rehab was brought to the emergency department due to shortness of breath. Family reported patient tested positive for COVID-19 at home. Both patient and his became sick. Patient developed shortness of breath and developed upper respiratory symptoms with cold symptoms. Family reported patient was much more short of breath this morning and was experiencing respiratory distress prompting the ED visit. He was initially placed on 6 L of oxygen by nasal cannula on arrival to the ED and then transition to BiPAP. Arterial blood gas showed respiratory acidosis and mild CO2 retention. CBC shows leukocytosis. CTA thorax demonstrated bilateral pleural effusion and left lung diffuse infiltrate. Patient is hospitalized for further management. Allergies butorphanol tartrate [From Stadol] Allergy (Verified 07/30/22 15:10) Unknown sulfamethoxazole [From Bactrim] Allergy (Verified 07/30/22 15:10) Unknown trimethoprim [From Bactrim] Allergy (Verified 07/30/22 15:10) Unknown PENICILLINS Allergy (Uncoded 07/30/22 15:10) Unknown Home Medications: Galantamine HBr [Galantamine ER] 12 mg PO BIDWM 10/28/22 Levothyroxine [Synthroid*] 50 mcg PO 0610/28/22 Memantine HCl [Namenda] 5 mg PO BID 10/28/22 Pantoprazole [Protonix Tab*] 40 mg PO DAILY 10/28/22 Ensure Enlive 237 ml PO BID can 11/09/22 Lidocaine 4% Patch [Lidoderm 5% Patch*] 1 patch TOP DAILY pat 11/09/22 Apixaban [Eliquis] 5 mg PO BID 11/29/22 Gabapentin 300 mg PO BID 11/29/22 Carbidopa/Levodopa 25-100 [Sinemet 25-100*] 2 tab PO TID tab 12/04/22 Docusate [Colace Cap*] 100 mg PO BID cap 12/04/22 Mirtazapine [Remeron*] 7.5 mg PO BEDTIME tab 12/04/22 Sotalol HCl [Betapace*] 80 mg PO BID 6AM 6PM tab 12/04/22 - Past Medical/Surgical History Diabetic: No -: CAD, previous stents. -: BPH -: Hypothyroidism -: Atrial fibrillation, chronic anti coagulation therapy -: Dementia -: Neuropathy -: GERD -: tonsillectomy- as a child -: left shoulder 1966 -: colon 2005 -: gallbladder 1992 -: Green light procedure -: left knee sx -: turp Psychosocial/ Personal History: Patient is . He has 2 children. - Family History Mother -: Hypertension - Social History Alcohol use: No CD- Drugs: No Caffeine use: No Review of Systems Other: Family endorsed patient has been coughing, cough is nonproductive. Family also reports some gurgly sound with breathing. No reported fever or vomiting or diarrhea. Except as documented, all other systems reviewed and negative. Physical Examination - Vital Signs Pulse: 91 Pulse Ox (%): 100 - Physical Exam General: In no apparent distress, Confused HEENT: Other (BiPAP), EOMI Neck: Supple, JVD not distended Respiratory: Diminished (Bilateral), Crackles/rales (Left lung) Cardiovascular: Normal S1 S2, Edema (Lower extremities), Irregular heart rate/rhythm Capillary refill: <2 Seconds Gastrointestinal: Normal bowel sounds, Soft and benign, Non-distended, No tenderness Musculoskeletal: No swelling, No tenderness Integumentary: No erythema, No cyanosis Neurological: Other (Globally weak, no focal motor deficit.) Lymphatics: No axilla or inguinal lymphadenopathy - Studies Laboratory Data (last 24 hrs) 12/20/22 14:33: Sodium 142, Potassium 3.8, BUN 29 H, Creatinine 1.04, Glucose 168 H, Magnesium 2.0, Total Bilirubin 1.1 H, AST 43 H, ALT < 10 L, Alkaline Phosphatase 132 H 12/20/22 13:52: PT 19.7 H, INR 1.72 12/20/22 13:52: WBC 19.30 H, Hgb 13.1 L, Hct 41.0, Plt Count 301 Microbiology Data (last 24 hrs): 12/20/22 13:33 Nasopharnyx Influenza Type A Antigen Screen - Final 12/20/22 13:33 Nasopharnyx Influenza Type B Antigen Screen - Final Assessment and Plan - Problems (Diagnosis) (1) Acute respiratory failure with hypoxia and hypercapnia Current Visit: Yes Status: Acute (2) Pneumonia Current Visit: Yes Status: Acute (3) Rapid atrial fibrillation Current Visit: Yes Status: Acute (4) Chronic anticoagulation Onset Date: 01/07/18 Current Visit: No Status: Chronic (5) Dementia Onset Date: 01/07/18 Current Visit: No Status: Chronic Qualifiers: Dementia type: unspecified type (6) Hypothyroidism Onset Date: 01/07/18 Current Visit: No Status: Chronic Qualifiers: Hypothyroidism type: unspecified Qualified Code(s): E03.9 - Hypothyroidism, unspecified (7) Parkinson disease Current Visit: No Status: Chronic - Plan Acute respiratory failure with hypoxia and hypercapnia/pneumonia/COVID-19 infection/sepsis Differential diagnosis for pneumonia include COVID-pneumonia versus aspiration pneumonia. Pulmonary edema not ruled out given the rapid atrial fibrillation. Admit patient to the medical floor Start IV dexamethasone IV antibiotics-Levaquin and vancomycin (patient with MRSA risk given recent hospitalization) Speech therapy consult for swallow evaluation. Trial of Lasix Vitamin supplementation Continue BiPAP and keep n.p.o. overnight. Pulmonary consult. Follow cultures Rapid atrial fibrillation Continue home dose sotalol and Eliquis. Parkinson's disease Resume home dose Sinemet, Namenda and galantamine. PT consult Hypothyroidism Resume home dose Synthroid. DVT prophylaxis: Eliquis - Advance Directives Does patient have a Living Will: Yes Does patient have a Durable POA for Healthcare: No
[2022-12-20] MEDS ORDERED: ALBUTEROL 2.5 MG/3 ML NEB SOL NEB PRN (20:57)
[2022-12-20] MEDS ORDERED: ACETAMINOPHEN 650MG/RECT SUPP PR PRN (20:57)
[2022-12-20] MEDS ORDERED: ONDANSETRON 4 MG/2 ML VIAL IV PRN (20:57)
[2022-12-20] MEDS: CARBIDOPA/LEVODOPA 25/100 TAB PO SCH (21:00)
[2022-12-20] MEDS ORDERED: VANCOMYCIN 1.25 GM in NA CHLORIDE 0.9% 250 ML IVPB SCH (21:00)
[2022-12-20] MEDS: Levofloxacin 750mg IV 750 MG/150 ML BAG IV SCH (21:00)
[2022-12-20] MEDS: MEMANTINE HCL 10 MG TABLET PO SCH (21:00)
[2022-12-20 21:28] VITALS: BMI 27.0
[2022-12-20] MEDS: IPRATROPIUM BROM 0.5MG/2.5ML NEB SCH (21:45)
[2022-12-20] MEDS ORDERED: IPRATROPIUM BROM 0.5MG/2.5ML ONE (21:55)
[2022-12-20] MEDS ORDERED: VANCOMYCIN 1.5 GM in NA CHLORIDE 0.9% 500 ML IVPB SCH (22:00)
[2022-12-20] MEDS ORDERED: WATER FOR INJ,STERILE 10 ML ONE (22:41)
[2022-12-20] MEDS ORDERED: ZIPRASIDONE MESYLA 20 MG/VIAL IM ONE ×2 (22:41→23:19)
[2022-12-20] MEDS ORDERED: SOTALOL HCL 80 MG TAB ONE (22:47)
[2022-12-20] MEDS ORDERED: APIXABAN 5 MG TABLET ONE (22:47)
[2022-12-20] MEDS: APIXABAN 5 MG TABLET PO SCH (22:50)
[2022-12-20] MEDS: SOTALOL HCL 80 MG TAB PO SCH (22:50)
[2022-12-20] MEDS ORDERED: CARBIDOPA/LEVODOPA 25/100 TAB ONE (23:10)
[2022-12-20] MEDS ORDERED: WATER FOR INJ,STERILE 10 ML IM PRN (23:19)
[2022-12-21] MEDS: IPRATROPIUM BROM 0.5MG/2.5ML NEB SCH ×7 (00:35→23:10)
[2022-12-21] MEDS ORDERED: IPRATROPIUM BROM 0.5MG/2.5ML ONE ×3 (00:47→06:59)
[2022-12-21] MEDS ORDERED: LORazepam 2 MG/ML VIAL ONE (01:44)
[2022-12-21] MEDS ORDERED: LORazepam 2 MG/ML VIAL IV ONE (01:55)
[2022-12-21 02:21] LABS: Absolute Lymphocytes (CBC) 0.5 K/uL (0.7-4.9); Hematocrit 38.6 % (39.6-49.0); Lymphocytes % 2.7 % (15.3-44.8); MCV 93.1 fL (80-100); MPV 9.6 fL (7.6-11.3); RBC Red Blood Cell Count 4.15 M/uL (4.33-5.43)
[2022-12-21 02:23] LABS: Magnesium 1.9 mg/dL (1.6-2.4); Phosphorus 2.5 mg/dL (2.5-4.9); Potassium 3.6 mEq/L (3.5-5.1)
[2022-12-21 02:51] LABS: Arterial Blood Carboxyhemoglob 0.8 % (0-1.5); Blood Gas Oxyhemoglobin 95.7 % (94-97); Blood O2 Saturation 97.8 % (92-98.5)
[2022-12-21] MEDS ORDERED: VANCOMYCIN 500 MG/VIAL ONE (03:33)
[2022-12-21] MEDS ORDERED: VANCOMYCIN 1 GM/VIAL ONE (03:33)
[2022-12-21] MEDS ORDERED: Levofloxacin500mg IV 0 MG/0 ML BAG IV ONE (03:34)
[2022-12-21] MEDS ORDERED: NA CHLORIDE 0.9% 500 ML ONE (03:34)
[2022-12-21] MEDS ORDERED: Levofloxacin 750mg IV 750 MG/150 ML BAG IV ONE (03:37)
[2022-12-21] MEDS: SOTALOL HCL 80 MG TAB PO SCH ×2 (06:00→17:14)
[2022-12-21] MEDS: Levofloxacin 750mg IV 750 MG/150 ML BAG IV SCH ×2 (06:24→07:26)
[2022-12-21] MEDS ORDERED: LEVOTHYROXINE SOD 0.05 MG TABLET PO SCH (06:30)
[2022-12-21] MEDS ORDERED: ALBUTEROL 2.5 MG/3 ML NEB SOL ONE (06:59)
[2022-12-21] MEDS: GALANTAMINE HBR 24 MG PO SCH ×3 (08:00→16:53)
[2022-12-21] MEDS ORDERED: Levofloxacin 750mg IV 750 MG/150 ML BAG IV SCH (08:00)
[2022-12-21] MEDS: CARBIDOPA/LEVODOPA 25/100 TAB PO SCH ×3 (09:00→20:34)
[2022-12-21] MEDS ORDERED: PANTOPRAZOLE 40MG TABLET PO SCH (09:00)
[2022-12-21] MEDS: FUROSEMIDE 40 MG/4 ML VIAL IV SCH ×2 (09:00→17:30)
[2022-12-21] MEDS: APIXABAN 5 MG TABLET PO SCH (09:00)
[2022-12-21] MEDS ORDERED: dexAMETHasone 10 MG/ML VIAL IV SCH (09:00)
[2022-12-21] MEDS: MEMANTINE HCL 10 MG TABLET PO SCH ×2 (09:00→20:34)
[2022-12-21] MEDS ORDERED: dexAMETHasone 10 MG/ML VIAL ONE (10:13)
[2022-12-21] MEDS ORDERED: FUROSEMIDE 40 MG/4 ML VIAL ONE (10:13)
--- NOTE | 2022-12-21 13:26 | EKG ---
Test Date: 2022-12-20 Test Time: 13:05:33 System Safety Manager: NATHAN MEASUREMENT RESULTS: Intervals: Rate: 120 MA: QRSD: 90 QT: 304 QTc: 429 [place]: P: MA: QRS: -27 T: 25 INTERPRETIVE STATEMENTS: Atrial fibrillation with rapid ventricular response Inferior infarct, age undetermined Anterior infarct, age undetermined Abnormal ECG Compared to ECG 11/29/2022 11:39:14 Myocardial infarct finding now present T-wave abnormality no longer present Electronically Signed On 12-21-22 13:24:46 CDT by Reinaldo Parker
[2022-12-21] MEDS: ALBUTEROL 2.5 MG/3 ML NEB SOL NEB SCH ×4 (15:40→23:10)
--- NOTE | 2022-12-21 18:14 | P.PN ---
Subjective Date of Service: 12/21/22 Chief Complaint: Shortness of breath Patient mental status is worse today and more lethargic. Patient is still needing BiPAP. No recorded fever. Physical Examination - Vital Signs Temperature: 98.4 F Blood Pressure: 124/78 Pulse: 121 Respirations: 21 Pulse Ox (%): 96 - Physical Exam General: Confused, Other (Lethargic) HEENT: Other (BiPAP) Neck: JVD not distended Respiratory: Diminished, Crackles/rales (Bilateral) Cardiovascular: Normal S1 S2, Edema (Lower extremities), Irregular heart rate/rhythm Gastrointestinal: Soft and benign, Non-distended Musculoskeletal: No tenderness Integumentary: No erythema, No cyanosis Neurological: Other (Lethargic) - Studies Microbiology Data (last 24 hrs): 12/20/22 13:33 Nasopharnyx Influenza Type A Antigen Screen - Final 12/20/22 13:33 Nasopharnyx Influenza Type B Antigen Screen - Final Assessment And Plan - Current Problems (Diagnosis) (1) Acute respiratory failure with hypoxia and hypercapnia Current Visit: Yes Status: Acute (2) Pneumonia Current Visit: Yes Status: Acute (3) Rapid atrial fibrillation Current Visit: Yes Status: Acute (4) Chronic anticoagulation Onset Date: 01/07/18 Current Visit: No Status: Chronic (5) Dementia Onset Date: 01/07/18 Current Visit: No Status: Chronic Qualifiers: Dementia type: unspecified type (6) Hypothyroidism Onset Date: 01/07/18 Current Visit: No Status: Chronic Qualifiers: Hypothyroidism type: unspecified Qualified Code(s): E03.9 - Hypothyroidism, unspecified (7) Parkinson disease Current Visit: No Status: Chronic - Plan Acute respiratory failure with hypoxia and hypercapnia/pneumonia/COVID-19 infection/sepsis Differential diagnosis for pneumonia include COVID-pneumonia versus aspiration pneumonia. Pulmonary edema not ruled out given the rapid atrial fibrillation. Continue IV dexamethasone IV antibiotics-Levaquin and vancomycin (patient with MRSA risk given recent hospitalization) Speech therapy consult for swallow evaluation. Status post IV Lasix. Repeat chest x-ray Vitamin supplementation Continue BiPAP. Patient not able to tolerate his oral medications. High risk for aspiration Pulmonary consulted. Blood cultures: No growth. Rapid atrial fibrillation Patient noted tolerating p.o. We will change Eliquis to full dose Lovenox IV metoprolol every 6 hours. Parkinson's disease Patient not tolerating p.o. medications PT as tolerated. Hypothyroidism IV Synthroid as patient is not tolerating p.o. DVT prophylaxis: Lovenox
[2022-12-21] MEDS ORDERED: METOPROLOL TARTRATE 5 MG/5 ML INJ IV PRN (18:18)
--- NOTE | 2022-12-21 20:09 | RAD REPORT ---
EXAM DESCRIPTION: Jessi Single View12/21/2022 7:57 pm CLINICAL HISTORY: Chest pain COMPARISON: December 20, 2022 FINDINGS: Development of complete left atelectasis Small pleural effusions Heart is normal size IMPRESSION: Complete left atelectasis has developed
[2022-12-21] MEDS ORDERED: VANCOMYCIN 1.5 GM in NA CHLORIDE 0.9% 500 ML IVPB SCH (21:00)
[2022-12-22] MEDS: IPRATROPIUM BROM 0.5MG/2.5ML NEB SCH (03:30)
[2022-12-22] MEDS: ALBUTEROL 2.5 MG/3 ML NEB SOL NEB SCH ×2 (03:30→05:00)
[2022-12-22 04:32] VITALS: BP 82/59; TEMP 98.8
[2022-12-22] MEDS ORDERED: NA CHLORIDE 0.9% 500 ML IV ONE (04:41)
[2022-12-22] MEDS: SOTALOL HCL 80 MG TAB PO SCH (05:34)
[2022-12-22 05:51] VITALS: O2SAT 96
[2022-12-22] MEDS ORDERED: LEVOTHYROXINE SODIUM 100 MCG VIAL IV SCH (06:00)
--- NOTE | 2022-12-22 15:53 | P.DS ---
Admission Date: 12/20/22 Discharge Date: 12/22/22 Disposition: Discharge Condition: Reason for Admission: Shortness of breath - Problems (1) Acute respiratory failure with hypoxia and hypercapnia Status: Acute (2) Pneumonia Status: Acute (3) Rapid atrial fibrillation Status: Acute (4) Chronic anticoagulation Onset Date: 01/07/18 Status: Chronic (5) Dementia Onset Date: 01/07/18 Status: Chronic Qualifiers: Dementia type: unspecified type (6) Hypothyroidism Onset Date: 01/07/18 Status: Chronic Qualifiers: Hypothyroidism type: unspecified Qualified Code(s): E03.9 - Hypothyroidism, unspecified (7) Parkinson disease Status: Chronic Brief History of Present Illness: 77-year-old gentleman with a history of Parkinson's disease and chronic atrial fibrillation, recently discharged from rehab was brought to the emergency department due to shortness of breath. Family reported patient tested positive for COVID-19 at home. Both patient and his became sick. Patient developed shortness of breath and developed upper respiratory symptoms with cold symptoms. Family reported patient was much more short of breath this morning and was experiencing respiratory distress prompting the ED visit. He was initially placed on 6 L of oxygen by nasal cannula on arrival to the ED and then transition to BiPAP. Arterial blood gas showed respiratory acidosis and mild CO2 retention. CBC shows leukocytosis. CTA thorax demonstrated bilateral pleural effusion and left lung diffuse infiltrate. Patient was hospitalized for further management. Hospital Course: The following medical problems were addressed during the hospital stay: Acute respiratory failure with hypoxia and hypercapnia/pneumonia/COVID-19 infection/sepsis Differential diagnosis for pneumonia include COVID-pneumonia versus aspiration pneumonia. Pulmonary edema not ruled out given the rapid atrial fibrillation. Patient treated with IV dexamethasone and aggressive antibiotics He remained unresponsive. Patient initially on BiPAP and later switched to high flow oxygen due to unresponsiveness. He apparently developed complete left-sided atelectasis. Patient is DNR/DNI. Patient was made n.p.o. High risk for aspiration He developed agonal breathing overnight, lost his pulse and . Rapid atrial fibrillation Parkinson's disease Hypothyroidism Vital Signs/Physical Exam: Temp Pulse Resp BP Pulse Ox 98.8 F 120 H 18 82/59 L 94 12/22/22 04:00 12/22/22 04:00 12/22/22 04:00 12/22/22 04:00 12/22/22 04:00 Laboratory Data at Discharge: WBC Cancelled 12/22/22 05:00 Hgb Cancelled 12/22/22 05:00 Hct Cancelled 12/22/22 05:00 Plt Count Cancelled 12/22/22 05:00 PT 19.7 SECONDS (9.2-12.8) H 12/20/22 13:52 INR 1.72 12/20/22 13:52 Sodium Cancelled 12/22/22 05:00 Potassium Cancelled 12/22/22 05:00 BUN Cancelled 12/22/22 05:00 Creatinine Cancelled 12/22/22 05:00 Glucose Cancelled 12/22/22 05:00 Phosphorus 2.5 mg/dL (2.5-4.9) 12/21/22 01:41 Magnesium 1.9 mg/dL (1.6-2.4) 12/21/22 01:41 Total Bilirubin Cancelled 12/22/22 05:00 AST Cancelled 12/22/22 05:00 ALT Cancelled 12/22/22 05:00 Alkaline Phosphatase Cancelled 12/22/22 05:00 Home Medications: Galantamine HBr [Galantamine ER] 4 mg PO BIDWM 10/28/22 Levothyroxine [Synthroid*] 50 mcg PO DAILY 10/28/22 Memantine HCl [Namenda] 5 mg PO BID 10/28/22 Pantoprazole [Protonix Tab*] 40 mg PO DAILY 10/28/22 Ensure Enlive 237 ml PO BID can 11/09/22 Lidocaine 4% Patch [Lidoderm 5% Patch*] 1 patch TOP DAILY pat 11/09/22 Apixaban [Eliquis] 5 mg PO BID 11/29/22 Gabapentin 300 mg PO BID 11/29/22 Docusate [Colace Cap*] 100 mg PO BID cap 12/04/22 Sotalol HCl [Betapace*] 80 mg PO BID 6AM 6PM tab 12/04/22 Carbidopa/Levodopa [Carbidopa-Levo 25-100 mg Odt] 1 tab PO TID 12/21/22 Mirtazapine [Remeron*] 15 mg PO BEDTIME 12/21/22 Followup: William Gregory DO [Primary Care Provider] -
== END 2022-12-22 10:00 | disposition expired | DRG 871 ==
LOC: ER 12:40 → ERHOLD 17:28 → 4TH 12-21 00:34 → ERHOLD 12-21 00:58 → 4TH 12-21 00:58
PROVIDERS: ADMIT Internal Medicine; ATTEND Internal Medicine
PROC: 5A09357 Assistance with Respiratory Ventilation, Less than 24 Consecutive Hours, Continuous Positive Airway Pressure (ICD-10-PCS; principal; 2022-12-20)
DX: A41.89 Other specified sepsis (principal); J12.82 Pneumonia due to coronavirus disease 2019; U07.1 COVID-19; J96.01 Acute respiratory failure with hypoxia; J96.02 Acute respiratory failure with hypercapnia; I48.20 Chronic atrial fibrillation, unspecified; E87.29 Other acidosis; G20 Parkinson's disease; E03.9 Hypothyroidism, unspecified; N40.0 Benign prostatic hyperplasia without lower urinary tract symptoms; I10 Essential (primary) hypertension; F03.90 Unspecified dementia, unspecified severity, without behavioral disturbance, psychotic disturbance, mood disturbance, and anxiety; I25.10 Atherosclerotic heart disease of native coronary artery without angina pectoris; Z66 Do not resuscitate; Z88.0 Allergy status to penicillin; Z88.1 Allergy status to other antibiotic agents; Z88.8 Allergy status to other drugs, medicaments and biological substances; Z79.82 Long term (current) use of aspirin; Z79.01 Long term (current) use of anticoagulants; Z79.899 Other long term (current) drug therapy; Z79.890 Hormone replacement therapy
CPT/HCPCS: 36415; 71045; 71250; 80048; 80076; 82805; 83735; 83880; 84100; 84484; 85025; 85610; 86140; 87040; 87804; 92610; 93005; 94640; 94660; 94760; 96361; 96365; 99285; J0692; J1100; J1940; J3486; J7030; J7040; J7613; J7644